=== PATIENT | male | born 1955 | race Caucasian/White ===

== ENCOUNTER 2018-08-24 15:57 | Emergency (ER) | payer OTHER, SELFPAY ==
[2018-08-24 16:14] VITALS: BP 140/91; PULSE 66; RESP 18; TEMP 36.2; O2SAT 98
--- NOTE | 2018-08-24 16:31 | DI.RAD_ITS ---
SYMPTOM/DIAGNOSIS: FALL LEFT FEMUR: Four views. No acute fracture or dislocation is seen. Vascular calcifications are seen in the soft tissues. Degenerative changes are seen in the hips and knees. IMPRESSION: No acute fracture or dislocation.
--- NOTE | 2018-08-24 17:08 | DI.VRAD_ITS ---
EXAM: XR Left Femur, 2 Views EXAM DATE/TIME: 08/24/2018 4:33 PM CLINICAL HISTORY: 63 years old, male; Pain; Thigh; Left; Patient HX: Left femur pain, fell on ice today, no surgery. TECHNIQUE: XR Left femur, 2 views COMPARISON: No relevant prior studies available. FINDINGS: Limitations: Crosstable lateral view is of the upper femur, but the femoral head and hip joint are obscured by overlapping soft tissue Bones/joints: Negative for fracture or dislocation. Degenerative joint space narrowing and spurring at the knee joint. Soft tissues: No radiopaque foreign body. No mass. Arterial wall calcifications. IMPRESSION: Negative left femur x-rays. Dictated and Authenticated by: Priscilla Langston MD. Ordering:CASEY Meek MD
--- NOTE | 2018-08-24 17:47 | ED.GENADUL_ITS ---
Discharge Plan Disposition Patient Disposition: HOME Condition: Stable Discharge Details Chief Complaint: Orthopedic Clinical Impression: Quadriceps tendon rupture Primary Care Provider: Carl Maza ED Provider: Fantasma Richey Home Meds and New Rx's Prescriptions: Continued ibuprofen 200 MG tablet 600 mg PO PRN RF: 0 aspirin [Aspirin Low-Strength] 81 MG tablet,chewable 81 mg PO DAILY RF: 0 sertraline 50 MG tablet 50 mg PO BID Qty: 180 RF: 4 hydrochlorothiazide 25 mg tablet 25 mg PO DAILY Qty: 90 RF: 4 levothyroxine 50 mcg tablet 50 mcg PO DAILY Qty: 90 RF: 3 losartan 25 mg tablet 25 mg PO DAILY Qty: 90 RF: 3 meloxicam [Mobic] 15 mg tablet 15 mg PO DAILY Qty: 60 RF: 6 nitroglycerin [Nitrostat] 0.4 mg tablet, sublingual 0.4 mg Sublingual PRN PRN (Reason: Chest Pain) Qty: 25 RF: 0 ranitidine HCl 150 mg tablet 150 mg PO BID Qty: 180 RF: 3 tadalafil [Cialis] 10 mg tablet 10 mg PO PRN PRNRF: 0 Discharge Instructions Instructions: Tendon Rupture (ED) Additional Instructions: Please wear your knee immobilizer and use crutches as needed for stability. You should call the orthopedic office first thing Monday for arrangement of follow-up appointment. You may continue to take [id number] acetaminophen or your normal pain medications as needed for discomfort. Feel free to return for any new or significant worsening symptoms. Referrals: Khoa Jordan MD [ [facility] STAFF PHYSICIAN] - Flaco Pyle MD [ [facility] STAFF PHYSICIAN] - (Call the office on Monday for arrangement of follow-up appointment.) Discharge Data Discharge Date/Time-TO BE ENTERED AT DEPARTURE: 08/24/18 17:58 Medical Decision Making Patient presenting to the emergency department for chief complaint of left upper leg pain. Patient states yesterday while walking he was on a slanted incline and felt a severe sudden pain in his mid thigh then caused him to fall. Patient denies any syncope, head neck or back pain. Patient states that with any movement or bending of his leg he has severe pain and discomfort in his mid thigh. Physical exam shows lateral swelling and extreme tenderness to any palpation of the quadricep. Patient's position of comfort is with leg fully extended but patient is unable to raise leg off the bed. Plan to perform radiological imaging to rule out acute fracture but I am suspicious of quadricep tear either vastus lateralis or quadricep tendon. Patient states that rest very minimal pain so denies any need for pain medication Radiological imaging shows no acute findings. I did speak with Dr. Jordan in regards to quadricep tear and per phone consult he stated patient should be placed in a leg immobilizer and placed on crutches with early follow-up next week for consideration of surgery. Patient placed on follow-up list and informed to call orthopedic office on Monday morning. Patient denied need for any further pain medication except for [id number] pain meds and stated clear understanding to keep immobilizer on until following up with orthopedist. After discussion of diagnosis and plan of care patient has no further needs, questions, or concerns and states clear understanding to return to the emergency department for any worsening symptoms. HPI General Mode of arrival: wheelchair . Date/Time Provider Initiated Documentation: 08/24/18 16:18 . Limitations to Documentation: no limitations . Information obtained by: patient . History of Present Illness 63 year old M presents to the emergency department with the chief complaint of left leg injury, described as mild, with intensity rated at 2. Quality is described as sharp, and is localized to the left and lower extremity. Patient reports no radiation. Patient started experiencing this day(s) (1) and it has been constant. Rest improves symptom(s), Movement worsens symptoms . Patient notes no other symptoms.. Patient did receive the following treatments prior to arrival, none Related Data Home Medications Medication Instructions Recorded Confirmed aspirin [Aspirin Low-Strength] 81 mg PO DAILY tab-cap 04/08/13 08/24/18 ibuprofen 600 mg PO PRN 04/08/13 08/24/18 sertraline 50 mg PO BID #180 tab-cap 11/10/17 06/19/18 hydrochlorothiazide 25 mg tablet 25 mg PO DAILY #90 tab 08/24/18 08/24/18 levothyroxine 50 mcg tablet 50 mcg PO DAILY #90 tab-cap 08/24/18 08/24/18 losartan 25 mg tablet 25 mg PO DAILY #90 tab-cap 08/24/18 08/24/18 meloxicam 15 mg tablet 15 mg PO DAILY #60 tab-cap 08/24/18 08/24/18 nitroglycerin 0.4 mg sublingual 0.4 mg SUBLINGUAL PRN PRN #25 tab 08/24/18 08/24/18 tablet ranitidine 150 mg tablet 150 mg PO BID #180 tab-cap 08/24/18 08/24/18 tadalafil [Cialis] 10 mg PO PRN PRN 08/24/18 08/24/18 Previous Rx's Medication Instructions Recorded sertraline 50 mg PO BID #180 tab-cap 11/10/17 hydrochlorothiazide 25 mg tablet 25 mg PO DAILY #90 tab 08/24/18 levothyroxine 50 mcg tablet 50 mcg PO DAILY #90 tab-cap 08/24/18 losartan 25 mg tablet 25 mg PO DAILY #90 tab-cap 08/24/18 meloxicam 15 mg tablet 15 mg PO DAILY #60 tab-cap 08/24/18 nitroglycerin 0.4 mg sublingual 0.4 mg SUBLINGUAL PRN PRN #25 tab 08/24/18 tablet ranitidine 150 mg tablet 150 mg PO BID #180 tab-cap 08/24/18 Allergies Allergy/AdvReac Type Severity Reaction Status Date / Time venom-honey bee Allergy Intermediate BEE STINGS Verified 08/24/18 16:18 CAUSE SWELLING General Stated Complaint: Orthopedic HUSSEIN: 4 Review of Systems Constitutional Denies frequent falls Cardiovascular Denies syncope Musculoskeletal Reports as per HPI, Denies numbness and Denies tingling Neurologic Denies syncope, Denies frequent falls, Denies numbness and Denies tingling PFSH Surgical History Rotator Cuff Repair Family History Mother Neoplasm Father Heart disease Hyperlipidemia Neoplasm Sister No problems noted. 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 Smoking/Tobacco Use Status: Former Tobacco Use alcohol intake: never substance use type: does not use Exam Const General: cooperative, healthy appearing and no acute distress Orientation: alert, awake and oriented x3 Resp Effort & Inspection: normal respiratory effort and able to speak in complete sentences Cardio Rate: regular rate Rhythm: regular rhythm Extrem Left lower extremity: hip/thigh Details: tenderness Location: of the mid upper leg Location: laterally, swelling Location: of the mid upper leg (lateral) and abnormal ROM Details: held in an abnormal fashion Details: in flexion, pain with active ROM, pain with passive ROM and with range as follows (Patient has inability to flex lower leg due to severe quadricep pain with any range of motion); no ecchymosis, knee Details: no tenderness, no swelling, no ecchymosis and no crepitus, lower leg Details: normal to inspection, ankle Details: normal to inspection and foot Details: normal to inspection Course Vital Signs Temperature 36.2 C L 08/24/18 16:14 Pulse 66 08/24/18 16:14 Respiratory Rate 18 08/24/18 16:14 Blood Pressure 140/91 H 08/24/18 16:14 Pulse Oximetry 98 08/24/18 16:14 Temperature 36.2 C L 08/24/18 16:14 Temperature Source Skin 08/24/18 16:14 Pulse 66 08/24/18 16:14 Respiratory Rate 18 08/24/18 16:14 Respiratory Effort 08/24/18 16:17 Blood Pressure 140/91 H 08/24/18 16:14 Pulse Oximetry 98 08/24/18 16:14 Oxygen Delivery Method Room Air 08/24/18 16:14 Oxygen Flow Rate 0 08/24/18 16:14 Pain Level 2 08/24/18 16:14
== END 2018-08-24 17:58 | disposition home or self-care (01) ==
PROVIDERS: Emergency Provider Nurse Practitioner Family; PCP Emergency Medicine
DX: M66.88 Spontaneous rupture of other tendons, other sites (principal)
CPT/HCPCS: 73552; 99283; 99282; E0114; L1830

== ENCOUNTER 2018-09-04 16:00 | Observation (INO) | payer OTHER, SELFPAY ==
[2018-09-04 16:13] VITALS: BP 195/104; PULSE 78; RESP 28; TEMP 36.1; O2SAT 94
--- NOTE | 2018-09-04 16:34 | DI.RAD_ITS ---
SYMPTOMS/DIAGNOSIS: REINJURY TO ANTERIOR AND LATERAL THIGH LEFT FEMUR: Four views were obtained. No fracture seen. Please see accompanying CT report.
--- NOTE | 2018-09-04 16:35 | W.ED.GENAD ---
Discharge Plan Disposition Patient Disposition: [facility] Condition: Fair Discharge Details Chief Complaint: Orthopedic Clinical Impression: Thigh pain Reason For Visit: THIGH PAIN Admit Date/Time: 09/04/18 20:48 Admit Provider: George Wilson Attending Provider: George Wilson Primary Care Provider: Carl Maza ED Provider: Anisha Renteria Discharge Data Discharge Date/Time-TO BE ENTERED AT DEPARTURE: 09/04/18 21:32 Medical Decision Making Patient is a 63 year old male, accompanied by his , with c/c of left thigh pain. Patient was seen yesterday by orthopedics for reevaluation of left quadriceps injury he sustained on 08/25/18. He was initially seen in the ER and there was concern for quadriceps rupture. However, when he was reevaluated he was much improved and there was no evidence of deficit at that time. He states that he had recurrence of his pain today when he slipped and caught himself quickly. Did not fall. Pain is primarily along the anterior and lateral thigh. On exam, patient is writhing in pain. He has notable swelling to the anteriorlateral thigh. Ecchymosis from previous injury along the medial thigh. 2+ distal pulses. Exam is very limited secondary to his acute pain. He has no shortening or rotational deformity to the leg. Patient is hitting his head against the wall. I advised that his pain is likely exacerbated by all of his breathing and tachypnea and tried to calm him. Movement exacerbates his discomfort. Will treat with Toradol IM, and PO Valium. 15minutes after administration, patient is requesting further pain medication prior to going for imaging. Will give IM DIlaudid. Patient back from XR, reviewed imaging and I am unable ot see any defect. Patient continues to be panting and writhing in pain. I am still unable to exam the leg well secondary to his pain. Will start IV, given IV fentanyl and obtain laboratory evaluation. Plan to consult with orthopedics. As this happened shortly before arrival, patient has good distal pulses and swelling only notable along lateral thigh with no notable trauma, I find infectious process or compartment syndrome unlikely. Reevaluated the patients leg. Continues to have good color, 2+ distal pulses. Will not allow me to range the leg. Feels tight lateral mid thigh. Calf is soft and nontender. No change in the skin. Discussed case with Dr. Bhardwaj. Discussed pain management options, will give IV Ativan. As pain is out of proportion, will obtain CT of LLE. XR reviewed by radiologist: FINDINGS: Bones/joints: No acute fracture. No dislocation. No focal osseous lesion. Soft tissues: No soft tissue radiopaque foreign body. Possible lateral left thigh soft tissue swelling compared to 08/24/2018. Vasculature: Arterial calcification. IMPRESSION: 1. No acute fracture or dislocation. 2. Possible lateral left thigh soft tissue swelling compared to 08/24/2018. Patient returned from CT still having large amount of pain, will give IV Dilaudid. Reviewed CT myself, concerned for possible fluid collection. Spkoe with Dr. Cannon regarding patients persistent pain and my findings on the CT. I went over the concerning diagnoses including compartment syndrome, rupture, infection. He advised that his history, symptoms and findings are not consistent with this. Advised admission for pain management and evaluation by orthopedics tomorrow. FINDINGS: Bones/joints: No fracture. No dislocation. Minimal left knee joint effusion. Soft tissues: Large inhomogeneous hematoma (approximately 8.2 x 6.1 x 18.8 cm) involving the anterolateral left thigh musculature - especially in the region of the left vastus intermedius muscle. Associated area of active hemorrhage within the caudal aspect of the hematoma (axial images 165- 188, series 3 / sagittal images 60-67). Associated anterior left thigh / left knee soft tissue edema. IMPRESSION: 1. No fracture or dislocation. 2. Large inhomogeneous hematoma (approximately 8.2 x 6.1 x 18.8 cm) involving the anterolateral left thigh musculature - especially in the region of the left vastus intermedius muscle. Associated area of active hemorrhage within the caudal aspect of the hematoma (axial images 165-188, series 3 / sagittal images 60-67). 3. Associated anterior left thigh / left knee soft tissue edema. 4. Minimal left knee joint effusion. Consulted with Dr. Cannon again regarding the area of hemorrhage. He advised that this area does not need intervention. Rather, he advised compression, elevation and ice. Clarke applied, leg elevated and ice applied. Consulted with Dr. Wilson regarding admission. While patient appears improved after IV dilaudid, he is moving less and appears more comfortable, he continues to endorse severe pain. With the amount of medication it has taken to get hte patient this comfortable, I do not feel comfortable sending him home at this time. Dr. Wilson agrees to admission and will come to evaluate the patient. HPI General Mode of arrival: wheelchair. Date/Time Provider Initiated Documentation: 09/04/18 16:07. Limitations to Documentation: no limitations. Information obtained by: patient and family. History of Present Illness 63 year old M presents to the emergency department with the chief complaint of left thigh pain, described as severe, with intensity rated at 10. Quality is described as stabbing, and is localized to the left and lower extremity. Patient reports no radiation. Patient started experiencing this hour(s) (1) and it has been constant. Movement worsens symptoms . Patient notes denies chest pain, cough, diaphoresis, fever/chills, nausea/vomiting, rash and shortness of breath. Patient did receive the following treatments prior to arrival, none Related Data Home Medications Medication Instructions Recorded Confirmed aspirin [Aspirin Low-Strength] 81 mg PO DAILY tab-cap 04/08/13 09/04/18 ibuprofen 600 mg PO PRN 04/08/13 09/04/18 sertraline 50 mg PO BID #180 tab-cap 11/10/17 09/04/18 hydrochlorothiazide 25 mg tablet 25 mg PO DAILY #90 tab 08/24/18 09/04/18 levothyroxine 50 mcg tablet 50 mcg PO DAILY #90 tab-cap 08/24/18 09/04/18 losartan 25 mg tablet 25 mg PO DAILY #90 tab-cap 08/24/18 09/04/18 meloxicam 15 mg tablet 15 mg PO DAILY #60 tab-cap 08/24/18 09/04/18 nitroglycerin 0.4 mg sublingual 0.4 mg SUBLINGUAL PRN PRN #25 tab 08/24/18 09/04/18 tablet ranitidine 150 mg tablet 150 mg PO BID #180 tab-cap 08/24/18 09/04/18 tadalafil [Cialis] 10 mg PO PRN PRN 08/24/18 09/04/18 Previous Rx's Medication Instructions Recorded sertraline 50 mg PO BID #180 tab-cap 11/10/17 hydrochlorothiazide 25 mg tablet 25 mg PO DAILY #90 tab 08/24/18 levothyroxine 50 mcg tablet 50 mcg PO DAILY #90 tab-cap 08/24/18 losartan 25 mg tablet 25 mg PO DAILY #90 tab-cap 08/24/18 meloxicam 15 mg tablet 15 mg PO DAILY #60 tab-cap 08/24/18 nitroglycerin 0.4 mg sublingual 0.4 mg SUBLINGUAL PRN PRN #25 tab 08/24/18 tablet ranitidine 150 mg tablet 150 mg PO BID #180 tab-cap 08/24/18 Allergies Allergy/AdvReac Type Severity Reaction Status Date / Time venom-honey bee Allergy Intermediate BEE STINGS Verified 09/04/18 16:17 CAUSE SWELLING General Stated Complaint: Orthopedic HUSSEIN: 4 Review of Systems Constitutional Reports as per HPI, Denies chills, Denies fever(s), Denies headache(s) and Denies weakness ENT Denies headache(s) Cardiovascular Reports as per HPI Respiratory Reports as per HPI and Denies cough Musculoskeletal Reports as per HPI and Denies tingling Integumentary/Breasts Reports as per HPI and Reports other (ecchymosis medial thigh from previous injury) Neurologic Denies headache(s), Denies tingling and Denies weakness [facility] Medical History Smoker (Acute) Angina pectoris (Acute) Obstructive sleep apnea syndrome (Acute) Hypothyroidism (acquired) (Acute 03/03/17) Hypertension (Acute) Hyperlipidemia (Acute) Chest pain (Acute) Angina pectoris (Acute) Surgical History Rotator Cuff Repair Family History Mother Neoplasm Father Heart disease Hyperlipidemia Neoplasm Sister No problems noted. 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 Smoking/Tobacco Use Status: Former Tobacco Use alcohol intake: never substance use type: does not use Exam Const General: cooperative, healthy appearing, well developed, well groomed, in distress (patient is writhing in pain) moderate and anxious Nutritional Appearance: average body habitus and well nourished Orientation: alert and awake Resp Effort & Inspection: normal respiratory effort, able to speak in complete sentences and no respiratory distress Auscultation: clear to auscultation bilaterally, no rales, no rhonchi and no wheezes Cardio Rate: regular rate Rhythm: regular rhythm Heart Sounds: S1 normal and S2 normal Skin General skin exam: ecchymosis (medial thigh) Neuro General: alert and awake Cognition: normal cognition Speech: speech normal Gait: normal gait Motor: muscle tone normal throughout Sensory Exam: no sensory deficits noted Extrem Left lower extremity: normal capillary refill, no joint enlargement and hip/thigh Details: tenderness Location: of the mid upper leg Location: laterally and anteriorly, swelling Location: of the mid upper leg and ecchymosis (medial thigh, from previous injury, none over the area of discomfort ); abnormal to inspection (tight and tender over the lateral thigh. No ecchymosis), ROM abnormal (will not let me range), no abrasions, no lacerations, no deformity and no unusual warmth; abnormal to inspection (severe pain to anteriolateral thigh), abnormal ROM (will not let me range the leg) and no edema Psych Appearance: grossly normal and well kempt Mental Status: mental status grossly normal Speech and Movement: speech and movement normal Course Vital Signs Temperature 36.1 C L 09/04/18 16:13 Pulse 78 09/04/18 16:13 Respiratory Rate 28 H 09/04/18 16:13 Blood Pressure 195/104 H 09/04/18 16:13 Pulse Oximetry 94 L 09/04/18 16:13 Temperature 36.1 C L 09/04/18 16:13 Temperature Source Skin 09/04/18 16:13 Pulse 78 09/04/18 16:13 Respiratory Rate 28 H 09/04/18 16:13 Respiratory Effort Non-Labored 09/04/18 16:17 Blood Pressure 195/104 H 09/04/18 16:13 Pulse Oximetry 94 L 09/04/18 16:13 Pain Level 10 09/04/18 16:13
--- NOTE | 2018-09-04 16:43 | ED.GENADUL_ITS ---
Discharge Plan Disposition Patient Disposition: [facility] IN[facility]IENT Condition: Fair Discharge Details Chief Complaint: Orthopedic Clinical Impression: Thigh pain Reason For Visit: THIGH PAIN Admit Date/Time: 09/04/18 20:48 Admit Provider: George Wilson Attending Provider: George Wilson Primary Care Provider: Carl Maza ED Provider: Anisha Renteria Discharge Data Discharge Date/Time-TO BE ENTERED AT DEPARTURE: 09/04/18 21:32 Medical Decision Making Patient is a 63 year old male, accompanied by his , with c/c of left thigh pain. Patient was seen yesterday by orthopedics for reevaluation of left quadriceps injury he sustained on 08/25/18. He was initially seen in the ER and there was concern for quadriceps rupture. However, when he was reevaluated he was much improved and there was no evidence of deficit at that time. He states that he had recurrence of his pain today when he slipped and caught himself quickly. Did not fall. Pain is primarily along the anterior and lateral thigh. On exam, patient is writhing in pain. He has notable swelling to the anteriorlateral thigh. Ecchymosis from previous injury along the medial thigh. 2+ distal pulses. Exam is very limited secondary to his acute pain. He has no s hortening or rotational deformity to the leg. Patient is hitting his head against the wall. I advised that his pain is likely exacerbated by all of his breathing and tachypnea and tried to calm him. Movement exacerbates his discomfort. Will treat with Toradol IM, and PO Valium. 15minutes after administration, patient is requesting further pain medication prior to going for imaging. Will give IM DIlaudid. Patient back from XR, reviewed imaging and I am unable ot see any defect. Patient continues to be panting and writhing in pain. I am still unable to exam the leg well secondary to his pain. Will start IV, given IV fentanyl and obtain laboratory evaluation. Plan to consult with orthopedics. As this happened shortly before arrival, patient has good distal pulses and swelling only notable along lateral thigh with no notable trauma, I find infectious process or compartment syndrome unlikely. Reevaluated the patients leg. Continues to have good color, 2+ distal pulses. Will not allow me to range the leg. Feels tight lateral mid thigh. Calf is soft and nontender. No change in the skin. Discussed case with Dr. Bhardwaj. Discussed pain management options, will give IV Ativan. As pain is out of proportion, will obtain CT of LLE. XR reviewed by radiologist: FINDINGS: Bones/joints: No acute fracture. No dislocation. No focal osseous lesion. Soft tissues: No soft tissue radiopaque foreign body. Possible lateral left thigh soft tissue swelling compared to 08/24/2018. Vasculature: Arterial calcification. IMPRESSION: 1. No acute fracture or dislocation. 2. Possible lateral left thigh soft tissue swelling compared to 08/24/2018. Patient returned from CT still having large amount of pain, will give IV Dilaudid. Reviewed CT myself, concerned for possible fluid collection. Spkoe with Dr. Cannon regarding patients persistent pain and my findings on the CT. I went over the concerning diagnoses including compartment syndrome, rupture, infection. He advised that his history, symptoms and findings are not consistent with this. Advised admission for pain management and evaluation by orthopedics tomorrow. FINDINGS: Bones/joints: No fracture. No dislocation. Minimal left knee joint effusion. Soft tissues: Large inhomogeneous hematoma (approximately 8.2 x 6.1 x 18.8 cm) involving the anterolateral left thigh musculature - especially in the region of the left vastus intermedius muscle. Associated area of active hemorrhage within the caudal aspect of the hematoma (axial images 165- 188, series 3 / sagittal images 60-67). Associated anterior left thigh / left knee soft tissue edema. IMPRESSION: 1. No fracture or dislocation. 2. Large inhomogeneous hematoma (approximately 8.2 x 6.1 x 18.8 cm) involving the anterolateral left thigh musculature - especially in the region of the left vastus intermedius muscle. Associated area of active hemorrhage within the caudal aspect of the hematoma (axial images 165- 188, series 3 / sagittal images 60-67). 3. Associated anterior left thigh / left knee soft tissue edema. 4. Minimal left knee joint effusion. Consulted with Dr. Cannon again regarding the area of hemorrhage. He advised that this area does not need intervention. Rather, he advised compression, elevation and ice. Clarke applied, leg elevated and ice applied. Consulted with Dr. Wilson regarding admission. While patient appears improved after IV dilaudid, he is moving less and appears more comfortable, he continues to endorse severe pain. With the amount of medication it has taken to get hte patient this comfortable, I do not feel comfortable sending him home at this time. Dr. Wilson agrees to admission and will come to evaluate the patient. HPI General Mode of arrival: wheelchair . Date/Time Provider Initiated Documentation: 09/04/18 16:07 . Limitations to Documentation: no limitations . Information obtained by: patient and family . History of Present Illness 63 year old M presents to the emergency department with the chief complaint of left thigh pain, described as severe, with intensity rated at 10. Quality is described as stabbing, and is localized to the left and lower extremity. Patient reports no radiation. Patient started experiencing this hour(s) (1) and it has been constant. Movement worsens symptoms . Patient notes denies chest pain, cough, diaphoresis, fever/chills, nausea/vomiting, rash and shortness of breath. Patient did receive the following treatments prior to arrival, none Related Data Home Medications Medication Instructions Recorded Confirmed aspirin [Aspirin Low-Strength] 81 mg PO DAILY tab-cap 04/08/13 09/04/18 ibuprofen 600 mg PO PRN 04/08/13 09/04/18 sertraline 50 mg PO BID #180 tab-cap 11/10/17 09/04/18 hydrochlorothiazide 25 mg tablet 25 mg PO DAILY #90 tab 08/24/18 09/04/18 levothyroxine 50 mcg tablet 50 mcg PO DAILY #90 tab-cap 08/24/18 09/04/18 losartan 25 mg tablet 25 mg PO DAILY #90 tab-cap 08/24/18 09/04/18 meloxicam 15 mg tablet 15 mg PO DAILY #60 tab-cap 08/24/18 09/04/18 nitroglycerin 0.4 mg sublingual 0.4 mg SUBLINGUAL PRN PRN #25 tab 08/24/18 09/04/18 tablet ranitidine 150 mg tablet 150 mg PO BID #180 tab-cap 08/24/18 09/04/18 tadalafil [Cialis] 10 mg PO PRN PRN 08/24/18 09/04/18 Previous Rx's Medication Instructions Recorded sertraline 50 mg PO BID #180 tab-cap 11/10/17 hydrochlorothiazide 25 mg tablet 25 mg PO DAILY #90 tab 08/24/18 levothyroxine 50 mcg tablet 50 mcg PO DAILY #90 tab-cap 08/24/18 losartan 25 mg tablet 25 mg PO DAILY #90 tab-cap 08/24/18 meloxicam 15 mg tablet 15 mg PO DAILY #60 tab-cap 08/24/18 nitroglycerin 0.4 mg sublingual 0.4 mg SUBLINGUAL PRN PRN #25 tab 08/24/18 tablet ranitidine 150 mg tablet 150 mg PO BID #180 tab-cap 08/24/18 Allergies Allergy/AdvReac Type Severity Reaction Status Date / Time venom-honey bee Allergy Intermediate BEE STINGS Verified 09/04/18 16:17 CAUSE SWELLING General Stated Complaint: Orthopedic HUSSEIN: 4 Review of Systems Constitutional Reports as per HPI, Denies chills, Denies fever(s), Denies headache(s) and Denies weakness ENT Denies headache(s) Cardiovascular Reports as per HPI Respiratory Reports as per HPI and Denies cough Musculoskeletal Reports as per HPI and Denies tingling Integumentary/Breasts Reports as per HPI and Reports other (ecchymosis medial thigh from previous injury) Neurologic Denies headache(s), Denies tingling and Denies weakness [facility] Medical History Smoker (Acute) Angina pectoris (Acute) Obstructive sleep apnea syndrome (Acute) Hypothyroidism (acquired) (Acute 03/03/17) Hypertension (Acute) Hyperlipidemia (Acute) Chest pain (Acute) Angina pectoris (Acute) Surgical History Rotator Cuff Repair Family History Mother Neoplasm Father Heart disease Hyperlipidemia Neoplasm Sister No problems noted. 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 Smoking/Tobacco Use Status: Former Tobacco Use alcohol intake: never substance use type: does not use Exam Const General: cooperative, healthy appearing, well developed, well groomed, in distress (patient is writhing in pain) moderate and anxious Nutritional Appearance: average body habitus and well nourished Orientation: alert and awake Resp Effort & Inspection: normal respiratory effort, able to speak in complete sentences and no respiratory distress Auscultation: clear to auscultation bilaterally, no rales, no rhonchi and no wheezes Cardio Rate: regular rate Rhythm: regular rhythm Heart Sounds: S1 normal and S2 normal Skin General skin exam: ecchymosis (medial thigh) Neuro General: alert and awake Cognition: normal cognition Speech: speech normal Gait: normal gait Motor: muscle tone normal throughout Sensory Exam: no sensory deficits noted Extrem Left lower extremity: normal capillary refill, no joint enlargement and hip/ thigh Details: tenderness Location: of the mid upper leg Location: laterally and anteriorly, swelling Location: of the mid upper leg and ecchymosis (medial thigh, from previous injury, none over the area of discomfort ); abnormal to inspection (tight and tender over the lateral thigh. No ecchymosis), ROM abnormal (will not let me range), no abrasions, no lacerations, no deformity and no unusual warmth; abnormal to inspection (severe pain to anteriolateral thigh), abnormal ROM (will not let me range the leg) and no edema Psych Appearance: grossly normal and well kempt Mental Status: mental status grossly normal Speech and Movement: speech and movement normal Course Vital Signs Temperature 36.1 C L 09/04/18 16:13 Pulse 78 09/04/18 16:13 Respiratory Rate 28 H 09/04/18 16:13 Blood Pressure 195/104 H 09/04/18 16:13 Pulse Oximetry 94 L 09/04/18 16:13 Temperature 36.1 C L 09/04/18 16:13 Temperature Source Skin 09/04/18 16:13 Pulse 78 09/04/18 16:13 Respiratory Rate 28 H 09/04/18 16:13 Respiratory Effort Non-Labored 09/04/18 16:17 Blood Pressure 195/104 H 09/04/18 16:13 Pulse Oximetry 94 L 09/04/18 16:13 Pain Level 10 09/04/18 16:13
[2018-09-04] MEDS: Diazepam 5 MG TAB PO (16:45)
[2018-09-04] MEDS: Ketorolac 30 MG/ML VIAL IM (16:45)
[2018-09-04] MEDS: HYDROmorphone 2 MG/ML VIAL 1 MG IM (17:05)
--- NOTE | 2018-09-04 18:02 | DI.CT_ITS ---
SYMPTOMS/DIAGNOSIS: LATERAL THIGH PAIN, PAIN OUT OF PROPORTION LEFT LOWER EXTREMITY CT: CT examination of the left lower extremity was performed from the level of the mid pelvis to the upper leg. No pelvic mass, adenopathy or hematoma. No fracture of the visualized portions of the pelvic bones, left femur, patella, or visualized portions of the tibia or fibula. There is an apparent hematoma involving left anterolateral thigh musculature, particularly left vastus intermedius muscle. There appears to be active hemorrhage in the caudal aspect of the hematoma, which measures about 19 x 8 x 6 cm in diameter. CONCLUSION: Apparent large left thigh hematoma, particularly involving left vastus intermedius with active hemorrhage noted. The findings are reportedly posttraumatic, although underlying neoplasm or AVM is not excluded on the basis of this examination.
[2018-09-04] MEDS: fentaNYL 100 MCG/2 ML VIAL IVP (18:12)
[2018-09-04] MEDS: Normal Saline 1,000 ML 1000 ML IV (18:12)
[2018-09-04 18:24] LABS: Abs Immature Grans 0.37 k/cumm (0.0-0.09); HCT 37.2 % (40.0-50.0); HGB 13.4 g/dL (13.5-17.5); Mean Corpuscular Hemoglobin 31.5 pg (27.0-33.0); Mean Corpuscular Volume 87.5 fL (80-95); Platelet Count 255 x1000/uL (130-400); RBC 4.25 m/cumm (4.50-6.00); RBC Distribution Width 13.2 % (11.8-14.1); White Blood Cell Count 13.12 k/cumm (4.4-10.8)
[2018-09-04] MEDS: LORazepam 2 MG/ML VIAL 1 MG IVP (18:30)
--- NOTE | 2018-09-04 18:33 | DI.VRAD_ITS ---
EXAM: XR Left Femur, 2 Views EXAM DATE/TIME: 09/04/2018 4:35 PM CLINICAL HISTORY: 63 years old, male; Left thigh pain: Fall one week ago and again today; PT unable to remain still or move leg TECHNIQUE: XR Left femur, 2 views COMPARISON: CR XR FEMUR LT 08/24/2018 4:38 PM FINDINGS: Bones/joints: No acute fracture. No dislocation. No focal osseous lesion. Soft tissues: No soft tissue radiopaque foreign body. Possible lateral left thigh soft tissue swelling compared to 08/24/2018. Vasculature: Arterial calcification. IMPRESSION: 1. No acute fracture or dislocation. 2. Possible lateral left thigh soft tissue swelling compared to 08/24/2018. Dictated and Authenticated by: David Bautista MD. Ordering:MARSHALL Lancaster MD
--- NOTE | 2018-09-04 18:41 | NUR.NOTE ---
pt has been writhing in pain since arrival. pain medication has not helped.Nursing Note:
[2018-09-04] MEDS: Omnipaque 350 MG/ML 100 ML BTL IJ (18:46)
[2018-09-04 18:48] LABS: Absolute Lymphocyte Count 1.57 k/cumm (1.2-3.4); Absolute Monocyte Count 0.66 k/cumm (0.11-0.7)
[2018-09-04 18:49] LABS: Absolute Eosinophil Count 0.13 k/cumm (0.0-0.7); Diff Comment Manual Differential; ESR 18 MM/HR (1-20); RBC Morphology Normal
[2018-09-04 19:03] VITALS: BP 175/75; PULSE 72; RESP 20; O2SAT 94
--- NOTE | 2018-09-04 19:18 | DI.VRAD_ITS ---
EXAM: CT Left Lower Extremity With IV Contrast, Femur EXAM DATE/TIME: 09/04/2018 6:03 PM CLINICAL HISTORY: 63 years old, male; Difficulty walking; Very painful left femur Patient fell 1 week ago and again today TECHNIQUE: CT of the Left lower extremity with intravenous contrast was performed. Exam focused on the femur. All CT scans at this facility use at least one of these dose optimization techniques: automated exposure control; mA and/or kV adjustment per patient size (includes targeted exams where dose is matched to clinical indication); or iterative reconstruction. Coronal and sagittal reformatted images were created and reviewed. CONTRAST: 100 ml of [id number] administered intravenously. COMPARISON: CR XR FEMUR LT 09/04/2018 5:33 PM FINDINGS: Bones/joints: No fracture. No dislocation. Minimal left knee joint effusion. Soft tissues: Large inhomogeneous hematoma (approximately 8.2 x 6.1 x 18.8 cm) involving the anterolateral left thigh musculature - especially in the region of the left vastus intermedius muscle. Associated area of active hemorrhage within the caudal aspect of the hematoma (axial images 165-188, series 3 / sagittal images 60-67). Associated anterior left thigh / left knee soft tissue edema. IMPRESSION: 1. No fracture or dislocation. 2. Large inhomogeneous hematoma (approximately 8.2 x 6.1 x 18.8 cm) involving the anterolateral left thigh musculature - especially in the region of the left vastus intermedius muscle. Associated area of active hemorrhage within the caudal aspect of the hematoma (axial images 165-188, series 3 / sagittal images 60-67). 3. Associated anterior left thigh / left knee soft tissue edema. 4. Minimal left knee joint effusion. 5. THIS REPORT CONTAINS FINDINGS THAT MAY BE CRITICAL TO PATIENT CARE. The findings were verbally communicated via telephone conference with TOMMY GOMEZ at 7:14 PM EST on 09/04/2018. The findings were acknowledged and understood. Dictated and Authenticated by: David Bautista MD. Ordering:MARSHALL Lancaster MD
[2018-09-04] MEDS: HYDROmorphone 2 MG/ML VIAL IVP ×2 (19:25→22:29)
[2018-09-04 19:42] LABS: ALT 42 U/L (12-78); AST 34 U/L (15-37); Albumin 3.6 g/dL (3.4-5.0); Alkaline Phosphatase 55 U/L (46-116); Anion Gap 10.9 mmol/L (3-11); BUN 16 mg/dL (7-18); Bilirubin, Total 0.3 mg/dL (0.2-1.0); CO2 23.1 mmol/L (21.0-32.0); CREATININE 0.79 mg/dL (0.70-1.30); Calcium 9.2 mg/dL (8.5-10.1); Chloride 106 mmol/L (98-107); Creatine Kinase 167 U/L (39-308); Glucose 127 mg/dL (70-100); Potassium 4.3 mmol/L (3.5-5.1); Sodium 140 mmol/L (136-145); Total Protein 7.2 g/dL (6.4-8.2)
[2018-09-04 19:43] LABS: C-Reactive Protein 0.25 mg/dL (0.0-0.3)
[2018-09-04 20:25] VITALS: BP 186/92; PULSE 65; RESP 20; TEMP 36.5; O2SAT 97
--- NOTE | 2018-09-04 20:37 | HPE_ITS ---
Date of service: 09/04/18 Time of Service: 20:35 Assessment and Plan (1) Thigh pain: Current visit: Yes Status: Acute Thigh pain secondary to quadriceps strain and hematoma. No signs or symptoms of compartment syndrome. Patient's pain seems to be coming under control. We will continue prn analgesics along with rest, elevation, ice and compression dressing. Will get PT involved in the morning to see if we can mobilize him for ambulation and hopefully transition over to oral pain medication. History of Present Illness Chief Complaint: Thigh pain Narrative: Patient is a 63-year-old male. He slipped on the ice today, did not fall, but left lower extremity shot out forward and he noticed immediate pain in the thigh. In the emergency room evaluation of note for CT showing large anterior hematoma. He was given Toradol 30 mg, Dilaudid 1 mg, fentanyl 100 mcg and then Dilaudid 2 mg IV and at length had at least some control of his pain. it was not felt that he would be able to manage on oral medication and he was admitted for further evaluation and management. Patient denies pain or paresthesias in the distal extremity. Note the case was reviewed with orthopedics who recommended no further intervention beyond standard conservative measures. Allergies to be venom Medications: Aspirin 81 daily HCTZ 25 daily Synthroid 50 mics daily Cozaar 25 daily meloxicam 15 daily Zantac 150 twice daily Zoloft 50 twice daily Cialis 10 prn Physical exam: Blood pressure 175/75 pulse 72 respirations 20, temp 36.1. HEENT is unremarkable. Neck supple. Lungs clear. Heart regular rate and rhythm wit hout murmurs rubs or gallops. Abdomen soft nontender. and rectal exams deferred the left thigh has been wrapped in a compression dressing, this is not taken down (details of thigh exam per emergency room note). Distally in the left lower extremity the pedal pulses are full, color is good, sensation is intact and motor is 5/5 Laboratory: White count is 13.1 hematocrit 37 platelet 200 for sodium 140 potassium 4.3 chloride 106 bicarb 23 BUN 16 creatinine 0.7 glucose 120 AST 34 ALT [address] of the left thigh shows extensive hematoma anterior compartment (see CT report for full details). Review of Systems Review of Systems All systems reviewed & are unremarkable except as noted in HPI and below PFSH Medical History Smoker (Acute) Angina pectoris (Acute) Obstructive sleep apnea syndrome (Acute) Hypothyroidism (acquired) (Acute 03/03/17) Hypertension (Acute) Hyperlipidemia (Acute) Chest pain (Acute) Angina pectoris (Acute) Surgical History Rotator Cuff Repair Family History Mother Neoplasm Father Heart disease Hyperlipidemia Neoplasm Sister No problems noted. Brother Essential hypertension Hyperlipidemia Social History household members: other details: 8 current occupational status: employed current occupation: [employer] service Smoking/Tobacco Use Status: Former Tobacco Use alcohol intake: never substance use type: does not use Meds Home Medications Medication Instructions Recorded Confirmed Type aspirin [Aspirin Low-Strength] 81 mg PO DAILY tab-cap 04/08/13 09/04/18 History ibuprofen 600 mg PO PRN 04/08/13 09/04/18 History sertraline 50 mg PO BID #180 tab-cap 11/10/17 09/04/18 Rx hydrochlorothiazide 25 mg tablet 25 mg PO DAILY #90 tab 08/24/18 09/04/18 Rx levothyroxine 50 mcg tablet 50 mcg PO DAILY #90 tab-cap 08/24/18 09/04/18 Rx losartan 25 mg tablet 25 mg PO DAILY #90 tab-cap 08/24/18 09/04/18 Rx meloxicam 15 mg tablet 15 mg PO DAILY #60 tab-cap 08/24/18 09/04/18 Rx nitroglycerin 0.4 mg sublingual 0.4 mg SUBLINGUAL PRN PRN #25 tab 08/24/18 09/04/18 Rx tablet ranitidine 150 mg tablet 150 mg PO BID #180 tab-cap 08/24/18 09/04/18 Rx tadalafil [Cialis] 10 mg PO PRN PRN 08/24/18 09/04/18 History Allergies Allergy/AdvReac Type Severity Reaction Status Date / Time venom-honey bee Allergy Intermediate BEE STINGS Verified 09/04/18 16:17 CAUSE SWELLING Exam Narrative Exam Narrative: per HPI Results Labs : 09/04/18 17:55 12/25/18 17:55 Laboratory Results - last 24 hr 09/04/18 09/04/18 17:55 17:55 WBC 13.12 H RBC 4.25 L Hgb 13.4 L Hct 37.2 L MCV 87.5 MCH 31.5 MCHC 36.0 RDW 13.2 Plt Count 255 MPV 10.0 Immature Gran % See Differential Neutrophils % 80.0 Lymphocytes % 12.0 Monocytes % 5.0 Eosinophils % 1.0 Basophils % 0.0 Absolute Neutrophils 10.50 H Absolute Lymphocytes 1.57 Absolute Monocytes 0.66 Absolute Eosinophils 0.13 Absolute Basophils 0.00 Metamyelocytes 2.0 Differential Comment Manual differential RBC Morphology Normal ESR 18 Sodium 140 Potassium 4.3 Chloride 106 Carbon Dioxide 23.1 Anion Gap 10.9 BUN 16 Creatinine 0.79 Estimated GFR/1.73 m2 >= 60.00 Glucose 127 H Calcium 9.2 Total Bilirubin 0.3 AST 34 ALT 42 Alkaline Phosphatase 55 Creatine Kinase 167 C-Reactive Protein 0.25 Total Protein 7.2 Albumin 3.6 Last Vital Signs Temp 36.1 C L 09/04/18 16:13 Pulse 72 09/04/18 19:03 Resp 20 09/04/18 19:03 BP 175/75 H 09/04/18 19:03 Pulse Ox 94 L 09/04/18 19:03
[2018-09-04 21:16] VITALS: BP 165/76; PULSE 72; RESP 20; O2SAT 94
[2018-09-04 21:44] VITALS: BP 192/91; PULSE 65; RESP 20; TEMP 36.5; O2SAT 94
[2018-09-04] MEDS: Zolpidem 5 MG TAB PO (22:28)
[2018-09-04] MEDS: Normal Saline Flush 10 ML SYR IVP (22:29)
[2018-09-04 22:30] VITALS: BP 186/92; O2SAT 97
--- NOTE | 2018-09-05 01:03 | NUR.NOTE ---
Nursing Note: At 21:30 hrs. pt, brought via stretcher, fully awake with mathew wrap om left thigh in placed. Verbalized of having pain rated 6, dilaudid 2 mg given and ambien for sleep po given. B/P been elevated and pt has no complained of headache or neck pain. will continue to monitor. Asleep at this time. Call lights at reach.
[2018-09-05] MEDS: Calcium Carbonate *TUMS* 500 MG CHEW 1000 MG PO (02:48)
[2018-09-05 02:55] VITALS: BP 167/91; PULSE 61; RESP 20; TEMP 36.6; O2SAT 97
[2018-09-05] MEDS: Levothyroxine 50 MCG TAB PO (06:14)
[2018-09-05] MEDS: Hydrochlorothiazide 25 MG TAB PO (07:59)
[2018-09-05] MEDS: Sertraline 50 MG TAB PO (07:59)
[2018-09-05] MEDS: Losartan 25 MG TAB PO (07:59)
[2018-09-05 08:16] VITALS: BP 151/79; PULSE 67; RESP 20; TEMP 36.6; O2SAT 95
--- NOTE | 2018-09-05 08:54 | PT.INIE ---
Date of service: 09/05/18 Time of Service: 08:55 PT Notes Inpatient Physical Therapy Evaluation Date: 09/05/2018 Referring Doctor: George Wilson PT Orders: PT CONSULT: Left quadricep strain and hematoma Precautions: Left lower extremity weightbearing as tolerated Patient Profile/Admitting Diagnosis: Patient is a 63-year-old male who fell on the ice 08/25/2018 and sustained left quadricep strain and hematoma, states he was improving and then slipped again presenting to the emergency room and being admitted now for pain control PMHX: Rotator cuff repair, obstructive sleep apnea, hypertension, hypothyroidism, hyperlipidemia, tobacco abuse Social History/Home Situation: Lives with in house 3 steps with railing to enter, flight of steps to the basement but can stand on one level inside home. Baseline mobility independent gait with no device, independent with ADLs. 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 Equipment Owned/DME: Axillary crutches, knee immobilizer he received with initial injury he states he has not been using it because it falls down. Subjective: Patient lying in bed states his pain is better controlled than when he was admitted, reports he still has limitations with getting his leg in and out of bed, bending left knee, and weightbearing on left lower extremity due to pain limitations. Patient agreeable to PT consult. Objective: General Observation: Clarke wrap left knee and thigh, ice packs left quadricep Mental Status: A and O x3 Pain: 3/10 pain in bed, 5/10 pain after PT session, RN notified ROM: Right Upper Extremity: AROM WNL Left Upper Extremity: AROM WNL Right Lower Extremity: AROM WNL Left Lower Extremity: AROM left hip flexion allows 90 degrees sitting at bedside, performs 10 degrees of left knee flexion sitting at bedside limited by pain, ankle within normal limits Strength: Right Upper Extremity: 5/5 throughout Left Upper Extremity: 5/5 throughout Right Lower Extremity: 5/5 throughout Left Lower Extremity: Difficult to assess due to pain limitations, patient able to perform left quadricep contraction with assisted straight leg raise left lower extremity, 5/5 DF and PF Bed Mobility/Transfers: Supine to sit: HOB 30 degrees, independent with leg wind field manager device Sit to stand: SBA with FW W Stand to sit: Supervision Sit to supine: HOB flat, independent with leg wind field manager Patient required use of leg wind field manager for lifting left lower extremity into and out of bed due to quadricep pain, with leg lifting device patient able to perform transfer independently Adaptive equipment: Patient issued sock aid, dressing stick, and leg wind field manager to assist with donning and doffing socks shoes and pants and assisting leg into and out of bed and car. Patient instructed in use of all adaptive equipment and verbalized understanding. Patient states he Nicholas has a industrial workers at home so he does not need one of these. Patient left his knee immobilizer at home and does not plan to use it due to it falls down with gait. Gait: SBA with FW W 20 feet x2, patient able to perform touchdown weightbearing on left lower extremity, limited by quad pain. Step to step gait pattern, patient has good upper body strength to be able to support himself with mobility. Patient states he has been using axillary crutches at home, plans to continue using crutches instead of FWW. Patient returned to bed after gait training completed, ice packs applied to left quad. Stairs: Not tested this morning will assess at next session, patient has 3 steps with railing at home, has been negotiating them prior to admit Balance: Static Sitting: Normal Dynamic Sitting: Normal Static Standing: Fair Dynamic Standing: Fair Special Tests: Mobility Limitations Standardized Measure [facility] AM-PAC 6 clicks Basic Mobility Inpatient Short Form: Raw Score: 18 standardized Score: 43.63 CMS Score: 46.58% CMS Modifier: CK Informed Consent/Education: Patient instructed in purpose of PT consult and plan of care. Assessment: Patient is a 63-year-old male who fell on the ice 08/25/2018 and sustained left quadricep strain and hematoma, states he was improving and then slipped again presenting to the emergency room and being admitted now for pain control. Patient presents with clinical signs and symptoms consistent with left quadricep strain, as demonstrated by the following impairment level findings: Decreased range of motion left knee due to quad pain, pain left quadricep with functional mobility and quad contraction making it difficult to mobilize and perform ADLs, decreased ability to lift leg into and out of bed requiring assistive device of a leg wind field manager, decreased weightbearing with gait mobility requiring assistive device of front wheel walker or axillary crutches for unloading left lower extremity, decreased static and dynamic standing balance due to left lower putting him at risk for falls particularly on ice or uneven surfaces. Patient was able to perform transfers and mobilize with use of assistive devices with supervision/SBA only, should be able to return to home setting when medically cleared, plans to use axillary crutches which he has at home. Follow-up PT recommended and home setting or outpatient clinic, for range of motion left knee, modalities for pain control, progressive gait training to assist to return to prior level of function and eventual strengthening of left lower extremity once acute pain subsides. Impairments are contributing to the following functional limitations: AMPAC score CMS Score: 46.58% Patient is assessed as a Moderate 61731 complexity based on the following: History: See above Examination: See above Presentation: Evolving Decision Making: AMPAC score CMS Score: 46.58% Goals: Goals X1 week 1. Supine-Sit: Independent with leg wind field manager 2. Sit-Supine: Independent with leg wind field manager 3. Sit-Stand: Independent with FWW 4. Stand-Sit: Independent 5. Gait: Supervision with FWW or axillary crutches, 50 feet x2, partial weightbearing left lower extremity 6. Stairs: Up/down 3 steps with railing, supervision, partial weightbearing left lower extremity Plan of Care/Treatment Plan: 1-2x/day, 7 days/week x 1 week. Plan of care has been reviewed with the PIPE FINISHER providing the service under Physical Therapy direction. Initiate Physical Therapy intervention for strengthening, bed mobility, transfers, gait, stairs, balance training, use of assistive device. DISCHARGE RECOMMENDATIONS: Home with home PT or outpatient PT, patient has axillary crutches TREATMENT CODE/TIME: 25 minutes 8:55 AM, IE G Codes in the area mobility of walking and moving around: current status [id number] CK projected status GP [id number]. Discharge status (if discharging) GP [id number] CK based on AMPAC score CMS Score: 46.58% Vivian Mahan PT Disclaimer: This note was created using [employer] voice recognition software. It was reviewed for major content. However, there may be multiple small discrepancies and errors due to the voice recognition aspects of the software.
[2018-09-05 09:10] VITALS: O2SAT 95
--- NOTE | 2018-09-05 09:12 | IN_ITS ---
Date of service: 09/05/18 Time of Service: 08:55 PT Notes Inpatient Physical Therapy Evaluation Date: 09/05/2018 Referring Doctor: George Wilson PT Orders: PT CONSULT: Left quadricep strain and hematoma Precautions: Left lower extremity weightbearing as tolerated Patient Profile/Admitting Diagnosis: Patient is a 63-year-old male who fell on the ice 08/25/2018 and sustained left quadricep strain and hematoma, states he was improving and then slipped again presenting to the emergency room and being admitted now for pain control PMHX: Rotator cuff repair, obstructive sleep apnea, hypertension, hypothyroidism, hyperlipidemia, tobacco abuse Social History/Home Situation: Lives with in house 3 steps with railing to enter, flight of steps to the basement but can stand on one level inside home. Baseline mobility independent gait with no device, independent with ADLs. 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 Equipment Owned/DME: Axillary crutches, knee immobilizer he received with initial injury he states he has not been using it because it falls down. Subjective: Patient lying in bed states his pain is better controlled than when he was admitted, reports he still has limitations with getting his leg in and out of bed, bending left knee, and weightbearing on left lower extremity due to pain limitations. Patient agreeable to PT consult. Objective: General Observation: Clarke wrap left knee and thigh, ice packs left quadricep Mental Status: A and O x3 Pain: 3/10 pain in bed, 5/10 pain after PT session, RN notified ROM: Right Upper Extremity: AROM WNL Left Upper Extremity: AROM WNL Right Lower Extremity: AROM WNL Left Lower Extremity: AROM left hip flexion allows 90 degrees sitting at beds wandy, performs 10 degrees of left knee flexion sitting at bedside limited by pain, ankle within normal limits Strength: Right Upper Extremity: 5/5 throughout Left Upper Extremity: 5/5 throughout Right Lower Extremity: 5/5 throughout Left Lower Extremity: Difficult to assess due to pain limitations, patient able to perform left quadricep contraction with assisted straight leg raise left lower extremity, 5/5 DF and PF Bed Mobility/Transfers: Supine to sit: HOB 30 degrees, independent with leg technical training manager device Sit to stand: SBA with FW W Stand to sit: Supervision Sit to supine: HOB flat, independent with leg technical training manager Patient required use of leg technical training manager for lifting left lower extremity into and out of bed due to quadricep pain, with leg lifting device patient able to perform transfer independently Adaptive equipment: Patient issued sock aid, dressing stick, and leg technical training manager to assist with donning and doffing socks shoes and pants and assisting leg into and out of bed and car. Patient instructed in use of all adaptive equipment and verbalized understanding. Patient states he Nicholas has a clinical sciences professor at home so he d oes not need one of these. Patient left his knee immobilizer at home and does not plan to use it due to it falls down with gait. Gait: SBA with FW W 20 feet x2, patient able to perform touchdown weightbearing on left lower extremity, limited by quad pain. Step to step gait pattern, patient has good upper body strength to be able to support himself with mobility. Patient states he has been using axillary crutches at home, plans to continue using crutches instead of FWW. Patient returned to bed after gait training completed, ice packs applied to left quad. Stairs: Not tested this morning will assess at next session, patient has 3 steps with railing at home, has been negotiating them prior to admit Balance: Static Sitting: Normal Dynamic Sitting: Normal Static Standing: Fair Dynamic Standing: Fair Special Tests: Mobility Limitations Standardized Measure [facility] AM-PAC 6 clicks Basic Mobility Inpatient Short Form: Raw Score: 18 standardized Score: 43.63 CMS Score: 46.58% CMS Modifier: CK Informed Consent/Education: Patient instructed in purpose of PT consult and plan of care. Assessment: Patient is a 63-year-old male who fell on the ice 08/25/2018 and sustained left quadricep strain and hematoma, states he was improving and then slipped again presenting to the emergency room and being admitted now for pain control. Patient presents with clinical signs and symptoms consistent with left quadricep strain, as demonstrated by the following impairment level findings: Decreased range of motion left knee due to quad pain, pain left quadricep with functional mobility and quad contraction making it difficult to mobilize and perform ADLs, decreased ability to lift leg into and out of bed requiring assistive device of a leg technical training manager, decreased weightbearing with gait mobility requiring assistive device of front wheel walker or axillary crutches for unloading left lower extremity, decreased static and dynamic standing balance due to left lower putting him at risk for falls particularly on ice or uneven surfaces. Patient was able to perform transfers and mobilize with use of assistive devices with supervision/SBA only, should be able to return to home setting when medically cleared, plans to use axillary crutches which he has at home. Follow- up PT recommended and home setting or outpatient clinic, for range of motion left knee, modalities for pain control, progressive gait training to assist to return to prior level of function and eventual strengthening of left lower extremity once acute pain subsides. Impairments are contributing to the following functional limitations: AMPAC score CMS Score: 46.58% Patient is assessed as a Moderate 30535 complexity based on the following: History: See above Examination: See above Presentation: Evolving Decision Making: AMPAC score CMS Score: 46.58% Goals: Goals X1 week 1. Supine-Sit: Independent with leg technical training manager 2. Sit-Supine: Independent with leg technical training manager 3. Sit-Stand: Independent with FWW 4. Stand-Sit: Independent 5. Gait: Supervision with FWW or axillary crutches, 50 feet x2, partial weightbearing left lower extremity 6. Stairs: Up/down 3 steps with railing, supervision, partial weightbearing left lower extremity Plan of Care/Treatment Plan: 1-2x/day, 7 days/week x 1 week. Plan of care has been reviewed with the TRANSITION NURSE providing the service under Physical Therapy direction. Initiate Physical Therapy intervention for strengthening, bed mobility, transfers, gait, stairs, balance training, use of assistive device. DISCHARGE RECOMMENDATIONS: Home with home PT or outpatient PT, patient has axillary crutches TREATMENT CODE/TIME: 25 minutes 8:55 AM, IE G Codes in the area mobility of walking and moving around: current status [id number] CK projected status GP [id number]. Discharge status (if discharging) GP G8980 CK based on AMPAC score CMS Score: 46.58% Vivian Mahan PT Disclaimer: This note was created using [employer] voice recognition software. It was reviewed for major content. However, there may be multiple small discrepancies and errors due to the voice recognition aspects of the software.
[2018-09-05] MEDS: HYDROmorphone 2 MG/ML VIAL IVP (10:03)
[2018-09-05] MEDS: Normal Saline Flush 10 ML SYR IVP (10:03)
[2018-09-05 10:53] LABS: Abs Immature Grans 0.16 k/cumm (0.0-0.09); Absolute Basophil Count 0.04 k/cumm (0.0-0.2); Absolute Eosinophil Count 0.17 k/cumm (0.0-0.7); Absolute Lymphocyte Count 2.22 k/cumm (1.2-3.4); Absolute Neutrophil Count 7.16 k/cumm (1.2-6.7); Basophils % 0.4; Eosinophils % 1.6; HCT 33.1 % (40.0-50.0); HGB 11.6 g/dL (13.5-17.5); Immature Grans % 1.5; Mean Corpuscular Hemoglobin 31.3 pg (27.0-33.0); Mean Corpuscular Volume 89.2 fL (80-95); Mean Platelet Volume 9.3 fL (8.0-11.0); Monocytes % 7.6; Neutrophils % 67.9; Platelet Count 175 x1000/uL (130-400); RBC 3.71 m/cumm (4.50-6.00); RBC Distribution Width 13.2 % (11.8-14.1); White Blood Cell Count 10.55 k/cumm (4.4-10.8)
--- NOTE | 2018-09-05 12:56 | W.PM.DS.N ---
Date of service: 09/05/18 Time of Service: 12:57 DS: Diagnosis Discharge Diagnosis (1) Thigh pain: Status: Acute (2) Quadriceps muscle rupture: Status: Acute (3) Intramuscular hematoma: Status: Acute (4) Ambulatory dysfunction: Status: Acute (5) Smoker: Status: Chronic (6) Obstructive sleep apnea syndrome: Status: Chronic (7) Hypothyroidism (acquired): Status: Chronic (8) Hypertension: Status: Chronic (9) Hyperlipidemia: Status: Chronic Discharge Plan Disposition Condition: Fair Discharge Details Reason For Visit: THIGH PAIN Admit Date/Time: 09/04/18 20:48 Admit Provider: George Wilson Attending Provider: George Wilson Primary Care Provider: Carl Maza Hospital Course Hospital Course: Mr Rose is a 63 year old male with history of recent left quadriceps rupture, as well as history of CAD, HTN, hyperlipidemia, who was placed in observation status at [facility] on 09/04/18 and is being discharged home today (09/05) after an episode of uncontrolled pain after re-injuring his quadriceps, having slipped on the ice but not fallen on the day of presentation. X-ray of his L femur did not reveal a fracture or dislocation. CT of his LLE demonstrated a large left thigh hematoma involving left vastus intermedius, with active hemorhage. Given this, orthopedics were consulted, and the patient was evaluated by Dr Pyle. There was no evidence of compartment syndrome and, because of the location of the rupture, surgical intervention was not deemed necessary. Pain control was achieved with oral narcotic medications, and patient was able to ambulate with physical therapy. He is instructed to wear the knee immobilizer 03/04. He is to follow up with Dr Pyle at the time of a previously scheduled appointment for further instructions. The patient should not yet undergo physical therapy. He is instructed not to drive or return to work until cleared by orthopedics. He is instructed to contact his PCP or Dr Pyle's office if pain control is not adequate on percocet 5/325 mg 1-2 tab PO Q 4 hours prn pain. He is instructed not to smoke. He will have to have blood work done in 1 week to ensure that his hemoglobin remains stable. He is asked to abstain from NSAIDs until cleared to resume them by PCP. Home Meds and New Rx's Prescriptions: New oxycodone-acetaminophen 5-325 mg Tablet 1 - 2 tab PO Q4H PRN PRN (Reason: moderate to severe pain) Qty: 60 RF: 0 docusate sodium [Colace] 100 mg capsule 100 mg PO DAILY Qty: 30 RF: 0 Continued aspirin [Aspirin Low-Strength] 81 MG tablet,chewable 81 mg PO DAILY RF: 0 sertraline 50 MG tablet 50 mg PO BID Qty: 180 RF: 4 hydrochlorothiazide 25 mg tablet 25 mg PO DAILY Qty: 90 RF: 4 levothyroxine 50 mcg tablet 50 mcg PO DAILY Qty: 90 RF: 3 losartan 25 mg tablet 25 mg PO DAILY Qty: 90 RF: 3 nitroglycerin [Nitrostat] 0.4 mg tablet, sublingual 0.4 mg Sublingual PRN PRN (Reason: Chest Pain) Qty: 25 RF: 0 ranitidine HCl 150 mg tablet 150 mg PO BID Qty: 180 RF: 3 tadalafil [Cialis] 10 mg tablet 10 mg PO PRN PRNRF: 0 Discontinued ibuprofen 200 MG tablet 600 mg PO PRN RF: 0 meloxicam [Mobic] 15 mg tablet 15 mg PO DAILY Qty: 60 RF: 6 Discharge Instructions Instructions: Knee Immobilizer (DC) Additional Instructions: Return to the hospital if your pain is uncontrolled, if you have any fever, chest pain, or shortness of breath, if you develop any numbness or tingling in your leg. Wear your knee immobilizer 24/ - even to bed. You may not drive or return to work until cleared by Dr Pyle. See Dr Pyle in his office at the time of a previously scheduled appointment. Blood work in 1 week. Please, follow up with your PCP in 1-2 weeks. Referrals: Flaco Pyle MD [ [facility] STAFF PHYSICIAN] - Equipment/Supplies: Brace Activity:: May not drive or work until cleared by PCP Equipment/Supplies:: knee immobilizer Diet:: Low Sodium Discharge Orders Other Ambulatory Orders: Complete Blood Count w/Diff (Routine) Timeframe: 1 Week Location: Determined by Patient Ordered By: Bambi Willis Exam Narrative Exam Narrative: General: A&OX3, NAD, resting comfortably in bed HEENT: EOMI, MMM Heart: RRR, no m/r/g Lungs: CTAB GI: abdomen soft, nontender, nondistended Extremities: LLE with mathew wrap on the thigh and with palpable hematoma. 2+ pedal pulse. Sensation intact. DS: Data Vitals/I&O Vitals and I&O: Vital Signs Temperature 36.6 C 09/05/18 08:16 Temperature Source Tympanic 09/05/18 08:16 Pulse 67 09/05/18 08:16 Pulse Rhythm Regular 09/05/18 09:11 Respiratory Rate 20 09/05/18 08:16 Respiratory Effort Non-Labored 09/05/18 09:11 Respiratory Depth Normal 09/05/18 09:11 Respiratory Pattern Normal 09/05/18 09:11 Blood Pressure 151/79 H 09/05/18 08:16 Pulse Oximetry 95 09/05/18 08:16 Oxygen Delivery Method Room Air 09/05/18 08:16 Oxygen Flow Rate 0 09/05/18 08:16 Pain Level 5 09/05/18 10:03 Comment 09/04/18 19:34 Intake & Output 09/04/18 09/05/18 09/05/18 23:59 11:59 23:59 Intake Total 1010 / 1010 360 / 360 Output Total 600 / 600 Balance 410 / 410 360 / 360 Weight 103.4 kg Intake: IV 1010 / 1010 Oral 360 / 360 Output: Urine 600 / 600 Other: Urine Color Yellow Urine Appearance Clear Comment using urinal w/o difficulty Voiding Methods Urinal Completed studies during hospitalization [Text1]: CT LLE: Apparent large left thigh hematoma, particularly involving left vastus intermedius with active hemorrhage noted. The findings are reportedly posttraumatic, although underlying neoplasm or AVM is not excluded on the basis of this examination. XR L femur: Four views were obtained. No fracture seen. Labs on day of discharge: Labs from last 24 hours 09/05/18 09/04/18 09/04/18 10:42 17:55 17:55 WBC 10.55 13.12 H RBC 3.71 L 4.25 L Hgb 11.6 L 13.4 L Hct 33.1 L 37.2 L MCV 89.2 87.5 MCH 31.3 31.5 MCHC 35.0 36.0 RDW 13.2 13.2 Plt Count 175 255 MPV 9.3 10.0 Immature Gran % 1.5 See Differential Neutrophils % 67.9 80.0 Lymphocytes % 21.0 12.0 Monocytes % 7.6 5.0 Eosinophils % 1.6 1.0 Basophils % 0.4 0.0 Absolute Neutrophils 7.16 H 10.50 H Absolute Lymphocytes 2.22 1.57 Absolute Monocytes 0.80 H 0.66 Absolute Eosinophils 0.17 0.13 Absolute Basophils 0.04 0.00 Metamyelocytes 2.0 Differential Comment Manual differential RBC Morphology Normal ESR 18 Sodium 140 Potassium 4.3 Chloride 106 Carbon Dioxide 23.1 Anion Gap 10.9 BUN 16 Creatinine 0.79 Estimated GFR/1.73 m2 >= 60.00 Glucose 127 H Calcium 9.2 Total Bilirubin 0.3 AST 34 ALT 42 Alkaline Phosphatase 55 Creatine Kinase 167 C-Reactive Protein 0.25 Total Protein 7.2 Albumin 3.6 PFSH Medical History Smoker (Chronic) Angina pectoris (Acute) Obstructive sleep apnea syndrome (Chronic) Hypothyroidism (acquired) (Chronic 03/03/17) Hypertension (Chronic) Hyperlipidemia (Chronic) Chest pain (Acute) Angina pectoris (Acute) Surgical History Rotator Cuff Repair Family History Mother Neoplasm Father Heart disease Hyperlipidemia Neoplasm Sister No problems noted. 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
--- NOTE | 2018-09-05 13:17 | PT.INDS ---
Date of service: 09/05/18 Time of Service: 13:17 PT Notes PHYSICAL THERAPY NOTE Date:09/05/18 date of service: 09/05/18 Pt discharged to home today, fitted with knee immobiliizer and instructed in use per MD to wear at all times. See PT Bipin for recommendations. D/C PT due to D/C home Vivian Mahan PT
--- NOTE | 2018-09-05 13:56 | CHAPLAIN ---
Tom was visiting with his daughter, ANTONIA Randall, when I visited. I introduced myself and offered support.
--- NOTE | 2018-09-05 13:56 | W.ORTHOCONSU ---
Date of service: 09/05/18 Time of Service: 13:56 History of Present Illness Chief Complaint: Left Thigh Pain/Swelling Narrative: Tom is a 63yo male who had an injury to the left thigh about 1.5 weeks ago. Yesterday, he slipped and caught himself awkwardly with the left leg and noted an immediate pop with pain. He had excruciating pain and notable swelling and came into the ED. Xray and CT wer performed and he was admitted to the hospital for pain control. He reports pain proximally in the thigh, laterally more than medially. He denies any ecchymosis. He denies any numbness or tingling. He is feeling much better now than he was yesterday. He has been able to move within the room, albeit with some pain. Consults Consult date: 09/05/18 Requesting physician: Bambi Willis Consult Reason Left Quad Tear Assessment and Plan (1) Quadriceps muscle rupture: Current visit: No Status: Acute Tom suffered a recurrence of his quadriceps muscle tear. He has notable bleeding this time but again it doesn't requre any surgical decompression or fixation. I would recommend compression and ice. He should mobilize with a knee immobilizer at all times until instructed otherwise. He may discharge to home with precuations about trying to ambulate without the knee immobilizer. Furthermore, he should continue with compression and ice. I will see him on 09/14. Qualifiers: Encounter type: initial encounter Laterality: left Qualified Code(s): S76.112A - Strain of left quadriceps muscle, fascia and tendon, initial encounter Review of Systems Review of Systems All systems reviewed & are unremarkable except as noted in HPI and below PFSH Medical History Smoker (Chronic) Angina pectoris (Acute) Obstructive sleep apnea syndrome (Chronic) Hypothyroidism (acquired) (Chronic 03/03/17) Hypertension (Chronic) Hyperlipidemia (Chronic) Chest pain (Acute) Angina pectoris (Acute) Surgical History Rotator Cuff Repair Family History Mother Neoplasm Father Heart disease Hyperlipidemia Neoplasm Sister No problems noted. 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 There is firmness and swelling to the thigh but it is compressible, which causes pain. He is able to contract the quadriceps mechanism and the patella does respond and elevate. No stepoff or defect. No notable effusion. SILT Fem, SP/DP, Tib. Foot WWP. Results Last Vital Signs Temp 36.6 C 09/05/18 08:16 Pulse 67 09/05/18 08:16 Resp 20 09/05/18 08:16 BP 151/79 H 09/05/18 08:16 Pulse Ox 95 09/05/18 08:16 Labs : 09/05/18 10:42 09/04/18 17:55 Laboratory Results - last 24 hr 09/04/18 09/04/18 09/05/18 17:55 17:55 10:42 WBC 13.12 H 10.55 RBC 4.25 L 3.71 L Hgb 13.4 L 11.6 L Hct 37.2 L 33.1 L MCV 87.5 89.2 MCH 31.5 31.3 MCHC 36.0 35.0 RDW 13.2 13.2 Plt Count 255 175 MPV 10.0 9.3 Immature Gran % See Differential 1.5 Neutrophils % 80.0 67.9 Lymphocytes % 12.0 21.0 Monocytes % 5.0 7.6 Eosinophils % 1.0 1.6 Basophils % 0.0 0.4 Absolute Neutrophils 10.50 H 7.16 H Absolute Lymphocytes 1.57 2.22 Absolute Monocytes 0.66 0.80 H Absolute Eosinophils 0.13 0.17 Absolute Basophils 0.00 0.04 Metamyelocytes 2.0 Differential Comment Manual differential RBC Morphology Normal ESR 18 Sodium 140 Potassium 4.3 Chloride 106 Carbon Dioxide 23.1 Anion Gap 10.9 BUN 16 Creatinine 0.79 Estimated GFR/1.73 m2 >= 60.00 Glucose 127 H Calcium 9.2 Total Bilirubin 0.3 AST 34 ALT 42 Alkaline Phosphatase 55 Creatine Kinase 167 C-Reactive Protein 0.25 Total Protein 7.2 Albumin 3.6 Imaging Imaging Studies: X-ray is without fracture. Soft tissue swelling is seen over the anterolateral thigh. CT shows a fluid collection within the anterior-lateral thigh. There s hemorrhage seen and concern for tear of the vastus musculature.
[2018-09-05] MEDS: oxyCODONE 5 mg/Acetaminophen 325 mg TAB 1 TAB PO (14:05)
[2018-09-05 14:08] VITALS: O2SAT 96
--- NOTE | 2018-09-05 14:45 | PDOC.CMIN ---
- If Service Date Differs Date of service: 09/05/18 Time of Service: 14:46 Care Management Initial Assess REASON FOR HOSPITALIZATION:: Thigh pain PAST MEDICAL HISTORY/PAST SURGICAL HISTORY:: Smoker (Acute). Angina pectoris (Acute). Obstructive sleep apnea syndrome (Acute). Hypothyroidism (acquired) (Acute 03/03/17). Hypertension (Acute). Hyperlipidemia (Acute). Chest pain (Acute). Angina pectoris (Acute). Rotator cuff repair PREVIOUS FUNCTIONAL STATUS/SOCIAL/FAMILY SUPPORTS:: Tom resides with his Brianna macias. He is independent at baseline, and manages IADL's/ CURRENT FUNCTIONAL STATUS:: Tom is lying in bed pleasant and receptive to discussion. ADVANCE DIRECTIVES:: None on file Has patient been provided with information about the portal?: Yes Did the patient sign up for the portal?: No CODE STATUS:: Full Code INSURANCE COVERAGE / FINANCIAL ISSUES:: [employer] CURRENT HOME/COMMUNITY SERVICES/EQUIPMENT:: Currently Tom has no services in the community. He does have crutches and a knee immobilizer at home. PRIMARY CARE PHYSICIAN:: Dr. Maza POTENTIAL DISCHARGE NEEDS:: F/U appointment with PCP & Dr. Pyle PATIENT/FAMILY EDUCATION NEEDS:: Review DC instructions, any limitations, and ongoing DC planning discussion. Discuss 'Ask Me Three' ANTICIPATED BARRIERS TO DISCHARGE:: None identified at this time. TRANSPORTATION:: Via private vehicle with Brianna PLAN:: Tom will return home with no services. He will F/U with PCP and Dr. Pyle as an outpatient. Tom's family will transport when ready.
--- NOTE | 2018-09-05 14:50 | PDOC.CMDIS ---
- If Service Date Differs Date of service: 09/05/18 Time of Service: 14:50 LACE Index Scoring Tool - Questions: Length of Stay (in days): 2 Acuity (Admit via E.D.?): Yes E.D. Visits: 2 - Answers: Total Score: 7 Risk of Readmission: Low Risk Care Management Discharge Reason for Hospitalization: Thigh pain Discharge Plan: Tom will return home with no services. He will F/U with PCP and Dr. Pyle as an outpatient. Tom's family will transport when ready. Patient/Family Education Needs: Review DC instructions, any limitations, and discuss 'Ask Me Three'
== END 2018-09-05 15:42 | disposition home or self-care (01) ==
LOC: ER 21:04 → MS 22:18
PROVIDERS: Admitting Provider General Practice; Emergency Provider Physician Assistant; PCP Emergency Medicine; Visit Provider Internal Medicine
DX: S76.119A Strain of unspecified quadriceps muscle, fascia and tendon, initial encounter (principal); X50.0XXA Overexertion from strenuous movement or load, initial encounter; M79.18 Myalgia, other site
CPT/HCPCS: 36415; 73552; 80053; 82550; 85652; 96361; 96372; 96374; 96375; 96376; 97162; 99217; 99222; 99253; 99285; 73701; 85025; 86140; 99219; 99284; G0378; J1885; J2060; J3010; J3490; L1830

== ENCOUNTER 2018-09-21 09:53 | Day surgery (SDC) | payer OTHER, SELFPAY ==
[2018-09-21 10:30] VITALS: BP 142/91; PULSE 77; RESP 16; TEMP 36.6; O2SAT 97
[2018-09-21] MEDS: Lactated Ringers 1,000 ML 30 ML IV (10:54)
--- NOTE | 2018-09-21 13:54 | W.PM.OP ---
Date of service: 09/21/18 Time of Service: 13:55 Operative Note DATE OF PROCEDURE: 09/21/18 PRE-OP DIAGNOSIS: screen colo with family history POST-OP DIAGNOSIS: same PROCEDURE: colonoscopy SURGEON: Armand Walton III ANESTHESIA: MAC PATHOLOGY: none sent COMPLICATIONS: None Patient was transported to: PACU Findings: one internal hemorrhoid Procedure Description: After informed consent was obtained the patient was taken to the procedure room and placed in a left decubitous position. Monitors were applied and a time out was done. The patients name, date of , procedure, allergies to medications and metal in their body was reviewed. The patient was then sedated. Once sedated and comfortable a rectal exam was done. External exam was normal. Internal exam revealed a normal sphincter tone and no palpable masses. The prostate enlarged. The scope was then introduced and retrofelexed. One internal hemorrhoids were identified. The scope was then advanced to the cecum min difficulty. The TI and appendiceal orifice were identified. The prep was ok did have fair amount of liquid stool. The scope was then slowly retracted over 6 minutes back into the rectum. No Polyps were removed. The scope was removed and the patient was woken up and taken back to Same day surgery in stable condition. The patient tolerated the procedure well and there were no immediate complications. Follow up: The patient should follow up in 10 years unless they develop changes in bowel habits or other new gastrointestinal complaints.
--- NOTE | 2018-09-21 13:57 | W.PM.DSUDISC ---
Discharge Plan Disposition Patient Disposition: HOME Condition: Stable Discharge Details Reason For Visit: screening colonoscopy Attending Provider: Armand Walton III Primary Care Provider: Carl Maza Home Meds and New Rx's Prescriptions: Continued bisacodyl [Dulcolax (bisacodyl)] 5 mg tablet,delayed release (DR/EC) 5 mg PO ONCE Qty: 4 RF: 0 polyethylene glycol 3350 17 gram/dose powder 255 g PO ONCE Qty: 255 RF: 0 aspirin [Aspirin Low-Strength] 81 MG tablet,chewable 81 mg PO DAILY RF: 0 sertraline 50 MG tablet 50 mg PO BID Qty: 180 RF: 4 hydrochlorothiazide 25 mg tablet 25 mg PO DAILY Qty: 90 RF: 4 levothyroxine 50 mcg tablet 50 mcg PO DAILY Qty: 90 RF: 3 losartan 25 mg tablet 25 mg PO DAILY Qty: 90 RF: 3 nitroglycerin [Nitrostat] 0.4 mg tablet, sublingual 0.4 mg Sublingual PRN PRN (Reason: Chest Pain) Qty: 25 RF: 0 ranitidine HCl 150 mg tablet 150 mg PO BID Qty: 180 RF: 3 tadalafil [Cialis] 10 mg tablet 10 mg PO PRN PRNRF: 0 oxycodone-acetaminophen 5-325 mg Tablet 1 - 2 tab PO Q4H PRN PRN (Reason: moderate to severe pain) Qty: 60 RF: 0 docusate sodium [Colace] 100 mg capsule 100 mg PO DAILY PRNRF: 0 Discharge Instructions Referrals: Armand Walton III, DO [OSTEOPATHIC DOCTOR] - 09/24/18 11:00 am Activity:: Activity as Tolerated Diet:: As Tolerated Discharge Orders Discharge Orders: Discharge Order (Routine); Ordered 09/21/18 Ordered By: Armand Walton III DS: Diagnosis Discharge Diagnosis (1) Family hx of colon cancer requiring screening colonoscopy: Start date: 09/21/18 Start time: 13:58 Status: Acute Asessment and Plan: will need to be repeated in 10 years
[2018-09-21 15:19] VITALS: BP 128/78; PULSE 61; RESP 16; TEMP 36.4; O2SAT 96
== END 2018-09-21 15:14 | disposition home or self-care (01) ==
PROVIDERS: PCP Emergency Medicine; Visit Provider Surgery
PROC: 0DJD8ZZ Inspection of Lower Intestinal Tract, Via Natural or Artificial Opening Endoscopic (ICD-10-PCS; CPT 45378; principal; 2018-09-21 11:15)
DX: Z12.11 Encounter for screening for malignant neoplasm of colon (principal); Z80.0 Family history of malignant neoplasm of digestive organs; I10 Essential (primary) hypertension; G47.33 Obstructive sleep apnea (adult) (pediatric); F17.210 Nicotine dependence, cigarettes, uncomplicated
CPT/HCPCS: 45378

== ENCOUNTER 2018-09-27 02:05 | Outpatient (CLI) | payer OTHER, SELFPAY ==
[2018-09-27 11:11] LABS: Abs Immature Grans 0.05 k/cumm (0.0-0.09); Absolute Basophil Count 0.03 k/cumm (0.0-0.2); Absolute Eosinophil Count 0.35 k/cumm (0.0-0.7); Absolute Monocyte Count 0.45 k/cumm (0.11-0.7); Absolute Neutrophil Count 3.07 k/cumm (1.2-6.7); Basophils % 0.5; Eosinophils % 6.2; HCT 40.6 % (40.0-50.0); HGB 13.7 g/dL (13.5-17.5); Immature Grans % 0.9; Lymphocytes % 30.1; Mean Corp. HGB Concentration 33.7 g/dL (32.0-36.0); Mean Corpuscular Hemoglobin 31.4 pg (27.0-33.0); Mean Corpuscular Volume 93.1 fL (80-95); Mean Platelet Volume 9.1 fL (8.0-11.0); Neutrophils % 54.3; Platelet Count 225 x1000/uL (130-400); RBC 4.36 m/cumm (4.50-6.00); RBC Distribution Width 14.3 % (11.8-14.1); White Blood Cell Count 5.65 k/cumm (4.4-10.8)
== END 2018-09-27 02:25 ==
PROVIDERS: Internal Medicine; PCP Emergency Medicine; Visit Provider Emergency Medicine
DX: R73.09 Other abnormal glucose (principal); S76.119A Strain of unspecified quadriceps muscle, fascia and tendon, initial encounter
CPT/HCPCS: 36415; 83036; 85025

== ENCOUNTER 2019-02-12 08:10 | Outpatient (CLI) | payer OTHER, SELFPAY ==
[2019-02-12 11:20] LABS: TSH 1.82 uIU/mL (0.358-3.74)
[2019-02-13 11:52] LABS: PSA, Screening 0.7 ng/ml (0-4.5)
== END 2019-02-12 08:30 ==
PROVIDERS: PCP Emergency Medicine; Visit Provider Emergency Medicine
DX: E03.9 Hypothyroidism, unspecified (principal); Z12.5 Encounter for screening for malignant neoplasm of prostate
CPT/HCPCS: 36415; 84153; 84443

== ENCOUNTER 2019-02-22 09:06 | Outpatient (CLI) | payer OTHER, SELFPAY ==
--- NOTE | 2019-02-22 09:03 | DI.RAD_ITS ---
SYMPTOM/DIAGNOSIS: HIP PAIN RIGHT HIP: Single AP view of the right hip was obtained. There is moderate narrowing of the superior joint space. Mild subchondral sclerosis and spurring is seen of the right hip. The bones are normally mineralized. Extensive vascular calcification is present. IMPRESSION: Moderate osteoarthritis of the right hip.
== END 2019-02-22 09:26 ==
PROVIDERS: PCP Emergency Medicine; Visit Provider Student in an Organized Health Care Education/Training Program
DX: M16.11 Unilateral primary osteoarthritis, right hip (principal); M25.551 Pain in right hip
CPT/HCPCS: 73501

== ENCOUNTER 2019-03-06 10:40 | Outpatient (CLI) | payer OTHER, SELFPAY ==
[2019-03-06 12:56] LABS: HCT 44.7 % (40.0-50.0); Mean Corp. HGB Concentration 35.8 g/dL (32.0-36.0); Mean Corpuscular Hemoglobin 30.6 pg (27.0-33.0); Mean Corpuscular Volume 85.5 fL (80-95); Platelet Count 197 x1000/uL (130-400); RBC 5.23 m/cumm (4.50-6.00); RBC Distribution Width 14.2 % (11.8-14.1); White Blood Cell Count 6.91 k/cumm (4.4-10.8)
[2019-03-06 13:34] LABS: ALT 32 U/L (12-78); AST 20 U/L (15-37); Albumin 3.7 g/dL (3.4-5.0); Alkaline Phosphatase 57 U/L (46-116); Anion Gap 9.2 mmol/L (3-11); BUN 11 mg/dL (7-18); Bilirubin, Total 0.3 mg/dL (0.2-1.0); CO2 27.8 mmol/L (21.0-32.0); CREATININE 0.78 mg/dL (0.70-1.30); Calcium 9.1 mg/dL (8.5-10.1); Chloride 98 mmol/L (98-107); Glucose 120 mg/dL (70-100); Sodium 135 mmol/L (136-145); Total Protein 7.4 g/dL (6.4-8.2)
== END 2019-03-06 11:00 ==
PROVIDERS: PCP Emergency Medicine; Visit Provider Family Medicine
DX: Z01.818 Encounter for other preprocedural examination (principal); M25.551 Pain in right hip; M16.11 Unilateral primary osteoarthritis, right hip
CPT/HCPCS: 36415; 80053; 85027

== ENCOUNTER 2019-03-12 12:53 | Outpatient (CLI) | payer OTHER, SELFPAY ==
[2019-03-12 14:56] LABS: HCT 46.4 % (40.0-50.0); HGB 16.7 g/dL (13.5-17.5); Mean Corpuscular Hemoglobin 30.7 pg (27.0-33.0); Mean Corpuscular Volume 85.3 fL (80-95); Mean Platelet Volume 8.7 fL (8.0-11.0); Platelet Count 196 x1000/uL (130-400); RBC 5.44 m/cumm (4.50-6.00); White Blood Cell Count 8.36 k/cumm (4.4-10.8)
[2019-03-12 15:59] LABS: Anion Gap 11.2 mmol/L (3-11); BUN 8 mg/dL (7-18); CO2 24.8 mmol/L (21.0-32.0); CREATININE 0.81 mg/dL (0.70-1.30); Calcium 9.6 mg/dL (8.5-10.1); Chloride 100 mmol/L (98-107); Glucose 91 mg/dL (70-100); Potassium 4.2 mmol/L (3.5-5.1); Sodium 136 mmol/L (136-145)
== END 2019-03-12 13:13 ==
PROVIDERS: PCP Emergency Medicine; Visit Provider Student in an Organized Health Care Education/Training Program
DX: M25.551 Pain in right hip (principal); M16.11 Unilateral primary osteoarthritis, right hip; I10 Essential (primary) hypertension; Z01.812 Encounter for preprocedural laboratory examination; Z01.818 Encounter for other preprocedural examination
CPT/HCPCS: 36415; 80048; 85027; 86850; 86900; 86901

== ENCOUNTER 2019-03-19 05:45 | Inpatient (IN) | payer OTHER, SELFPAY ==
[2019-03-19] VITALS (24 sets, daily range): BP systolic 90–133; BP diastolic 59–84; PULSE 46–64; RESP 16–21; TEMP 35.4–36.7; O2SAT 94–99
[2019-03-19] MEDS: Lactated Ringers 1,000 ML 80 ML IV ×2 (06:32→11:32)
[2019-03-19] MEDS: Celecoxib 200 MG CAP 400 MG PO (06:33)
[2019-03-19] MEDS: Acetaminophen 500 MG TAB 1000 MG PO ×3 (06:33→19:57)
[2019-03-19] MEDS: oxyCODONE-CR 10 MG TABCR PO (06:33)
--- NOTE | 2019-03-19 07:13 | DI.RAD_ITS ---
SYMPTOM/DIAGNOSIS: OSTEOARTHRITIS RT HIP C-ARM FLUOROSCOPY: 03/19 Fluoroscopy Time: 71 sec C-arm fluoroscopy was utilized by Dr. Pyle during total right hip replacement. Hard copy shows total hip replacement in position.
[2019-03-19] MEDS: ceFAZolin 2 GM/50 ML BAG IVPB (07:46)
--- NOTE | 2019-03-19 09:04 | HOME_ITS ---
Home Ventilator Equipment Home care company [facility] Reason: Obstructive Sleep Apnea Make: Respironics Model: REMStar Mask type: Nasal pillows Mask size: Mode: CPAP Settings: 11.0 Oxygen bleed in (lpm): 0 Condition: Good Date last checked: 03/19/19 Year of last sleep study: Compliance Comments:
[2019-03-19] MEDS: Normal Saline 20 ML VIAL (09:44)
[2019-03-19] MEDS: Bupivacaine 0.25% Pres-Free 30 ML VIAL (09:44)
[2019-03-19] MEDS: Ketorolac 30 MG/ML VIAL (09:44)
--- NOTE | 2019-03-19 10:24 | DI.RAD_ITS ---
SYMPTOM/DIAGNOSIS: OSTEOARTHRITIS RIGHT HIP PORTABLE AP PELVIS: 03/19/19 Portable AP pelvis was obtained and shows total hip joint replacement in position on the right. The components appear well seated. Mild degenerative changes of the left hip noted.
[2019-03-19] MEDS: Normal Saline Flush 10 ML SYR IV (11:37)
[2019-03-19 12:56] LABS: Troponin I < 0.05 ng/mL (0.00-0.06)
--- NOTE | 2019-03-19 14:17 | NUR.NOTE ---
Nursing Note: 03/19/19 Pt admitted tor oom 229 via stretcher. pt very sleepy, will arouse to voice, answers questions, then returns to sleeping. HR 46. pt denies chest pain. hrr, lscta. pt has periods of apnea while sleeping, has hx of sleep apnea with CPAP machine here, will get from DSU and apply. Positive pp ble, warm toes ble. pt states he can feel touch to his ankles, but his feet feel asleep. Pt denies nausea. hypo bs x 4. Emely Smart RN CC informed of heart rate, called anesthesia. Pt placed on SPO2 monitor to monitor hr and Spo2 at this time. Family aware.
--- NOTE | 2019-03-19 16:58 | PT.INIE ---
Date of service: 03/19/19 Time of Service: 15:02 PT Notes Inpatient Physical Therapy Evaluation Date: 03/19/2019 Referring Doctor: Flaco Pyle MD PT Orders: PT CONSULT: Status post right anterior EMILY Precautions: Fall. Standard. WBAT on right LE. Patient Profile/Admitting Diagnosis: Patient is a 63-year-old male with primary unilateral osteoarthritis of right hip and is status post anterior total hip arthroplasty on postoperative day 0. PMHX: Medical History Unspecified injury of left quadriceps muscle, fascia and tendon, initial encounter (Acute) Family hx of colon cancer requiring screening colonoscopy (Acute) Quadriceps muscle rupture (Acute) Smoker (Chronic) Sexual function problem (Acute) Obstructive sleep apnea syndrome (Chronic) Oakley's metatarsalgia (Acute) Impaired fasting glucose (Acute) Hypothyroidism (acquired) (Chronic 03/03/17) Hypertension (Chronic) Hyperlipidemia (Chronic) History of alcoholism (Acute) Epicondylitis (Acute) Depressive disorder (Acute 08/10/00) Chest pain (Acute) Angina pectoris (Resolved) Angina pectoris (Resolved) Family history of colon cancer (Resolved) Normal colonoscopy (Resolved 09/21/18) Surgical History Rotator Cuff Repair Social History/Home Situation: Patient lives with in a 1 floor house with 2 steps to enter. He is independent with all aspects of ADLs without the need for an assistive ambulatory device nor adaptive equipment although he states that when he injured his left quadriceps in August of last year he needed to use bilateral axillary crutches for support for ambulation task performance. 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 He has a very supportive family. Current Functional Limitations: Need for assistance for all transfer and ambulation task performance using front wheeled walker Equipment Owned/DME: Bilateral axillary crutches, walking stick, SC Subjective: Patient is agreeable to a PT consult and treatment today. He states that his heart rate is a little low and that nursing staff has been closely monitoring his vital signs. He said that he is tired but will try to do however much he can. He denies any chest pain, headache, and dizziness throughout PT session. Objective: General Observation: Patient seen resting in bed. CPAP mask being removed by patient upon arrival of this PT. Cold pack on right hip. Mepilex Ag dressing on anterior lateral area of right hip. IV in right UE. Owens catheter in place. Anti-DVT pumps on bilateral legs. Mental Status: Alert and oriented x4 Pain: 2/10 at rest. 4/10 with weightbearing. Vital Signs: Heart rate ranged from 44 bpm to 59 bpm throughout session. Patient negative for orthostatic hypotension on evaluation. ROM: Right Upper Extremity: Shoulder Flexion WFL. Shoulder abduction WFL. Elbow flexion WFL. Wrist flexion WFL. Functional opening and closing of hand WFL. Left Upper Extremity: Shoulder Flexion WFL. Shoulder abduction WFL. Elbow flexion WFL. Wrist flexion WFL. Functional opening and closing of hand WFL. Right Lower Extremity: Patient was able to tolerate about 20 degrees of hip flexion while sitting at edge of bed before discomfort set in. Knee flexion WFL. Knee extension WFL . Ankle dorsiflexion WFL. Ankle plantarflexion WFL. Left Lower Extremity: Hip flexion WFL. Hip abduction WFL. Knee flexion WFL. Ankle dorsiflexion WFL. Ankle plantarflexion WFL. Strength: Right Upper Extremity: Shoulder flexors 5/5. Shoulder abductors 5/5. Elbow flexors 5/5. Elbow extensors 5/5. Territory Account [employer] strong. Left Upper Extremity: Shoulder flexors 5/5. Shoulder abductors 5/5. Elbow flexors 5/5. Elbow extensors 5/5. Territory Account [employer] strong. Right Lower Extremity: Hip flexors 3-/5. Knee flexors 4/5. Knee extensors 4/5. Ankle dorsiflexors 5/5. Ankle plantarflexors 5/5. Left Lower Extremity:Hip flexors 5/5. Knee flexors 5/5. Knee extensors 5/5. Ankle dorsiflexors 5/5. Ankle plantarflexors 5/5. Sensation: Intact as to pain and pressure on left lower extremities, slightly diminished on right lower extremity. Bed Mobility/Transfers: Rolling SBA Supine to sit SBA Sit to supine SBA Sit to stand CGA Stand to sit CGA Bed to chair CGA Chair to bed CGA Gait: Patient was able to tolerate in room ambulation of 5 feet forward +5 feet backward before needing to rest using front wheeled walker using step-to gait pattern with CGA of this PT. He was again able to tolerate 7 feet forward and 7 feet backward onto edge of bed. Decreased gait velocity and decreased step height on right noted. Heart rate ranged from 44 bpm to 59 bpm throughout session. Balance: Static Sitting: Good Dynamic Sitting: Good Static Standing: Fair Dynamic Standing: Fair Special Tests: Mobility Limitations Standardized Measure [facility]-P[facility] 6 clicks Basic Mobility Inpatient Short Form: Raw Score: 18 CMS Score: 47% deficit Informed Consent/Education: Patient instructed in purpose of PT consult and plan of care. Patient was initially introduced to doing two exercises on his own every hour: ankle pumping x 30 and back of knee press downs held for 5 seconds each time. Patient is agreeable to trying out his bilateral axillary crutches during level surface ambulation and stair negotiation activities tomorrow. Assessment: Patient is a 63-year-old male with primary unilateral osteoarthritis of right hip and is status post anterior total hip arthroplasty on postoperative day 0. Patient presents with clinical signs and symptoms consistent with current/admitting diagnoses and postoperative status that have resulted to mobility limitations, gait instability, generalized weakness, and impairment of motor control as demonstrated by the following impairment level findings: 1. Decreased strength to R hip major muscle groups 2. Impaired standing balance 3. Impaired activity tolerance 4. Limitation of joint range of motion in R hip Impairments are contributing to the following functional limitations: 1. Dependent bed mobility skills 2. Increased dependence with transfers 3. Inability to safely ambulate without assistive device and physical assistance 4. Increase completion time for mobility ADL performance 5. Increased fall risk 6. Inability to negotiate steps alone safely Patient is assessed as a 22741 moderate complexity based on the following: History: 63-year-old cognitively intact male with premorbid independent level now status post anterior total hip arthroplasty on postoperative day 0 anticipating going home as soon as he is safe to do so Examination: Demonstrable impairment in strength, balance, and range of motion with underlying impairments and functional limitations as documented above Presentation:Evolving Decision Makin moderate complexity Goals: Goals X1 week 1. Supine-Sit independent 2. Sit-Supine independent 3. Sit-Stand independent 4. Stand-Sit independent 5. Bed-Chair independent 6. Chair-Bed independent 7. Independent gait on level surface with use of least restrictive device for at least 300 feet without report of pain nor dyspnea 8. Independent stair negotiation while holding onto bilateral rails for at least 5 steps without report of pain nor dyspnea 9. Independent with home exercise program 10. Good static and dynamic standing balance/tolerance Plan of Care/Treatment Plan: 1-2x/day, 7 days/week x 1 week. Plan of care has been reviewed with the OIL AND G[employer] FIELD TECHNICIAN providing the service under Physical Therapy direction. Initiate Physical Therapy intervention for strengthening, bed mobility, transfers, gait, stairs, balance training, use of assistive device. DISCHARGE RECOMMENDATIONS: Patient will need a front wheeled walker to reduce fall risk at discharge destination. May benefit from skilled physical therapy services according to orthopedic surgeon timeline recommendations. Patient will be educated and trained on home exercise program per EMILY exercise protocol in preparation for outpatient physical therapy services. TREATMENT CODE/TIME: 9716 2 x 30 minutes, 9753 0 x 10 minutes beginning at 15:02 p.m. Thank you very much for this referral. Dianna Driscoll PT, DPT, CLT [facility]
[2019-03-19] MEDS: Aspirin E.C. 81 MG TABEC PO (19:58)
[2019-03-19] MEDS: Sertraline 50 MG TAB PO (19:58)
[2019-03-19] MEDS: Celecoxib 200 MG CAP PO (19:58)
--- NOTE | 2019-03-19 21:50 | NUR.NOTE ---
Nursing Note: Pt is very independent to ambulate to toilet, instructed pt to call staff for up and about for safety but non compliant. Ag mepelix Drsg on rt. hip is C/D/I. Has bearable pain on affected area, does not require pain med but has tylenol scheduled at HS given. Call lights at reach.
[2019-03-19] MEDS: oxyCODONE 5 MG TAB PO (22:48)
[2019-03-20] VITALS (7 sets, daily range): BP systolic 95–112; BP diastolic 60–70; PULSE 48–67; RESP 18–19; TEMP 36.1–36.9; O2SAT 94–98
[2019-03-20] MEDS: Normal Saline Flush 10 ML SYR IV ×3 (00:03→06:27)
[2019-03-20] MEDS: HYDROmorphone 2 MG/ML VIAL 0.5 MG IVP ×3 (00:04→06:27)
[2019-03-20] MEDS: Lactated Ringers 1,000 ML 80 ML IV (00:26)
[2019-03-20] MEDS: Levothyroxine 50 MCG TAB PO (06:27)
[2019-03-20 07:08] LABS: HGB 12.6 g/dL (13.5-17.5); Mean Corpuscular Hemoglobin 30.4 pg (27.0-33.0); Platelet Count 166 x1000/uL (130-400); RBC 4.14 m/cumm (4.50-6.00); RBC Distribution Width 13.8 % (11.8-14.1); White Blood Cell Count 11.02 k/cumm (4.4-10.8)
--- NOTE | 2019-03-20 07:09 | W.PM.OP ---
Date of service: 03/19/19 Time of Service: 11:09 Operative Note DATE OF PROCEDURE: 03/19/19 PRE-OP DIAGNOSIS: Right Hip Osteoarthritis POST-OP DIAGNOSIS: same PROCEDURE: Right Anterior Total Hip Arthroplasty SURGEON: Flaco Pyle [employer] MANAGER: Keo Oneal ANESTHESIA: spinal ESTIMATED BLOOD LOSS: 700 PATHOLOGY: none sent COMPLICATIONS: None Patient was transported to: PACU Patient's condition: stable Implants: 1. Depuy [place] Acetabular Component, 54 mm 2. Depuy Acetabular Liner, 54 x 36 mm 3. Depuy Corail standard Collared femoral Stem, Size 11 4. Depuy Altrx Ceramic Femoral Head, Size 36+8.5 mm Indications: I have seen Tom in clinic for symptoms of hip arthritis, confirmed with radiographic findings. Tom has exhausted nonoperative methods and was having significant limitations in daily function and desired better function and less pain. I discussed the technical details of a hip replacement. I explained the risks of the procedure to include, but not limited to, bleeding, infection, pain, stiffness, fracture, damage to nerves and vessels, damage to muscles and tendons, loosening, instability, leg length inequality, need for repeat procedure, blood clot and cardiopulmonary demise. Despite these risks, Tom elected to proceed. Findings: There was significant signs of arthritis throughout the hip. Procedure Description: Tom was greeted in the preoperative holding area where the correct side was identified and marked. The consent was reviewed with the patient and signed. The history and physical was updated. All questions were answered. Tom was taken back to the operating room. A spinal anesthestic was then administered. The patient was placed into the supine position on the operating room table. The patient was then positioned onto the ARCH table. Both feet were wrapped with [place] cotton wrap along with Coban. The feet were placed in specialized boots for the ARCH table, well seated within the boot and secured. SCDs were applied. The patient was then slid down onto a peroneal post and the nonoperative leg was secured in a leg smith attached to the table. The operative side was placed into the ARCH table attachment and bed height and positioning was secured. A preoperative AP pelvis was obtained to serve as a reference for determining leg lengths. Prophylactic antibiotics in the form of cefazolin were administered. 1g of Tranxemic Acid was given intravenously within 30 minutes of incision. The right leg was then prepped with Chloraprep and draped in a standard fashion with a large shower-curtain type drape with Iodine impregnated skin protection. A timeout to confirm correct identity, side and site, procedure, allergies, anesthesia, and medical concerns was performed. An obliquely oriented incision was made starting lateral to the ASIS and running distal over the Tensor Fascia Jody (TFL) muscle belly toward the fibular head, approximately 10cm. The skin and soft tissue was dissected sharply, through Barby?s fascia, and to the fascia of the TFL. With the fascia and superior border of the IT band identified, the fascia was incised with a new knife just above any perforators from the IT band. The TFL muscle belly was bluntly dissected away from the fascia and moved laterally. The fat between TFL and rectus was identified to ensure the dissection was not within the TFL. Blunt dissection created space between abductors and the capsule and retractor was placed over the lateral femoral neck. The fibers of the rectus femoris tendon were identified and these were freed from the anterior capsule. A second cobra retractor was placed around the medial femoral neck. The TFL was further retracted laterally to show the deep fascia. Careful dissection through this layer identified three main crossing vessels of the lateral femoral circumflex. These were cauterized in multiple locations and then cut without any noticeable bleeding. The TFL was further released bluntly from the deep fascia to expose anterior hip capsule and fat the Isaac orthopaedic retractor was then placed beneath the TFL and against sartorius and medial soft tissues to protect and retract the soft tissues. A T-capsulotomy was then performed starting at the superior lateral acetabulum and moving distally to the intertrochanteric ridge. These capsular flaps were tagged with a No. 1 Ethibond and elevated from within. The capsular flaps were released to the shoulder of the lateral neck and to the lesser trochanter to give excellent visualization of the proximal femur. A neck osteotomy was performed using an oscillating saw based on preoperative templates. This cut started in the shoulder and of the lateral neck and exited medially. The saw was at all times directed medially to avoid injury to the greater trochanter. 6cm of traction was applied to the leg and the osteotomy opened. The femoral head was removed with a corkscrew, making sure to protect the TFL on its exit. This was measured on the back table to determing the starting reamer size. Portions of the rectus obscuring visualization were minimally elevated off the superior acetabulum. An anterior retractor was placed over the anterior wall between capsule and labrum. A posterior retractor was placed similarly. This provided excellent visualization. The contents of the cotyloid fossa were removed with electrocautery and the labrum was removed with a knife. There was a notable floor osteophyte. There was significant chondromalacia of the superior acetabulum. Acetabular reaming began with a 47 mm reamer. This first reaming was directed anterior to posterior and medial to get down to the true floor. This was inspected and reamed until the true floor was reached. I then reamed sequentially up to a 53 mm reamer where good fit was obtained. The larger reamers were oriented based on anatomical reference of the anterior and lateral rod to ensure proper abduction and anteversion. Positioning and size was confirmed with the fluoroscopy. A 54 mm Depuy [place] acetabular component was selected. The acetabulum was reamed around the periphery with the selected acetabular size to prevent a rim fit. The deep tissues were irrigated. The acetabular component was then impacted in a position of about 40-45 degrees of abduction and 15-20 degrees of anteversion, using the patient?s anatomy as the ultimate landmark. Fluoroscopy was used to confirm this. There was city planning engineer of the acetabular component enough to support the inserting handle without moving. However, it did not seem to be as solid as I would accept the place without screws. Therefore, 2 screws were placed. A primary acetabular screw was placed into the ilium by drilling through one of the holes in the acetabular component. This was measured and an approrpriately sized screw was placed with excellent purchase. It was checked not to be proud. A second screw was placed in a similar fashion. The acetabular liner, Depuy 54 x 36 mm polyethylene liner, was inserted and lined up with the tines of the acetabular component. There was no soft tissue interposition. The liner was then impacted into position and confirmed to be well-seated. A portion of the el-articular cocktail was then injected around the acetabulum into the capsule and periosteum. This cocktail consisted of 50cc of 0.25% Bupivicaine and 20cc of Exparel, expanded to a total of 120cc. Traction was released from the femur. The leg was rotated to 120 degrees. Any remaining medial capsule was released until the lesser trochanter was easily palpable. A Burris retractor was placed medially. The lateral capsule was further released into the shoulder to allow access to the greater trochanter. A Burris retractor was placed over the greater trochanter which allowed the trochanter to flip in front of the capsule for excellent exposure. The leg was brought down into maximal extension and 20 degrees of adduction while ensuring there was no impingement on the acetabulum. Any remnant capsule within the trochanter was released. Piriformis and obturator externis were identified and protected. There was excellent access to the proximal femur. The lateral neck remnant was removed with a rongeur. A blunt canal probe was used to identify the canal and trajectory for later broaching. A box osteotome initiated the broach course. A small curved rasp and a curved curette were used to work laterally. Broaching then began with a size 8 Corail broach. This was inserted manually around the trochanter and into the canal before mallet blows. The broach was seated to a few millimeters below the cut level based on the neck cut and the preoperative template. Sequential broaching was continued until a tight fit was obtained with good rotational control of the femur. A trial standard neck was inserted along with a +5 trial head. The leg was brought out of extension and adduction and then reduced with traction and internal rotation. The leg was stable anteriorly in a position of 30 degrees of extension and 90 degrees of external rotation. Fluoroscopy was used to ensure there was no fracture and the stem was seated well. Leg lengths were checked with an AP pelvis and pelvic reference points. There is still seem to be a slight amount of decreased offset and no significant increase in leg length, so I went to an 8.5 mm head. Once content with the desired offset and leg lengths, the leg was brought back into extension, external rotation and adduction. The periosteum and surrounding tissue was injected with remaining portion of the le-articular cocktail. The proximal femur was irrigated as well as the deep tissues. The Depuy Cor[place] standard collared stem, size 11, was then manually inserted into the proximal femur making sure to control rotation. It was then malleted into position with light blows, giving breaks to allow bone expansion and decrease risk of fracture. The selected Depuy Altrx Ceramic Head, size 36+8.5mm, was then placed onto the clean and dry trunnion and secured with impaction onto the tapered fit. The leg was brought back out of extension and adduction and reduced with traction and internal rotation. Stability was confirmed with no shuck at 90 degrees of external rotation and 30 degrees of extension. No impingement through range of motion arc. Final x-ray images were obtained with fluoroscopy to confirm adequate positioning and no intraoperative fracture. The deep tissues were thoroughly irrigated with a pulse lavage. The second dose of TXA 1g was administered intravenously. The capsule was then reapproximated with the previously placed Ethibond sutures. The TFL fascia was finally closed with a No. 2 Stratafix, barbed suture. Deep tissues were then reapproximated with 0 Vicryl and a running 2-0 Vicryl. The skin was closed with a running 4-0 Monocryl in a subcuticular fashion. This was reinforced with skin glue. A Mepilex silver dressing was applied. At the end of the case, all counts were correct. Tom was transferred to the hospital bed without difficulty and suffering no apparent complication. Tom has a good prognosis. Physical therapy will start today and without restrictions, weight-bearing as tolerated. Aspirin 81mg BID will be used for DVT prophylaxis.
[2019-03-20 07:32] LABS: Anion Gap 7.7 mmol/L (3-11); BUN 13 mg/dL (7-18); CO2 26.3 mmol/L (21.0-32.0); CREATININE 0.87 mg/dL (0.70-1.30); Calcium 8.4 mg/dL (8.5-10.1); Chloride 100 mmol/L (98-107); Glucose 107 mg/dL (70-100); Potassium 3.9 mmol/L (3.5-5.1); Sodium 134 mmol/L (136-145)
[2019-03-20] MEDS: Aspirin E.C. 81 MG TABEC PO (08:54)
[2019-03-20] MEDS: Acetaminophen 500 MG TAB 1000 MG PO ×2 (08:54→14:39)
[2019-03-20] MEDS: Losartan 25 MG TAB PO (08:54)
[2019-03-20] MEDS: Sertraline 50 MG TAB PO (08:54)
[2019-03-20] MEDS: Celecoxib 200 MG CAP PO (08:55)
[2019-03-20] MEDS: hydroCHLOROthiazide 25 MG TAB PO (08:55)
[2019-03-20] MEDS: HYDROmorphone 2 MG TAB PO ×3 (12:02→16:40)
--- NOTE | 2019-03-20 12:40 | PT.INTREAT ---
Date of service: 03/20/19 Time of Service: 12:40 PT Notes Inpatient Physical Therapy Treatment Note [facility] Date: 03/20/2019 PRECAUTIONS: Fall, WBAT R SUBJECTIVE: Tom states that he is having some burning pain in his right hip this morning, although is agreeable to participating in PT. OBJECTIVE: PAIN: Patient complains of burning pain in R LE with ther ex and transfers BED MOBILITY/TRANSFERS Supine-sit: Min A of R LE with HOB at 30 degrees Sit-supine: Sit-stand: SBA Stand-sit: SBA GAIT Assistive Device: FWW Weight bearing: WBAT R Assist: CGA?SBA in a.m.; S in p.m. Distance: 15' +40' in a.m.; 250' in p.m. Deviation: Step through pattern instruction in a.m. THEREX: Patient completed a lower extremity strengthening and stabilization program, in both seated and supine positions, as per flow sheet. Patient requires minimal assist with hip flexion exercise. TOILETING: Patient toileted independently STAIRS: Up/down 3x4 and 2x6 using 1 rail/SPC and a step-to pattern independently ASSESSMENT: Patient tolerated session with complaints of burning pain in R LE with ther ex and transfers in a.m. Patient was able to tolerate a progression in gait distance utilizing step through gait pattern, with FWW support and supervision. Patient would benefit from continued gait and transfer training as well as strengthening for improved mobility and improved activity tolerance. PLAN: Continue with PTs POC TREATMENT CODE/TIME: Session 1: 30 minutes; 90704, [id number] Session 2: 40 minutes; 65613 x2, [id number]
--- NOTE | 2019-03-20 12:59 | W.PM.DS.N ---
Date of service: 03/20/19 Time of Service: 12:59 DS: Diagnosis Discharge Diagnosis (1) Degenerative joint disease of right hip: Status: Acute Discharge Plan Disposition Patient Disposition: HOME Condition: Good Discharge Details Reason For Visit: RIGHT HIP DJD Admit Date/Time: 03/19/19 05:45 Admit Provider: Flaco Pyle Attending Provider: Flaco Pyle Primary Care Provider: Carl Maza Hospital Course Hospital Course: Patient was admitted to the medical/surgical floor following the procedure. It was tolerated well without any notable medical, surgical, or anesthetic complications. Mobilization began postoperatively. The griffin catheter was removed and voiding spontaneously. Vitals were stable. Physical therapy worked with the patient and was cleared for discharge home. No acute medical issues. Home Meds and New Rx's Prescriptions: New aspirin 81 mg tablet,delayed release (DR/EC) 81 mg PO BID Qty: 60 RF: 0 acetaminophen 500 mg tablet 1,000 mg PO Q8H PRN (Reason: pain) Qty: 90 RF: 3 ibuprofen 600 mg tablet 600 mg PO TID PRNQty: 90 RF: 3 hydromorphone 2 mg tablet 2 mg PO Q4H PRN (Reason: pain) Qty: 12 RF: 0 Continued hydrochlorothiazide 25 mg tablet 25 mg PO DAILY Qty: 90 RF: 4 levothyroxine 50 mcg tablet 50 mcg PO DAILY Qty: 90 RF: 3 losartan 25 mg tablet 25 mg PO DAILY Qty: 90 RF: 3 nitroglycerin [Nitrostat] 0.4 mg tablet, sublingual 0.4 mg Sublingual PRN PRN (Reason: Chest Pain) Qty: 25 RF: 0 ranitidine HCl 150 mg tablet 150 mg PO BID Qty: 180 RF: 3 sertraline 50 mg tablet 50 mg PO BID Qty: 180 RF: 4 tadalafil [Cialis] 10 mg tablet 10 mg PO PRN PRNRF: 0 acetaminophen [Tylenol] 325 mg Tablet 650 mg PO Q4H PRNRF: 0 Discontinued meloxicam 15 mg tablet 15 mg PO QPM Qty: 30 RF: 0 aspirin [Aspirin Low-Strength] 81 MG tablet,chewable 81 mg PO DAILY RF: 0 Discharge Instructions Additional Instructions: Dr. Pyle?s Total Hip Discharge Instructions Activity: The most important activity is to walk. You should try to take short walks a few times a day. You have no restrictions on movement or positioning, but do not try to force what you do. You will find some stiffness and weakness with hip flexion (lifting your knee). Do not try to strengthen this too early, continue to practice walking and stairs and this will come. - Outpatient physical therapy can be helpful to help return you to a normal gait and improve your flexibility and strength. This can start around 2 weeks. For some patients, it?s not necessary. Usually this is determined at the time of discharge or at the first post-operative visit. - You should wear the WAYNE hose on both legs for 4 weeks. Dressing: Keep the surgical dressing in place for at least one week. After the first week it may be removed and replace with light gauze and tape or nothing. It may get wet after 3 days but avoid soaking the dressing. If it gets wet, just lightly pat dry. It is important to always keep some gauze between skin folds, especially when you are sitting. Spend some time with the wound exposed when you are lying flat as the incision does wrinkle onto itself. Medications: - You should take Tylenol and an anti-inflammatory Ibuprofen as your primary pain control medications - You have been prescribed a stronger pain medication Hydromorphone for breakthrough pain, take as needed as prescribed. - Continue to take your stomach acid reduction agent, Ranitidine, to help reduce stomach acid and reflux. - You will be taking Aspirin 81mg twice a day for DVT prevention unless instructed otherwise. - If you have constipation you should take Colace or Miralax (both [id number]). It takes most people 3-4 days to have a bowel movement. Follow-up: 2 weeks Stand Alone Forms: Nursing Discharge Form Referrals: Flaco Pyle MD [ [facility] STAFF PHYSICIAN] - 04/03/19 2:45 pm Activity:: Activity as Tolerated Equipment/Supplies:: Walker Diet:: As Tolerated Discharge Orders Discharge Orders: Discharge Order (Routine); Ordered 03/20/19 Ordered By: Flaco Pyle DS: Data Vitals/I&O Vitals and I&O: Vital Signs Temperature 36.1 C L 03/20/19 07:48 Temperature Source Tympanic 03/20/19 07:48 Pulse 67 03/20/19 08:42 Pulse Rhythm Regular 03/20/19 00:05 Respiratory Rate 19 03/20/19 07:48 Respiratory Effort 03/20/19 00:05 Respiratory Depth Normal 03/20/19 00:05 Respiratory Pattern Normal 03/20/19 00:05 Blood Pressure 112/70 03/20/19 07:48 Pulse Oximetry 98 03/20/19 10:05 Oxygen Delivery Method Room Air 03/20/19 10:05 Oxygen Flow Rate 0 03/20/19 10:05 Pain Level 3 03/20/19 12:02 Comment 03/20/19 03:20 Intake & Output 03/19/19 03/20/19 03/20/19 23:59 11:59 23:59 Intake Total 833.334 / 1276.709 7656.667 / 2116.000 991.333 / 2116.000 Output Total 700 / 1600 Balance 133.334 / 666.167 2635.667 / 2116.000 991.333 / 2116.000 Intake: IV 593.334 / 1586.001 764.667 / 1756.000 991.333 / 1756.000 Oral 240 / 290 360 / 360 Output: Urine 700 / 900 Other: Urine Color Yellow Urine Appearance Clear Comment PT STATES THAT HE HAS VOIDED X 2 SINCE HIS GRIFFIN WAS TAKEN OUT AT 1803 LAST EVENING AND WILL NEED TO VOID AGAIN AFTER HE FINISHES BREAKFAST. 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
--- NOTE | 2019-03-20 15:35 | CHAPLAIN ---
Tom was sitting up in his chair when I visited. He said his surgery went well yesterday and he's leaving later today. He talked about his years of working in [employer] (he estimates that he walked 25 miles a day behind the [employer]), worked that he loved and that he felt he was good at, but it was hard on him physically. He said he is feeling optimistic about how much better he'll feel after his recovery from surgery. His parents and aunt were in to visit. He is related to Tonia, the Hospitalist ANTONIA and Brianna who works in administration.
--- NOTE | 2019-03-20 15:43 | PDOC.CMPRO ---
Care Management Progress Note Tom is independent at baseline, and looking forward to returning home when CM met with him. CM filled FWW at MD and Patient request through [employer], [facility]. Tom shared no concerns about returning home.
--- NOTE | 2019-03-20 17:13 | PT.INDS ---
Date of service: 03/20/19 PT Notes Inpatient Physical Therapy Discharge Summary Dates: 03/20/2019 Dates of Service: 03/19/2019 through 03/20/2019 This is a clinical summary of care provided on the duration of dates listed above. No charge was made in the completion of this documentation. Referring Doctor: Flaco Pyle MD PT Orders: PT CONSULT: Status post right anterior EMILY Precautions: Fall. Standard. WBAT on right LE. Patient Profile/Admitting Diagnosis: Patient is a 63-year-old male with primary unilateral osteoarthritis of right hip and is status post anterior total hip arthroplasty on postoperative day 0. PMHX: Medical History Unspecified injury of left quadriceps muscle, fascia and tendon, initial encounter (Acute) Family hx of colon cancer requiring screening colonoscopy (Acute) Quadriceps muscle rupture (Acute) Smoker (Chronic) Sexual function problem (Acute) Obstructive sleep apnea syndrome (Chronic) Oakley's metatarsalgia (Acute) Impaired fasting glucose (Acute) Hypothyroidism (acquired) (Chronic 03/03/17) Hypertension (Chronic) Hyperlipidemia (Chronic) History of alcoholism (Acute) Epicondylitis (Acute) Depressive disorder (Acute 08/10/00) Chest pain (Acute) Angina pectoris (Resolved) Angina pectoris (Resolved) Family history of colon cancer (Resolved) Normal colonoscopy (Resolved 09/21/18) Surgical History Rotator Cuff Repair Social History/Home Situation: Patient lives with in a 1 floor house with 2 steps to enter. He is independent with all aspects of ADLs without the need for an assistive ambulatory device nor adaptive equipment although he states that when he injured his left quadriceps in August of last year he needed to use bilateral axillary crutches for support for ambulation task performance. 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 He has a very supportive family. Current Functional Limitations: Need for assistance for all transfer and ambulation task performance using front wheeled walker Equipment Owned/DME: Bilateral axillary crutches, walking stick, SC Subjective: NT Objective: General Observation: NT Mental Status: NT Pain: NT Vital Signs: NT ROM: Right Upper Extremity: Shoulder Flexion WFL. Shoulder abduction WFL. Elbow flexion WFL. Wrist flexion WFL. Functional opening and closing of hand WFL. Left Upper Extremity: Shoulder Flexion WFL. Shoulder abduction WFL. Elbow flexion WFL. Wrist flexion WFL. Functional opening and closing of hand WFL. Right Lower Extremity: Patient was able to tolerate about 20 degrees of hip flexion while sitting at edge of bed before discomfort set in. Knee flexion WFL. Knee extension WFL . Ankle dorsiflexion WFL. Ankle plantarflexion WFL. Left Lower Extremity: Hip flexion WFL. Hip abduction WFL. Knee flexion WFL. Ankle dorsiflexion WFL. Ankle plantarflexion WFL. Strength: Right Upper Extremity: Shoulder flexors 5/5. Shoulder abductors 5/5. Elbow flexors 5/5. Elbow extensors 5/5. Link Trainer Maintenance Worker strong. Left Upper Extremity: Shoulder flexors 5/5. Shoulder abductors 5/5. Elbow flexors 5/5. Elbow extensors 5/5. Link Trainer Maintenance Worker strong. Right Lower Extremity: Hip flexors 3-/5. Knee flexors 4/5. Knee extensors 4/5. Ankle dorsiflexors 5/5. Ankle plantarflexors 5/5. Left Lower Extremity:Hip flexors 5/5. Knee flexors 5/5. Knee extensors 5/5. Ankle dorsiflexors 5/5. Ankle plantarflexors 5/5. Sensation: Intact as to pain and pressure on left lower extremities, slightly diminished on right lower extremity. Bed Mobility/Transfers: Rolling I Supine to sit I Sit to supine I Sit to stand S Stand to sit S Bed to chair S Chair to bed S Gait: Patient now able to tolerate 250 feet of level surface ambulation with WBAT on right LE using F WW with a step through gait pattern. Decreased gait velocity and decreased step height on right noted.He is able to tolerate up-and-down 4 inch steps x3 and 6 inch steps x2 while holding onto one rail using single-point cane with a step to gait pattern independently. Balance: Static Sitting: Good Dynamic Sitting: Good Static Standing: Fair Dynamic Standing: Fair Assessment: Patient is a 63-year-old male with primary unilateral osteoarthritis of right hip and is status post anterior total hip arthroplasty on postoperative day 0. Patient presents with clinical signs and symptoms consistent with current/admitting diagnoses and postoperative status that have resulted to mobility limitations, gait instability, generalized weakness, and impairment of motor control as demonstrated by the following impairment level findings: 1. Decreased strength to R hip major muscle groups 2. Impaired standing balance 3. Impaired activity tolerance 4. Limitation of joint range of motion in R hip Impairments are contributing to the following functional limitations: 1. Dependent bed mobility skills 2. Increased dependence with transfers 3. Inability to safely ambulate without assistive device and physical assistance 4. Increase completion time for mobility ADL performance 5. Increased fall risk 6. Inability to negotiate steps alone safely Goals: Goals X1 week 1. Supine-Sit independent MET 2. Sit-Supine independent MET 3. Sit-Stand independent NOT MET 4. Stand-Sit independent NOT MET 5. Bed-Chair independent NOT MET 6. Chair-Bed independent NOT MET 7. Independent gait on level surface with use of least restrictive device for at least 300 feet without report of pain nor dyspnea NOT MET 8. Independent stair negotiation while holding onto bilateral rails for at least 5 steps without report of pain nor dyspnea NOT MET 9. Independent with home exercise program NOT MET 10. Good static and dynamic standing balance/tolerance NOT MET DISCHARGE RECOMMENDATIONS: Patient will need a front wheeled walker to reduce fall risk at discharge destination. May benefit from skilled physical therapy services according to orthopedic surgeon timeline recommendations. Patient will be educated and trained on home exercise program per EMILY exercise protocol in preparation for outpatient physical therapy services. TREATMENT CODE/TIME: OR Thank you very much for this referral. Dianna Driscoll PT, DPT, CLT [facility]
== END 2019-03-20 16:43 | disposition home or self-care (01) | DRG 470 ==
LOC: PDS 07:31 → MS 10:33
PROVIDERS: Nurse Anesthetist, Certified Registered; Admitting Provider Student in an Organized Health Care Education/Training Program; PCP Emergency Medicine; Visit Provider Student in an Organized Health Care Education/Training Program
PROC: 0SR904A Replacement of Right Hip Joint with Ceramic on Polyethylene Synthetic Substitute, Uncemented, Open Approach (ICD-10-PCS; CPT 27130; principal; 2019-03-19 07:30)
DX: M16.11 Unilateral primary osteoarthritis, right hip (principal); Z96.641 Presence of right artificial hip joint; G47.33 Obstructive sleep apnea (adult) (pediatric); I10 Essential (primary) hypertension; E03.9 Hypothyroidism, unspecified; E78.5 Hyperlipidemia, unspecified; F17.210 Nicotine dependence, cigarettes, uncomplicated
CPT/HCPCS: 27130; 36415; 80048; 85027; 97110; 97162; 97530; NC; 72170; 73501; 84484; 93005; 93010; J0131; J0690; J1100; J1200; J1885; J2250; J2405; J3010

== ENCOUNTER 2019-04-03 15:05 | Outpatient (CLI) | payer OTHER, SELFPAY ==
--- NOTE | 2019-04-03 14:55 | DI.RAD_ITS ---
SYMPTOM/DIAGNOSIS: 1ST POST OP PELVIS AND RIGHT HIP: Comparison is made with intraoperative images of March 2019. There has been no change in the alignment of the right hip prosthesis. No abnormal bony lucencies are seen.
== END 2019-04-03 15:25 ==
PROVIDERS: PCP Emergency Medicine; Visit Provider Student in an Organized Health Care Education/Training Program
DX: Z47.1 Aftercare following joint replacement surgery (principal); Z96.641 Presence of right artificial hip joint
CPT/HCPCS: 73502

== ENCOUNTER 2020-08-11 10:32 | Outpatient (REF) | payer OTHER, SELFPAY ==
[2020-08-11 14:27] LABS: Anion Gap 8.4 mmol/L (3-11); BUN 11 mg/dL (7-18); CO2 24.6 mmol/L (21.0-32.0); CREATININE 0.96 mg/dL (0.70-1.30); Calcium 9.1 mg/dL (8.5-10.1); Chloride 105 mmol/L (98-107); Cholesterol 252 mg/dL (<200); Glucose 154 mg/dL (74-106); HDL Cholesterol 26 mg/dL (40-60); Potassium 3.6 mmol/L (3.5-5.1); Sodium 138 mmol/L (136-145); TSH 1.77 uIU/mL (0.36-3.74); Triglyceride 450 mg/dL (<150)
[2020-08-11 14:43] LABS: LDL CHOLESTEROL 142 mg/dL (<100)
== END 2020-08-11 10:52 ==
LOC: LBN 10:32
PROVIDERS: PCP Emergency Medicine; Visit Provider Emergency Medicine
DX: I10 Essential (primary) hypertension (principal); E78.5 Hyperlipidemia, unspecified; E03.9 Hypothyroidism, unspecified
CPT/HCPCS: 80048; 80061; 83721; 84443

== ENCOUNTER 2020-11-10 01:37 | Outpatient (CLI) | payer OTHER, SELFPAY ==
--- NOTE | 2020-11-10 06:45 | DI.CT_ITS ---
EXAM: CT CHEST WO CLINICAL HISTORY: Follow-up right pulmonary nodule,r91.1 TECHNIQUE: COMPARISON: CT CHEST FOR PULMONARY EMBOLUS from 01/07/2015 FINDINGS: CT examination of the chest was performed without contrast administration. Images obtained through t he upper abdomen show probable hepatic steatosis and mild hepatomegaly. Visualized portions of splee n pancreas adrenals and left kidney are unremarkable. There are coronary artery calcifications. No gross mediastinal or hilar adenopathy. There is peripheral bronchiectasis particularly in the lung bases. There are predominantly periphera l areas of reticular radiodensities with associated subpleural emphysema. Comparison with prior CT o f December 2014 shows some interval progression these findings since that time. No focal mass or consol idation seen. An area of nodularity associated with right minor fissure anterolaterally is unchanged from the prior study. No pleural effusion seen. IMPRESSION: Chronic intrapulmonary changes predominantly cysts subpleural emphysema, fibrotic changes, and bronch iectasis. No change in previously described presumably benign fissural nodule. RADIATION DOSE DELIVERED: 746.34mGy.cm Total DLP
== END 2020-11-10 01:57 ==
PROVIDERS: PCP Emergency Medicine; Visit Provider Emergency Medicine
DX: R91.1 Solitary pulmonary nodule (principal); J47.9 Bronchiectasis, uncomplicated; J43.9 Emphysema, unspecified
CPT/HCPCS: 71250

== ENCOUNTER 2021-07-19 08:47 | Outpatient (CLI) | payer OTHER, SELFPAY ==
--- NOTE | 2021-07-19 08:15 | DI.RAD_ITS ---
Exam(s) XR HIP LT COMPLETE AP PELVIS EXAM: XR HIP LT COMPLETE AP PELVIS CLINICAL HISTORY: left hip pain. TECHNIQUE: 2D digital imaging was performed of the left hip.Two views were obtained. AP pelvis and lateral left hip views were obtained. COMPARISON: CR XR hip RT complete AP pelvis from 04/03/2019 CR XR hip RT complete AP pelvis from 04/03/2019 FINDINGS: BONES: No acute fracture is present. No bony destructive lesion is seen. Mild degenerative changes ar e seen in the left hip with periarticular spurring. JOINTS: No dislocation present. There is a stable right THR. SOFT TISSUE: Atherosclerosis is present. IMPRESSION: 1. Mild degenerative changes of the left hip. 2. Stable right THR. DATA REPOSITORY: RADIATION DOSE DELIVERED:
--- NOTE | 2021-07-19 08:45 | DI.RAD_ITS ---
Exam(s) XR LUMBAR SPINE AP, LAT EXAM: XR LUMBAR SPINE AP, LAT CLINICAL HISTORY: low back pain; left hip pain. TECHNIQUE: 2D digital imaging was performed of the lumbar spine. Three images were obtained. AP, l ateral and L5-S1 spot views were obtained. COMPARISON: CR CHEST 2 VIEWS PA,LAT from 03/20/2018 FINDINGS: There are 5 lumbar type vertebral bodies. There is a mild S-type curvature of the lower thoracic and lumbar spine. No spondylolysis or spondylolisthesis is seen. There is disc space narrowing and a vacu um disc at L5-S1. Endplate osteophytes are seen at multiple levels of the lumbar spine, predominantly from L2-3 through L5-S1. No acute fractures or subluxations. Facet arthropathy is seen at L4-5 and L 5-S1. There is atherosclerosis present. The patient has a right hip prosthesis which is incompletely imaged. The soft tissues are unremarkable. IMPRESSION: Moderate degenerative changes in the lumbar spine. DATA REPOSITORY: RADIATION DOSE DELIVERED:
== END 2021-07-19 08:48 | disposition home or self-care (01) ==
PROVIDERS: PCP Emergency Medicine; Referring Provider Emergency Medicine; Visit Provider Physician Assistant
DX: M25.552 Pain in left hip (principal); M16.12 Unilateral primary osteoarthritis, left hip; M70.62 Trochanteric bursitis, left hip; M54.50 Low back pain, unspecified; M51.37 Other intervertebral disc degeneration, lumbosacral region; Z96.641 Presence of right artificial hip joint
CPT/HCPCS: 72100; 73502

== ENCOUNTER 2021-08-18 00:41 | Outpatient (CLI) | payer OTHER, SELFPAY ==
--- NOTE | 2021-08-18 08:00 | DI.MRI_ITS ---
Exam(s) MR LUMBAR SPINE WO EXAM: MR LUMBAR SPINE WO CLINICAL HISTORY: LOW BACK AND HIP PAIN, M54.50,M25.559. TECHNIQUE: Multiplanar multisequence MRI of the Lumbar spine was performed. COMPARISON: CR XR LUMBAR SPINE AP, LAT from 07/19/2021 CR XR LUMBAR SPINE AP, LAT from 07/19/2021 FINDINGS: Bones: The last intervertebral disc space is designated the L5/S1 level for the numbering purpose of this examination. The vertebral body heights are well maintained. Alignment is satisfactory. Mild d egenerative endplate signal changes are present. Cord: The conus tip ends at the L1 level. It is of normal size and signal intensity. T12-L1: No disc herniations or bulges are present. No central spinal canal or neural foraminal stenos is. L1-2: No disc herniations or bulges are present. No central spinal canal or neural foraminal stenosis . L2-3: There is a mild diffuse disc bulge. No central spinal canal or neural foraminal stenosis. L3-4: There is a diffuse disc bulge. There are hypertrophic changes of the facets. Mild narrowing o f the central spinal canal is seen. There is mild bilateral neural foraminal stenosis. L4-5: There is a mild diffuse disc bulge. There are hypertrophic changes of the facets and ligamentu m flavum. Minimal narrowing of the central spinal canal is noted. No significant neural foraminal s tenosis is seen. L5-S1: There is a diffuse disc bulge. There are hypertrophic changes of the facets. No significant central spinal canal stenosis is present. [id number] bilateral neural foraminal stenosis is pr esent. Soft tissues: The visualized SI joints and sacrum are well maintained. The paraspinal soft tissues ar e unremarkable. Note is made of bilateral simple renal cysts. IMPRESSION: Multilevel degenerative changes in the lumbar spine resulting in central spinal canal and neural fora edna stenosis as described above. DATA REPOSITORY:
== END 2021-08-18 01:01 ==
PROVIDERS: PCP Emergency Medicine; Visit Provider Student in an Organized Health Care Education/Training Program
DX: M54.50 Low back pain, unspecified (principal); M25.551 Pain in right hip; M25.552 Pain in left hip; M48.061 Spinal stenosis, lumbar region without neurogenic claudication
CPT/HCPCS: 72148

== ENCOUNTER 2022-07-04 10:23 | Outpatient (CLI) | payer OTHER, SELFPAY ==
--- NOTE | 2022-07-04 08:30 | DI.RAD_ITS ---
Exam(s) XR HIP LT COMPLETE AP PELVIS EXAM: XR HIP LT COMPLETE AP PELVIS INDICATION: L hip pain. COMPARISON: CR XR HIP LT COMPLETE AP PELVIS from 07/19/2021 TECHNIQUE: 2D digital imaging was performed. Two views. FINDINGS: No change in right hip prosthesis. Left hip joint space is maintained. There is acetabular spurring . Calcifications incidentally noted. IMPRESSION: Stable mild degenerative changes of the left hip. Stable right hip prosthesis. DATA REPOSITORY: RADIATION DOSE DELIVERED:
== END 2022-07-04 10:24 | disposition home or self-care (01) ==
LOC: DIORS 10:23
PROVIDERS: PCP Family Medicine; Referring Provider Family Medicine; Visit Provider Physician Assistant
DX: M25.552 Pain in left hip (principal); M16.12 Unilateral primary osteoarthritis, left hip; Z96.641 Presence of right artificial hip joint
CPT/HCPCS: 73502

== ENCOUNTER → 2022-07-25 01:39 | Outpatient (CLI) | payer OTHER, SELFPAY ==
--- NOTE | 2022-07-25 07:45 | DI.MRI_ITS ---
Exam(s) MR LOWER JOINT LT WO EXAM: MR LOWER JOINT LT WO CLINICAL HISTORY: PAIN,LT HIP TROCHANTERIC BURSITIS, M70.62 TECHNIQUE: Multiplanar multisequence MRI of Pelvis was performed COMPARISON: CR XR HIP LT COMPLETE AP PELVIS from 07/04/2022 FINDINGS: Bones: There is a right hip prosthesis which creates mild artifact. There is no fracture or contusio n pattern. No significant joint effusion is present. No bone marrow edema is seen. The SI joints and symphysis pubis are well maintained. Musculotendinous structures: No tendon tear is are seen. There is some high signal in the distal gl uteus medius muscle however this appears symmetric to the contralateral hip. No bursal collection is visible. The musculature appears symmetric. Intrapelvic structures demonstrate no significant abnormality. IMPRESSION: Mild edema bilaterally in the distal gluteus medius muscles, at the level of the greater trochanters. No visible tendon tear. DATA REPOSITORY:
== END ==
PROVIDERS: PCP Family Medicine; Visit Provider Student in an Organized Health Care Education/Training Program
DX: M70.62 Trochanteric bursitis, left hip (principal); R60.0 Localized edema
CPT/HCPCS: 73721

== ENCOUNTER 2022-10-11 13:28 | Inpatient (IN) | payer MEDICARE, BC, SELFPAY ==
[2022-10-11] VITALS (26 sets, daily range): BP systolic 143–193; BP diastolic 91–106; PULSE 53–76; RESP 16–18; TEMP 36.1–36.7; O2SAT 93–98
--- NOTE | 2022-10-11 14:37 | W.ED.GENAD ---
Discharge Plan Disposition Patient Disposition: Admit to [facility] Condition: Stable Discharge Details Chief Complaint: Headache Clinical Impression: Pathologic fracture of cervical vertebra, Mass in chest Primary Care Provider: [facility] Provider: Shahid Valenzuela Home Meds and New Rx's Prescriptions: No Action aspirin 325 mg tablet 325 mg PO DAILY nicotine (polacrilex) 2 mg lozenge 2 mg MM Q4H PRN (Reason: nicotine cravings) Qty: 108 4RF ketoconazole 2 % cream 1 applic topical BID Qty: 60 1RF Rx Instructions: apply bid x 8 wk hydrochlorothiazide 25 mg tablet 25 mg PO DAILY Qty: 90 3RF levothyroxine 50 mcg tablet 50 mcg PO DAILY Qty: 90 3RF losartan 25 mg tablet 25 mg PO DAILY Qty: 90 3RF nitroglycerin [Nitrostat] 0.4 mg tablet, sublingual 0.4 mg Sublingual PRN PRN (Reason: Chest Pain) Qty: 25 0RF Rx Instructions: TAKE ONE UNDER TONGUE EVERY 5 MINUTES NEEDED FOR CHEST PAIN UP TO THREE AND CALL 911 FOR ASSISTANCE omeprazole 20 mg capsule,delayed release(DR/EC) 20 mg PO BID Qty: 180 3RF ropinirole 1 mg tablet 1 mg PO QHS Qty: 90 1RF Rx Instructions: administer 1-3 hours before bedtime sertraline 50 mg tablet 50 mg PO BID Qty: 180 3RF tadalafil 2.5 mg tablet 2.5 mg PO DAILY Qty: 90 3RF Rx Instructions: Take 1 tablet once a day Medical Decision Making <Bridgette Eckert NP - Last Filed: 10/11/22 16:28> CT head C-spine without contrast ordered, lidocaine patch and Flexeril. Medical Records Medical records reviewed: Yes I reviewed the patient's medical records. <JONO Levin - Last Filed: 10/11/22 20:17> CT head C-spine without contrast ordered, lidocaine patch and Flexeril. 1530: Shahid Valenzuela PA-C I assumed care of this 67-year-old gentleman from my colleague ANTONIA Eckert, please see her initial HPI and examination. At time of signout awaiting CTA for further evaluation of a lytic lesion of C2 on CT imaging. Patient reports no improvement of pain with lidocaine patch and Flexeril. [address] results as below. Hard c-collar applied. Will add on Fluvid. Discussed results with patient. Images were pushed to [facility] and I have requested a consultation with neurosurgery. Patient remains neurologically intact. Case discussed with Dr. Delacruz, neurosurgery at 181, from [facility]. Recommends keeping the hard c-collar in place, she would like to consult with her team and then will call back. She called back at 182, recommends keeping hard c-collar in place, pain control, patient will need MRI of neck with and without contrast, this does not have to happen as an inpatient. Is hopeful that this will be nonsurgical but MRI will provide further insight. She recommends speaking with the tumor hotline. [id number], I spoke with the tumor hotline on-call physician, Dr. Bear, [facility]. Given the patient is stable, he believes the patient can safely be discharged home but will require prompt outpatient follow-up and evaluation. C-collar to be worn at all times. He will have his office call the patient tomorrow to set up telehealth and will set up the patient as an outpatient for both lung biopsy and MRI. This plan was discussed with patient and family. He reports his pain is not well controlled. Given 1 mg IV Dilaudid. Flu, COVID, RSV negative. Patient reports his pain is still not well controlled. Family is concerned that he will require admission for adequate pain control and if admitted then could hopefully expedite the MRI tomorrow. They do understand that the biopsy very well may not take place at our facility. Case was discussed with our hospitalist, Dr. Willis, 1930. She is agreeable for admission and will write admission orders but request that a procalcitonin and chest x-ray be ordered given his chest findings on CT for further evaluation of potential pneumonia. Procalcitonin and chest x-ray ordered. This documentation was generated using [employer] system, please disregard any oddities of phrase or misspellings. Imaging Data Radiologic Study #2: Attestation: I personally reviewed and interpreted this imaging study as follows: Imaging: CT Scan Radiologist's impression: PROCEDURE INFORMATION: Exam: CTA Neck With Contrast Exam date and time: 10/11/2022 4:51 PM Age: 67 years old Clinical indication: Other: Headache, evaluate c2 lesion per radiologist TECHNIQUE: Imaging protocol: Computed tomographic angiography of the neck with contrast. 3D rendering (Not supervised by radiologist): MIP and/or 3D reconstructed images were created by the technologist. Radiation optimization: All CT scans at this facility use at least one of these dose optimization techniques: automated exposure control; mA and/or kV adjustment per patient size (includes targeted exams where dose is matched to clinical indication); or iterative reconstruction. Contrast material: OMNIPAQUE 350; Contrast volume: 85 ml; Contrast route: INTRAVENOUS (IV); COMPARISON: CT HEAD CERVICAL SPINE WO 10/11/2022 3:03 PM FINDINGS: Right common carotid artery: No significant stenosis. No dissection or occlusion. Right internal carotid artery: Atherosclerotic plaques involving the proximal extracranial right internal carotid artery without evidence of hemodynamically significant stenosis (0% stenosis by NASCET criteria). Right external carotid artery: No occlusion or significant stenosis. Left common carotid artery: No significant stenosis. No dissection or occlusion. Left internal carotid artery: Atherosclerotic plaques involving the proximal extracranial left internal carotid artery without evidence of hemodynamically significant stenosis (0% stenosis by NASCET criteria). Left external carotid artery: No occlusion or significant stenosis.Right vertebral artery: No significant stenosis. No dissection or occlusion. Left vertebral artery: No significant stenosis. No dissection or occlusion. 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 Upper thorax: Approximately 2.8 cm subpleural mass in the partially visualized left upper lobe. Scattered patchy ground-glass opacities throughout the partially visualized lungs in both peripheral and central distributions. Approximately 4.7 cm left hilar mass. IMPRESSION: 1. 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 Recommend neurosurgery consultation. 2. Approximately 2.8 cm subpleural mass in the partially visualized left upper lobe. Approximately 4.7 cm left hilar mass, likely metastasis. Findings concerning for primary lung neoplasm/s. Recommend oncology consultation. 3. Scattered patchy ground-glass opacities throughout the partially visualized lungs in both peripheral and central distributions, which could reflect superimposed pneumonia versus fibrotic changes. 4. No evidence of dissection, occlusion, or significant stenosis in the arteries of the neck. Radiologic Study: Attestation: I personally reviewed and interpreted this imaging study as follows: Radiologist's impression: Exam(s) CT HEAD CERVICAL SPINE WO EXAM: CT HEAD CERVICAL SPINE WO CLINICAL HISTORY: Headache, Cervical radiculopathy. TECHNIQUE: Imaging Protocol: Axial computed tomography images with coronal and sagittal reformatted images were created and reviewed COMPARISON: No exams were available for comparison FINDINGS: CT Head: Ventricles and Extra axial spaces: Normal in size and morphology for the patient's age. Hemorrhage: None. Cerebral parenchyma: No acute territorial infarct. Midline shift: None. Brainstem/Cerebellum: Normal. Calvarium: Normal. Visualized Paranasal sinuses/Mastoids: There is a small amount of fluid seen in ethmoid air cells in the right sphenoid sinus. The remaining visualized paranasal sinuses and mastoid air cells are clear. Soft Tissues: Unremarkable. CT Cervical Spine: Bones: No acute fracture or subluxation. There is a lytic lesion involving the right aspect of the C2 vertebral body, right facet and right transverse process. It would appear to compromise the transverse foramen. There also appears to be resultant stenosis of the right neural foramen. There is no significant central spinal canal stenosis. No other lytic lesions are seen. Multilevel degenerative changes are seen in the cervical spine. Soft Tissues: Unremarkable. Lung Apices: There is motion artifact in the lung apices limiting evaluation. There do appear to be fibrotic changes in the lung apices. IMPRESSION: 1. No acute intracranial process. 2. There is a lytic lesion involving the right aspect of the C2 vertebral body, right facet and right transverse process. There does appear to be compromise of the right transverse foramen and right neural foraminal stenosis. CT a of the neck is recommended for further evaluation. Primary concern is for a primary or metastatic focus. 3. Findings were discussed with Bridgette Eckert at 3:45 p.m. on 10/11/2022. Lab Data Lab results reviewed: Yes I reviewed the patient's lab results. Labs: Laboratory Tests Range/Units 10/11/22 10/11/22 10/11/22 14:02 14:02 17:40 WBC (4.4-10.8) 10^3/uL 7.80 RBC (4.36-5.78) 10^6/uL 5.46 Hgb (13.5-17.5) g/dL 17.0 Hct (40.0-50.0) % 47.9 MCV (80-95) fL 88 MCH (27.0-33.0) pg 31.1 MCHC (32.0-36.0) % 35.5 RDW (11.8-14.1) % 12.2 Plt Count (130-400) 10^3/uL 202 MPV (8.0-11.0) fL 9.1 Immature Gran % 1.2 Neutrophils % 58.8 Lymphocytes % 29.2 Monocytes % 7.3 Eosinophils % 2.7 Basophils % 0.8 Nucleated RBC % (0.0-0.3) % 0.0 Absolute Neutrophils (1.2-6.7) 10^3/uL 4.59 Absolute Lymphocytes (1.2-3.4) 10^3/uL 2.28 Absolute Monocytes (0.1-0.8) 10^3/uL 0.57 Absolute Eosinophils (0.0-0.7) 10^3/uL 0.21 Absolute Basophils (0.0-0.2) 10^3/uL 0.06 Sodium (136-145) mmol/L 134 L Potassium (3.5-5.1) mmol/L 3.8 Chloride (98-107) mmol/L 98 Carbon Dioxide (21.0-32.0) mmol/L 26.3 Anion Gap (3-11) mmol/L 9.7 BUN (7-18) mg/dL 11 Creatinine (0.70-1.30) mg/dL 0.9 Est GFR (CKD-EPI 2020) (mL/min/1.73m2) 94.19 Glucose (74-106) mg/dL 94 Calcium (8.5-10.1) mg/dL 9.9 Total Bilirubin (0.2-1.0) mg/dL 0.5 AST (15-37) U/L 21 ALT (16-63) U/L 26 Alkaline Phosphatase (46-116) U/L 59 Total Protein (6.4-8.2) g/dL 8.7 H Albumin (3.4-5.0) g/dL 4.4 COVID-19 Source Nasopharynx SARS-CoV-2 (PCR) (Negative) Negative Influenza Type A (PCR) (Negative) Negative Influenza Type B (PCR) (Negative) Negative RSV (PCR) (Negative) Negative HPI <Bridgette ANTONIA Eckert - Last Filed: 10/11/22 16:28> General Mode of arrival: ambulatory. Date/Time Provider Initiated Documentation: 10/11/22 13:29. Limitations to Documentation: no limitations. Information obtained by: patient, RN notes reviewed and old records reviewed. HPI Narrative: 67-year-old male presents to the ER with headache x1 month which radiates down into his right lateral neck and he reports some right hand tingling. He denies any known injury he does report some heavy lifting. No focal neurodeficits noted. He states that he does note that his vision gets blurry when he turns to look over his right shoulder. Pain is worse on the right than the left. He does have some muscle spasm palpated. No midline C-spine tenderness he denies any fever chills or any other associated symptoms. Denies any nausea vomiting. He is sensitive to light and sound. He has been taking Tylenol at home with little to no relief. Past medical history includes obstructive sleep apnea, hypothyroidism, hypertension hyperlipidemia he is a smoker, angina. Related Data Home Medications Medication Instructions Recorded Confirmed aspirin 325 mg tablet 325 mg PO DAILY 10/25/19 10/11/22 nicotine (polacrilex) 2 mg buccal 2 mg mucous membrane Q4H PRN 10/25/19 10/11/22 lozenge nicotine cravings #108 ea ketoconazole 2 % topical cream 1 applic topical BID #60 grams 03/30/21 10/11/22 hydrochlorothiazide 25 mg tablet 25 mg PO DAILY #90 tabs 12/06/21 10/11/22 levothyroxine 50 mcg tablet 50 mcg PO DAILY #90 tab-caps 12/06/21 10/11/22 losartan 25 mg tablet 25 mg PO DAILY #90 tab-caps 12/06/21 10/11/22 nitroglycerin 0.4 mg sublingual 0.4 mg sublingual PRN PRN Chest 12/06/21 10/11/22 tablet (Nitrostat) Pain #25 tabs omeprazole 20 mg capsule,delayed 20 mg PO BID #180 caps 12/06/21 10/11/22 release ropinirole 1 mg tablet 1 mg PO QHS #90 tabs 12/06/21 10/11/22 sertraline 50 mg tablet 50 mg PO BID #180 tab-caps 12/06/21 10/11/22 tadalafil 2.5 mg tablet 2.5 mg PO DAILY #90 tabs 22 10/11/22 Previous Rx's Medication Instructions Recorded nicotine (polacrilex) 2 mg buccal 2 mg mucous membrane Q4H PRN 10/25/19 lozenge nicotine cravings #108 ea ketoconazole 2 % topical cream 1 applic topical BID #60 grams 03/30/21 hydrochlorothiazide 25 mg tablet 25 mg PO DAILY #90 tabs 12/06/21 levothyroxine 50 mcg tablet 50 mcg PO DAILY #90 tab-caps 12/06/21 losartan 25 mg tablet 25 mg PO DAILY #90 tab-caps 12/06/21 nitroglycerin 0.4 mg sublingual 0.4 mg sublingual PRN PRN Chest 12/06/21 tablet (Nitrostat) Pain #25 tabs omeprazole 20 mg capsule,delayed 20 mg PO BID #180 caps 12/06/21 release ropinirole 1 mg tablet 1 mg PO QHS #90 tabs 12/06/21 sertraline 50 mg tablet 50 mg PO BID #180 tab-caps 12/06/21 tadalafil 2.5 mg tablet 2.5 mg PO DAILY #90 tabs 12/06/21 Allergies Allergy/AdvReac Type Severity Reaction Status Date / Time venom-honey bee Allergy Intermediate BEE STINGS Verified 10/11/22 14:11 CAUSE SWELLING General Stated Complaint: Headache HUSSEIN: 3 Review of Systems <Bridgette Eckert NP - Last Filed: 10/11/22 16:28> All systems reviewed & are unremarkable except as noted in HPI and below Constitutional Constitutional: Denies body ache(s), Denies chills, Denies fever(s) and Reports headache(s) ENT Ears, Nose, Mouth, and Throat: Reports headache(s) Neurologic Neurologic: Reports headache(s) PFSH <Bridgette Eckert NP - Last Filed: 10/11/22 16:28> All Active Problems (Updated 10/11/22 @ 20:17 by JONO Levin) Pathologic fracture of cervical vertebra (Acute) Mass in chest (Acute) Headache (Acute) Gluteal tendonitis of left buttock (Acute) Spondylosis of lumbar spine (Acute) Trochanteric bursitis, left hip (Acute) DEPO MEDROL 08/12/22; 07/19/21 Left hip pain (Acute) Right lower lobe pulmonary nodule (Acute) 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 Pyle Status post rotator cuff repair (Acute) Smoker (Acute) Epicondylitis (Acute) Unspecified injury of left quadriceps muscle, fascia and tendon, initial encounter (Acute) Family hx of colon cancer requiring screening colonoscopy (Acute) Quadriceps muscle rupture (Acute) Original injury 08/27/2018 Re-injury on 09/04/2018 Smoker (Chronic) Sexual function problem (Acute) Obstructive sleep apnea syndrome (Chronic) CPAP Oakley's metatarsalgia (Acute) Impaired fasting glucose (Acute) Hypothyroidism (acquired) (Chronic 03/03/17) Hypertension (Chronic) Hyperlipidemia (Chronic) History of alcoholism (Acute) Epicondylitis (Acute) Depressive disorder (Acute 08/10/00) Chest pain (Acute) +MPI-inferior wall; cardiac cath neg. ? Syndrome X neg MPI 03/27 Medical History Angina pectoris Angina pectoris Family history of colon cancer Normal colonoscopy (09/21/18) 09/21/18 Dr Armand Walton, [facility], normal, repeat 5 years due to family history colon cancer, mg. Surgical History History of colonoscopy Rotator Cuff Repair Bilateral Family History Mother Neoplasm SKIN Father Heart disease Hyperlipidemia Neoplasm COLON Sister No problems noted. 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 Pets and animals: Yes Pets and animals: dog(s) Sexually active: Yes Do you think of yourself as: straight/heterosexual Current gender identity: male What is your relationship status?: How often do you talk on the phone with friends or family?: three or more times per week How often do you get together with friends or relatives?: twice per week How often do you attend mormonism or zoroastrianism services?: decline to answer Do you belong to any clubs or organized social groups?: no Panel score (0-1 are the most socially isolated patients): 2 What type of physical activity do you participate in: walking Duration: 15-30 minutes/day Frequency: daily Jaymie/Jain: Cheondoism Seatbelt use: always Helmet use: Yes Helmet use: always Drive intox or ride w/intox utility worker driver: No Do you feel safe at home: Yes Do you feel safe in your relationship?: Yes Exam <Bridgette Eckert NP - Last Filed: 10/11/22 16:28> Narrative Exam Narrative: Constitutional: Alert and oriented x3. Appears stated age. Normal body habitus. Head: Normocephalic, no trauma. Eyes: Pupils PERRL, Red reflex noted, EOM's intact. Eyelids symmetrical without lesions, discharge, or swelling. ENT: Bilateral TM's WNL, External ear normal to inspection, no mastoid TTP, swelling, or erythema, Nasal turbinates WNL, no nasal discharge. Normal dentition, Posterior pharynx WNL, no exudate. Chest: RRR, Normal S1, S2, distal pulses intact. Resp: Lungs clear to auscultation bilaterally, no wheezes, rales, or rhonchi. Abdomen: Soft, non-distended, Normoactive bowel sounds all 4 quads. Musculoskeletal: Normal gait, 5/5 strength to all four extremities. Right lateral paraspinous tenderness and muscle spasm noted which extends up into his right occiput. Skin: No suspicious rashes or lesions. Capillary refill less than 2 sec. Neurologic: Cranial nerves II-XII intact. Alert and oriented x 3. Motor: No deficits noted. Sensory: Intact bilaterally all 4 extremities. No nystagmus. Hematologic/Lymphatic: No ecchymosis, no lymphadenopathy. Course <Bridgette Eckert NP - Last Filed: 10/11/22 16:28> Vital Signs Vital signs: Vital Signs Pulse 76 10/11/22 13:32 Respiratory Rate 18 10/11/22 13:32 Blood Pressure 158/106 H 10/11/22 13:32 Pulse Oximetry 97 10/11/22 13:32 Temperature 36.7 C 10/11/22 13:41 Temperature Source Oral 10/11/22 13:41 Pulse 76 10/11/22 13:32 Respiratory Rate 18 10/11/22 13:32 Respiratory Effort 10/11/22 14:09 Blood Pressure 158/106 H 10/11/22 13:32 Blood Pressure Position Sitting 10/11/22 13:32 Pulse Oximetry 97 10/11/22 13:32 Oxygen Delivery Method Room Air 10/11/22 13:32 Oxygen Flow Rate 0 10/11/22 13:32 Pain Level 7 10/11/22 14:06 Sign Out <Bridgette Eckert NP - Last Filed: 10/11/22 16:28> Sign Out Data: Sign Out Comment: Pending CTA Brain and Neck Last updated by Bridgette Eckert NP at 10/11/22 16:25
[2022-10-11] MEDS: Cyclobenzaprine 10 MG TAB PO (14:42)
[2022-10-11] MEDS: Lidocaine 5% Patch 1 PATCH TP (14:43)
--- NOTE | 2022-10-11 15:10 | DI.CT_ITS ---
Exam(s) CT HEAD CERVICAL SPINE WO EXAM: CT HEAD CERVICAL SPINE WO CLINICAL HISTORY: Headache, Cervical radiculopathy. TECHNIQUE: Imaging Protocol: Axial computed tomography images with coronal and sagittal reformatted images were created and reviewed COMPARISON: No exams were available for comparison FINDINGS: CT Head: Ventricles and Extra axial spaces: Normal in size and morphology for the patient's age. Hemorrhage: None. Cerebral parenchyma: No acute territorial infarct. Midline shift: None. Brainstem/Cerebellum: Normal. Calvarium: Normal. Visualized Paranasal sinuses/Mastoids: There is a small amount of fluid seen in ethmoid air cells in the right sphenoid sinus. The remaining visualized paranasal sinuses and mastoid air cells are clear . Soft Tissues: Unremarkable. CT Cervical Spine: Bones: No acute fracture or subluxation. There is a lytic lesion involving the right aspect of the C2 vertebral body, right facet and right transverse process. It would appear to compromise the transver se foramen. There also appears to be resultant stenosis of the right neural foramen. There is no sign ificant central spinal canal stenosis. No other lytic lesions are seen. Multilevel degenerative tirado es are seen in the cervical spine. Soft Tissues: Unremarkable. Lung Apices: There is motion artifact in the lung apices limiting evaluation. There do appear to be f ibrotic changes in the lung apices. IMPRESSION: 1. No acute intracranial process. 2. There is a lytic lesion involving the right aspect of the C2 vertebral body, right facet and right transverse process. There does appear to be compromise of the right transverse foramen and right yon ral foraminal stenosis. CT a of the neck is recommended for further evaluation. Primary concern is fo r a primary or metastatic focus. 3. Findings were discussed with Bridgette Eckert at 3:45 p.m. on 10/11/2022. RADIATION DOSE DELIVERED: 1,717.04mGy.cm Total DLP DATA REPOSITORY: All CT scans at this facility are submitted to the National Radiology Data Registry (NRDR) Dose Index Registry (DIR) with the [employer] (ACR). RADIATION OPTIMIZATION: All CT scans at this facility use at least one of these dose optimization te chniques: automated exposure control; mA and/or kV adjustment per patient size (includes targeted exa ms where dose is matched to clinical indication); or iterative reconstruction.
--- NOTE | 2022-10-11 15:45 | DI.CT_ITS ---
Exam(s) CT CAROTID NECK CTA EXAM: CT CAROTID NECK CTA CLINICAL HISTORY: Eval C2 lesion, headache. TECHNIQUE: Imaging Protocol: Axial CT angiography was performed with multi-slice acquisition and mul ti-planar and/or 3D reconstructions. CONTRAST MATERIAL: Intravenous: Omnipaque 350 Contrast volume 85 cc COMPARISON: CT CT CHEST WO from 11/10/[address] HEAD CERVICAL SPINE WO from 10/11/2022 FINDINGS: Common Carotid: Right: No aneurysm, occlusion or significant stenosis. Left: No aneurysm, occlusion or significant stenosis. External Carotid: Right: No aneurysm, occlusion or significant stenosis. Left: No aneurysm, occlusion or significant stenosis. Internal Carotid: Right: Mild plaque. No aneurysm, occlusion or significant stenosis. Left: Mild plaque. No aneurysm, occlusion or significant stenosis. Vertebral Artery: Right: The right vertebral artery is mildly narrowed by the mass in the right lateral mass of C2. Left: No aneurysm, occlusion or significant stenosis. Basilar Artery: No aneurysm, occlusion or significant stenosis. Lung Apices: Fibrotic changes. 2.5 centimeter mass in the anterior left upper lobe. Marked adenopa thy is seen in the region of the AP window and precarinal regions. Bones: Mass in the right lateral mass of C2 measuring 2 cm in diameter. The vertebral artery is mild ly narrowed by the mass. There is involvement of the neural foramen and mild encroachment into the c entral canal. No additional bony lesions are identified. Degenerative changes noted throughout the cervical spine. Sinuses: Mucous retention in the right sphenoid sinus. IMPRESSION: 2 centimeter mass in the right lateral mass of C2 causing mild narrowing of the right vertebral arter y. Atherosclerotic plaque at the proximal internal carotid arteries but no significant stenosis. 2.5 centimeter mass anterior left upper lobe. Markedly enlarged mediastinal adenopathy noted. RADIATION DOSE DELIVERED: 363.32mGy.cm Total DLP DATA REPOSITORY: All CT scans at this facility are submitted to the National Radiology Data Registry (NRDR) Dose Index Registry (DIR) with the [employer] (ACR). RADIATION OPTIMIZATION: All CT scans at this facility use at least one of these dose optimization te chniques: automated exposure control; mA and/or kV adjustment per patient size (includes targeted exa ms where dose is matched to clinical indication); or iterative reconstruction.
[2022-10-11 16:00] LABS: Abs Immature Grans 0.09 10^3/uL (0.0-0.06); Absolute Basophil Count 0.06 10^3/uL (0.0-0.2); Absolute Eosinophil Count 0.21 10^3/uL (0.0-0.7); Absolute Lymphocyte Count 2.28 10^3/uL (1.2-3.4); Absolute Monocyte Count 0.57 10^3/uL (0.1-0.8); Absolute Neutrophil Count 4.59 10^3/uL (1.2-6.7); Basophils % 0.8; Eosinophils % 2.7; HCT 47.9 % (40.0-50.0); Immature Grans % 1.2; Lymphocytes % 29.2; MCH 31.1 pg (27.0-33.0); MCHC 35.5 % (32.0-36.0); MCV 88 fL (80-95); MPV 9.1 fL (8.0-11.0); Monocytes % 7.3; Neutrophils % 58.8; Platelet Count 202 10^3/uL (130-400); RBC 5.46 10^6/uL (4.36-5.78); RDW 12.2 % (11.8-14.1); RDW-SD 39.2 fL
[2022-10-11 16:14] LABS: ALT 26 U/L (16-63); AST 21 U/L (15-37); Albumin 4.4 g/dL (3.4-5.0); Alkaline Phosphatase 59 U/L (46-116); Anion Gap 9.7 mmol/L (3-11); BUN 11 mg/dL (7-18); Bilirubin, Total 0.5 mg/dL (0.2-1.0); CO2 26.3 mmol/L (21.0-32.0); CREATININE 0.9 mg/dL (0.70-1.30); Calcium 9.9 mg/dL (8.5-10.1); Chloride 98 mmol/L (98-107); Estimated GFR 94.19 (mL/min/1.73m2); Glucose 94 mg/dL (74-106); Potassium 3.8 mmol/L (3.5-5.1); Sodium 134 mmol/L (136-145); Total Protein 8.7 g/dL (6.4-8.2)
[2022-10-11] MEDS: Omnipaque 350 MG/ML 100 ML BTL IJ (17:08)
[2022-10-11] MEDS: Normal Saline - Diluent 50 ML VIAL IV (17:09)
[2022-10-11] MEDS: Normal Saline Flush 10 ML SYR IVP (17:09)
--- NOTE | 2022-10-11 17:23 | DI.VRAD_ITS ---
PROCEDURE INFORMATION: Exam: CTA Neck With Contrast Exam date and time: 10/11/2022 4:51 PM Age: 67 years old Clinical indication: Other: Headache, evaluate c2 lesion per radiologist TECHNIQUE: Imaging protocol: Computed tomographic angiography of the neck with contrast. 3D rendering (Not supervised by radiologist): MIP and/or 3D reconstructed images were created by the technologist. Radiation optimization: All CT scans at this facility use at least one of these dose optimization techniques: automated exposure control; mA and/or kV adjustment per patient size (includes targeted exams where dose is matched to clinical indication); or iterative reconstruction. Contrast material: OMNIPAQUE 350; Contrast volume: 85 ml; Contrast route: INTRAVENOUS (IV); COMPARISON: CT HEAD CERVICAL SPINE WO 10/11/2022 3:03 PM FINDINGS: Right common carotid artery: No significant stenosis. No dissection or occlusion. Right internal carotid artery: Atherosclerotic plaques involving the proximal extracranial right internal carotid artery without evidence of hemodynamically significant stenosis (0% stenosis by NASCET criteria). Right external carotid artery: No occlusion or significant stenosis. Left common carotid artery: No significant stenosis. No dissection or occlusion. Left internal carotid artery: Atherosclerotic plaques involving the proximal extracranial left internal carotid artery without evidence of hemodynamically significant stenosis (0% stenosis by NASCET criteria). Left external carotid artery: No occlusion or significant stenosis. Right vertebral artery: No significant stenosis. No dissection or occlusion. Left vertebral artery: No significant stenosis. No dissection or occlusion. 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 Upper thorax: Approximately 2.8 cm subpleural mass in the partially visualized left upper lobe. Scattered patchy ground-glass opacities throughout the partially visualized lungs in both peripheral and central distributions. Approximately 4.7 cm left hilar mass. IMPRESSION: 1. 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 Recommend neurosurgery consultation. 2. Approximately 2.8 cm subpleural mass in the partially visualized left upper lobe. Approximately 4.7 cm left hilar mass, likely metastasis. Findings concerning for primary lung neoplasm/s. Recommend oncology consultation. 3. Scattered patchy ground-glass opacities throughout the partially visualized lungs in both peripheral and central distributions, which could reflect superimposed pneumonia versus fibrotic changes. 4. No evidence of dissection, occlusion, or significant stenosis in the arteries of the neck. REFERENCES: NASCET CRITERIA. The degree of stenosis in the cervical segment of the internal carotid artery is based on NASCET criteria. Normal is no stenosis. Mild is less than 50% stenosis. Moderate is 50-69% stenosis. Severe is 70% to 99% stenosis. Total occlusion is no detectable patent lumen. Dictated and Authenticated by: Joseph Da Silva MD. Ordering:JENIFFER Angeles MD
[2022-10-11] MEDS: MORPHine 4 MG/ML SYR IVP (17:51)
[2022-10-11 18:24] LABS: COVID-19 PCR Negative (Negative); Influenza A PCR Negative (Negative); Influenza B PCR Negative (Negative); RSV PCR Negative (Negative)
[2022-10-11 18:25] LABS: Source Nasopharynx
[2022-10-11] MEDS: HYDROmorphone 2 MG/ML SYR 1 MG IVP ×3 (18:56→23:08)
--- NOTE | 2022-10-11 19:30 | DI.RAD_ITS ---
Exam(s) XR CHEST 2V PA LATERAL EXAM: XR CHEST 2V PA LATERAL CLINICAL HISTORY: Concern for pneumonia on CT TECHNIQUE: 2D digital imaging was performed. COMPARISON: CR CHEST 2 VIEWS PA,LAT from 03/20/[address] CHEST WO from 11/10/[address] CAROTID NECK CTA from 10/11/2022 FINDINGS: HEART: Normal size. Aorta: Not dilated. PULMONARY VASCULATURE: Normal. LUNGS: Lungs not well inflated on the lateral view. Fibrotic changes. Definite superimposed infiltr ate. PLEURAL SPACE: No pleural effusion or pneumothorax. BONE:Degenerative changes. Postsurgical changes right distal clavicle. IMPRESSION: Fibrotic changes may obscure underlying acute pneumonitis. DATA REPOSITORY: RADIATION DOSE DELIVERED:
--- NOTE | 2022-10-11 20:06 | DI.VRAD_ITS ---
PROCEDURE INFORMATION: Exam: XR Chest Exam date and time: 10/11/2022 7:56 PM Age: 67 years old Clinical indication: Other: Concern for pna on CT TECHNIQUE: Imaging protocol: Radiologic exam of the chest. Views: 2 views. COMPARISON: CT CHEST WO 11/10/2020 8:18 AM FINDINGS: Lungs: Multiple airspace opacities throughout both lungs, which could reflect pneumonia versus masses, some of which were partially visualized on prior CTA. Pleural spaces: No pleural effusion. No pneumothorax. Heart/Mediastinum: Cardiac and mediastinal silhouettes are unremarkable. Bones/joints: No acute osseus lesion or fracture. IMPRESSION: Multiple airspace opacities throughout both lungs, which could reflect pneumonia versus masses, some of which were partially visualized on prior CTA. Recommend follow-up dedicated chest CT. Dictated and Authenticated by: Joseph Da Silva MD. Ordering:MALIHA Key MD
[2022-10-11 20:26] LABS: Procalcitonin < 0.1 ng/mL
--- NOTE | 2022-10-11 21:26 | W.PM.HP.N ---
Date of service: 10/11/22 Time of Service: 21:26 Assessment and Plan Assessment and plan (1) Pathologic fracture of cervical vertebra: Status: Acute Assessment and plan: A lytic lesion of C2. s/p cervical collar. Obtain MRI brain, Cervical, thoracic, and lumbar spine w/w/o contrast. Also, obtain CT chest/abdomen/pelvis. I have entered the referral to neurosurgery into our system, but we will need to make sure it is faxed in the morning. Will need oncology follow up as well as a referral for a lung biopsy. 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 Obtain CT chest/abdomen/pelvis. C/s pulmonology. As above - will need a biopsy. Advised to quit smoking. (3) Headache: Status: Acute Assessment and plan: And neck pain. Treat with prn IV dilaudid,toradol, scheduled tylenol, gabapentin, methocarbamol. (4) Obstructive sleep apnea syndrome: Status: Chronic Assessment and plan: The patient normally uses a CPAP with nasal pillows. This was not brought to the hospital tonight. We do not have nasal pillows in house and the patient cannot wear a mask for a CPAP at this time due to having a C-collar in place. I have written for oxygen overnight. (5) Tobacco abuse: Status: Chronic Assessment and plan: Advised to quit. Long discussion re which modality of nicotine replacement would be best for the patient. He says he would use the lozenges and would like to try a nicotrol inhaler. He states he gets a rash from a nicotine patch and cannot use nicotine gum. (6) DVT prophylaxis: Status: Acute Assessment and plan: SCDs. Holding off on chemical DVT ppx in light of not knowing if the patient has any metastases to the brain. (7) Discharge planning issues: Status: Acute Assessment and plan: Full code as per discussion with the patient with family at bedside. History of Present Illness History of Present Illness Chief Complaint: Headache x 1 month Narrative: Mr Rose is a 67 year old male with PMHx of tobacco abuse, right pulmonary nodule (stable as of 2020), CAD, HTN, hyperlipidemia, who presented to [facility] ED today c/o headache with radiation to R neck with right hand tingling x 1 month. The patient states that there was no injury to his neck. He woke up one morning and could not turn his neck to either side more than just a little bit and could not move it up and down. When he tries to turn his head, he notices blurred/double vision. He has been treating it at home with ibuprofen and aspirin. He noticed that about two weeks ago he carried a heavy mirror downstairs after which the did get worse. He has had bilateral hand numbness preceding his neck pain, associated with sleeping or driving. He has not been dropping objects. He has had difficulty driving due to inability to turn his head. He does not have lower extremity symptoms. He does have difficulty eating because he cannot see the plate and pain on swallowing and has noticed a generally decreased PO intake. He has not lost weight. Denies fevers, night sweats, endorses a chronic productive cough with green sputum, denies chest pain, shortness of breath. He got nauseated today after getting morphine in the ED, but had not had nausea otherwise. He went to his PCP's office yesterday for a headache and high blood pressure, was given an IM injection of toradol and was referred for an outpatient CT of the head. Unfortunately, he was not able to get this due to lapse of insurance, but because of persistent pain, decided to go to the emergency room today. His ER workup revealed no acute intracranial process per CT but there was a lytic lesion of C2 vertebral body, R facet and tranverse process with compromise of right transverse foramen and right neural foraminal stenosis. CTA of the neck showed a 2.2 cm osteolytic metastasis within the right lateral mass of C2 associated with a pathologic fracture of the superior facet of C2. It also showed a 2.8 cm subpleural mass in DILEEP and a 4.7 cm left hilar mass. There was also note made of patchy ground glass opacities throughout visualized lungs on the CTA of the neck: pneumonia vs fibrotic changes. The patient was placed in a C-collar and neurosurgery was consulted recommending contacting a tumor hotline and outpatient referral to neurosurgery clinic (this was placed in the computer and needs to be faxed to [phone]. The phone number for neurosurgery clinic is [phone]). Obtaining of the MRI of the c-spine was recommended (w/w/o contrast). Tumor hotline recommended an outpatient lung biopsy and prompt outpatient follow up. However, the patient was in significant pain in the ED requiring IV opioids for pain control. Observation on hospitalist service was requested for pain control as well as for further workup. 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 Pyle Status post rotator cuff repair (Acute) Smoker (Acute) Epicondylitis (Acute) Unspecified injury of left quadriceps muscle, fascia and tendon, initial encounter (Acute) Family hx of colon cancer requiring screening colonoscopy (Acute) Quadriceps muscle rupture (Acute) Original injury 08/27/2018 Re-injury on 09/04/2018 Smoker (Chronic) Sexual function problem (Acute) Obstructive sleep apnea syndrome (Chronic) CPAP Oakley's metatarsalgia (Acute) Impaired fasting glucose (Acute) Hypothyroidism (acquired) (Chronic 03/03/17) Hypertension (Chronic) Hyperlipidemia (Chronic) History of alcoholism (Acute) Epicondylitis (Acute) Depressive disorder (Acute 08/10/00) Chest pain (Acute) +MPI-inferior wall; cardiac cath neg. ? 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 Surgical History (Updated 10/12/22 @ 00:08 by Bambi Willis MD) History of colonoscopy Parotid gland enlargement s/p resection Rotator Cuff Repair Bilateral S/P total right hip arthroplasty Family History Mother Neoplasm SKIN Father Heart disease Hyperlipidemia Neoplasm COLON Sister No problems noted. 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 Pets and animals: Yes Pets and animals: dog(s) Sexually active: Yes Do you think of yourself as: straight/heterosexual Current gender identity: male What is your relationship status?: How often do you talk on the phone with friends or family?: three or more times per week How often do you get together with friends or relatives?: twice per week How often do you attend buddhist or yazdanism services?: decline to answer Do you belong to any clubs or organized social groups?: no Panel score (0-1 are the most socially isolated patients): 2 What type of physical activity do you participate in: walking Duration: 15-30 minutes/day Frequency: daily Jaymie/Jain: Shinto Seatbelt use: always Helmet use: Yes Helmet use: always Drive intox or ride w/intox school bus driver/mechanic: No Do you feel safe at home: Yes Do you feel safe in your relationship?: Yes Meds Allergies and Home Medications Allergies Allergy/AdvReac Type Severity Reaction Status Date / Time venom-honey bee Allergy Intermediate BEE STINGS Verified 10/11/22 14:11 CAUSE SWELLING Home Medications Medication Instructions Recorded Confirmed Type aspirin 325 mg tablet 325 mg PO DAILY 10/25/19 10/11/22 History nicotine (polacrilex) 2 mg buccal 2 mg mucous membrane Q4H PRN 10/25/19 10/11/22 Rx lozenge nicotine cravings #108 ea ketoconazole 2 % topical cream 1 applic topical BID #60 grams 03/30/21 10/11/22 Rx hydrochlorothiazide 25 mg tablet 25 mg PO DAILY #90 tabs 12/06/21 10/11/22 Rx levothyroxine 50 mcg tablet 50 mcg PO DAILY #90 tab-caps 12/06/21 10/11/22 Rx losartan 25 mg tablet 25 mg PO DAILY #90 tab-caps 12/06/21 10/11/22 Rx nitroglycerin 0.4 mg sublingual 0.4 mg sublingual PRN PRN Chest 12/06/21 10/11/22 Rx tablet (Nitrostat) Pain #25 tabs omeprazole 20 mg capsule,delayed 20 mg PO BID #180 caps 12/06/21 10/11/22 Rx release ropinirole 1 mg tablet 1 mg PO QHS #90 tabs 12/06/21 10/11/22 Rx sertraline 50 mg tablet 50 mg PO BID #180 tab-caps 12/06/21 10/11/22 Rx tadalafil 2.5 mg tablet 2.5 mg PO DAILY #90 tabs 12/06/21 10/11/22 Rx Exam Narrative Exam Narrative: General: Pleasant middle-aged male who is visibly uncomfortable in bed, A&Ox3, wearing a C-collar Neurological: A&Ox3, in visible pain when trying to rotate head to the right or to the left, no focal deficits Psychiatric: Appropriate speech pattern/content Skin: Visible skin intact HEENT: Atraumatic, normocephalic, wearing a C-collar, EOMI, MMM, clear oropharynx, unable to assess for submandibular or cervical lymphadenopathy, goiter, or JVD due to the C-collar, Cardiovascular: RRR, no m/r/g Lungs: mild expiratory wheezing B Gastrointestinal: soft, nontender, nondistended Genitourinary: deferred Extremities: no edema BLEs, 2+ pedal pulses, able to move all 4 extremities Results Imaging Additional studies: CT head/c-spine w/o contrast: 1. No acute intracranial process.? 2. There is a lytic lesion involving the right aspect of the C2 vertebral body, right facet and right transverse process. There does appear to be compromise of the right transverse foramen and right neural foraminal stenosis. CT a of the neck is recommended for further evaluation. Primary concern is for a primary or metastatic focus. CTA neck: 1. 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 Recommend neurosurgery consultation. 2. Approximately 2.8 cm subpleural mass in the partially visualized left upper lobe. Approximately 4.7 cm left hilar mass, likely metastasis. Findings concerning for primary lung neoplasm/s. Recommend oncology consultation. 3. Scattered patchy ground-glass opacities throughout the partially visualized lungs in both peripheral and central distributions, which could reflect superimposed pneumonia versus fibrotic changes. 4. No evidence of dissection, occlusion, or significant stenosis in the arteries of the neck. CXR: Multiple airspace opacities throughout both lungs, which could reflect pneumonia versus masses, some of which were partially visualized on prior CTA. Recommend follow-up dedicated chest CT. Labs Result diagrams: 10/11/22 14:02 10/11/22 14:02 Labs: Laboratory Results - last 24 hr 10/11/22 10/11/22 10/11/22 14:02 14:02 17:40 WBC 7.80 RBC 5.46 Hgb 17.0 Hct 47.9 MCV 88 MCH 31.1 MCHC 35.5 RDW 12.2 Plt Count 202 MPV 9.1 Immature Gran % 1.2 Neutrophils % 58.8 Lymphocytes % 29.2 Monocytes % 7.3 Eosinophils % 2.7 Basophils % 0.8 Nucleated RBC % 0.0 Absolute Neutrophils 4.59 Absolute Lymphocytes 2.28 Absolute Monocytes 0.57 Absolute Eosinophils 0.21 Absolute Basophils 0.06 Sodium 134 L Potassium 3.8 Chloride 98 Carbon Dioxide 26.3 Anion Gap 9.7 BUN 11 Creatinine 0.9 Est GFR (CKD-EPI 2020) 94.19 Glucose 94 Calcium 9.9 Total Bilirubin 0.5 AST 21 ALT 26 Alkaline Phosphatase 59 Total Protein 8.7 H Albumin 4.4 Procalcitonin COVID-19 Source Nasopharynx SARS-CoV-2 (PCR) Negative Influenza Type A (PCR) Negative Influenza Type B (PCR) Negative RSV (PCR) Negative 10/11/22 19:45 WBC RBC Hgb Hct MCV MCH MCHC RDW Plt Count MPV Immature Gran % Neutrophils % Lymphocytes % Monocytes % Eosinophils % Basophils % Nucleated RBC % Absolute Neutrophils Absolute Lymphocytes Absolute Monocytes Absolute Eosinophils Absolute Basophils Sodium Potassium Chloride Carbon Dioxide Anion Gap BUN Creatinine Est GFR (CKD-EPI 2020) Glucose Calcium Total Bilirubin AST ALT Alkaline Phosphatase Total Protein Albumin Procalcitonin < 0.1 COVID-19 Source SARS-CoV-2 (PCR) Influenza Type A (PCR) Influenza Type B (PCR) RSV (PCR) Last Vital Signs Temp 36.7 C 10/11/22 13:41 Pulse 57 L 10/11/22 20:01 Resp 18 10/11/22 13:32 BP 154/99 H 10/11/22 20:01 Pulse Ox 93 10/11/22 20:50 Time Spent Time spent with Patient: 55-74 minutes Time was spent: preparing to see the patient(eg.review tests), obtaining and/or reviewing separately otained hiistory, ordering medications,tests, procedures, referring, communicating with other health lawn care worker, indepentently interpreting results, counseling the patient and care coordination
[2022-10-11] MEDS: Gabapentin 100 MG CAP PO (21:41)
[2022-10-11] MEDS: Acetaminophen 500 MG TAB 1000 MG PO (21:41)
[2022-10-11] MEDS: Omeprazole 20 MG CAPCR PO (22:38)
[2022-10-11] MEDS: rOPINIRole 1 MG TAB PO (22:38)
[2022-10-11] MEDS: Sertraline 50 MG TAB PO (22:38)
[2022-10-11] MEDS: Ketorolac 30 MG/ML VIAL IVP (23:07)
[2022-10-12 00:07] LABS: Lab Add On Test DONE
[2022-10-12 00:52] LABS: Salicylate 2.8 mg/dL (<2.8)
[2022-10-12 00:56] LABS: Acetaminophen < 2 ug/mL (10-30)
[2022-10-12] MEDS: HYDROmorphone 2 MG/ML SYR 1 MG IVP ×3 (03:54→08:38)
[2022-10-12 04:14] VITALS: BP 128/72; PULSE 57; RESP 18; TEMP 36; O2SAT 97
[2022-10-12 05:52] LABS: Abs Immature Grans 0.08 10^3/uL (0.0-0.06); Absolute Basophil Count 0.07 10^3/uL (0.0-0.2); Absolute Eosinophil Count 0.28 10^3/uL (0.0-0.7); Absolute Lymphocyte Count 1.87 10^3/uL (1.2-3.4); Absolute Monocyte Count 0.56 10^3/uL (0.1-0.8); Absolute Neutrophil Count 4.27 10^3/uL (1.2-6.7); Eosinophils % 3.9; HCT 45.2 % (40.0-50.0); HGB 15.7 g/dL (13.5-17.5); Immature Grans % 1.1; Lymphocytes % 26.2; MCH 30.5 pg (27.0-33.0); MCHC 34.7 % (32.0-36.0); MCV 88 fL (80-95); MPV 8.5 fL (8.0-11.0); Monocytes % 7.9; Neutrophils % 59.9; Platelet Count 179 10^3/uL (130-400); RBC 5.14 10^6/uL (4.36-5.78); WBC 7.13 10^3/uL (4.4-10.8)
[2022-10-12 06:07] LABS: Anion Gap 7.1 mmol/L (3-11); BUN 12 mg/dL (7-18); CO2 27.9 mmol/L (21.0-32.0); CREATININE 0.8 mg/dL (0.70-1.30); Calcium 9.3 mg/dL (8.5-10.1); Chloride 100 mmol/L (98-107); Estimated GFR 97.61 (mL/min/1.73m2); Glucose 104 mg/dL (74-106); Magnesium 1.9 mg/dL (1.8-2.4); PHOSPHORUS 4.7 mg/dL (2.6-4.7); Potassium 3.9 mmol/L (3.5-5.1); Sodium 135 mmol/L (136-145)
[2022-10-12] MEDS: Levothyroxine 50 MCG TAB PO (06:13)
[2022-10-12] MEDS: Acetaminophen 500 MG TAB 1000 MG PO ×3 (06:13→20:59)
--- NOTE | 2022-10-12 07:16 | W.PULMCON ---
General Date Of Service Date of service: 10/12/22 Time of Service: 07:16 Reason for Consult: Lung Mass Assessment and Plan Assessment and plan (1) Pathologic fracture of cervical vertebra: Status: Acute (2) Lung mass: Status: Acute (3) Nicotine dependence, cigarettes, uncomplicated: Status: Acute (4) Fibrotic lung diseases: Status: Acute Assessment and plan: This is a 67 yo found to have a C2 fracture due to a lytic lesion as well as a very large perihilar mass. Given the appearance, and presumed fast growth (no nodule on 11/29 scan), I do worry about small cell lung cancer as the primary, particularly since he seems to be otherwise up to date on cancer screening. He is admitted for pain control, so will defer this to the hospitalist service, however will need urgent work up of this presumed metastatic malignancy. I do agree neurosurgery needs to provide recommendations regarding intervention for this C2 fracture. He is scheduled for several scans today, but I will refer him to [facility] to decide upon the most appropriate biopsy plan as well as get him plugged into their tumor board for steps moving forward. I will also order a PET/CT to be done at [facility] as an outpatient. I will put him to see me as an outpatient to help with keeping track of his upcoming work up and to help with any pulmonary symptoms as they may arise. Lung mass - agree with C/A/P CT and MRI - will order [facility] referral - will order PET/CT to be done at [facility] - I will get results from this carotid tumor he had resected 10 years ago Fibrotic lung disease - present as far back as 2014 that I can see - no active work up for this currently - asymptomatic History of Present Illness Narrative: This is a 67 yo man who has a 40 pack year smoking history (currently smokes 0.5ppd) admitted after an outpatient neck CT find a large lytic lesion in C2 with an associated fracture, incidentally found to have a large left perihilar mass, for which I am consulted. Tom states that he woke up 09/13/22 with aheadache, which was very unusual for him. He tried many over the counter meds, non of which helped the pain. He was being told by friends that it could be a post-COVID headache and that it could go away in a couple weeks. It did not get any better. He checked his blood pressure and found it was elevated to 160's/90's so made an appointment with his PCP. He was given a shot or Tordol which did not help at all. He then presented to the ED. He was then sent for a CT of his neck without contrast. There was a possible lytic lesions present and was followed by a CTA neck due to concern for a foraminal stenosis. The CTA neck then found a left pleural adjacent nodule as well as a large 4.7cm left perihilar mass as well as mediastinal LAD. Tom denies chest pain, cough, hemoptysis or unexplained weight loss. He has no personal history of cancer previously. His father had skin cancer and colon cancer (3 times) and his mother has had skin cancer. He notes that around [id number] Mcdonald removed a (what he thinks was) a carotid tumor at [facility] that turned out to be benign - I do not have access to these results but will work on getting them. He is up to date with colon cancer screening (last colonoscopy 2018, f/u recommended for 10 years). He also has had a PSA completed in 2019 which was negative as well. He has not been enrolled in LDCT lung cancer screening, but did have a chest CT 11/2020, which did not show any lung nodules, but does show fibrotic lung disease. He complains of persistent head an neck pain that is not improving with his current pain regimen. He is schedule for spine and brain MRI as well as C/A/P CT. Review of Systems All systems reviewed & are unremarkable except as noted in HPI and below PFSH All Active Problems (Updated 10/12/22 @ 08:56 by Angelina Gutierrez MD) Fibrotic lung diseases (Acute) Nicotine dependence, cigarettes, uncomplicated (Acute) Lung mass (Acute) Discharge planning issues (Acute) DVT prophylaxis (Acute) Tobacco abuse (Chronic) Pathologic fracture of cervical vertebra (Acute) Headache (Acute) Gluteal tendonitis of left buttock (Acute) Spondylosis of lumbar spine (Acute) Trochanteric bursitis, left hip (Acute) DEPO MEDROL 08/12/22; 07/19/21 Left hip pain (Acute) Right lower lobe pulmonary nodule (Acute) 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 Pyle Status post rotator cuff repair (Acute) Smoker (Acute) Epicondylitis (Acute) Unspecified injury of left quadriceps muscle, fascia and tendon, initial encounter (Acute) Family hx of colon cancer requiring screening colonoscopy (Acute) Quadriceps muscle rupture (Acute) Original injury 08/27/2018 Re-injury on 09/04/2018 Smoker (Chronic) Sexual function problem (Acute) Obstructive sleep apnea syndrome (Chronic) CPAP Oakley's metatarsalgia (Acute) Impaired fasting glucose (Acute) Hypothyroidism (acquired) (Chronic 03/03/17) Hypertension (Chronic) Hyperlipidemia (Chronic) History of alcoholism (Acute) Epicondylitis (Acute) Depressive disorder (Acute 08/10/00) Chest pain (Acute) +MPI-inferior wall; cardiac cath neg. ? Syndrome X neg MPI 03/27 Medical History (Updated 10/12/22 @ 08:56 by Angelina Gutierrez MD) Angina pectoris Angina pectoris Family history of colon cancer Normal colonoscopy (09/21/18) 09/21/18 Dr Armand Walton, [facility], normal, repeat 5 years due to family history colon cancer, mg. Surgical History (Updated 10/12/22 @ 00:08 by Bambi Willis MD) History of colonoscopy Parotid gland enlargement s/p resection Rotator Cuff Repair Bilateral S/P total right hip arthroplasty Family History Mother Neoplasm SKIN Father Heart disease Hyperlipidemia Neoplasm COLON Sister No problems noted. 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 Pets and animals: Yes Pets and animals: dog(s) Sexually active: Yes Do you think of yourself as: straight/heterosexual Current gender identity: male What is your relationship status?: How often do you talk on the phone with friends or family?: three or more times per week How often do you get together with friends or relatives?: twice per week How often do you attend buddhist or mormon services?: decline to answer Do you belong to any clubs or organized social groups?: no Panel score (0-1 are the most socially isolated patients): 2 What type of physical activity do you participate in: walking Duration: 15-30 minutes/day Frequency: daily Jaymie/Anglican: Latter Day Seatbelt use: always Helmet use: Yes Helmet use: always Drive intox or ride w/intox armor reconnaissance vehicle driver: No Do you feel safe at home: Yes Do you feel safe in your relationship?: Yes Visit Medication and Allergies Active Medications Generic Name Dose Route Start Last Admin Trade Name Freq PRN Reason Stop Dose Admin Acetaminophen 1,000 mg 10/11/22 22:00 10/12/22 06:13 Acetaminophen 500 Mg Tab PO 1,000 mg Q8H ANGELICA Administration Al Hydrox/Mg Hydrox/Simethicone 30 ml 10/11/22 19:34 Mylanta Suspension 30 Ml Cup PO Q2H PRN PRN Albuterol Sulfate 2.5 mg 10/11/22 19:29 Albuterol 2.5 Mg/3 Ml Inh Soln Vial UPD Q2H PRN PRN Aspirin 325 mg 10/12/22 08:30 Aspirin 325 Mg Tab PO DAILY [facility] Dimethicone/Zinc Oxide 0 gm 10/11/22 19:29 [place] Protect Cream 142 Gm Tube TP PRN PRN Docusate Sodium 100 mg 10/11/22 19:29 Docusate Sodium 100 Mg Cap PO TID PRN PRN Gabapentin 100 mg 10/12/22 08:30 Gabapentin 100 Mg Cap PO TID [facility] Hydromorphone HCl 1 mg 10/11/22 21:14 10/12/22 06:15 Hydromorphone 2 Mg/Ml Syr IVP 1 mg Q2H PRN PRN Administration Sodium Chloride 500 mls @ 0 mls/hr 10/11/22 19:29 Saline 500ml Bag IV PRN PRN As Directed IV Miscellaneous Supplies 1 each 10/11/22 19:30 Iv Access IV DIRECTED ANGELICA Ketoconazole 0 gm 10/12/22 08:30 Ketoconazole 2% Cream 15 Gm Tube TP BID [facility] Ketorolac Tromethamine 30 mg 10/11/22 21:19 10/11/22 23:07 Ketorolac 30 Mg/Ml Vial IVP 10/16/22 21:18 30 mg Q6H PRN PRN Administration Levothyroxine Sodium 50 mcg 10/12/22 06:00 10/12/22 06:13 Levothyroxine 50 Mcg Tab PO 50 mcg 0600 ANGELICA Administration Magnesium Hydroxide 30 ml 10/11/22 19:29 Milk Of Magnesia 30 Ml Cup PO DAILY PRN PRN Methocarbamol 750 mg 10/12/22 08:30 Methocarbamol 750 Mg Tab PO QID ANGELICA Nicotine 2 mg 10/11/22 21:55 Nicotine 2 Mg Lozg PO Q4H PRN PRN nicotine cravings Nicotine 1 cartridge 10/11/22 23:26 Nicotine 10 Mg/Cartridge 30 Cart/Pkg IH Q2H PRN PRN Non-Formulary Medication 2.5 mg 10/12/22 08:30 Tadalafil PO DAILY ANGELICA Omeprazole 20 mg 10/12/22 08:30 Omeprazole 20 Mg Capcr PO BID ANGELICA Ropinirole HCl 1 mg 10/11/22 22:00 10/11/22 22:38 Ropinirole 1 Mg Tab PO 1 mg QPM ANGELICA Administration Sertraline HCl 50 mg 10/12/22 08:30 Sertraline 50 Mg Tab PO BID ANGELICA Sodium Chloride 50 ml 10/11/22 17:15 10/11/22 17:09 Normal Saline - Diluent 50 Ml Vial IV 50 ml .FOR DI USE ANGELICA Administration Sodium Chloride 0 ml 10/11/22 19:29 Normal Saline Flush 10 Ml Syr IVP PRN PRN Allergies venom-honey bee Allergy (Intermediate, Verified 10/11/22 14:11) BEE STINGS CAUSE SWELLING Exam Narrative Exam Narrative: Gen: NAD, normal respiratory effort, wearing C collar HENT: PERRL, lymph node assessment deferred given C collar Chest: No respiratory distress, normal appearance of chest, clear to auscultation bilaterally, no crackles or wheezes, normal inspiratory effort Heart: regular rate and rhythym, no murmurs, rubs or gallops Abdomen: Non-distended, Extremities: No clubbing, edema, cyanosis, rashes Neuro: AAOx3 , non focal Psych: cooperative, appropriate mental affect Results Last Vital Signs Temp 36.0 C L 10/12/22 04:14 Pulse 57 L 10/12/22 04:14 Resp 18 10/12/22 04:14 BP 128/72 10/12/22 04:14 Pulse Ox 97 10/12/22 04:14 Labs Result diagrams: 10/12/22 05:27 10/12/22 05:27 Labs: Laboratory Results - last 24 hr 10/11/22 10/11/22 10/11/22 14:02 14:02 17:40 WBC 7.80 RBC 5.46 Hgb 17.0 Hct 47.9 MCV 88 MCH 31.1 MCHC 35.5 RDW 12.2 Plt Count 202 MPV 9.1 Immature Gran % 1.2 Neutrophils % 58.8 Lymphocytes % 29.2 Monocytes % 7.3 Eosinophils % 2.7 Basophils % 0.8 Nucleated RBC % 0.0 Absolute Neutrophils 4.59 Absolute Lymphocytes 2.28 Absolute Monocytes 0.57 Absolute Eosinophils 0.21 Absolute Basophils 0.06 Sodium 134 L Potassium 3.8 Chloride 98 Carbon Dioxide 26.3 Anion Gap 9.7 BUN 11 Creatinine 0.9 Est GFR (CKD-EPI 2020) 94.19 Glucose 94 Calcium 9.9 Phosphorus Magnesium Total Bilirubin 0.5 AST 21 ALT 26 Alkaline Phosphatase 59 Total Protein 8.7 H Albumin 4.4 Procalcitonin Salicylates Acetaminophen COVID-19 Source Nasopharynx SARS-CoV-2 (PCR) Negative Influenza Type A (PCR) Negative Influenza Type B (PCR) Negative RSV (PCR) Negative Add-On Test Request 10/11/22 10/11/22 10/11/22 19:45 23:55 23:59 WBC RBC Hgb Hct MCV MCH MCHC RDW Plt Count MPV Immature Gran % Neutrophils % Lymphocytes % Monocytes % Eosinophils % Basophils % Nucleated RBC % Absolute Neutrophils Absolute Lymphocytes Absolute Monocytes Absolute Eosinophils Absolute Basophils Sodium Potassium Chloride Carbon Dioxide Anion Gap BUN Creatinine Est GFR (CKD-EPI 2020) Glucose Calcium Phosphorus Magnesium Total Bilirubin AST ALT Alkaline Phosphatase Total Protein Albumin Procalcitonin < 0.1 Salicylates Acetaminophen Cancelled COVID-19 Source SARS-CoV-2 (PCR) Influenza Type A (PCR) Influenza Type B (PCR) RSV (PCR) Add-On Test Request DONE 10/11/22 10/12/22 10/12/22 23:59 05:27 05:27 WBC 7.13 RBC 5.14 Hgb 15.7 Hct 45.2 MCV 88 MCH 30.5 MCHC 34.7 RDW 12.0 Plt Count 179 MPV 8.5 Immature Gran % 1.1 Neutrophils % 59.9 Lymphocytes % 26.2 Monocytes % 7.9 Eosinophils % 3.9 Basophils % 1.0 Nucleated RBC % 0.0 Absolute Neutrophils 4.27 Absolute Lymphocytes 1.87 Absolute Monocytes 0.56 Absolute Eosinophils 0.28 Absolute Basophils 0.07 Sodium 135 L Potassium 3.9 Chloride 100 Carbon Dioxide 27.9 Anion Gap 7.1 BUN 12 Creatinine 0.8 Est GFR (CKD-EPI 2020) 97.61 Glucose 104 Calcium 9.3 Phosphorus 4.7 Magnesium 1.9 Total Bilirubin AST ALT Alkaline Phosphatase Total Protein Albumin Procalcitonin Salicylates 2.8 Acetaminophen < 2 COVID-19 Source SARS-CoV-2 (PCR) Influenza Type A (PCR) Influenza Type B (PCR) RSV (PCR) Add-On Test Request Imaging Chest x-ray: report reviewed and image reviewed Imaging Studies: CTA neck, CT head and neck report reviewed, images reviewed
--- NOTE | 2022-10-12 08:00 | DI.CT_ITS ---
Exam(s) CT CHEST/ABD/PEL W EXAM: CT CHEST/ABD/PEL W CLINICAL HISTORY: likely lung primary malignancy, metastatic disease. TECHNIQUE: Imaging Protocol: Axial computed tomography images with coronal and sagittal reformatted images were created and reviewed CONTRAST MATERIAL: Intravenous: Omnipaque 350 Contrast volume:100 ml Oral: yes COMPARISON: CT CT CHEST WO from 11/10/[address] CAROTID NECK CTA from 10/11/2022 FINDINGS: CHEST: Pulmonary parenchyma: Underlying emphysematous and fibrotic changes, greater peripherally and in the lower lobes. Mild traction bronchiectasis. Roughly 3 centimeter spiculated mass seen anterior right upper lobe with a adjacent 2.8 by 1.1 centimeter elongated mass. Pleura: No effusion or pneumothorax. Lymph nodes: Enlarged mediastinal lymph nodes, the largest in the AP window measuring 4.1 x 3.3 cm. Aorta: Thoracic portion non-dilated. Atherosclerotic changes. Pulmonary arteries: No evidence of emboli. Heart: Mildly enlarged. Coronary artery calcifications. Bones: Lytic expansive lesion in the lateral right 7th rib. No spinal lesions. No compression fract ures. ABDOMEN: Liver: Normal density. No measurable mass. Gallbladder and biliary tract: No radiodense calculus or dilation. Stomach: Distended with in minist er oral contrast. Pancreas: Normal density, no inflammatory process. Scattered calcifications. No mass or ductal dila tation. Spleen: Normal. Kidneys: Multiple small renal cysts. Normal size, contour and axis. No radiodense stones or obstruct hamlet uropathy. No masses seen. Adrenal glands: No masses seen. Aorta: Dilated to 3.3 cm. Atherosclerotic changes Lymph nodes: Within normal limits. Soft tissues: Unremarkable. PELVIS: Bladder: Nearly empty contains contrast from prior head and neck CT. Bowel: No obstruction or bowel wall thickening. Peritoneal cavity: No ascites, collection or mesenteric inflammatory response. Bones: Right hip prosthesis. Degenerative changes. No lytic or blastic lesions. Reproductive organs: Prostate mildly enlarged. IMPRESSION: 3 centimeter spiculated mass anterior left upper lobe with additional adjacent mass. Significant med iastinal adenopathy. Metastatic lesion to the right 7th rib. No bony metastatic lesions visible in thoracic spine, lumbar spine or pelvis. No evidence of metastatic disease the abdomen or pelvis. RADIATION DOSE DELIVERED: 2,274.85mGy.cm Total DLP DATA REPOSITORY: All CT scans at this facility are submitted to the National Radiology Data Registry (NRDR) Dose Index Registry (DIR) with the [employer] (ACR). RADIATION OPTIMIZATION: All CT scans at this facility use at least one of these dose optimization te chniques: automated exposure control; mA and/or kV adjustment per patient size (includes targeted exa ms where dose is matched to clinical indication); or iterative reconstruction.
--- NOTE | 2022-10-12 08:00 | DI.MRI_ITS ---
Exam(s) MR BRAIN WO/W EXAM: MR BRAIN WO/W CLINICAL HISTORY: headache, metastatic disease TECHNIQUE: Multiplanar multisequence MRI of the brain was performed. Both noninfused and contrast i nfused sequences were performed. IV Contrast injected was 20 cc Dotarem. COMPARISON: CT CT HEAD CERVICAL SPINE WO from 10/11/2022 FINDINGS: CEREBRAL PARENCHYMA: No evidence of intracranial hemorrhage, mass effect nor shift of midline structu re. No extraaxial fluid collections. Ventricles are not enlarged nor shifted. There is no significant focal signal abnormality in the cerebellar hemispheres nor within the rebecca, m idbrain, and thalami. There is no abnormal signal abnormality in the periventricular white matter. DWI: No areas of restricted diffusion to suggest acute ischemic event. SWI: No microhemorrhages evident. There are no ring enhancing lesions in the brain. There is no abnormal meningeal enhancement. PITUITARY GLAND: No mass nor parasellar abnormality. No obvious abnormality in the cavernous sinuses. FLOW VOIDS: The expected flow void are noted. No evidence of obvious aneurysm nor obvious vascular ma lformation. PARANASAL SINUSES: There is fluid noted in the right sphenoid sinus. No fluid in the maxillary sinus es nor in the frontal sinuses. ORBITS: No obvious abnormal findings. IMPRESSION: 1. No significant acute intracranial findings on this MRI scan of the brain. 2. No abnormal enhancing intracranial findings. There are no ring enhancing lesions in the brain and there is no abnormal meningeal enhancement. DATA REPOSITORY:
--- NOTE | 2022-10-12 08:00 | DI.MRI_ITS ---
Exam(s) MR LUMBAR SPINE WO/W EXAM: MR LUMBAR SPINE WO/W CLINICAL HISTORY: metastatic disease. TECHNIQUE: Multiplanar multisequence MRI of the Lumbar spine was performed. COMPARISON: MR MR LUMBAR SPINE WO from 08/18/2021 FINDINGS: Conus medullaris is at normal level. There is no evidence of conus mass nor subjacent clumping of in trathecal nerve roots to suggest arachnoiditis. The distal thecal sac appears unremarkable.There is no evidence of Tarlov intrasacral cysts nor other significant findings within the sacral canal Bones:There are no fractures nor ominous osseous lesions in the lumbar vertebral bodies and visualize d sacrum. With respect to the individual levels... T11-T12: There is broad annular bulging. Mildly indents the thecal sac but no prominent central evin l stenosis. No significant foraminal stenosis at this level. T12-L1: Unremarkable L1-2: Normal disc height and signal. No disc herniation nor central canal stenosis.No foraminal steno sis L2-3: Normal disc height. Mild annular bulging but no distinct dominant disc herniation. Central can al dimensions are lower normal. No foraminal stenosis. Mild degenerative changes in the facet joint s. L3-4: Normal disc height. No disc herniation or central canal stenosis.No foraminal stenosis.No face t arthropathy. L4-5: Normal disc height. No disc herniation. Central canal dimensions are lower normal. Moderate facet joint degenerative changes noted bilaterally. No foraminal stenosis on either side. L5-S1: Decreased disc height. There is broad annular bulging. Superimposed posterolateral left disc protrusion. This occupies part of the left lateral recess. There is mild bilateral foraminal steno sis which is mostly related to disc height loss at this level on both sides the disc space. This cau ses impingement of the exiting L5 nerve roots bilaterally due to the mild-moderate bilateral vertical foraminal stenosis at this level.. Soft tissues: Multiple small cysts seen in the kidneys bilaterally. IMPRESSION: 1. No evidence of metastatic disease in the lumbosacral spine. 2. Significant disc space narrowing at L5-S1 level broad annular bulging and a superimposed posterola teral left disc protrusion. In addition, there is mild-moderate bilateral vertical foraminal stenosi s at this level causing mild compression of the exiting L5 nerve roots bilaterally. 3. No fractures nor listhesis evident. DATA REPOSITORY:
--- NOTE | 2022-10-12 08:00 | DI.MRI_ITS ---
Exam(s) MR CERVICAL SPINE WO/W EXAM: MR CERVICAL SPINE WO/W CLINICAL HISTORY: lytic lesion C2 w/ an associated mass TECHNIQUE: Multiplanar multisequence MRI of the cervical spine was performed without intravenous con trast. COMPARISON: CT CT CAROTID NECK CTA from 10/11/2022 FINDINGS: CERVICOMEDULLARY JUNCTION: Intact with no evidence of cerebellar tonsillar ectopia. CERVICAL SPINAL CORD: There is no abnormal signal in the cervical spinal cord and no evidence of foca l cord atrophy nor focal cord swelling. OSSEOUS:There is a large lytic lesion involving the right side of C2 vertebral body and right side of the base of the odontoid process, this affected bone exhibiting enhancement following contrast injec tion. Mass extends into the exiting right neural foramen region. Central canal is patent at this le raquel but there is some mild effacement of the anterior right side of the sac at this level.. INDIVIDUAL LEVELS: C2-3: As above. However, there is no disc herniation at this level. C3-4: Moderate disc height loss. There is symmetrical annular bulging. There is a central midline d isc protrusion which indents the ventral aspect of thecal sac. Bilateral small Luschka joint osteoph ytes evident. Some narrowing of the exiting neural foramina bilaterally, more so on the right side. Facet arthropathy noted bilaterally, more so on the right side. C4-5: Normal disc height. No disc herniation. No central canal stenosis. Bilateral facet arthropat hy, more severe on the right side.Mild foraminal narrowing bilaterally. C5-6: Chronic moderate-advanced disc height loss evident. Bilateral Luschka joint osteophytes. Mild central canal stenosis. Facet arthropathy more so on the right than left side. Significant bilater al foraminal stenosis, slightly more so on the left C6-7: Moderate disc height loss with diffuse posterior annular bulging. Small Luschka joint osteophy saida bilaterally. Also mild facet arthropathy bilaterally. Mild bilateral foraminal stenosis. Mild central canal stenosis. C7-T1: No disc herniation nor central canal stenosis. Moderate bilateral facet arthropathy. No igor inal stenosis. IMPRESSION: 1. There is a prominent lytic expansile bone lesion involving the entire right lateral mass of C2 abigail tebral body and extending to the base of the odontoid, consistent with osseous metastatic disease. T his somewhat effaces the anterior right side of the thecal sac. There is no prominent central canal stenosis at this level. 2. Multilevel degenerative disc disease and foraminal stenosis, most evident at C5-6 and C6-7 levels. DATA REPOSITORY:
--- NOTE | 2022-10-12 08:00 | DI.MRI_ITS ---
Exam(s) MR THORACIC SPINE WO/W EXAM: MR THORACIC SPINE WO/W CLINICAL HISTORY: metastatic diseaes TECHNIQUE: Multiplanar multisequence MRI of the thoracic spine was performed with both pre and post contrast infused sequences. Contrast infused was 20 mL Dotarem COMPARISON: No exams were available for comparison FINDINGS: OSSEOUS: There are no acute appearing thoracic vertebral fractures. There are no ominous osseous les ions in the thoracic vertebrae. THORACIC SPINAL CORD: There is no abnormal signal in the cervical spinal cord and no evidence of foca l cord atrophy nor focal cord swelling. There is no evidence of syringomyelia nor significant spinal cord dysraphism. There is no evidence of mass at the conus medullaris. The position of the conus me dullaris is at T12-L1 level. SIGNIFICANT INDIVIDUAL LEVEL FINDINGS: T11-T12: Broad annular bulging, left more so than right. This indents the anterior aspect of the the hakeem sac on the left side. No significant foraminal stenosis on the right side. Mild foraminal steno sis on the left side. PARASPINAL TISSUES: No significant masses nor fluid collections evident. IMPRESSION: 1. No evidence of metastatic disease in the thoracic spinal column. 2. A T11-T12 level there is broad annular bulging, more prominent on the left side which indents the thecal sac and there is mild foraminal stenosis on the left side at this level also evident. DATA REPOSITORY:
[2022-10-12 08:24] VITALS: BP 156/90; PULSE 57; RESP 19; TEMP 36.4; O2SAT 97
[2022-10-12] MEDS: Methocarbamol 750 MG TAB PO ×4 (08:39→20:03)
[2022-10-12] MEDS: Sertraline 50 MG TAB PO ×2 (08:39→20:04)
[2022-10-12] MEDS: Normal Saline Flush 10 ML SYR IVP ×5 (08:39→18:19)
[2022-10-12] MEDS: Omeprazole 20 MG CAPCR PO ×2 (08:39→20:03)
[2022-10-12] MEDS: Aspirin 325 MG TAB PO (08:39)
[2022-10-12] MEDS: Gabapentin 100 MG CAP PO ×3 (08:40→20:03)
[2022-10-12] MEDS: Breeza Beverage 473 ML BTL PO (08:42)
--- NOTE | 2022-10-12 09:49 | PGE_ITS ---
Date of Service Date of service: 10/12/22 Time of Service: 09:49 Assessment and Plan Assessment and plan (1) Pathologic fracture of cervical vertebra: Status: Acute Assessment and plan: A lytic lesion of C2. s/p cervical collar. Obtain MRI brain, Cervical, thoracic, and lumbar spine w/w/o contrast. Also, obtain CT chest/abdomen/pelvis. Dr. Willis has entered the referral to neurosurgery into our system, but we will need to make sure it is faxed in the morning. He will need oncology follow up as well as a referral for a lung biopsy. Dr. Gutierrez, pulmonology has consulted on the patient and will make referrals to [facility] interventional pulmonary as well as tumor board and she will arrange outpatient PET scan Per Dr Willis's sign out to me, [facility] neurosurgery was already contacted by the E.D. last night and they recommend hard c collar and outpatient follow up w/ them. Professional time spent interviewing and examining patient, discussion of goals of care with hospital team (care management, nursing and consulting professionals) was 30 minutes. 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 Obtain CT chest/abdomen/pelvis. As above - will need a biopsy. Dr. Gutierrez has referred to I.P. at [facility]; however, given his pathologic c2 fracture, EBUS TBB and BAL may be tricky. If his CT scans and MRI show a more amenable site for biopsy to determine the cance r type then this would be preferable Advised to quit smoking, he says that he has been cutting down to 1/2 ppd (3) Headache: Status: Acute Assessment and plan: And neck pain. Treat with prn IV dilaudid,toradol, scheduled tylenol, gabapentin, methocarbamol. I have added fentanyl patch and adjusted his prn dilaudid as his pain is not adequately controlled. Also have put him on scheduled toradol, he only received one dose last night. Tylenol does not seem to give him any relief, the dilaudid iv does not take the pain down below 4 or 5 and does not last. (4) Obstructive sleep apnea syndrome: Status: Chronic Assessment and plan: The patient normally uses a CPAP with nasal pillows. This was not brought to the hospital tonight. We do not have nasal pillows in house and the patient cannot wear a mask for a CPAP at this time due to having a C-collar in place. I have written for oxygen overnight. (5) Tobacco abuse: Status: Chronic Assessment and plan: Advised to quit. nicotrol inhalers and lozenges have been ordered (6) DVT prophylaxis: Status: Acute Assessment and plan: SCDs. Holding off on chemical DVT ppx in light of not knowing if the patient has any metastases to the brain. (7) Discharge planning issues: Status: Acute Assessment and plan: Full code as per discussion with the patient with family at bedside. Subjective Subjective Interval history since last seen: I met w/ Tom and his daughter, Aleah. Tom is still in a lot of pain, headache and neck pain. He has a pathologic C2 fracture and appears to have a 2.5 cm left anterior upper lobe lung mass w/ hilar adenopathy. He is scheduled for further evaluation including CT of his chest/abdomen/pelvis and MRI of his head, c-spine, t-spine and LS spine. See H&P regarding details of his presenting symptoms. Tom has had some nausea and emesis of the CT contrast material. 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 and movement of his arms Lungs: clear anteriorly Heart: RRR Abdomen: soft, nontender w/ normal bowel sounds, no palpable organomegaly Legs: no edema Objective Last Vital Signs Temp 36.4 C L 10/12/22 08:24 Pulse 57 L 10/12/22 08:24 Resp 19 10/12/22 08:24 BP 156/90 H 10/12/22 08:24 Pulse Ox 97 10/12/22 08:24 Laboratory Results - last 24 hr 10/11/22 10/11/22 10/11/22 14:02 14:02 17:40 WBC 7.80 RBC 5.46 Hgb 17.0 Hct 47.9 MCV 88 MCH 31.1 MCHC 35.5 RDW 12.2 Plt Count 202 MPV 9.1 Immature Gran % 1.2 Neutrophils % 58.8 Lymphocytes % 29.2 Monocytes % 7.3 Eosinophils % 2.7 Basophils % 0.8 Nucleated RBC % 0.0 Absolute Neutrophils 4.59 Absolute Lymphocytes 2.28 Absolute Monocytes 0.57 Absolute Eosinophils 0.21 Absolute Basophils 0.06 Sodium 134 L Potassium 3.8 Chloride 98 Carbon Dioxide 26.3 Anion Gap 9.7 BUN 11 Creatinine 0.9 Est GFR (CKD-EPI 2020) 94.19 Glucose 94 Calcium 9.9 Phosphorus Magnesium Total Bilirubin 0.5 AST 21 ALT 26 Alkaline Phosphatase 59 Total Protein 8.7 H Albumin 4.4 Procalcitonin Salicylates Acetaminophen COVID-19 Source Nasopharynx SARS-CoV-2 (PCR) Negative Influenza Type A (PCR) Negative Influenza Type B (PCR) Negative RSV (PCR) Negative Add-On Test Request 10/11/22 10/11/22 10/11/22 19:45 23:55 23:59 WBC RBC Hgb Hct MCV MCH MCHC RDW Plt Count MPV Immature Gran % Neutrophils % Lymphocytes % Monocytes % Eosinophils % Basophils % Nucleated RBC % Absolute Neutrophils Absolute Lymphocytes Absolute Monocytes Absolute Eosinophils Absolute Basophils Sodium Potassium Chloride Carbon Dioxide Anion Gap BUN Creatinine Est GFR (CKD-EPI 2020) Glucose Calcium Phosphorus Magnesium Total Bilirubin AST ALT Alkaline Phosphatase Total Protein Albumin Procalcitonin < 0.1 Salicylates Acetaminophen Cancelled COVID-19 Source SARS-CoV-2 (PCR) Influenza Type A (PCR) Influenza Type B (PCR) RSV (PCR) Add-On Test Request DONE 10/11/22 10/12/22 10/12/22 23:59 05:27 05:27 WBC 7.13 RBC 5.14 Hgb 15.7 Hct 45.2 MCV 88 MCH 30.5 MCHC 34.7 RDW 12.0 Plt Count 179 MPV 8.5 Immature Gran % 1.1 Neutrophils % 59.9 Lymphocytes % 26.2 Monocytes % 7.9 Eosinophils % 3.9 Basophils % 1.0 Nucleated RBC % 0.0 Absolute Neutrophils 4.27 Absolute Lymphocytes 1.87 Absolute Monocytes 0.56 Absolute Eosinophils 0.28 Absolute Basophils 0.07 Sodium 135 L Potassium 3.9 Chloride 100 Carbon Dioxide 27.9 Anion Gap 7.1 BUN 12 Creatinine 0.8 Est GFR (CKD-EPI 2020) 97.61 Glucose 104 Calcium 9.3 Phosphorus 4.7 Magnesium 1.9 Total Bilirubin AST ALT Alkaline Phosphatase Total Protein Albumin Procalcitonin Salicylates 2.8 Acetaminophen < 2 COVID-19 Source SARS-CoV-2 (PCR) Influenza Type A (PCR) Influenza Type B (PCR) RSV (PCR) Add-On Test Request Time Spent with Patient Time Spent with Patient: 25-34 minutes Time was spent: preparing to see the patient(eg.review tests), obtaining and/or reviewing separately otained hiistory, ordering medications,tests, procedures, referring, communicating with other health health care recruiter, indepentently int erpreting results, counseling the patient and care coordination
[2022-10-12] MEDS: Ondansetron 4 MG/2 ML VIAL IVP (10:19)
[2022-10-12] MEDS: HYDROmorphone 4 MG TAB PO ×3 (10:19→20:03)
[2022-10-12] MEDS: Omnipaque 350 MG/ML 100 ML BTL IJ (10:53)
--- NOTE | 2022-10-12 11:11 | INITIAL_ITS ---
- If Service Date Differs Date of service: 10/12/22 Time of Service: 11:11 Care Management Initial Assess REASON FOR HOSPITALIZATION:: Pathologic fracture of cervical vertebra, Mass in chest, Headache PAST MEDICAL HISTORY/PAST SURGICAL HISTORY:: All Active Problems (Updated 10/12/22 @ 00:08 by Bambi Willis MD). Discharge planning issues (Acute). DVT prophylaxis (Acute). Tobacco abuse (Chronic). Pathologic fracture of cervical vertebra (Acute). Mass in chest (Acute). Headache (Acute). Gluteal tendonitis of left buttock (Acute). Spondylosis of lumbar spine (Acute). Trochanteric bursitis, left hip (Acute). DEPO MEDROL 08/12/22; 07/19/21. Left hip pain (Acute). Right lower lobe pulmonary nodule (Acute). 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 Dr. Pyle. Status post rotator cuff repair (Acute). Smoker (Acute). Epicondylitis (Acute). Unspecified injury of left quadriceps muscle, fascia and tendon, initial encounter (Acute). Family hx of colon cancer requiring screening colonoscopy (Acute). Quadriceps muscle rupture (Acute). Original injury 08/27/2018. Re-injury on 09/04/2018. Smoker (Chronic). Sexual function problem (Acute). Obstructive sleep apnea syndrome (Chronic). CPAP. Oakley's metatarsalgia (Acute). Impaired fasting glucose (Acute). Hypothyroidism (acquired) (Chronic 03/03/17). Hypertension (Chronic). Hyperlipidemia (Chronic). History of alcoholism (Acute). Epicondylitis (Acute). Depressive disorder (Acute 08/10/00). Chest pain (Acute). +MPI- inferior wall; cardiac cath neg. ? Syndrome X. neg MPI 03/27. Medical History (Updated 10/12/22 @ 00:08 by Bambi Willis MD). Angina pectoris. Angina pectoris. Family history of colon cancer. Normal colonoscopy (09/21/18). 09/21/18 Dr Armand Walton, [facility], normal, repeat 5 years due to family history colon cancer, mg. Surgical History (Updated 10/12/22 @ 00:08 by Bambi Willis MD). History of colonoscopy. Parotid gland enlargement. s/p resection. Rotator Cuff Repair. Bilateral. 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 He has four adult daughters (Tonia,Maricel, Yoana and Shila) who live locally and are supportive. He drives and is independent with his ADL's at baseline. CURRENT FUNCTIONAL STATUS:: Tom is lying in bed with his HOB elevated with a pillow rolled behind his head. He is wearing a cervical collar and shared that he didn't realize a fractured neck could hurt so much. At this time, Tom is without health insurance but had an appointment to sign up for Medicare today. The appointment needed to be cancelled due to this hospitalization. CM placed a referral to [facility] for assistance with healthcare coverage. ADVANCE DIRECTIVES:: None on file. Has patient been provided with info about the portal/API?: Yes Did the patient sign up for the portal?: No CODE STATUS:: Full Code INSURANCE COVERAGE / FINANCIAL ISSUES:: No Insurance. Unfortunately, Tom had an appointment to sign up for Medicare today, which needed to be cancelled due to this hospitalization. [facility] consult placed to assist pt with healthcare coverage. CURRENT HOME/COMMUNITY SERVICES/EQUIPMENT:: None PRIMARY CARE PHYSICIAN:: Dr. Freedom Faith POTENTIAL DISCHARGE NEEDS:: Discharge plan of care with follow up with community providers and appropriate specialists. Follow up with [facility] for continued support with healthcare coverage PATIENT/FAMILY EDUCATION NEEDS:: Review discharge instructions, limitations, medications and plan to follow up with community and outpatient providers. Discuss ask me three. TRANSPORTATION:: Via private vehicle with family. PLAN:: Tom requires further medical workup, close monitoring and pain management. His discharge plan is unclear at this time. He may require a down and back to a tertiary care facility for a biopsy. [facility] referral is in place to support patient in obtaining healthcare coverage and is a priority. CM will continue to follow.
[2022-10-12] MEDS: Docusate Sodium 100 MG CAP PO ×2 (13:14→20:04)
[2022-10-12] MEDS: fentaNYL 12 MCG PATCH TD (13:14)
[2022-10-12] MEDS: Polyethylene Glycol 3350 17 GM PACKET PO (13:14)
[2022-10-12] MEDS: Ketorolac 30 MG/ML VIAL IVP ×3 (13:15→23:00)
[2022-10-12 13:22] VITALS: BP 171/90; PULSE 60; RESP 19; TEMP 36.2; O2SAT 95
--- NOTE | 2022-10-12 14:37 | PT.INIE ---
Date of service: 10/12/22 Time of Service: 14:37 PT Notes Visit Reasons: C2 Lytic Lesion,Perihilar Mass,Intractable Pain Physical Therapy Inpatient Initial Evaluation Date: 10/12/2022 Referring Doctor: Bambi Willis MD PT Orders: PT CONSULT: Limited ability Precautions: Fall. Standard. [place] J advanced cervical collar on at all times per [facility] neurosurgeon/hospitalist. Patient Profile/Admitting Diagnosis: Tom is a 67-year-old male admitted for management of pathologic fracture of C2 vertebral body, right facet and right transverse process along with right transverse foramen and right neural foraminal stenosis, chest neoplasm, headache and neck pain, PAVAN, and tobacco abuse. 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 Pyle Status post rotator cuff repair (Acute) Smoker (Acute) Epicondylitis (Acute) Unspecified injury of left quadriceps muscle, fascia and tendon, initial encounter (Acute) Family hx of colon cancer requiring screening colonoscopy (Acute) Quadriceps muscle rupture (Acute) Original injury 08/27/2018 Re-injury on 09/04/2018Smoker (Chronic) Sexual function problem (Acute) Obstructive sleep apnea syndrome (Chronic) CPAP Oakley's metatarsalgia (Acute) Impaired fasting glucose (Acute) Hypothyroidism (acquired) (Chronic 03/03/17) Hypertension (Chronic) Hyperlipidemia (Chronic) History of alcoholism (Acute) Epicondylitis (Acute) Depressive disorder (Acute 08/10/00) Chest pain (Acute) +MPI-inferior wall; cardiac cath neg. ? Syndrome X neg MPI 03/27 Medical History?(Updated 10/12/22 @ 00:08 by Bambi Willis MD) Angina pectoris Angina pectoris Family history of colon cancer Normal colonoscopy (09/21/18) 09/21/18 Dr Armand Walton, [facility], normal, repeat 5 years due to family history colon cancer, mg. Surgical History?(Updated 10/12/22 @ 00:08 by Bambi Willis MD) History of colonoscopy Parotid gland enlargement s/p resectionRotator Cuff Repair BilateralS/P total right hip arthroplasty Social History/Home Situation: Lives with in a private home. Independent with all aspects of ADLs prior to admission. 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 Great support from daughters. Equipment Owned/DME: FWW, SPC Subjective: Complained of a headache at 1-2/10 that radiates to the neck area. States that he has not felt such relief from headache/neck pain until now. Per Nurse Sadaf, patient was given pain meds half an hour before this PT session. Denied radiation of pain to B upper extremities. Reported being dizzy earlier today when he was upright. [place] that prolonged upright positioning causes him to be dizzy. Complained of fatigue. Added that he had his R hip repaired 2 years ago but he did not feel that he is able to reach his mobility potential due to the pain from his L hip until an injection was made last August that helped with meaningful improvements for him. Currently, he states that he is not stressed but is worried for his family and indicates that he is willing to work this medical issue out for his family. Agreed to get out of bed to assess mobility level. Objective: General Observation: Supine in bed. Cervical collar on. CPAP machine on. Mental Status: Alert and oriented as to person, place, time, and purpose. Able to pay attention, focus, and respond appropriately. Pain: 1-2/10 in posterior head and nek area Vital Signs: WNL as closely monitored by nursing staff ROM: Right Upper Extremity: Shoulder Flexion WFL. Shoulder abduction WFL. Elbow flexion WFL. Wrist flexion WFL. Functional opening and closing of hand WFL. Left Upper Extremity: Shoulder Flexion WFL. Shoulder abduction WFL. Elbow flexion WFL. Wrist flexion WFL. Functional opening and closing of hand WFL. Right Lower Extremity: Hip flexion WFL. Hip abduction WFL. Knee flexion WFL. Ankle dorsiflexion WFL. Ankle plantarflexion WFL. Left Lower Extremity: Hip flexion WFL. Hip abduction WFL. Knee flexion WFL. Ankle dorsiflexion WFL. Ankle plantarflexion WFL. Strength: Right Upper Extremity: Shoulder flexors 4/5. Shoulder abductors 4/5. Elbow flexors 5/5. Elbow extensors 5/5. Die Equipment Operator strong. Left Upper Extremity: Shoulder flexors 4/5. Shoulder abductors 4/5. Elbow flexors 5/5. Elbow extensors 5/5. Die Equipment Operator strong. Right Lower Extremity: Hip flexors 4/5. Hip abductors 5/5. Knee flexors 5/5. Knee extensors 5/5. Ankle dorsiflexors 5/5. Ankle plantarflexors 5/5. Left Lower Extremity: Hip flexors 4/5. Hip abductors 5/5. Knee flexors 5/5. Knee extensors 5/5. Ankle dorsiflexors 5/5. Ankle plantarflexors 5/5. Sensation: Denies numbness and tingling in B UE as well as radiation of pain to B UE. Bed Mobility/Transfers: Rolling independent Supine to sit independent Sit to supine independent Sit to stand independent Stand to sit independent Bed to reclining chair independent Reclining chair to bed independent Gait: Instructed patient with level surface ambulation of 40 feet requiring supervision using FWW. Did not report dizziness throughout the short walk. Complained of fatigue and needing to rest in bed, anxious about getting dizzy again. Balance: Static Sitting: Normal Dynamic Sitting: Normal Static Standing: Good Dynamic Standing: Fair Special Tests: Mobility Limitations Standardized Measure [facility] AM-PAC 6 clicks Basic Mobility Inpatient Short Form: Raw Score: 23 CMS Score: 11% deficit Informed Consent/Education: Patient was instructed in purpose of PT consult and plan of care. He understands that the main goal of PT working with him right now is to ensure that risk of falls is at its minimum while further studies/lab work up are being done for him. Agreeable to proceed with established PT POC to achieve personal goals. It was emphaiszed that should he feel dizziness, he is to call for assistance right away before attempting to walk to the bathroom. Assessment: Tom is a 67-year-old male admitted for management of pathologic fracture of the lateral mass and superior facet of C2 on the R, chest neoplasm, headache and neck pain, PAVAN, and tobacco abuse. Cervicogenic dizziness increase risk for falls at this time. His cervical collar will need to be re-examined frequently to ensure that optimal stabilization of the cervical area is maintained. Patient presents with clinical signs and symptoms consistent with current/admitting diagnoses that have resulted to mobility limitations, gait instability, generalized weakness, and overall ADL decline as demonstrated by the following impairment level findings: 2. Impaired standing balance 3. Impaired activity tolerance 4. Limitation of joint range of motion in cervical area due to MD-ordered neck stabilization 5. Shortness of breath Impairments are contributing to the following functional limitations: 1. Bed mobility skills modifications to minimize undue cervical muscle neck strain 3. Difficulty with ambulation from limiyted head movement due to collar use 4. Increased completion time for mobility ADL performance 5. Increased risk for falls Patient is assessed as a 26637 moderate complexity based on the following: History: 67-year-old male with past medical history as indicated above Examination: Demonstrable impairment in strength, balance, and mobility level with underlying impairments and functional limitations as exhibited above as well as deficit score of 11% utilizing the [facility] Mobility Inpatient Short Form Presentation: Evolving Decision Makin moderate complexity Goals: Goals X1 week 1. Bed-Chair independent with no AD 2. Chair-Bed independent with no AD 3. Independent gait on level surface with use of SPC for at least 100 feet without report of pain nor dyspnea 4. Independent stair negotiation while holding onto B rails for at least 5 steps without report of pain nor dyspnea 5. Good static and dynamic standing balance/tolerance Plan of Care/Treatment Plan: 1-2x/day, 7 days/week x 1 week. Check cervical collar fit and placement before start of each session, adjust as needed. Pre-medicate for pain. Stop ambulation activity with onset of dizziness. Main goal of PT working with him right now is to ensure that risk of falls is at its minimum while further studies/lab work up are being done for him. Plan of care has been reviewed with the PLASMA PROCESSING CENTRIFUGE OPERATOR providing the service under Physical Therapy direction. Initiate Physical Therapy intervention for pain management as needed, strengthening, bed mobility, transfers, gait, stairs, balance training, and use of assistive device. DISCHARGE RECOMMENDATIONS: [] Home with no services [] [X] Home with services. Home when medically cleared by hospitalist. Patient will benefit from home health PT services in order to progress mobility level using least restrictive assistive ambulatory device, assess home safety, identify additional equipment needs, and establish a functional maintenance program that will increase ability of patient to remain at home. [] Home with outpatient PT [] [] SNF for continued rehabilitation [] [] Long-Term Care [] [] SNF versus LTC based on ability to participate and progress [] TREATMENT CODE/TIME: 86748 x 20 minutes, 84037 x 13 minutes beginning at 14:37 PM. Thank you for the opportunity to participate in the care of this patient. Dianna Driscoll PT, DPT, CLT [facility] [place], [place]
[2022-10-12 16:01] VITALS: BP 152/85; PULSE 61; RESP 18; TEMP 36.2; O2SAT 95
--- NOTE | 2022-10-12 17:01 | CHAPLAIN ---
Tom had just returned to his room from some tests/scans when I visited. His nurse Sadaf was giving him some meds. Tom talked about how unbelievable his situation is. He found out today that he has a broken neck, and is wearing a brace. The pain has been severe, he said. Tom shared some person history, and told me about his four daughters. (Tonia is an ICE CARVER with the [employer] Palliative Care team and Maricel is an [facility] Commercial Collector. His , Brianna, is a former [employer] employee.) Tom's family is connected to the [employer]. Tom said he also considers nature his congregational and finds peace there. The diagnosis of the spinal fracture and what caused it is still being investigated, so many questions still remain unanswered and Tom will be having more tests tomorrow. Last night he had difficultly sleeping in part because the door to his room kept opening, allowing light and noise in. His nurse was able to put a sign in on the door asking that it remain closed. I will continue to visit.
[2022-10-12] MEDS: HYDROmorphone 2 MG/ML SYR IVP (17:04)
[2022-10-12] MEDS: rOPINIRole 1 MG TAB PO (20:03)
[2022-10-12 20:08] VITALS: BP 162/85; PULSE 65; RESP 16; TEMP 36.6; O2SAT 96
[2022-10-12] MEDS: Senna TAB 1 TAB PO (20:57)
[2022-10-12 23:06] VITALS: BP 127/72; PULSE 54; RESP 14; TEMP 36.4; O2SAT 92
[2022-10-13] VITALS (7 sets, daily range): BP systolic 154–190; BP diastolic 84–95; PULSE 54–63; RESP 16–20; TEMP 36–36.8; O2SAT 92–96
[2022-10-13] MEDS: Levothyroxine 50 MCG TAB PO (05:41)
[2022-10-13] MEDS: Acetaminophen 500 MG TAB 1000 MG PO ×3 (05:41→21:38)
[2022-10-13] MEDS: Ketorolac 30 MG/ML VIAL IVP ×4 (05:42→23:24)
--- NOTE | 2022-10-13 08:10 | OTIE_ITS ---
Occupational Therapy Notes Inpatient Occupational Therapy Evaluation Date: 10/13/22 Referring Doctor:Bambi Willis MD OT Orders: Non urgent Precautions: fall, standard, full PATIENT PROFILE/ADMITTING DIAGNOSIS: Pt is a 67 year old male who was admitted through the ED for the following dx of management of pathologic fracture of C2 vertebral body, right facet and right transverse process along with right transverse foramen and right neural foraminal stenosis, chest neoplasm, headache and neck pain, PAVAN, and tobacco abuse. 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 Dunbar post rotator cuff repair (Acute) Smoker (Acute) Epicondylitis (Acute) Unspecified injury of left quadriceps muscle, fascia and tendon, initial encounter (Acute) Family hx of colon cancer requiring screening colonoscopy (Acute) Quadriceps muscle rupture (Acute) Original injury 08/27/2018 Re-injury on 09/04/2018Smoker (Chronic) Sexual function problem (Acute) Obstructive sleep apnea syndrome (Chronic) CPAP Oakley's metatarsalgia (Acute) Impaired fasting glucose (Acute) Hypothyroidism (acquired) (Chronic 03/03/17) Hypertension (Chronic) Hyperlipidemia (Chronic) History of alcoholism (Acute) Epicondylitis (Acute) Depressive disorder (Acute 08/10/00) Chest pain (Acute) +MPI-inferior wall; cardiac cath neg. ? 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 Surgical History?(Updated 10/12/22 @ 00:08 by Bambi Willis MD) History of colonoscopy Parotid gland enlargement s/p resectionRotator Cuff Repair BilateralS/P total right hip arthroplasty Social History/Home Situation: Pt states that he lives in a private home with his . Pt states that he is (I) at his baseline level of function. He notes that she does not use any type of adaptive equipment for all of his ADL/IADL routines. 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 SUBJECTIVE: Pt was lying in bed when OT arrived. He is pleasant and agreeable to OT session. OBJECTIVE: General Observation: Pleasant, agreeable to OT session, cervical spine collar on at all time Mental Status: A&Ox4 Pain: c/o pain in neck and head ROM: RUE AROM WFL L UE AROM WFL STRENGTH: RUE 5/5 throughout LUE 5/5 throughout FUNCTIONAL MOBILITY/ADLS: Transfers Supine-sit (I) Sit-supine (I) Sit-Stand (I) Stand-sit (I) Bed-Chair (I) Chair-bed (I) BATHING NT pt states that his headache is a lot this morning and he would like to hold at this time. DRESSING seated on side of the bed Dressing LE (I) don and doffing (B) Shoes GROOMING NT TOILETING in bathroom on toilet (I) EATING Seated in bed, pt is (I) with hand to mouth and chewing. Limited mobility in chewing ability due to cervical support. BALANCE: Static sitting Normal Dynamic Sitting Normal Static Standing Normal Dynamic Standing Normal SPECIAL TESTS: Daily Activity Limitations Standardized Measure [facility] AM -PAC ?6 clicks? Daily Activity Inpatient Short Form: Raw score: 23 Standardized score: 51.12 CMS score: 15.86% INFORMED CONSENT/EDUCATION: Pt instructed in purpose of OT Consult and plan of care. ASSESSMENT: Patient is a 67-year-old male referred to occupational therapy services with diagnosis of . fibrotic lung disease, lung mass, tobacco abuse, pathologic fx of cervical vertebra, headache, gluteal tendonitis of (L) buttock, spondylosis of (L) buttock, (L) hip pain.Patient presents with clinical signs and symptoms consistent with dx, as demonstrated by the following impairment level findings/ functional limitations: Pt is limited by the pain in his head and neck limiting his forward bend, functional mobility for ADLs and pt is currently wearing a neck stabilizer at all times. Pt is strong in (B) UE and (I) with his UE function. His pain is the biggest limiting factor at this time. Patient is assessed as a Moderate [id number] complexity based on the following: History: see above Examination: see functional limitations as noted above Presentation: evolving Decision Making: moderate complexity based on pain with functional activities. GOALS Goals x1 week 1. Pt will be able to utilize adaptive equipment (I) for his ADLs to minimize forward bending. PLAN OF CARE/TREATMENT PLAN: 1x/day, 5 days/ week x 1week Initiate Occupational Therapy Services for bathing, dressing, grooming, toileting, eating, transfer training. DISCHARGE RECOMMENDATIONS Based on pts current level of function, OT recommends that pt go home with services when medically cleared per MD. TREATMENT TIME/MINUTES/CODES 34024, 25 minutes (07:35) Carol Guzmán OTR/L [facility]
[2022-10-13] MEDS: Methocarbamol 750 MG TAB PO ×4 (09:00→20:03)
[2022-10-13] MEDS: Docusate Sodium 100 MG CAP PO ×3 (09:00→20:04)
[2022-10-13] MEDS: Sertraline 50 MG TAB PO ×2 (09:00→20:04)
[2022-10-13] MEDS: Aspirin E.C. 81 MG TABEC PO (09:01)
[2022-10-13] MEDS: Gabapentin 100 MG CAP PO ×3 (09:01→20:03)
[2022-10-13] MEDS: Omeprazole 20 MG CAPCR PO ×2 (09:01→20:03)
[2022-10-13] MEDS: HYDROmorphone 4 MG TAB PO ×2 (09:01→13:17)
[2022-10-13] MEDS: Polyethylene Glycol 3350 17 GM PACKET PO (09:03)
--- NOTE | 2022-10-13 09:07 | RESPIRATORY ---
Patient is using own device, DreamStation Auto-titrating CPAP min 11/max 18 on RA. The DME is Janet Valencia and he uses a DreamWear Nasal Mask size Large. Device was checked out by RT the prior day and is in great working condtion.
--- NOTE | 2022-10-13 09:20 | W.PM.PROGNOT ---
Date of Service Date of service: 10/13/22 Time of Service: 09:20 Assessment and Plan Assessment and plan (1) Pathologic fracture of cervical vertebra: Status: Acute Assessment and plan: continue c spine collar await completion of his MRI of brain, cervical, thoracic and lumbar spine. I spoke w/ Dr. Hugo Self from [facility] pulmonology, he will discuss the patient's case w/ I.P. and get back to me as to their recommendations for ideal bx site Patient was referred to [facility] neurosurgery upon admission. He will need to see them in close follow up when he is discharged or if he is transferred then they can be consulted on inpatient. Professional time spent interviewing and examining patient, discussion of goals of care with hospital team (care management, nursing and consulting professionals) was 45 minutes. 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 CT chest, abdomen and pelvis were done w/ contrast yesterday and results were discussed w/ the patient and family; this showed 3 cm spiculated mass in anterior DILEEP w/ adjacent mass and mediastinal adenopathy and right 7th rib pathologic fracuture, No significant pathology noted in abdomen or pelvis. No liver mets. As above - will need a biopsy. Dr. Gutierrez has referred to I.P. at [facility]; however, given his pathologic c2 fracture, EBUS TBB and BAL may be tricky. If his CT scans and MRI show a more amenable site for biopsy to determine the cancer type then this would be preferable Advised to quit smoking, he says that he has been cutting down to 1/2 ppd (3) Headache: Status: Acute Assessment and plan: And neck pain. Treat with prn IV dilaudid,toradol, scheduled tylenol, gabapentin, methocarbamol. I have added fentanyl patch and adjusted his prn dilaudid as his pain is not adequately controlled. Also have put him on scheduled toradol, he only received one dose last night. Tylenol does not seem to give him any relief, the dilaudid iv does not take the pain down below 4 or 5 and does not last. (4) Obstructive sleep apnea syndrome: Status: Chronic Assessment and plan: family brought in his own CPAP from home yesterday which he wore last night. He says that he finally got about 4 hours of sleep. He did well w/ the Lunesta (5) Tobacco abuse: Status: Chronic Assessment and plan: Advised to quit. nicotrol inhalers and lozenges have been ordered (6) DVT prophylaxis: Status: Acute Assessment and plan: SCDs. Holding off on chemical DVT ppx in light of not knowing if the patient has any metastases to the brain. (7) Discharge planning issues: Status: Acute Assessment and plan: Full code as per discussion with the patient with family at bedside. Subjective Subjective Interval history since last seen: Tom slept better tonight after the Lunesta. As for his neck pain and headache, this is improved. The constant pain has improved and the sharp intermittent pains have decreased in frequency and are not lasting as long. he is currently on Duragesic patch 12.5 mcg/hr, toradol 30 mg IV q6h x total 8 doses, gabapentin 100 mg tid, APAP 1000 mg tid Also aware that the MRI scanner is down today but I spoke with the diet technician registered and they expect to have it repaired by this afternoon and they will complete his MRI scans this afternoon. I also told Tom that I will be contacting interventional pulmonology [facility] and discussing the recommended approach to tissue biopsy. This may involve either a direct transfer to determine or possibly a down and back procedure. Exam Narrative Exam Narrative: Tom is moving in and out of bed much better on his own today. He is wearing his hard c spine colllar and says that it feels much better w/ the collar on. Lungs: some coarse breath sounds at bases that clears w/ cough and deep breathing (I reminded him to use his IS) Heart: RRR Abdomen: soft, nontender, normal bowel sounds, (I inquired as to whether or not he has had a BM, he says he has not had one since admission) Extremities: normal ROM and strength. Objective Last Vital Signs Temp 36.4 C L 10/13/22 07:41 Pulse 55 L 10/13/22 07:41 Resp 18 10/13/22 07:41 BP 155/84 H 10/13/22 07:41 Pulse Ox 95 10/13/22 07:41 Time Spent with Patient Time Spent with Patient: 35-49 minutes Time was spent: preparing to see the patient(eg.review tests), obtaining and/or reviewing separately otained hiistory, ordering medications,tests, procedures, referring, communicating with other health physician assistant primary care, indepentently interpreting results, counseling the patient and care coordination
[2022-10-13] MEDS: Normal Saline Flush 10 ML SYR IVP ×4 (11:43→20:14)
[2022-10-13] MEDS: HYDROmorphone 2 MG/ML SYR IVP ×3 (12:03→20:17)
[2022-10-13] MEDS: fentaNYL 25 MCG PATCH TD (13:25)
--- NOTE | 2022-10-13 14:57 | CMPROGNOTE_ITS ---
- If Service Date Differs Date of service: 10/13/22 Time of Service: 14:57 Care Management Progress Note S/O: Tom continues to have a headache and be sensitive to light and sound. He is lying in bed, his hands are on his forehead and the room is dark. His daughter Tonia is sitting in the recliner next to him. Tom shared with CM that he missed a call from [facility] and he is unsure from who because he called the number back and was directed to the [facility]'s main line. Per [facility] note, Neurosurgery accredited legal secretary Carly was trying to reach patient but unable to connect with him or leave a message. CM provided contact information to patient and Tom is now able to return the call. In addition, Tom is without health insurance, which raises concerns to access of care following discharge. JAYMIE is helping to set Tom up with a Qualified Plan, while waiting for determination of Medicaid Eligibility which may take 2 weeks. CM will continue to follow. A: 67 year old male admitted to [facility] on 10/11/22 for Pathologic fracture of cervical vertebra, Mass in chest, Headache P: Tom requires further medical workup, close monitoring and pain management. Anticipate, he will discharge home with outpatient follow up with [facility] specialists. JAYMIE is supporting Tom with healthcare coverage. A [place] Medicaid application is submitted. CM will continue to follow.
[2022-10-13] MEDS: Nicotine 2 MG LOZG PO (15:18)
--- NOTE | 2022-10-13 16:50 | PT.INNT ---
Date of service: 10/13/22 Time of Service: 16:50 PT Notes Visit Reasons: C2 Lytic Lesion,Perihilar Mass,Intractable Pain Patient and daughters were asked about what they feel with holding off on PT at this time as patient has been independent inside his room for essential transfers. Daughter Tonia and patient states that it is okay to wait until everything is stable and healed before progressing with PT. Patient is given a single point cane as added stability during essential ambulation and tool for environmental scanning to reduce fall risk. Will spend one short session tomorrow for ambulation using SPC prior to holding off PT services entirely. TREATMENT CODE/TIME: 16:50-17:05 PM. No charge.
--- NOTE | 2022-10-13 17:21 | CHAPLAIN ---
Tom was resting in bed with his neck brace on when I visited this afternoon. Two of his daughters, Tonia and Maricel were with him. He's still having difficulty with headaches, but said he slept for four hours last night, which is an improvement. He was scheduled for the second part of an MRI today but the MRI machine has been down. Tom is [employer], finds a connection to [employer]arsani in the [facility]. He is well supported by family, his and four daughters who all live locally.
[2022-10-13] MEDS: amLODIPine 5 MG TAB PO (17:41)
[2022-10-13] MEDS: rOPINIRole 1 MG TAB PO (20:04)
[2022-10-13] MEDS: Senna TAB 1 TAB PO (21:39)
[2022-10-14 03:57] VITALS: BP 167/75; PULSE 49; RESP 16; TEMP 36.1; O2SAT 93
[2022-10-14] MEDS: Ketorolac 30 MG/ML VIAL IVP (06:02)
[2022-10-14] MEDS: Normal Saline Flush 10 ML SYR IVP ×4 (06:02→16:04)
[2022-10-14] MEDS: Levothyroxine 50 MCG TAB PO (06:02)
[2022-10-14] MEDS: Acetaminophen 500 MG TAB 1000 MG PO ×2 (06:02→13:22)
[2022-10-14 07:46] VITALS: BP 163/91; PULSE 52; RESP 18; TEMP 36.5; O2SAT 97
[2022-10-14] MEDS: amLODIPine 5 MG TAB PO (08:31)
[2022-10-14] MEDS: Methocarbamol 750 MG TAB PO ×3 (08:31→16:02)
[2022-10-14] MEDS: Sertraline 50 MG TAB PO (08:31)
[2022-10-14] MEDS: Losartan 25 MG TAB PO (08:31)
[2022-10-14] MEDS: Docusate Sodium 100 MG CAP PO ×2 (08:31→13:22)
[2022-10-14] MEDS: Polyethylene Glycol 3350 17 GM PACKET PO (08:32)
[2022-10-14] MEDS: Gabapentin 100 MG CAP PO ×2 (08:32→13:22)
[2022-10-14] MEDS: Omeprazole 20 MG CAPCR PO (08:32)
[2022-10-14] MEDS: hydroCHLOROthiazide 25 MG TAB PO (08:32)
[2022-10-14] MEDS: Aspirin E.C. 81 MG TABEC PO (08:32)
[2022-10-14] MEDS: HYDROmorphone 4 MG TAB PO ×3 (08:37→17:02)
[2022-10-14] MEDS: Gadoterate meglumine 20 ML VIAL IVP (10:05)
[2022-10-14] MEDS: fentaNYL 25 MCG PATCH TD (10:38)
[2022-10-14] MEDS: HYDROmorphone 2 MG/ML VIAL IVP ×3 (10:39→16:03)
[2022-10-14 11:24] VITALS: BP 160/85; PULSE 57; RESP 16; TEMP 36.3; O2SAT 94
--- NOTE | 2022-10-14 12:35 | DI.VRAD_ITS ---
PROCEDURE INFORMATION: Exam: MR Cervical Spine Without and With Contrast Exam date and time: 10/12/2022 11:35 AM Age: 67 years old Clinical indication: Condition or disease; Cancer, metastatic/secondary; Location of cancer not specified TECHNIQUE: Imaging protocol: Magnetic resonance imaging of the cervical spine without and with contrast. Contrast material: DOTAREM; Contrast volume: 20 ml; Contrast route: INTRAVENOUS (IV); COMPARISON: CT HEAD CERVICAL SPINE WO 10/11/2022 3:03 PM FINDINGS: Bones/joints: Destructive expansile lesion in the right lateral mass of the C2 vertebral body. This was better demonstrated on the CT cervical spine 10/11/2022. It is best seen on today's exam on the axial T1 series 601, image 31 where it demonstrates diffuse low T1 signal. It enhances after the administration gadolinium. The lesion causes slight effacement of the right side of the ventral thecal sac but the central spinal is widely patent at this level. Lesion measures approximately 2.7 by 2.1 cm in AP and transverse dimension. Spinal cord: Normal signal. No cord compression. No abnormal enhancement C2-C3: Bilateral posterolateral uncovertebral spurring. Moderate facet arthropathy, worse on the left. Mild narrowing of the left neural foramen. The right neural foramen appears patent.. C3-C4: Loss of disc height. Generalized disc bulge with bilateral posterolateral uncovertebral spurring. Mild left and moderate right facet arthropathy. Posterior midline disc protrusion effaces the ventral thecal sac. Severe narrowing of the bilateral neural foramen, worse on the right.. C4-C5: Moderate to severe right facet arthropathy and mild left facet arthropathy. Normal appearance of the intervertebral disc. Mild bilateral foraminal narrowing.. C5-C6: Loss of disc height. Generalized disc bulge with endplate osteophyte formation, most marked posterolaterally. Moderate right and mild left facet arthropathy. Moderate central canal narrowing. Severe bilateral foraminal narrowing.. C6-C7: Loss of disc height. Generalized disc bulge, most marked posteriorly. Minimal endplate osteophyte formation. Moderate central canal narrowing. Severe left and moderate right foraminal narrowing. Mild bilateral facet arthropathy.. C7-T1: No significant disc disease. No significant spinal stenosis. Moderate bilateral facet arthropathy. Soft tissues: Unremarkable. Vasculature: Expected flow voids in the vertebral arteries. IMPRESSION: 1. Destructive expansile lesion right lateral mass of C2 consistent with known metastatic disease. No other lesions are identified in the cervical spine 2. Diffuse degenerative disc disease and facet arthropathy with multilevel central canal and foraminal narrowing, most marked at C5-C6 and C6-C7. Dictated and Authenticated by: Bess Hernandez MD. Ordering:RONDA Lacy MD
--- NOTE | 2022-10-14 12:42 | DI.VRAD_ITS ---
PROCEDURE INFORMATION: Exam: MR Thoracic Spine Without and With Contrast Exam date and time: 10/12/2022 11:54 AM Age: 67 years old Clinical indication: Condition or disease; Other: Metastatic cancer TECHNIQUE: Imaging protocol: Magnetic resonance imaging of the thoracic spine without and with contrast. Contrast material: DOTAREM; Contrast volume: 20 ml; Contrast route: INTRAVENOUS (IV); COMPARISON: MR CERVICAL SPINE WO/W 10/12/2022 11:35 AM FINDINGS: Bones/joints: No worrisome bone lesions are identified in the thoracic spine. Mild anterior wedging of T6 T7 vertebral bodies. Diffuse anterior endplate osteophyte formation with anterior disc osteophyte complexes. Generalized posterior disc bulge eccentric to the left at T11-T12 causing mild central canal and bilateral foraminal narrowing. The central spinal canal and bilateral neural foramen are otherwise patent throughout the thoracic spine. Spinal cord: Normal signal. No cord compression. Soft tissues: Unremarkable. Lungs: Coarse infiltrates in the posterior lungs. Recommend correlation with the CT chest 10/12/2022. IMPRESSION: 1. No worrisome bone lesions are identified in the thoracic spine 2. Diffuse degenerative arthritis with endplate osteophyte formation 3. Disc bulging at T11-T12 causes mild central canal and bilateral foraminal narrowing Dictated and Authenticated by: Bess Hernandez MD. Ordering:RONDA Lacy MD
--- NOTE | 2022-10-14 12:49 | DI.VRAD_ITS ---
PROCEDURE INFORMATION: Exam: MR Lumbar Spine Without and With Contrast Exam date and time: 10/12/2022 12:25 PM Age: 67 years old Clinical indication: Condition or disease; Other: Metastatic cancer TECHNIQUE: Imaging protocol: Magnetic resonance imaging of the lumbar spine without and with contrast. Contrast material: DOTAREM; Contrast volume: 20 ml; Contrast route: INTRAVENOUS (IV); COMPARISON: MR LUMBAR SPINE WO 08/18/2021 8:25 AM FINDINGS: Bones/joints: Unremarkable. No fracture. Normal alignment. No worrisome bone lesion. Spinal cord: Visualized cord, conus medullaris and cauda equina are unremarkable without compression. L1-L2: No significant disc disease. No significant spinal canal stenosis. No neural foraminal stenosis. L2-L3: Generalized disc bulge. Mild facet arthropathy. Patent central canal. Mild bilateral foraminal narrowing.. L3-L4: Mild generalized disc bulge posteriorly. Mild facet arthropathy. Mild central canal narrowing. Mild bilateral lateral recess narrowing probable mild compression of the bilateral L4 nerve roots. Mild bilateral foraminal narrowing.. L4-L5: Mild generalized disc bulge. Moderate facet arthropathy and ligamentum flavum hypertrophy. Mild central canal narrowing. Mild bilateral foraminal narrowing.. L5-S1: Loss of disc height. Generalized disc bulge with circumferential endplate osteophyte formation. Mild bilateral facet arthropathy. Bulging disc is eccentric to the left posteriorly and causes narrowed left lateral recess and compression the left S1 nerve root. Mild central canal narrowing. Moderate bilateral foraminal narrowing in the craniocaudad dimension causing mild compression of the bilateral L5 nerve roots.. Soft tissues: Benign bilateral renal cysts. IMPRESSION: 1. Degenerative arthritis in the lumbar spine, most marked at L5-S1 where there is a posterior disc bulge causing narrowing of the left lateral recess and probable compression of the left S1 nerve root and moderate bilateral foraminal narrowing causing mild compression of bilateral L5 nerve roots in the craniocaudad dimension. 2. Probable mild compression of the bilateral L4 nerve roots at L3-L4 caused by generalized disc bulge mild facet arthropathy 3. No findings to suggest metastatic disease in the lumbar spine Dictated and Authenticated by: Bess Hernandez MD. Ordering:RONDA Lacy MD
[2022-10-14 15:11] VITALS: BP 179/98; PULSE 75; RESP 18; TEMP 36.7; O2SAT 96
--- NOTE | 2022-10-14 15:40 | PDOC.CMPRO ---
- If Service Date Differs Date of service: 10/14/22 Time of Service: 15:40
--- NOTE | 2022-10-14 15:52 | DSE_ITS ---
Date of service: 10/14/22 Time of Service: 15:52 DS: Diagnosis Discharge Diagnosis (1) Pathologic fracture of cervical vertebra: Status: Acute (2) Lung mass: Status: Acute (3) Obstructive sleep apnea syndrome: Status: Chronic (4) Tobacco abuse: Status: Chronic Discharge Plan Disposition Patient Disposition: Home Condition: Stable Discharge Details Reason For Visit: C2 Lytic Lesion,Perihilar Mass,Intractable Pain Admit Date/Time: 10/13/22 17:24 Admit Provider: Bambi Willis Attending Provider: Bambi Willis Primary Care Provider: Freedom Faith Hospital Course Hospital Course: 67-year-old male smoker with a history of coronary artery disease, hypertension, hyperlipidemia, stable right pulmonary nodule who presented with symptoms of headache and neck pain along with paresthesias in his hands for the past month. His his symptoms were worsening he saw his PCP and received an injection of Toradol and was referred for an outpatient CT scan of his head. Due to lapse of his insurance the outpatient CT scan was not performed but as his symptoms worsened he presented to the emergency department where work-up included CT scan of his head and neck demonstrated a lytic lesion of C2 vertebral body and right facet and transverse process compromising the right transverse foramen and right neural foraminal stenosis. 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 It also demonstrated 2.8 cm subpleural mass in the left upper lobe and a 4.7 cm left hilar mass. He was also noted to have patchy groundglass opacities throughout the visualized areas of his lungs on the CTA of his neck. Patient was placed in a c-collar and neurosurgery was consulted at [facility]. [facility] the tumor hotline recommended outpatient lung biopsy and prompt outpatient follow-up and he was referred to neurosurgery clinic. However he was admitted because of intractable pain and for further work-up of his metastatic process. Patient was scheduled for CT scanning with contrast of his chest abdomen and pelvis as well as an MRI scan of his brain and MRI scan of his cervical, thoracic, lumbar spine. Contrast-enhanced CT scan of chest abdomen pelvis was performed on 10/12/2022 and demonstrated 3 cm spiculated mass in the anterior left upper lobe with adjacent mass. Significant mediastinal adenopathy was seen. He was found to have a metastatic lesion to the right seventh rib. No bony metastasis was seen in the thoracic lumbar spine or pelvis. And no metastatic disease was seen in the abdomen or pelvis. MRI scan of the brain and MRI scan of the thoracic lumbar and cervical spine was performed on 10/12/2022 however because this was a study that included with and without contrast only half the study can be done on 10/12/2022 with the remainder of the study to be completed on 10/13/2022 however the MRI scanner broke down and was not repaired until 10/14/2022 at which point the rest the scan was completed. MRI of the brain showed no acute intracranial findings and no abnormal enhancing lesions were seen. There is no evidence of abnormal meningeal enhancement. MRI scan of the cervical spine showed a prominent lytic expansile bone lesion involving the entire right lateral mass of the C2 vertebral body and extending to the base of the odontoid consistent with osseous metastatic disease. This effaces the anterior right side of the thecal sac but no prominent central canal stenosis was seen at that level. Multiple degenerative disc changes and foraminal stenosis are seen throughout the cervical spine most prominent at C5-6 and C6-7. MRI of the thoracic spine showed no metastatic disease in the thoracic spinal column. He has broad annular bulging at the T11-T12 level with mild foraminal stenosis on the left side at that level. MRI of the lumbar spine showed no metastatic disease in the lumbosacral spine. He has significant disc space narrowing at L5-S1 level with broad annular bulging with superimposed posterior lateral left disc protrusion. There is also mild to moderate bilateral vertebral foraminal stenosis at that level causing compression of the L5 nerve roots bilaterally. Patient's pain was initially managed with IV Dilaudid and ketorolac and scheduled doses of Tylenol as well as being put on Robaxin for muscle spasm as well as gabapentin. Fentanyl patch was added at 12 mcg and titrated up to 25 mcg. Because of sleep deprivation he was placed on Lunesta which helped enhance his sleep. The IV Dilaudid was switched to oral Dilaudid for breakthrough pain. While the patient was not completely pain-free this pain was at a tolerable level where he could function and mobilize out of bed with the use of his cervical collar in place. Consultations included Dr. Gutierrez from pulmonary service saw the patient on 10/12/2022 see her note for details she referred him to [facility] interventional pulmonary to decide upon the most appropriate biopsy plan as well as to get him integrated into [facility] tumor board. She indicated she would order an outpatient PET CT scan to be done at [facility] and she would follow-up with him as an outpatient to keep track of his upcoming work-up and help with any pulmonary symptoms. Dr. Franklin Roberts, interventional chief wellness officer at [facility], did provide telephone consultation on the patient. His consult note is scanned into the patient's medical record. He reviewed the CT findings although the MRI findings were not available at the time of his tony patel consultation. He agreed with expedited biopsy which he indicated he would arrange next week as an outpatient and he agreed that neurosurgery will need to follow-up with him as an outpatient and give their input as to the management of the C2 fracture. Patient was set up for follow-up with neurosurgery department at [facility] for October 18, 2022. Pulmonary clinic was contacted about the patient's discharge and a reviewing the referral and will set up an expedited visit. Patient has a follow-up with Dr. Angelina Gutierrez December 12, 2022. The patient is scheduled for a PET CT scan on November 03, 2022 at [facility]. During his hospitalization his tobacco addiction was treated with Nicotrol inhalers. His hypertension was treated with the addition of amlodipine 5 mg daily and I did show him to his routine occasion of losartan and thiazide. He did have transiently rather high blood pressure readings due to omission of his home medication of losartan hydrochlorothiazide on admission. This was rectified and the amlodipine was added for additional blood pressure control. Patient was discharged home on pain regimen to include methocarbamol 750 mg qid for muscle spasm, fentanyl patch to 5 mcg to be changed every 72 hours and hydromorphone to tablets 4 mg every 4 hours as needed for breakthrough cancer pain. He was given a short-term prescription for Lunesta to help with his sleep which he tolerated quite well in the hospital and they did enhance his ability to get comfortable and sleep. Patient was instructed to wear his hard cervical collar at all times except when bathing and he was also instructed about activities to avoid which would increase his risk for falls and injuries to his neck and these include climbing ladders or stairs or walking on slippery or icy surfaces he is not to do any heavy lifting pushing or pulling which which might strain his neck or back. He was seen by Physical therapy and Occupational Therapy services please see their note discharge note from 10/14/2022 and 10/13/2022 for details but it was recommended that he have home health PT services to progress his mobility using the least restrictive amatory devices and to establish a functional maintenance program that will increase his ability to remain at home. Home Meds and New Rx's Prescriptions: New amlodipine 5 mg Tablet 5 mg PO DAILY Qty: 30 1RF fentanyl 25 mcg/hr Patch 72 Hour 25 mcg transdermal Q72H Qty: 5 0RF eszopiclone [Lunesta] 2 mg Tablet 1 mg PO HS Qty: 14 0RF Nicotrol 10 mg Cartridge 1 inh inhalation Q2H PRN PRNQty: 168 0RF hydromorphone 4 mg Tablet 4 mg PO Q4H PRN PRNQty: 42 0RF Rx Instructions: take 4 mg every 4 hr prn severe cancer pain sennosides [Senokot] 8.6 mg Tablet 1 tab PO HS Qty: 30 0RF polyethylene glycol 3350 17 gram Powder In Packet 17 g PO DAILY Qty: 30 0RF methocarbamol 750 mg Tablet 750 mg PO QID Qty: 64 0RF docusate sodium [Colace] 100 mg Capsule 100 mg PO TID Qty: 90 0RF bisacodyl 5 mg Tablet,Delayed Release (Dr/Ec) 5 mg PO DAILY PRN PRNQty: 30 0RF naloxone [Narcan] 4 mg/actuation spray,non-aerosol 1 spray intranasal Q2-3M PRNQty: 2 1RF Rx Instructions: spray 1 dose into ONE nostril; alternate nostrils w each dose until help arrives Continued aspirin 325 mg tablet 325 mg PO DAILY nicotine (polacrilex) 2 mg lozenge 2 mg MM Q4H PRN (Reason: nicotine cravings) Qty: 108 4RF ketoconazole 2 % cream 1 applic topical BID Qty: 60 1RF Rx Instructions: apply bid x 8 wk hydrochlorothiazide 25 mg tablet 25 mg PO DAILY Qty: 90 3RF levothyroxine 50 mcg tablet 50 mcg PO DAILY Qty: 90 3RF losartan 25 mg tablet 25 mg PO DAILY Qty: 90 3RF nitroglycerin [Nitrostat] 0.4 mg tablet, sublingual 0.4 mg Sublingual PRN PRN (Reason: Chest Pain) Qty: 25 0RF Rx Instructions: TAKE ONE UNDER TONGUE EVERY 5 MINUTES NEEDED FOR CHEST PAIN UP TO THREE AND CALL 911 FOR ASSISTANCE omeprazole 20 mg capsule,delayed release(DR/EC) 20 mg PO BID Qty: 180 3RF ropinirole 1 mg tablet 1 mg PO QHS Qty: 90 1RF Rx Instructions: administer 1-3 hours before bedtime sertraline 50 mg tablet 50 mg PO BID Qty: 180 3RF tadalafil 2.5 mg tablet 2.5 mg PO DAILY Qty: 90 3RF Rx Instructions: Take 1 tablet once a day Discharge Instructions Instructions: Fentanyl (Absorbed through the skin), Hydromorphone (By mouth), Naloxone (Into the nose), Lung Cancer (DC), Narcotic Safety (DC), Bone Metastasis (DC) Additional Instructions: Avoid situations which could increase your risk of falls i.e. ladders, ice, stairs and avoid any physical activity that involves lift or straining which would put undo risk of injury to your neck/spine. Stand Alone Forms: Nursing Discharge Form Referrals: HEMATOLOGY/ONC,[facility] [OTHER] - (referral was resent 10/14/22. They will call you with an appt.) NEUROSURGERY,[facility] [OTHER] - 10/18/22 3:05 pm ([facility]- Juan Bear MD. Corporate Banking Officer 3C. Arrival time 3:05pm, Appt 3:20pm ) PULMONOLOGY,[facility] [OTHER] - (Referral was received urgent 10/14/22. They are looking over referral and will reach out with an appt. ) Angelina Gutierrez MD [ [facility] STAFF PHYSICIAN] - 12/12/22 1:00 pm Freedom Faith MD [Primary Care Provider] - 10/19/22 3:40 pm IMAGING,DIAGNOSTIC [OTHER] - 11/03/22 12:00 pm ([facility]-PET Scan- Corporate Banking Officer 3Z ) Activity:: Activity as Tolerated Equipment/Supplies:: No Equipment Needed Diet:: Normal Diet Discharge Orders Discharge Orders: Discharge Order (Routine); Ordered 10/14/22 Ordered By: Shahid Vera Discharge Data Discharge Date/Time-TO BE ENTERED AT DEPARTURE: 10/14/22 17:22 DS: Summary Time Spent with Patient providing and/or coordinating discharge services: Greater than 30 minutes Status at Discharge Functional status at discharge: independent ambulation Overall status at discharge: patient is not back to baseline Mental Status: mental status grossly normal Speech and Movement: speech and movement normal Mood: congruent mood Affect: normal affect Exam Psych Mental Status: mental status grossly normal Speech and Movement: speech and movement normal Mood: congruent mood Affect: normal affect DS: Data Vitals/I&O Vitals and I&O: Vital Signs Temperature 36.7 C 10/14/22 15:11 Temperature Source Tympanic 10/14/22 15:11 Pulse 75 10/14/22 15:11 Pulse Rhythm Regular 10/14/22 12:19 Respiratory Rate 18 10/14/22 15:11 Respiratory Effort Non-Labored 10/14/22 12:19 Respiratory Depth Normal 10/14/22 12:19 Respiratory Pattern Normal 10/14/22 12:19 Blood Pressure 179/98 H 10/14/22 15:11 Blood Pressure Mean 112 10/11/22 20:01 Blood Pressure Position Sitting 10/11/22 13:32 Pulse Oximetry 96 10/14/22 15:11 Oxygen Delivery Method Cpap 10/14/22 15:11 Oxygen Flow Rate 0 10/14/22 15:11 Fraction of Inspired Oxygen (FIO2) 21 10/14/22 08:45 Pain Level 5 10/14/22 15:11 Comment 10/14/22 15:11 Intake & Output 10/13/22 10/14/22 10/14/22 23:59 11:59 23:59 Intake Total 180 / 380 200 / 380 Output Total 500 / 500 Balance -490 / -490 180 / 380 200 / 380 Intake: IV 100 / 100 Oral 180 / 280 100 / 280 Output: Urine 500 / 500 Other: Urine Color Yellow Urine Appearance Clear Urine Odor None Comment pt stated he has voided x2 Voiding Methods Toilet PFSH All Active Problems (Updated 10/15/22 @ 00:01 by ALYSSA MEJIA) Fibrotic lung diseases (Acute) Nicotine dependence, cigarettes, uncomplicated (Acute) Lung mass (Acute) Tobacco abuse (Chronic) Pathologic fracture of cervical vertebra (Acute) Headache (Acute) Gluteal tendonitis of left buttock (Acute) Spondylosis of lumbar spine (Acute) Trochanteric bursitis, left hip (Acute) DEPO MEDROL 08/12/22; 07/19/21 Left hip pain (Acute) Right lower lobe pulmonary nodule (Acute) 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 Pyle Status post rotator cuff repair (Acute) Smoker (Acute) Epicondylitis (Acute) Unspecified injury of left quadriceps muscle, fascia and tendon, initial encounter (Acute) Family hx of colon cancer requiring screening colonoscopy (Acute) Quadriceps muscle rupture (Acute) Original injury 08/27/2018 Re-injury on 09/04/2018 Smoker (Chronic) Sexual function problem (Acute) Obstructive sleep apnea syndrome (Chronic) CPAP Oakley's metatarsalgia (Acute) Impaired fasting glucose (Acute) Hypothyroidism (acquired) (Chronic 03/03/17) Hypertension (Chronic) Hyperlipidemia (Chronic) History of alcoholism (Acute) Epicondylitis (Acute) Depressive disorder (Acute 08/10/00) Chest pain (Acute) +MPI-inferior wall; cardiac cath neg. ? 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 Surgical History History of colonoscopy Parotid gland enlargement s/p resection Rotator Cuff Repair Bilateral S/P total right hip arthroplasty Family History Mother Neoplasm SKIN Father Heart disease Hyperlipidemia Neoplasm COLON Sister No problems noted. 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 Pets and animals: Yes Pets and animals: dog(s) Sexually active: Yes Do you think of yourself as: straight/heterosexual Current gender identity: male What is your relationship status?: How often do you talk on the phone with friends or family?: three or more times per week How often do you get together with friends or relatives?: twice per week How often do you attend mormon or muslim services?: decline to answer Do you belong to any clubs or organized social groups?: no Panel score (0-1 are the most socially isolated patients): 2 What type of physical activity do you participate in: walking Duration: 15-30 minutes/day Frequency: daily Jaymie/Orthodoxy: Lutheran Seatbelt use: always Helmet use: Yes Helmet use: always Drive intox or ride w/intox hire car driver: No Do you feel safe at home: Yes Do you feel safe in your relationship?: Yes Time Spent with Patient Time Spent with Patient: <45 minutes Time was spent: preparing to see the patient(eg.review tests), ordering medications,tests, procedures, referring, communicating with other health residential caregiver, indepentently interpreting results, counseling the patient and care coordination
--- NOTE | 2022-10-14 15:58 | PDOC.CMDIS ---
- If Service Date Differs Date of service: 10/14/22 Time of Service: 15:58 LACE Index Scoring Tool - Questions: Length of Stay (in days): 1 Acuity (Admit via E.D.?): Yes E.D. Visits: 1 - Answers: Total Score: 5 Risk of Readmission: Low Risk Care Management Discharge Reason for Hospitalization: Pathologic fracture of cervical vertebra, Mass in chest, Headache Discharge Plan: Tom is discharged home via private vehicle with family. He will follow up with community providers and discharge plan of care as prescribed. His first appointment at [facility] Neurosurgery is on 10/18/22, as scheduled. Other referrals are sent to [facility] Hem/Onc and [facility] Pulmonology. No new services are ordered. JAYMIE will continue to support patient with Health Care Coverage. Patient/Family Education Needs: Review discharge instructions, limitations, medications and plan to follow up with community providers. Discuss ask me three and goals of self care.
--- NOTE | 2022-10-14 17:02 | NUR.NOTE ---
Received a call from inpatient PT requesting an additional [place] J collar for this patient for hygiene purposes as the extra pads that came with his original collar were misplaced. Collar provided to patient.
--- NOTE | 2022-10-14 19:20 | INDS_ITS ---
Date of service: 10/14/22 Time of Service: 19:20 PT Notes Visit Reasons: C2 Lytic Lesion,Perihilar Mass,Intractable Pain Physical Therapy Inpatient Discharge Summary Date: 10/14/2022 Dates of service: 10/12/2022 only This is a clinical summary of care provided for the duration of dates listed above. No charge was made in the completion of this documentation. Referring Doctor:? Bambi Willis MD PT Orders: PT CONSULT: Limited ability Precautions: Fall. Standard.?[place] advanced cervical collar on at all times [place] [facility] [place].?? Patient Profile/Admitting Diagnosis:? Tom is a 67-year-old male admitted for management of pathologic fracture of C2 vertebral body, right facet and right transverse process along with right transverse foramen and right neural foraminal stenosis, chest neoplasm, headache and neck pain, PAVAN, and tobacco abuse. 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 Pyle Status post rotator cuff repair (Acute) Smoker (Acute) Epicondylitis (Acute) Unspecified injury of left quadriceps muscle, fascia and tendon, initial encounter (Acute) Family hx of colon cancer requiring screening colonoscopy (Acute) Quadriceps muscle rupture (Acute) Original injury 08/27/2018 Re-injury on 09/04/2018Smoker (Chronic) Sexual function problem (Acute) Obstructive sleep apnea syndrome (Chronic) CPAP Oakley's metatarsalgia (Acute) Impaired fasting glucose (Acute) Hypothyroidism (acquired) (Chronic 03/03/17) Hypertension (Chronic) Hyperlipidemia (Chronic) History of alcoholism (Acute) Epicondylitis (Acute) Depressive disorder (Acute 08/10/00) Chest pain (Acute) +MPI-inferior wall; cardiac cath neg. ? 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 Surgical History?(Updated 10/12/22 @ 00:08 by Bambi Willis MD) History of colonoscopy Parotid gland enlargement s/p resectionRotator Cuff Repair BilateralS/P total right hip arthroplasty Social History/Home Situation: Lives with in a private home.? Independent with all aspects of ADLs prior to admission.? 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 Great support from daughters. Equipment Owned/DME: FWW,? SPC Subjective: NT. See most recent MOTOR BUS DRIVER notes. Objective: General Observation: NT. See most recent MOTOR BUS DRIVER notes. Mental Status: NT. See most recent MOTOR BUS DRIVER notes. Pain: NT. See most recent MOTOR BUS DRIVER notes. Vital Signs: NT. See most recent MOTOR BUS DRIVER notes. ROM: Right Upper Extremity: ? Shoulder Flexion WFL. Shoulder abduction WFL. Elbow flexion WFL. Wrist flexion WFL. Functional opening and closing of hand WFL. Left Upper Extremity:? Shoulder Flexion WFL. Shoulder abduction WFL. Elbow flexion WFL. Wrist flexion WFL. Functional opening and closing of hand WFL. Right Lower Extremity: Hip flexion WFL. Hip abduction WFL. Knee flexion WFL. Ankle dorsiflexion WFL. Ankle plantarflexion WFL. Left Lower Extremity: Hip flexion WFL. Hip abduction WFL. Knee flexion WFL. Ankle dorsiflexion WFL. Ankle plantarflexion WFL. Strength: Right Upper Extremity: Shoulder flexors 4/5. Shoulder abductors 4/5. Elbow flexors 5/5. Elbow extensors 5/5. Horizontal Boring Mill Set Up Operator strong. Left Upper Extremity: Shoulder flexors 4/5. Shoulder abductors 4/5. Elbow flexors 5/5. Elbow extensors 5/5. Horizontal Boring Mill Set Up Operator strong. Right Lower Extremity: Hip flexors 4/5. Hip abductors 5/5. Knee flexors 5/5. Knee extensors 5/5. Ankle dorsiflexors 5/5. Ankle plantarflexors 5/5. Left Lower Extremity: Hip flexors 4/5. Hip abductors 5/5. Knee flexors 5/5. Knee extensors 5/5. Ankle dorsiflexors 5/5. Ankle plantarflexors 5/5. Sensation: Denies numbness and tingling in B UE as well as radiation of pain to B UE.? Bed Mobility/Transfers: Rolling independent Supine to sit independent Sit to supine independent Sit to stand independent Stand to sit independent Bed to reclining chair independent Reclining chair to bed independent Gait: Instructed patient with level surface ambulation of 40 feet requiring supervision using FWW.? Did not report dizziness throughout the short walk.? Complained of fatigue and needing to rest in bed,? anxious about getting dizzy again. Balance: Static Sitting: Normal Dynamic Sitting: Normal Static Standing: Good Dynamic Standing: Fair Special Tests: Mobility Limitations Standardized Measure [facility] 6 clicks Basic Mobility Inpatient Short Form: Raw Score: 23? CMS Score: 11% deficit? ? ? Assessment: Tom is a 67-year-old male admitted for management of pathologic fracture of? the lateral mass and superior facet of C2 on the R, chest neoplasm, headache and neck pain, PAVAN, and tobacco abuse.? Cervicogenic dizziness increase risk for falls at this time.??His cervical collar will need to be re-examined frequently to ensure that optimal stabilization of the cervical area is maintained.?? Patient presents with clinical signs and symptoms consistent with current/admitting diagnoses that have resulted to mobility limitations, gait instability, generalized weakness, and overall ADL decline as demonstrated by the following impairment level findings: 2.? Impaired standing balance 3.? Impaired activity tolerance 4.? Limitation of joint range of motion in cervical area due to MD-ordered neck stabilization 5.? Shortness of breath Impairments are contributing to the following functional limitations: 1.? Bed mobility skills modifications to minimize undue cervical muscle neck strain 3.? Difficulty with ambulation from limiyted head movement due to collar use 4.? Increased completion time for mobility ADL performance 5.? Increased risk for falls Goals: Goals X1 week 1. Bed-Chair independent with no AD NOT MET 2. Chair-Bed independent with no AD NOT MET 3. Independent gait on level surface with use of SPC for at least 100 feet without report of pain nor dyspnea NOT MET 4. Independent stair negotiation while holding onto B rails for at least 5 steps without report of pain nor dyspnea NOT MET 5. Good static and dynamic standing balance/tolerance NOT MET DISCHARGE RECOMMENDATIONS: []? Home with no services [] [X] ? Home with services.? Home when medically cleared by hospitalist.? Patient will benefit from home health PT services in order to progress mobility level using least restrictive assistive ambulatory device, assess home safety, identi fy additional equipment needs, and establish a functional maintenance program that will increase ability of patient to remain at home. [] ? Home with outpatient PT [] [] ? SNF for continued rehabilitation [] [] ? Jail Care [] [] ? SNF versus LTC based on ability to participate and progress [] TREATMENT CODE/TIME: NC Thank you for the opportunity to participate in the care of this patient. Dianna Driscoll PT, DPT, CLT [facility] [place], [place]
--- NOTE | 2022-10-15 08:23 | PDOC.HHF2F_ITS ---
Home Health Referral Home Health Orders Clinical synopsis of why skilled professionals are needed: Pathologic C2 cervical fracture limits patient's mobility necessitating home physical therapy and Occupational Therapy. See discharge summary for details Medical diagnosis necessitation home health referral: Metastatic C2 cervical fracture, lung mass, decreased mobility and range of motion secondary to cervical fracture limiting patient's ability to independentl y perform ADLs. Registered Nurse: Check all that apply Instruct on new or changed medication(s)/assess compliance: Ordered Assess for exacerbation of medical condition, instruct patient/caregivers on signs and symptoms to report for early detection: Ordered Physical Therapist: Check all that apply Increase strength & endurance for safe mobility at home: Ordered To design/establish home maintenance program: Ordered Fall reduction therapy program for patient with history of frequent falls: Ordered Home safety evaluation and teaching/gait training including stair management (if applicable): Ordered Occupational Therapist: Evaluate and treat for patient unable to perform ADL/IADL/self-care: Ordered Upper extremity strengthening, range and motion: Ordered Welding Tester: Assist with community resources: Ordered Home Bound Status Requires the aid of supportive device (check all that apply): Walker and Other (cervical collar) Assistance of another person (Describe assistance and medical necessity): patient requires assistance of another person to perform ADL's, including bathing, dressing Patient has a condition such that leaving home is medically contraindicated (Describe): unstable C2 cervical fracture makes travel outside his home hazardous as a fall could worsen the fracture and lead to quadriplegia Describe why leaving home would require a considerable and taxing effort: Side effects from pain medication (sedation/drowsiness), Requires frequent rest periods and Safety Concerns: describe (increased risk of falls, C2 fracture is unstable and falls could lead to quadriplegia) Encounter Date and Reason: I certify that a FTF encounter for this patient was performed on October 15, 2022 and that such encounter was related to the primary reason the patient requires home health services. The encounter was conducted in the following manner: * By me as the certifying physician, TELESERVICES REPRESENTATIVE, PA or * By an inpatient physician, TELESERVICES REPRESENTATIVE or PA during an inpatient stay who communicated findings to me, Certification And Authentication I certify that I composed the above information based on my clinical judgment relating to this patient's medical condition and, if applicable, clinical findings communicated to me by the NPP or inpatient physician who performed the FTF encounter. Name of Provider that will be monitoring home health services: [facility]
--- NOTE | 2022-10-15 10:37 | NUR.NOTE ---
Nursing Note: Accessed chart for [facility] billing purposes for the [facility].
== END 2022-10-14 17:22 | disposition home or self-care (01) | DRG 543 ==
LOC: ER 20:25 → MS 21:18
PROVIDERS: Registered Nurse Emergency; Admitting Provider Internal Medicine; Emergency Provider Physician Assistant; PCP Family Medicine; Visit Provider Internal Medicine
DX: M84.58XA Pathological fracture in neoplastic disease, other specified site, initial encounter for fracture (principal); C34.02 Malignant neoplasm of left main bronchus; C79.51 Secondary malignant neoplasm of bone; R51.9 Headache, unspecified; G47.33 Obstructive sleep apnea (adult) (pediatric); F17.210 Nicotine dependence, cigarettes, uncomplicated; J84.10 Pulmonary fibrosis, unspecified; M47.816 Spondylosis without myelopathy or radiculopathy, lumbar region; M70.62 Trochanteric bursitis, left hip; Z80.0 Family history of malignant neoplasm of digestive organs; R73.01 Impaired fasting glucose; E03.9 Hypothyroidism, unspecified; I10 Essential (primary) hypertension; E78.5 Hyperlipidemia, unspecified; F32.A Depression, unspecified; Z96.641 Presence of right artificial hip joint; R59.0 Localized enlarged lymph nodes; I25.10 Atherosclerotic heart disease of native coronary artery without angina pectoris
CPT/HCPCS: 36415; 70498; 70553; 72158; 74177; 80048; 80053; 84145; 87637; 96374; 96375; 97162; 97166; 97530; 99285; J3489; 70450; 71046; 71260; 72125; 72156; 72157; 80329; 83735; 84100; 85025; 94667; 99223; 99232; 99239; G0378; J1170; J1885; J2270; J2405; J3490

== ENCOUNTER 2022-11-07 15:17 | Outpatient (CLI) | payer BC, SELFPAY ==
[2022-11-07 11:56] LABS: Abs Immature Grans 0.47 10^3/uL (0.0-0.06); Absolute Lymphocyte Count 1.31 10^3/uL (1.2-3.4); Basophils % 0.4; Eosinophils % 0.6; HCT 44.8 % (40.0-50.0); HGB 15.7 g/dL (13.5-17.5); Lymphocytes % 8.4; MCH 30.7 pg (27.0-33.0); MCV 88 fL (80-95); MPV 8.2 fL (8.0-11.0); Monocytes % 6.4; Neutrophils % 81.2; Platelet Count 162 10^3/uL (130-400); RBC 5.11 10^6/uL (4.36-5.78); RDW 12.8 % (11.8-14.1); RDW-SD 41.2 fL; WBC 15.57 10^3/uL (4.4-10.8)
[2022-11-07 11:58] LABS: Absolute Basophil Count 0.06 10^3/uL (0.0-0.2); Absolute Eosinophil Count 0.09 10^3/uL (0.0-0.7); Absolute Neutrophil Count 12.64 10^3/uL (1.2-6.7)
[2022-11-07 12:24] LABS: ALT 35 U/L (16-63); AST 9 U/L (15-37); Albumin 3.6 g/dL (3.4-5.0); Alkaline Phosphatase 40 U/L (46-116); Anion Gap 8.8 mmol/L (3-11); BUN 16 mg/dL (7-18); Bilirubin, Total 0.6 mg/dL (0.2-1.0); CO2 27.2 mmol/L (21.0-32.0); CREATININE 0.9 mg/dL (0.70-1.30); Calcium 9.1 mg/dL (8.5-10.1); Chloride 100 mmol/L (98-107); Estimated GFR 94.19 (mL/min/1.73m2); FREE T4 0.82 ng/dL (0.76-1.46); Glucose 124 mg/dL (74-106); Magnesium 1.9 mg/dL (1.8-2.4); Potassium 3.7 mmol/L (3.5-5.1); Sodium 136 mmol/L (136-145)
== END 2022-11-07 15:18 | disposition home or self-care (01) ==
LOC: LBO 15:19
PROVIDERS: PCP Family Medicine; Visit Provider Internal Medicine Medical Oncology
DX: C34.91 Malignant neoplasm of unspecified part of right bronchus or lung (principal)
CPT/HCPCS: 36415; 80053; 83735; 84439; 84443; 85025

== ENCOUNTER 2022-11-25 00:32 | Outpatient (CLI) | payer MEDICARE, BC, SELFPAY ==
--- NOTE | 2022-11-25 12:40 | DI.RAD_ITS ---
Exam(s) XR CERVICAL SP REYEZ TRAUMA 2-3V EXAM: XR CERVICAL SP REYEZ TRAUMA 2-3V CLINICAL HISTORY: BONE METS, SMALL CELL CA LUNG RT, C34.91, C79.51, C2 METS. TECHNIQUE: 2D digital imaging was performed. Five images were obtained. AP, odontoid, and lateral images were obtained. COMPARISON: CR CHEST 2 VIEWS PA,LAT from 03/20/2018 MR MR CERVICAL SPINE WO/W from 10/12/2022 FINDINGS: The odontoid is intact. The lytic lesion seen in the right aspect of the C2 vertebra and and facet i s again noted. The lateral masses are well aligned. There is normal alignment of the cervical spine . There is disc space narrowing at C3-C4 and C5-C6. There are endplate osteophytes predominantly at C3-C4, C5-C6 and C6-C7. Facet arthropathy is seen at multiple levels of the cervical spine. No acut e fracture or subluxation is present. No significant neural foraminal stenosis is present. The cervi hakeem thoracic junction is well maintained. Atherosclerosis is present. Lung apices are clear. IMPRESSION: 1. There is again seen a lytic lesion involving the C2 vertebral body and facet. 2. Moderate degenerative changes in the cervical spine. DATA REPOSITORY: RADIATION DOSE DELIVERED:
== END 2022-11-25 00:52 ==
PROVIDERS: PCP Family Medicine; Visit Provider Nurse Practitioner
DX: C79.51 Secondary malignant neoplasm of bone (principal); C34.91 Malignant neoplasm of unspecified part of right bronchus or lung; M50.320 Other cervical disc degeneration, mid-cervical region, unspecified level; M50.322 Other cervical disc degeneration at C5-C6 level; M47.812 Spondylosis without myelopathy or radiculopathy, cervical region
CPT/HCPCS: 72040

== ENCOUNTER 2022-11-28 03:42 | Outpatient (RCR) | payer MEDICARE, BC, SELFPAY ==
[2022-11-28] MEDS: Normal Saline Flush 10 ML SYR IVP (11:05)
[2022-11-28 11:13] LABS: Abs Immature Grans 0.62 10^3/uL (0.0-0.06); Absolute Eosinophil Count 0.03 10^3/uL (0.0-0.7); Absolute Lymphocyte Count 1.24 10^3/uL (1.2-3.4); Absolute Monocyte Count 0.99 10^3/uL (0.1-0.8); Absolute Neutrophil Count 3.99 10^3/uL (1.2-6.7); Basophils % 1.4; Eosinophils % 0.4; HGB 13.7 g/dL (13.5-17.5); Immature Grans % 8.9; Lymphocytes % 17.8; MCH 30.9 pg (27.0-33.0); MCHC 36.1 % (32.0-36.0); MCV 86 fL (80-95); MPV 7.7 fL (8.0-11.0); Monocytes % 14.2; Neutrophils % 57.3; Platelet Count 274 10^3/uL (130-400); RBC 4.43 10^6/uL (4.36-5.78); RDW 13.4 % (11.8-14.1); RDW-SD 40.6 fL; WBC 6.97 10^3/uL (4.4-10.8)
[2022-11-28 11:31] LABS: Diff Comment Agrees w/ Instrument
[2022-11-28 11:32] LABS: RBC Morphology Normal
[2022-11-28 11:40] LABS: ALT 30 U/L (16-63); AST 21 U/L (15-37); Albumin 3.3 g/dL (3.4-5.0); Alkaline Phosphatase 55 U/L (46-116); BUN 7 mg/dL (7-18); Bilirubin, Total 0.6 mg/dL (0.2-1.0); CREATININE 0.8 mg/dL (0.70-1.30); Calcium 9.1 mg/dL (8.5-10.1); Chloride 100 mmol/L (98-107); Estimated GFR 97.61 (mL/min/1.73m2); FREE T4 0.97 ng/dL (0.76-1.46); Glucose 111 mg/dL (74-106); Magnesium 1.3 mg/dL (1.8-2.4); Potassium 3.4 mmol/L (3.5-5.1); Sodium 137 mmol/L (136-145); TSH 1.12 uIU/mL (0.36-3.74); Total Protein 7.7 g/dL (6.4-8.2)
== END 2022-12-09 23:59 | disposition home or self-care (01) ==
LOC: INF 03:42
PROVIDERS: PCP Family Medicine; Visit Provider Internal Medicine Medical Oncology
DX: C34.91 Malignant neoplasm of unspecified part of right bronchus or lung (principal); Z45.2 Encounter for adjustment and management of vascular access device; Z79.899 Other long term (current) drug therapy
CPT/HCPCS: 36591; 80053; 83735; 84439; 84443; 85025

== ENCOUNTER 2022-12-23 00:49 | Outpatient (CLI) | payer MEDICARE, BC, SELFPAY ==
--- NOTE | 2022-12-23 | DI.CT_ITS ---
Exam(s) CT CHEST W EXAM: CT CHEST W CLINICAL HISTORY: F/U RT LUNG CA,C34.91,BONE METS,C79.51,NEOPLASM PAIN, G89.3,RSTAGING EXAM, TECHNIQUE: Imaging Protocol: Axial computed tomography images with coronal and sagittal reformatted images were created and reviewed CONTRAST MATERIAL: Intravenous: Omnipaque 350 Contrast volume:100 ml. COMPARISON: CT CT CHEST/ABD/PEL W from 10/12/2022 FINDINGS: Pulmonary parenchyma: No consolidation. 2.7 x 1.7 centimeter mass anterior left upper lobe abutting the pleura. Previously noted adjacent elongated areas of nodularity are no longer seen. Peripheral areas of honeycombing again noted bilaterally. Tracheobronchial tree: No wall thickening or mucous plugging. Mediastinum and Sagrario: Marked interval decrease in adenopathy. The left superior hilar node measures 2.1 x 1.4 compared with greater than 4 x 3 cm on the prior exam. Pleura: No effusion or pneumothorax. Heart: The heart is mildly dilated. Severe coronary artery calcifications are seen. Aorta: Thoracic aorta non-dilated. Upper abdomen: Unremarkable. Bones: Degenerative changes. New 10 millimeter lytic lesion the posterior aspect of the T6 verte bral body. Destructive lesion again noted involving the right 7th rib. New lytic lesion in the prox imal portion of the right 7th rib. New lesion lateral right 6th rib. Soft tissues: Unremarkable. A port is noted over the right upper chest. IMPRESSION: Marked interval decrease in size of previously noted adenopathy. Decreased size of left upper lobe l reji masses. New lytic lesions in the right 6 and 7th ribs. New lytic lesion in the T6 vertebral body. RADIATION DOSE DELIVERED: 621.87mGy.cm Total DLP DATA REPOSITORY: All CT scans at this facility are submitted to the National Radiology Data Registry (NRDR) Dose Index Registry (DIR) with the [employer] (ACR). RADIATION OPTIMIZATION: All CT scans at this facility use at least one of these dose optimization te chniques: automated exposure control; mA and/or kV adjustment per patient size (includes targeted exa ms where dose is matched to clinical indication); or iterative reconstruction.
[2022-12-23] MEDS: Omnipaque 350 MG/ML 100 ML BTL IJ (11:58)
== END 2022-12-23 01:09 ==
LOC: DI 00:49
PROVIDERS: PCP Family Medicine; Visit Provider Internal Medicine Medical Oncology
DX: C34.91 Malignant neoplasm of unspecified part of right bronchus or lung (principal); G89.3 Neoplasm related pain (acute) (chronic); C79.51 Secondary malignant neoplasm of bone
CPT/HCPCS: 36591; 80053; 71260; 83735; 84439; 84443; 85025; J3490

== ENCOUNTER 2022-12-30 01:11 | Outpatient (RCR) | payer MEDICARE, BC, SELFPAY ==
[2022-12-23] MEDS: Heparin 500 UNITS/5 ML SYRINGE IV (11:20)
[2022-12-23] MEDS: Normal Saline Flush 10 ML SYR IVP (11:20)
[2022-12-23 11:33] LABS: Abs Immature Grans 0.11 10^3/uL (0.0-0.06); Absolute Eosinophil Count 1.16 10^3/uL (0.0-0.7); Absolute Lymphocyte Count 1.42 10^3/uL (1.2-3.4); Absolute Monocyte Count 0.59 10^3/uL (0.1-0.8); Absolute Neutrophil Count 5.62 10^3/uL (1.2-6.7); Basophils % 1.1; Eosinophils % 12.9; HCT 31.7 % (40.0-50.0); HGB 11.3 g/dL (13.5-17.5); Immature Grans % 1.2; Lymphocytes % 15.8; MCH 30.5 pg (27.0-33.0); MCHC 35.6 % (32.0-36.0); MCV 86 fL (80-95); Monocytes % 6.6; Neutrophils % 62.4; Platelet Count 195 10^3/uL (130-400); RDW 13.9 % (11.8-14.1); RDW-SD 43.2 fL
[2022-12-23 11:57] LABS: ALT 18 U/L (16-63); AST 14 U/L (15-37); Albumin 3.3 g/dL (3.4-5.0); Alkaline Phosphatase 56 U/L (46-116); Anion Gap 6.6 mmol/L (3-11); BUN 10 mg/dL (7-18); Bilirubin, Total 0.5 mg/dL (0.2-1.0); CO2 31.4 mmol/L (21.0-32.0); CREATININE 0.7 mg/dL (0.70-1.30); Calcium 9.5 mg/dL (8.5-10.1); Chloride 99 mmol/L (98-107); Estimated GFR 101.62 (mL/min/1.73m2); FREE T4 1.05 ng/dL (0.76-1.46); Glucose 143 mg/dL (74-106); Magnesium 1.4 mg/dL (1.8-2.4); Sodium 137 mmol/L (136-145); TSH 0.59 uIU/mL (0.36-3.74); Total Protein 7.4 g/dL (6.4-8.2)
[2022-12-23 12:01] LABS: Potassium 2.6 mmol/L (3.5-5.1)
[2022-12-28] MEDS: Normal Saline Flush 10 ML SYR IVP (10:25)
[2022-12-28 10:37] LABS: Abs Immature Grans 0.08 10^3/uL (0.0-0.06); Absolute Basophil Count 0.07 10^3/uL (0.0-0.2); Absolute Eosinophil Count 1.24 10^3/uL (0.0-0.7); Absolute Monocyte Count 0.63 10^3/uL (0.1-0.8); Absolute Neutrophil Count 5.12 10^3/uL (1.2-6.7); Basophils % 0.8; Eosinophils % 13.9; HCT 30.1 % (40.0-50.0); HGB 10.5 g/dL (13.5-17.5); Immature Grans % 0.9; Lymphocytes % 20.1; MCH 30.6 pg (27.0-33.0); MCHC 34.9 % (32.0-36.0); MCV 88 fL (80-95); MPV 8.2 fL (8.0-11.0); Neutrophils % 57.3; Platelet Count 190 10^3/uL (130-400); RBC 3.43 10^6/uL (4.36-5.78); RDW 14.3 % (11.8-14.1); RDW-SD 45.2 fL; WBC 8.94 10^3/uL (4.4-10.8)
[2022-12-28 10:57] LABS: ALT 19 U/L (16-63); AST 15 U/L (15-37); Albumin 3.2 g/dL (3.4-5.0); Alkaline Phosphatase 56 U/L (46-116); Anion Gap 4.9 mmol/L (3-11); BUN 9 mg/dL (7-18); Bilirubin, Total 0.4 mg/dL (0.2-1.0); CO2 30.1 mmol/L (21.0-32.0); CREATININE 0.7 mg/dL (0.70-1.30); Calcium 8.9 mg/dL (8.5-10.1); Chloride 99 mmol/L (98-107); Estimated GFR 101.62 (mL/min/1.73m2); FREE T4 0.82 ng/dL (0.76-1.46); Glucose 104 mg/dL (74-106); Magnesium 1.3 mg/dL (1.8-2.4); Potassium 3.5 mmol/L (3.5-5.1); Sodium 134 mmol/L (136-145); TSH 1.06 uIU/mL (0.36-3.74)
[2022-12-30] MEDS: Normal Saline Flush 10 ML SYR IVP (13:22)
[2022-12-30 13:48] LABS: ALT 18 U/L (16-63); AST 14 U/L (15-37); Albumin 3.3 g/dL (3.4-5.0); Alkaline Phosphatase 50 U/L (46-116); BUN 12 mg/dL (7-18); Bilirubin, Total 0.4 mg/dL (0.2-1.0); CREATININE 0.7 mg/dL (0.70-1.30); Chloride 100 mmol/L (98-107); Estimated GFR 101.62 (mL/min/1.73m2); Glucose 134 mg/dL (74-106); Potassium 3.8 mmol/L (3.5-5.1); Sodium 133 mmol/L (136-145); Total Protein 7.1 g/dL (6.4-8.2)
[2022-12-30 15:19] LABS: Magnesium 1.9 mg/dL (1.8-2.4)
== END 2023-01-08 23:59 | disposition home or self-care (01) ==
LOC: INF 01:11
PROVIDERS: PCP Family Medicine; Visit Provider Internal Medicine Medical Oncology
DX: Z79.899 Other long term (current) drug therapy (principal); C34.91 Malignant neoplasm of unspecified part of right bronchus or lung; Z45.2 Encounter for adjustment and management of vascular access device
CPT/HCPCS: 36591; 80053; 83735; 84439; 84443; 85025

== ENCOUNTER 2023-01-04 01:18 | Outpatient (CLI) | payer MEDICARE, BC, SELFPAY ==
--- NOTE | 2023-01-04 14:05 | DI.RAD_ITS ---
Exam(s) XR CERVICAL SP REYEZ TRAUMA 2-3V EXAM: XR CERVICAL SP REYEZ TRAUMA 2-3V CLINICAL HISTORY: S/P C1-4 POSTERIOR CERVICAL INSTRUMENTATION, CERVICAL SPINE TUMOR, D49.2. TECHNIQUE: 2D digital imaging was performed. COMPARISON: CR XR CERVICAL SP REYEZ TRAUMA 2-3V from 11/25/2022 FINDINGS: BONES: No fracture or destructive lesion. Vertebral bodies are unremarkable.Posterior fusion hardware C1 - C4. DISKS: Moderate narrowing C3-4 and C5-6 disc space. ALIGNMENT: Cervical spinal alignment is within normal limits. The odontoid and atlantoaxial articulat ions are normal. SOFT TISSUE: Normal. The lung apices are clear. IMPRESSION: Degenerative and postoperative changes. DATA REPOSITORY: RADIATION DOSE DELIVERED:
== END 2023-01-04 01:38 ==
LOC: DI 01:18
PROVIDERS: PCP Family Medicine; Visit Provider Physician Assistant
DX: D49.2 Neoplasm of unspecified behavior of bone, soft tissue, and skin (principal)
CPT/HCPCS: 72040

== ENCOUNTER 2023-01-04 01:18 | Outpatient (CLI) | payer MEDICARE, BC, SELFPAY ==
--- NOTE | 2023-01-04 08:15 | DI.CT_ITS ---
Exam(s) CT LUMBAR SPINE WO EXAM: CT LUMBAR SPINE WO CLINICAL HISTORY: metastatic lung ca,low back pain s/p vertebroplasty,h/o fall,leg weakness. TECHNIQUE: Imaging Protocol: Axial computed tomography images with coronal and sagittal reformatted images were created and reviewed COMPARISON: MR MR LUMBAR SPINE WO/W from 10/12/[address] CHEST/ABD/PEL W from 10/12/[address] CHEST W from 12/23/2022 FINDINGS: Bones: The last intervertebral disc space is designated the L5/S1 level for the numbering purpose of this examination. The vertebral body heights are well maintained. Alignment is satisfactory. No fracture is seen. There is now high density material within the L3 vertebral body. There is some collapse of the right side of the vertebral body. Some high density material within the L2-3 disc space. This is consisten t with vertebroplasty. Small lytic lesion noted inferior endplate of T10. No lung lytic lesion seen left side of the L1 vert ebral body with some cortical breakthrough. The lytic lesion seen posterior central L5 vertebral body. Large area lytic lesion with cortical breakthrough in the S1 and S2 vertebral body and sacral a ala a s well as the left ilium. There is cortical breakthrough. Vague permeative lesion seen at the S 1 and S2 level on the right and right ilium. Disc levels: T12-L1: No disc herniations or bulges are present. L1-2: No disc herniations or bulges are present. L2-3: No disc herniations or bulges are present. L3-4: No disc herniations or bulges are present. L4-5: Facet degenerative changes. No significant neural foraminal narrowing or central canal stenos is. Minimal disc bulging. L5-S1: Moderate loss of disc height. Endplate osteophytes projecting posteriorly causing severe ronak ateral neural foraminal narrowing. Right hip prosthesis. Soft Tissues: The paraspinal soft tissues are unremarkable. Fibrosis noted at the lung bases. IMPRESSION: Multiple ill-defined lytic lesions consistent with metastases involving lumbar vertebral bodies as we ll as sacrum and visualized portions of the meliton. RADIATION DOSE DELIVERED: 894.3mGy.cm Total DLP DATA REPOSITORY: All CT scans at this facility are submitted to the National Radiology Data Registry (NRDR) Dose Index Registry (DIR) with the [employer] (ACR). RADIATION OPTIMIZATION: All CT scans at this facility use at least one of these dose optimization te chniques: automated exposure control; mA and/or kV adjustment per patient size (includes targeted exa ms where dose is matched to clinical indication); or iterative reconstruction.
== END 2023-01-04 01:38 ==
LOC: DI 01:19
PROVIDERS: PCP Family Medicine; Visit Provider Family Medicine
DX: C7A.8 Other malignant neuroendocrine tumors (principal); M54.50 Low back pain, unspecified
CPT/HCPCS: 72040; 72131

== ENCOUNTER 2023-02-11 14:58 | Outpatient (REF) | payer MEDICARE, BC, SELFPAY ==
[2023-02-11 15:24] LABS: Abs Immature Grans 0.17 10^3/uL (0.0-0.06); Absolute Lymphocyte Count 0.58 10^3/uL (1.2-3.4); Absolute Monocyte Count 0.65 10^3/uL (0.1-0.8); Basophils % 0.5; Eosinophils % 22.1; HCT 30.6 % (40.0-50.0); HGB 10.4 g/dL (13.5-17.5); Immature Grans % 1.5; Lymphocytes % 5.3; MCV 88 fL (80-95); MPV 9.2 fL (8.0-11.0); Monocytes % 5.9; Neutrophils % 64.7; Platelet Count 181 10^3/uL (130-400); RBC 3.47 10^6/uL (4.36-5.78); RDW 15.5 % (11.8-14.1); RDW-SD 49.7 fL; WBC 11.02 10^3/uL (4.4-10.8)
[2023-02-11 15:25] LABS: Absolute Basophil Count 0.06 10^3/uL (0.0-0.2); Absolute Eosinophil Count 2.44 10^3/uL (0.0-0.7); Absolute Neutrophil Count 7.13 10^3/uL (1.2-6.7)
[2023-02-11 15:39] LABS: Diff Comment Agrees w/ Instrument; RBC Morphology Normal
== END 2023-02-11 14:59 | disposition home or self-care (01) ==
LOC: LBN 14:58
PROVIDERS: PCP Family Medicine; Visit Provider Internal Medicine Medical Oncology
DX: C34.91 Malignant neoplasm of unspecified part of right bronchus or lung (principal); C79.51 Secondary malignant neoplasm of bone
CPT/HCPCS: 85025

== ENCOUNTER 2023-02-14 15:35 | Inpatient (IN) | payer MEDICARE, BC, SELFPAY ==
[2023-02-14] VITALS (44 sets, daily range): BP systolic 87–123; BP diastolic 53–85; PULSE 69–115; RESP 10–24; TEMP 36.1–36.4; O2SAT 90–100
--- NOTE | 2023-02-14 15:45 | DI.CT_ITS ---
Exam(s) CT ABDOMEN PELVIS W EXAM: CT ABDOMEN PELVIS W CLINICAL HISTORY: epigastric abdominal pain TECHNIQUE: Imaging Protocol: Axial computed tomography images with coronal and sagittal reformatted images were created and reviewed CONTRAST MATERIAL: Intravenous: Omnipaque 350 Contrast volume:65 mL Oral: No COMPARISON: CT CT CHEST/ABD/PEL W from 10/12/2022 FINDINGS: ABDOMEN: Lung Bases: There are bilateral pleural effusions, left greater than right with subjacent infiltrates . Coronary artery calcifications are present. Triangular hypodense area in the anterior left lung b ase which may represent fluid within the fissure. Soft tissue mass cannot be excluded. Liver: Normal density. No measurable mass. Portal, Superior Mesenteric, and Splenic Veins: Unremarkable. Gallbladder and Biliary Tract: No radiodense calculus or dilation. The gallbladder is distended. Pancreas: Normal density. Pancreatic calcifications are again seen. No peripancreatic inflammatory changes are present. Spleen: Normal. Adrenals: No masses seen. Kidneys: Normal size, contour and axis. No radiodense stones or obstructive uropathy. There are multi ple tiny hypodensities in the cortices of the kidneys likely reflecting small cysts. No follow-up is recommended. There is a 1.6 cm hypodense lesion in the inferior pole of the left kidney. It does n ot meet the criteria for a simple cyst. Abdominal Aorta: There is a 3.4 x 3.2 cm infrarenal abdominal aortic aneurysm. Atherosclerosis. Bowel: No obstruction or bowel wall thickening. There is no evidence of appendicitis. There is a mod erate amount of stool throughout the colon which may reflect constipation. Peritoneal Cavity: No ascites, collection or mesenteric inflammatory response. No free air. Lymph Nodes: Within normal limits. Bones: Within normal limits for the patient's age. There is a displaced fracture involving the later al aspect of the right 7th rib. There are lytic lesions seen in the ribs spine and pelvis. Findings are consistent with metastatic disease. The largest lesion is seen involving the posterior aspect o f the left iliac bone. Soft Tissues: Bilateral fat containing umbilical hernia are present. PELVIS: Bladder: Symmetric distention, no gross wall thickening. Reproductive Organs: Prostate gland is enlarged. Lymph Nodes: Within normal limits. Bones: Note is made of a right total hip replacement. Posterior spinal surgery is present. IMPRESSION: 1. Calcifications seen in throughout the pancreas which can be seen with chronic pancreatitis. Pleas e correlate with clinical symptoms to assess for evidence of acute pancreatitis. 2. Bilateral pleural effusions and basilar infiltrates. 3. 1.6 cm hypodense lesion in the inferior pole of the left kidney. It is not meet the criteria for a simple cyst. A renal mass cannot be excluded. If clinically appropriate follow-up examination wit h MRI is suggested. 4. Diffuse lytic osseous metastatic disease. 5. Acute 5 displaced fracture of the right 7th rib. 6. 3.4 x 3.2 cm abdominal aortic aneurysm. RADIATION DOSE DELIVERED: 921.49mGy.cm Total DLP DATA REPOSITORY: All CT scans at this facility are submitted to the National Radiology Data Registry (NRDR) Dose Index Registry (DIR) with the [employer] (ACR). RADIATION OPTIMIZATION: All CT scans at this facility use at least one of these dose optimization te chniques: automated exposure control; mA and/or kV adjustment per patient size (includes targeted exa ms where dose is matched to clinical indication); or iterative reconstruction.
--- NOTE | 2023-02-14 15:45 | DI.CT_ITS ---
Exam(s) CT BRAIN NECK CTA EXAM: CT BRAIN NECK CTA CLINICAL HISTORY: altered mental status. TECHNIQUE: Imaging Protocol: Axial CT angiography was performed with multi-slice acquisition and mu lti-planar and/or 3D reconstructions. CONTRAST MATERIAL: Intravenous: Omnipaque 350 contrast volume:85 mL COMPARISON: CT CT HEAD CERVICAL SPINE WO from 10/11/[address] CHEST/ABD/PEL W from 10/12/[address] CHEST W from 12/23/2022 FINDINGS: CT Head W/O and W: Ventricles and Extra axial spaces: Normal in size and morphology for the patient's age. Hemorrhage: None. Cerebral parenchyma: No acute territorial infarct is identified. Midline shift: None. Brainstem/Cerebellum: Normal. Calvarium: Normal. Visualized Paranasal sinuses/Mastoids: Clear. Soft Tissues: Unremarkable. Enhancement: Unremarkable. CTA Neck W: Common Carotid: Right: No dissection, occlusion or significant stenosis. Mild atherosclerosis at the distal common c arotid artery. Left: No dissection, occlusion or significant stenosis. External Carotid: Right: No occlusion or significant stenosis. Left: No occlusion or significant stenosis. Internal Carotid: Right: No dissection, occlusion or significant stenosis. Mild atherosclerosis at the origin. Left: No dissection, occlusion or significant stenosis. Atherosclerosis at the origin. Vertebral Artery: Right: No dissection, occlusion or significant stenosis. Mild atherosclerosis at the origin. Left: No dissection, occlusion or significant stenosis. Lung Apices: There are bilateral pleural effusions left greater than right. Bilateral pulmonary infi ltrates are seen. These are new compared to the CT scan from 12/23/2013. The left upper lobe mass is again seen. Nodular opacities are seen in the lungs. Bones: There is osseous metastatic disease with lytic lesions in the spine and ribs. There has been interval worsening of the metastatic disease predominantly in the seen in the C2 vertebral body. Thi s does causing extrinsic compression on the right vertebral artery at this level. Soft Tissues: Normal. Thyroid gland: Unremarkable. CTA Brain W: Internal Carotid Arteries: Atherosclerosis is present. No aneurysm, occlusion or significant stenosi s. Anterior Cerebral Arteries: Right: No aneurysm, occlusion or significant stenosis. Left: No aneurysm, occlusion or significant stenosis. Middle Cerebral Arteries: Right: No aneurysm, occlusion or significant stenosis. Left: No aneurysm, occlusion or significant stenosis. Posterior Cerebral Arteries: Right: No aneurysm, occlusion or significant stenosis. Left: No aneurysm, occlusion or significant stenosis. There is origin of the left RECENTERER which is a normal variant. Vertebral Arteries: Right: No aneurysm, occlusion or significant stenosis. There is mild atherosclerosis. Left: No aneurysm, occlusion or significant stenosis. Basilar Artery: No aneurysm, occlusion or significant stenosis. IMPRESSION: 1. No large vessel occlusion or significant stenosis on the CT angiography of the head. 2. No acute intracranial process. 3. No occlusion or significant stenosis on the CT angiography of the neck. 4. Interval progression of osseous metastatic disease particularly at the C2 vertebral body which allen s cause extrinsic compression on the adjacent right vertebral artery. 5. Development of bilateral pleural effusions and infiltrates. Left upper lobe mass is again seen. Nodular densities are are seen in the lung which may reflect metastatic disease or new infiltrate. RADIATION DOSE DELIVERED: 2,199.2mGy.cm Total DLP DATA REPOSITORY: All CT scans at this facility are submitted to the National Radiology Data Registry (NRDR) Dose Index Registry (DIR) with the [employer] (A[employer]). RADIATION OPTIMIZATION: All CT scans at this facility use at least one of these dose optimization te chniques: automated exposure control; mA and/or kV adjustment per patient size (includes targeted exa ms where dose is matched to clinical indication); or iterative reconstruction.
--- NOTE | 2023-02-14 15:45 | DI.RAD_ITS ---
Exam(s) XR PORTABLE CHEST AP EXAM: XR PORTABLE CHEST AP CLINICAL HISTORY: shortness of breath TECHNIQUE: 2D digital imaging was performed of the chest. One image was obtained. An AP view was ob tained. COMPARISON: CR,XR XR CHEST 2V PA LATERAL from 10/11/2022 FINDINGS: MEDIASTINUM: Normal. HEART: Normal. PULMONARY VASCULATURE: There is diffuse pulmonary vascular prominence. LUNGS: There are patchy bilateral alveolar infiltrates present. PLEURAL SPACE: No pleural effusion or pneumothorax. BONE:Within normal limits for the patient's age. OTHER FINDINGS:The tip of the right IJ catheter is in good position near the junction of the superior vena cava and right atrium. IMPRESSION: Bilateral pulmonary infiltrates which may represent pneumonia. Interstitial edema cannot be excluded . There is pulmonary venous congestion noted. DATA REPOSITORY: RADIATION DOSE DELIVERED:
--- NOTE | 2023-02-14 16:00 | RT.EKG_ITS ---
APPROVED REPORT Exam: Resting ECG Reason for Exam: chest pain Patient Location: E HR:88 bpm ECG Measurements Heart Rate 88 AXIS MT [id number] P [id number] QRSd 90 QRS 14 QT 448 T 73 QTc 542 Conclusion Atrial fibrillation...V-rate 62-106, irreg A-activity Prolonged QT interval...QTc >500mS
--- NOTE | 2023-02-14 16:03 | ED.GENADUL_ITS ---
Discharge Plan Disposition Patient Disposition: Admit to [facility] Discharge Details Chief Complaint: AMS/LOC Clinical Impression: Pneumonia, Acute dehydration, Hypercalcemia, Acute non-ST elevation myocardial infarction (NSTEMI), Acute hypokalemia, Hypomagnesemia Primary Care Provider: [facility] ED Provider: Joseph Bhardwaj [place] Meds and New Rx's Prescriptions: No Action ondansetron 4 mg tablet,disintegrating 4 mg PO Q8H PRN (Reason: nausea and vomiting) Qty: 30 2RF prochlorperazine maleate 10 mg tablet 10 mg PO Q6H PRN (Reason: nausea and vomiting) Qty: 20 2RF sennosides-docusate sodium [Senna with Docusate Sodium] 8.6-50 mg tablet 4 tab-cap PO BID PRN (Reason: constipation) Qty: 240 3RF omeprazole 20 mg capsule,delayed release(DR/EC) 20 mg PO BID Qty: 180 3RF diazepam 2 mg tablet 2 mg PO BID PRN (Reason: anxiety) Qty: 20 0RF Rx Instructions: [facility] D/C ORDERS 1 tab Q6H PRN ANXIETY (12/14/22) sertraline 50 mg tablet 100 mg PO ONCE Qty: 180 3RF aspirin 325 mg tablet 325 mg PO DAILY ketoconazole 2 % cream 1 applic topical BID Qty: 60 1RF Rx Instructions: apply bid x 8 wk promethazine 25 mg tablet 25 mg PO Q6H PRN (Reason: nausea and vomiting) Qty: 20 2RF tadalafil 2.5 mg tablet 2.5 mg PO DAILY Qty: 90 3RF Rx Instructions: Take 1 tablet once a day hydrochlorothiazide 25 mg tablet 25 mg PO DAILY Qty: 90 3RF levothyroxine 50 mcg tablet 50 mcg PO DAILY Qty: 90 3RF losartan 25 mg tablet 25 mg PO DAILY Qty: 90 3RF ropinirole 1 mg tablet 1 mg PO QHS Qty: 90 1RF Rx Instructions: administer 1-3 hours before bedtime amlodipine 5 mg tablet 5 mg PO DAILY Qty: 90 3RF acetaminophen 500 mg tablet 1,000 mg PO Q6H PRN tizanidine 4 mg tablet 4 mg PO TID PRN dronabinol [Marinol] 5 mg capsule 5 mg PO BID Qty: 60 3RF Rx Instructions: administer before lunch and evening meal/dinner gabapentin 300 mg capsule 600 mg PO TID Qty: 90 0RF Rx Instructions: [facility] 02/01/23. -hb hydromorphone 8 mg tablet 8 - 12 mg PO Q2H PRN MDD 10 tabs PRN (Reason: breakthru pain) Qty: 100 0RF fentanyl 100 mcg/hr patch 72 hour 3 patch transdermal Q48H MDD 300mcg/hr Qty: 30 0RF fentanyl 50 mcg/hr patch 72 hour 1 patch transdermal Q48H MDD 350mcg fentanyl Qty: 10 0RF Nicotrol 10 mg Cartridge 1 inh inhalation Q2H PRN PRNQty: 168 0RF polyethylene glycol 3350 17 gram Powder In Packet 17 g PO DAILY Qty: 30 0RF docusate sodium [Colace] 100 mg Capsule 100 mg PO TID Qty: 90 0RF naloxone [Narcan] 4 mg/actuation spray,non-aerosol 1 spray intranasal Q2-3M PRNQty: 2 1RF Rx Instructions: spray 1 dose into ONE nostril; alternate nostrils w each dose until help arrives Medical Decision Making 67-year-old gentleman presents with multiple complaints. Sounds like he could be dehydrated which could be the root cause of all of his symptoms. We will give some IV fluids. His mucous membranes are dry to support this. Could be secondary to nausea from his chemo and radiation. We will get broad labs look for electrolyte or metabolic cause of the patient's symptoms. I do not think this is stroke as he does not have any focal neurologic deficits on examination. He is well outside of the window with the last time he was known to be well was last night when he went to bed at around 9 or 10 PM. We will get CT head to rule out intracranial hemorrhage or other etiology. Will get CT angio to rule out large vessel occlusion though again I think that this is very unlikely. He is endorsing some chest pain and apparently this is chronic in nature but worsening. Doubt ACS but will check EKG and cardiac enzymes. Will get chest x- ray to evaluate for pneumonia or pneumothorax. Having some epigastric abdominal pain and will get CT abdomen pelvis to further evaluate. We will continue with IV fluids while awaiting initial testing and reevaluate. 1900 CTA head and neck unremarkable. CT abdomen pelvis unremarkable. Labs very deranged suggesting dehydration with hypercalcemia, hypokalemia, hyponatremia. Giving IV fluids and replating electrolytes. Chest x-ray is concerning for pneumonia and treating with antibiotics. I suspect the patient likely has a troponin leak from this pneumonia and severe dehydration. Regardless he does have the elevated troponin and is endorsing chest pain which I think is likely due to his chronic rib pain from his cancer but cannot rule out ACS. I called and spoke with Dr. Henning with [facility] cardiology who recommended aspirin and a heparin drip and to trend the troponins and also obtain an echo when available. Certainly could be reconsulted if the patient clinically deteri orates or if the troponins continue to go up. Spoke with Dr. Wilson who agreed to admit the patient. Will admit for NSTEMI in the setting of pneumonia And dehydration. Medical Records Medical records reviewed: Yes I reviewed the patient's medical records. Imaging Data Radiologic Study: Attestation: I personally reviewed and interpreted this imaging study as follows: Imaging: X-Ray (chest) Radiologist's impression: IMPRESSION: Worsening pulmonary infiltrates, particularly on the left, raising concern for pneumonia.? Underlying pulmonary vascular congestion also noted. Radiologic Study #2: Attestation: I personally reviewed and interpreted this imaging study as follows: Imaging: CT Scan (abd and pelvis) Radiologist's impression: IMPRESSION: 1. There is a small amount of fluid surrounding the pancreatic head.? This could reflect mild acute pancreatitis. 2. There are extensive lytic lesions throughout the regional skeleton suspicious for metastatic disease.? The patient has lung malignancy documented on previous exams. Radiologic Study #3: Attestation: I personally reviewed and interpreted this imaging study as follows: Imaging: CT Scan (angio head and neck) Radiologist's impression: IMPRESSION: 1. Interval worsening of osseous metastatic disease including a prominent lytic lesion predominantly to the right of midline at the C2 level producing partial destruction of C2 and mild stenosis of the right vertebral artery at this level. 2. No carotid stenosis.? 3. Partially visualized pleural effusions, infiltrates and left suprahilar mass noted in the chest Lab Data Lab results reviewed: Yes I reviewed the patient's lab results. Labs: Elevated troponin. Hyponatremia, hypokalemia, hypomagnesemia, ECG Data Attestation: I personally reviewed and interpreted this ECG (s) as follows: Prior ECG tracings: available for review Interpretation: Atrial fibrillation with normal rate. Normal axis and prolonged QT interval. No ST or T wave changes. Otherwise unremarkable EKG. No ischemic changes. HPI General Mode of arrival: EMS . Date/Time Provider Initiated Documentation: 02/14/23 15:42 . Information obtained by: patient and EMS . HPI Narrative: 67-year-old gentleman history of smoking, coronary artery disease, hypertension, hyperlipidemia, lung cancer status post chemo and currently getting radiation for bony metastasis to the back and known pathologic fractures of the neck is now presenting with weakness and malaise. Has been doing well but last night went to bed and slept for a long time. Family says he did not wake up until 1:00 this afternoon when she went to go check on him to take him to her radiation appointment. He was very weak and having trouble speaking and the family was worried and brought him here. He says he just feels weak all over. Feels very dehydrated and thirsty. He is endorsing some chest pain. Some of this is in the upper abdomen additionally. Denying any other symptoms. The last time the family saw him normal was last night. Patient says he has been feeling weak since last night. Related Data Home Medications Medication Instructions Recorded Confirmed aspirin 325 mg tablet 325 mg PO DAILY 10/25/19 02/14/23 ketoconazole 2 % topical cream 1 applic topical BID #60 grams 03/30/21 02/14/23 tadalafil 2.5 mg tablet 2.5 mg PO DAILY #90 tabs 12/06/21 02/14/23 docusate sodium 100 mg capsule 100 mg PO TID #90 caps 10/14/22 02/14/23 (Colace) naloxone 4 mg/actuation nasal 1 spray intranasal Q2-3M PRN #2 ea 10/14/22 02/14/23 spray (Narcan) nicotine 10 mg inhalation 1 inh inhalation Q2H PRN PRN #168 10/14/22 02/14/23 cartridge (Nicotrol) ea polyethylene glycol 3350 17 gram 17 g PO DAILY #30 ea 10/14/22 02/14/23 oral powder packet hydrochlorothiazide 25 mg tablet 25 mg PO DAILY #90 tabs 10/18/22 02/14/23 levothyroxine 50 mcg tablet 50 mcg PO DAILY #90 tab-caps 10/18/22 02/14/23 losartan 25 mg tablet 25 mg PO DAILY #90 tab-caps 10/18/22 02/14/23 ropinirole 1 mg tablet 1 mg PO QHS #90 tabs 10/18/22 02/14/23 amlodipine 5 mg tablet 5 mg PO DAILY #90 tabs 11/19/22 02/14/23 promethazine 25 mg tablet 25 mg PO Q6H PRN nausea and 11/28/22 02/14/23 vomiting #20 tabs acetaminophen 500 mg tablet 1,000 mg PO Q6H PRN 12/15/22 02/14/23 ondansetron 4 mg disintegrating 4 mg PO Q8H PRN nausea and 12/19/22 02/14/23 tablet vomiting #30 tabs prochlorperazine maleate 10 mg 10 mg PO Q6H PRN nausea and 12/19/22 02/14/23 tablet vomiting #20 tabs sennosides 8.6 mg-docusate sodium 4 tab-cap PO BID PRN constipation 12/19/22 02/14/23 50 mg tablet (Senna with Docusate #240 tabs Sodium) tizanidine 4 mg tablet 4 mg PO TID PRN 02/01/23 02/14/23 dronabinol 5 mg capsule (Marinol) 5 mg PO BID #60 caps 02/02/23 02/14/23 gabapentin 300 mg capsule 600 mg PO TID Postop pain #90 caps 02/03/23 02/14/23 fentanyl 100 mcg/hr transdermal 3 patch transdermal Q48H #30 ea 02/06/23 02/14/23 patch hydromorphone 8 mg tablet 8 - 12 mg PO Q2H PRN PRN breakthru 02/06/23 02/14/23 pain #100 tabs diazepam 2 mg tablet 2 mg PO BID PRN anxiety #20 tabs 02/08/23 02/14/23 omeprazole 20 mg capsule,delayed 20 mg PO BID #180 caps 02/08/23 02/14/23 release sertraline 50 mg tablet 100 mg PO ONCE #180 tab-caps 02/08/23 02/14/23 fentanyl 50 mcg/hr transdermal 1 patch transdermal Q48H #10 ea 02/13/23 02/14/23 patch Previous Rx's Medication Instructions Recorded ketoconazole 2 % topical cream 1 applic topical BID #60 grams 03/30/21 tadalafil 2.5 mg tablet 2.5 mg PO DAILY #90 tabs 12/06/21 docusate sodium 100 mg capsule 100 mg PO TID #90 caps 10/14/22 (Colace) naloxone 4 mg/actuation nasal 1 spray intranasal Q2-3M PRN #2 ea 10/14/22 spray (Narcan) nicotine 10 mg inhalation 1 inh inhalation Q2H PRN PRN #168 10/14/22 cartridge (Nicotrol) ea polyethylene glycol 3350 17 gram 17 g PO DAILY #30 ea 10/14/22 oral powder packet hydrochlorothiazide 25 mg tablet 25 mg PO DAILY #90 tabs 10/18/22 levothyroxine 50 mcg tablet 50 mcg PO DAILY #90 tab-caps 10/18/22 losartan 25 mg tablet 25 mg PO DAILY #90 tab-caps 10/18/22 ropinirole 1 mg tablet 1 mg PO QHS #90 tabs 10/18/22 amlodipine 5 mg tablet 5 mg PO DAILY #90 tabs 11/19/22 promethazine 25 mg tablet 25 mg PO Q6H PRN nausea and 11/28/22 vomiting #20 tabs ondansetron 4 mg disintegrating 4 mg PO Q8H PRN nausea and 12/19/22 tablet vomiting #30 tabs prochlorperazine maleate 10 mg 10 mg PO Q6H PRN nausea and 12/19/22 tablet vomiting #20 tabs sennosides 8.6 mg-docusate sodium 4 tab-cap PO BID PRN constipation 12/19/22 50 mg tablet (Senna with Docusate #240 tabs Sodium) dronabinol 5 mg capsule (Marinol) 5 mg PO BID #60 caps 02/02/23 gabapentin 300 mg capsule 600 mg PO TID Postop pain #90 caps 02/03/23 fentanyl 100 mcg/hr transdermal 3 patch transdermal Q48H #30 ea 02/06/23 patch hydromorphone 8 mg tablet 8 - 12 mg PO Q2H PRN PRN breakthru 02/06/23 pain #100 tabs diazepam 2 mg tablet 2 mg PO BID PRN anxiety #20 tabs 02/08/23 omeprazole 20 mg capsule,delayed 20 mg PO BID #180 caps 02/08/23 release sertraline 50 mg tablet 100 mg PO ONCE #180 tab-caps 02/08/23 fentanyl 50 mcg/hr transdermal 1 patch transdermal Q48H #10 ea 02/13/23 patch Allergies Allergy/AdvReac Type Severity Reaction Status Date / Time venom-honey bee Allergy Intermediate BEE STINGS Verified 02/14/23 15:51 CAUSE SWELLING General Stated Complaint: AMS/LOC HUSSEIN: 2 Review of Systems Constitutional Constitutional: Denies chills, Denies fever(s), Denies headache(s) and Reports weakness Eyes Eyes: Denies change in vision ENT Ears, Nose, Mouth, and Throat: Denies headache(s) and Denies odynophagia Cardiovascular Cardiovascular: Reports chest pain and Denies dyspnea Respiratory Respiratory: Denies dyspnea Gastrointestinal Gastrointestinal: Reports abdominal pain (epigastric), Denies diarrhea, Denies nausea, Denies odynophagia and Denies vomiting Genitourinary Genitourinary: Denies dysuria Musculoskeletal Musculoskeletal: Denies myalgias Integumentary/Breasts Skin/Breast: Denies changing lesions Neurologic Neurologic: Denies behavioral changes, Denies headache(s) and Reports weakness Psychiatric Psychiatric: Denies behavioral changes Endocrine Endocrine: Denies heat intolerance Hematologic/Lymphatic Hematologic/Lymphatic: Denies lymphadenopathy PFSH All Active Problems (Updated 02/14/23 @ 20:10 by Joseph Bhardwaj MD) Pneumonia (Acute) Acute dehydration (Acute) Hypercalcemia (Acute) Acute non-ST elevation myocardial infarction (NSTEMI) (Acute) Acute hypokalemia (Acute) Hypomagnesemia (Acute) Unintentional weight loss (Acute) Low back pain (Acute) Advance care planning (Acute) Nausea (Acute) 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 Pyle Status post rotator cuff repair (Acute) Smoker (Acute) Epicondylitis (Acute) Unspecified injury of left quadriceps muscle, fascia and tendon, initial encounter (Acute) Family hx of colon cancer requiring screening colonoscopy (Acute) Quadriceps muscle rupture (Acute) Original injury 08/27/2018 Re-injury on 09/04/2018 Smoker (Chronic) Sexual function problem (Acute) Obstructive sleep apnea syndrome (Chronic) CPAP Oakley's metatarsalgia (Acute) Impaired fasting glucose (Acute) Hypothyroidism (acquired) (Chronic 03/03/17) Hypertension (Chronic) Hyperlipidemia (Chronic) History of alcoholism (Acute) Epicondylitis (Acute) Depressive disorder (Acute 08/10/00) Chest pain (Acute) +MPI-inferior wall; cardiac cath neg. ? 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, normal, repeat 5 years due to family history colon cancer, mg. Surgical History History of colonoscopy Parotid gland enlargement s/p resection Rotator Cuff Repair Bilateral S/P spinal fusion 01/20/23 [facility] Vascular. L2-4 (skip 3)cement augmented PSIF. -hb S/P total right hip arthroplasty Family History Mother Neoplasm SKIN Father Heart disease Hyperlipidemia Neoplasm COLON Sister No problems noted. 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 Pets and animals: Yes Pets and animals: dog(s) Sexually active: No Do you think of yourself as: straight/heterosexual Current gender identity: male What is your relationship status?: How often do you talk on the phone with friends or family?: three or more times per week How often do you get together with friends or relatives?: three or more times per week How often do you attend congregational or anabaptist services?: decline to answer Do you belong to any clubs or organized social groups?: no Panel score (0-1 are the most socially isolated patients): 2 What type of physical activity do you participate in: none Frequency: does not exercise Jaymie/Roman Catholic: Denominational Special jaymie needs: No Seatbelt use: always Helmet use: Yes Helmet use: always Drive intox or ride w/intox package car driver: No Do you feel safe at home: Yes Do you feel safe in your relationship?: Yes Exam Const General: cooperative Nutritional Appearance: average body habitus Orientation: alert, awake and oriented x3 Other: Globally weak but no focal deficits on exam HENMT Head: normal to inspection Ears: external ears normal Mouth: other (dry mucous membranes) Eyes Pupils: PERRL EOM: EOM intact bilaterally and No nystagmus Neck Neck: full ROM and no tracheal deviation Chest Chest: normal inspection of the chest Resp Auscultation: clear to auscultation bilaterally Cardio Rate: regular rate Rhythm: regular rhythm GI Inspection: normal to inspection Palpation: soft, no guarding, not rigid and nontender Back/Spine/Pelvis Back: No no CVA tenderness Thoracic/Lumbar Spine: thoracic and lumbar spine normal to inspection Skin General skin exam: no rashes or lesions noted Neuro General: patient alert, patient awake and patient oriented x3 Cranial Nerves: CN's II-XI intact bilaterally, PERRL, no nystagmus and no nystagmus Cognition: normal cognition Motor: muscle tone normal throughout and strength 5/5 throughout Sensory Exam: no sensory deficits noted Extrem General: normal to inspection Course Vital Signs Vital signs: Vital Signs Temperature 36.4 C 02/14/23 15:44 Pulse 86 02/14/23 15:44 Respiratory Rate 15 02/14/23 15:44 Blood Pressure 123/53 L 02/14/23 15:44 Pulse Oximetry 93 02/14/23 15:44 Temperature 36.4 C 02/14/23 15:44 Temperature Source Oral 02/14/23 15:44 Pulse 86 02/14/23 15:44 Respiratory Rate 15 02/14/23 15:44 Blood Pressure 123/53 L 02/14/23 15:44 Pulse Oximetry 93 02/14/23 15:44 Oxygen Delivery Method Room Air 02/14/23 15:44 Oxygen Flow Rate 0 02/14/23 15:44 Pain Level 6 02/14/23 15:44 Lab/Test Results Lab/Test Results: 02/14/23 15:59 Blood Blood Culture - Pending 02/14/23 15:59 Blood Blood Culture - Pending Laboratory Tests Range/Units 02/14/23 16:02 VBG pH Cancelled VBG pCO2 Cancelled VBG pO2 Cancelled VBG HCO3 Cancelled VBG Total CO2 Cancelled VBG O2 Saturation Cancelled VBG Base Excess Cancelled Critical Care Time Critical Care Time Critical Care Time: Yes Total Critical Care Time: 30 Attestation: Joseph Bhardwaj MD
[2023-02-14 16:34] LABS: BE (Venous) 9 mmol/L (-2-3); HCO3 (Venous) 34 mmol/L (23-28); O2 Sat (Venous) 64 %; TCO2 (Venous) 32 mmol/L (24-29); pCO2 (Venous) 52 mmHg (41-51); pH (Venous) 7.42 (7.31-7.41); pO2 (Venous) 36 mmHg
[2023-02-14] MEDS: Normal Saline 1,000 ML 1000 ML IV ×2 (16:34→17:45)
[2023-02-14 16:36] LABS: HCT 31.9 % (40.0-50.0); HGB 10.7 g/dL (13.5-17.5); MCH 29.4 pg (27.0-33.0); MCHC 33.5 % (32.0-36.0); MCV 88 fL (80-95); MPV 8.7 fL (8.0-11.0); Platelet Count 166 10^3/uL (130-400); RBC 3.64 10^6/uL (4.36-5.78); RDW 15.5 % (11.8-14.1); RDW-SD 48.7 fL; WBC 12.85 10^3/uL (4.4-10.8)
[2023-02-14 16:41] LABS: Lactate 1.6 mmol/L (0.6-1.4)
[2023-02-14 16:48] LABS: INR 1.1 (0.9-1.1); PTT Activated 24.1 sec (21.5-31.9); Prothrombin Time 11.5 sec (9.3-11.0)
[2023-02-14 16:51] LABS: Lipase 16 U/L (16-77)
[2023-02-14 16:57] LABS: ALT 14 U/L (16-63); AST 14 U/L (15-37); Albumin 2.7 g/dL (3.4-5.0); Alkaline Phosphatase 64 U/L (46-116); Anion Gap 4.7 mmol/L (3-11); BUN 19 mg/dL (7-18); Bilirubin, Total 0.5 mg/dL (0.2-1.0); CO2 33.3 mmol/L (21.0-32.0); CREATININE 0.8 mg/dL (0.70-1.30); Chloride 95 mmol/L (98-107); Estimated GFR 97.61 (mL/min/1.73m2); Glucose 149 mg/dL (74-106); Magnesium 1.4 mg/dL (1.8-2.4); Sodium 133 mmol/L (136-145); Total Protein 7.3 g/dL (6.4-8.2)
[2023-02-14 16:59] LABS: Calcium 11.7 mg/dL (8.5-10.1); Potassium 2.8 mmol/L (3.5-5.1); Troponin I 307 ng/L (<or=60)
[2023-02-14 17:08] LABS: Absolute Eosinophil Count 1.54 10^3/uL (0.0-0.7); Absolute Lymphocyte Count 0.51 10^3/uL (1.2-3.4); Absolute Monocyte Count 0.39 10^3/uL (0.1-0.8); Absolute Neutrophil Count 10.28 10^3/uL (1.2-6.7); Bands % 1; Metamyelocytes % 1
[2023-02-14 17:09] LABS: Diff Comment Manual Differential; Polychromasia Present
[2023-02-14] MEDS: Lactated Ringers 1,000 ML 1000 ML IV (17:20)
[2023-02-14] MEDS: POTASSIUM CHLORIDE 20 MEQ/100 ML BAG 50 MEQ IVPB (18:11)
[2023-02-14] MEDS: MAGNESIUM SULFATE 2 GM/50 ML BAG IVPB (18:19)
--- NOTE | 2023-02-14 18:38 | DI.VRAD_ITS ---
PROCEDURE INFORMATION: Exam: XR Chest Exam date and time: 02/14/2023 6:04 PM Age: 67 years old Clinical indication: Other: Short of breath TECHNIQUE: Imaging protocol: Radiologic exam of the chest. Views: 1 view. COMPARISON: CT CHEST W 12/23/2022 11:53 AM FINDINGS: Tubes, catheters and devices: Right IJ infusion port is now in place. Lungs: There has been significant interval worsening of patchy diffuse bilateral alveolar infiltrates. There is moderate diffuse pulmonary vascular prominence, increased from previous. Pleural spaces: Unremarkable. No pleural effusion. No pneumothorax. Heart/Mediastinum: Heart borders are partially obscured. Bones/joints: Degenerative changes of the spine and shoulders noted. IMPRESSION: Worsening pulmonary infiltrates, particularly on the left, raising concern for pneumonia. Underlying pulmonary vascular congestion also noted. Dictated and Authenticated by: Alverto Trevino MD. Ordering:ROLAN Ruiz MD
--- NOTE | 2023-02-14 18:49 | DI.VRAD_ITS ---
PROCEDURE INFORMATION: Exam: CT Abdomen And Pelvis With Contrast Exam date and time: 02/14/2023 5:47 PM Age: 67 years old Clinical indication: Other: Epigastric abdominal pain TECHNIQUE: Imaging protocol: Computed tomography of the abdomen and pelvis with contrast. Radiation optimization: All CT scans at this facility use at least one of these dose optimization techniques: automated exposure control; mA and/or kV adjustment per patient size (includes targeted exams where dose is matched to clinical indication); or iterative reconstruction. Contrast material: OMNIPAQUE 350; Contrast volume: 65 ml; Contrast route: INTRAVENOUS (IV); COMPARISON: CT CHEST/ABD/PEL W 09/12/2022 10:51 FINDINGS: Lungs: Fibrotic changes in the lung bases. Pleural spaces: Bilateral pleural effusions left larger than right. 2 cm pleural based soft tissue density in the anterior left lung base. Liver: Normal. No mass or intrahepatic biliary ductal dilatation. Gallbladder and bile ducts: Normal. No calcified stones. No ductal dilation. Pancreas: There is a small amount of fluid surrounding the head of the pancreas. There are punctate calcifications in the pancreatic tail. Spleen: Normal. No splenomegaly. Adrenal glands: Right adrenal gland is normal. The left adrenal is somewhat enlarged but without discrete mass. Kidneys and ureters: Small cysts in both kidneys. No renal calculus or obstruction. Stomach and bowel: Unremarkable. No significant dilatation or obstruction. No mucosal thickening or visible mass. Appendix: No evidence of appendicitis. Intraperitoneal space: Unremarkable. No free air. No significant fluid collection. 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 Prominent aortic calcification. Lymph nodes: No enlarged retroperitoneal or mesenteric lymph nodes. Urinary bladder: No mass or wall thickening. Reproductive: Unremarkable as visualized. Bones/joints: Right hip prosthesis. Previous lumbar fusion surgery. Scattered focal lucencies throughout the lumbar spine. There is a fairly large area of destruction involving the left L1 vertebral body and pedicle. Similar lytic lesion involving the left iliac body. This is suspicious for metastatic disease. Soft tissues: Unremarkable. IMPRESSION: 1. There is a small amount of fluid surrounding the pancreatic head. This could reflect mild acute pancreatitis. 2. There are extensive lytic lesions throughout the regional skeleton suspicious for metastatic disease. The patient has lung malignancy documented on previous exams. Dictated and Authenticated by: Parker Mckeon MD. Ordering:ROLAN Ruiz MD
--- NOTE | 2023-02-14 18:53 | DI.VRAD_ITS ---
PROCEDURE INFORMATION: Exam: CTA Head Without And With Contrast, Arteriography Exam date and time: 02/14/2023 5:28 PM Age: 67 years old Clinical indication: Other: Altered mental status; Prior surgery; Surgery date: 6+ months; Surgery type: Spine TECHNIQUE: Imaging protocol: Computed tomographic angiography of the head without and with contrast. Exam focused on the arteries. 3D rendering (Not supervised by radiologist): MIP and/or 3D reconstructed images were created by the technologist. Radiation optimization: All CT scans at this facility use at least one of these dose optimization techniques: automated exposure control; mA and/or kV adjustment per patient size (includes targeted exams where dose is matched to clinical indication); or iterative reconstruction. Contrast material: OMNIPAQUE; Contrast volume: 85 ml; Contrast route: INTRAVENOUS (IV); COMPARISON: MR BRAIN WO/W 10/12/2022 11:15 AM FINDINGS: ANTERIOR CIRCULATION: Right internal carotid artery: Intracranial segment is patent with no significant stenosis or occlusion. No aneurysm. Right middle cerebral artery: No occlusion or significant stenosis. No aneurysm. Right anterior cerebral artery: No occlusion or significant stenosis. No aneurysm. Left internal carotid artery: Intracranial segment is patent with no significant stenosis. No aneurysm. Left middle cerebral artery: No occlusion or significant stenosis. No aneurysm. Left anterior cerebral artery: No occlusion or significant stenosis. No aneurysm. POSTERIOR CIRCULATION: Right vertebral artery: No occlusion or significant stenosis. No aneurysm. Left vertebral artery: No occlusion or significant stenosis. No aneurysm. Basilar artery: No occlusion or significant stenosis. No aneurysm. Right posterior cerebral artery: No occlusion or significant stenosis. No aneurysm. Left posterior cerebral artery: No occlusion or significant stenosis. No aneurysm. HEAD: Brain: Normal. No hemorrhage. Unremarkable white matter. No mass effect. Cerebral ventricles: Normal. No ventriculomegaly. Bones/joints: Unremarkable. No acute fracture. Paranasal sinuses: Visualized sinuses are normal. No fluid levels. Mastoid air cells: Visualized mastoids are normal. No mastoid effusion. Soft tissues: Unremarkable. IMPRESSION: No large vessel occlusion. Unremarkable CT head. PROCEDURE INFORMATION: Exam: CTA Neck Without And With Contrast Exam date and time: 02/14/2023 5:28 PM Age: 67 years old Clinical indication: Other: Altered mental status; Prior surgery; Surgery date: 6+ months; Surgery type: Spine TECHNIQUE: Imaging protocol: Computed tomographic angiography of the neck without and with contrast. 3D rendering (Not supervised by radiologist): MIP and/or 3D reconstructed images were created by the technologist. Radiation optimization: All CT scans at this facility use at least one of these dose optimization techniques: automated exposure control; mA and/or kV adjustment per patient size (includes targeted exams where dose is matched to clinical indication); or iterative reconstruction. Contrast material: OMNIPAQUE; Contrast volume: 85 ml; Contrast route: INTRAVENOUS (IV); COMPARISON: CT CAROTID NECK CTA 10/11/2022 4:51 PM FINDINGS: Right common carotid artery: No stenosis. No dissection or occlusion. Right internal carotid artery: No stenosis of the extracranial segment. No dissection or occlusion. Right external carotid artery: No occlusion or stenosis of the origin. Left common carotid artery: No stenosis. No dissection or occlusion. Left internal carotid artery: No stenosis of the extracranial segment. No dissection or occlusion. Left external carotid artery: No occlusion or stenosis of the origin. Right vertebral artery: There is mild stenosis of the right vertebral artery at the level of C2 which appears to be due to extrinsic compression by the above-described lytic mass lesion. Left vertebral artery: No stenosis. No dissection or occlusion. Soft tissues: Mild scattered atherosclerotic calcifications. No significant soft tissue swelling. Bones/joints: There has been interval worsening destructive lytic changes and associated soft tissue mass predominantly to the right of midline at the C2 level. Other scattered small lytic lesions noted throughout the skeletal structures. Orthopedic hardware produces posterior fusion the level of C1 to C4. Lungs: Patchy pulmonary infiltrates noted in the bilateral upper lungs. 4.4 cm left suprahilar mass noted in the chest, decreased in size from previous. Pleural spaces: There are partially visualized bilateral pleural effusions, greater on the left. IMPRESSION: 1. Interval worsening of osseous metastatic disease including a prominent lytic lesion predominantly to the right of midline at the C2 level producing partial destruction of C2 and mild stenosis of the right vertebral artery at this level. 2. No carotid stenosis. 3. Partially visualized pleural effusions, infiltrates and left suprahilar mass noted in the chest REFERENCES: NASCET CRITERIA. The degree of stenosis in the cervical segment of the internal carotid artery is based on NASCET criteria. Normal is no stenosis. Mild is less than 50% stenosis. Moderate is 50-69% stenosis. Severe is 70% to 99% stenosis. Total occlusion is no detectable patent lumen. Dictated and Authenticated by: Alverto Trevino MD. Ordering:ROLAN Ruiz MD
[2023-02-14] MEDS: Omnipaque 350 MG/ML 100 ML BTL IJ (19:26)
[2023-02-14] MEDS: Normal Saline - Diluent 50 ML VIAL IJ ×3 (19:28→19:31)
[2023-02-14] MEDS: Normal Saline Flush 10 ML SYR IVP ×2 (19:28→22:34)
[2023-02-14] MEDS: Omnipaque 350 MG/ML 50 ML BTL IJ (19:29)
[2023-02-14] MEDS: PIPERACILLIN/TAZO 4.5 GM in Normal Saline 100 ML IVPB (19:30)
[2023-02-14 19:39] LABS: COVID-19 PCR Negative (Negative); Influenza A PCR Negative (Negative); Influenza B PCR Negative (Negative); RSV PCR Negative (Negative)
[2023-02-14 19:47] LABS: Source Nasopharynx
[2023-02-14 19:52] LABS: Troponin I 296 ng/L (<or=60)
--- NOTE | 2023-02-14 20:15 | HPE_ITS ---
Date of service: 02/14/23 Time of Service: 20:15 Assessment and Plan Assessment and plan (1) Weakness: Status: Acute Assessment and plan: I think this is best seen as multifactorial process in setting of acute on chronic illness. I think the main precipitant here is pneumonia, and will continue Zosyn. The K and Mg deficiencies are being addressed; the mild hypercalcemia is likely secondary to malignancy, perhaps aggravated by a degree of dehydration. Will trend and check PTH. The troponin I think is more likely than not demand ischemia secondary to infection, but it is possible we are seeing the tail end of NSTEMI. Per Cardiology will continue ASA and heparin for now. The new onset AF also noted, may be playing at least a small role in his symptoms. Whether this is due to the [id number] abnormalities, and ischemic event, or both is unclear at present. Regardless rate is auto controlled at present; patient nominally qualifies for DOAC but can defer definitve decision in this regard as he is on heparin for now. Reviewed ADs in great detail, with patient, and 3 daughters in attendance. For now he indicates he would not want any prolonged life support but does understand that, absent a specific directive to the contrary, our default position is to perform CPR in the immediate setting of an arrest. In sum: 1. Pneumonia: continue Zosyn 2. Hypokalemia and hypomagnesemia: replenish and trend 3. Hypercalcemia: check PTH, and trend 4. ACS vs demand ischemia: heparin and ASA, repeat trop 5. AF: auto rate control, consider DOAC 6. ADs: Full Code History of Present Illness History of Present Illness Chief Complaint: weakness, cough, CP Narrative: 67 male with h/o metastatic lung cancer, not currently undergoing chemo, started XRT 5 days [employer] -- here with 1-2 days of prodcutive cough, some nausea and vomiting and one day of extreme fatigue. Denies SOB. Dos endorse some CP but he has known skeletal mets with CP, but perhaps the pain today is worse? Came to ER for evaluation. In ER findings of note for absence of fever, white count 12 and multiple electrolyte abnormalities, including K 2.8, Mg 1.4 and Ca 11.7. Troponin 307, number 2 is 296, with no ischemic changes on EKG (it does demonstrate AFib -- new onset). CXR shows bilateral progressive pneumonia. Patient given K and Mg supplementation and dose Zosyn. Cardiology consulted and advised ASA and heparin qtt. I was asked to evaluate for admission. Patient states he feels improved, but not back to baseline. 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 Pyle Status post rotator cuff repair (Acute) Smoker (Acute) Epicondylitis (Acute) Unspecified injury of left quadriceps muscle, fascia and tendon, initial encounter (Acute) Family hx of colon cancer requiring screening colonoscopy (Acute) Quadriceps muscle rupture (Acute) Original injury 08/27/2018 Re-injury on 09/04/2018 Smoker (Chronic) Sexual function problem (Acute) Obstructive sleep apnea syndrome (Chronic) CPAP Oakley's metatarsalgia (Acute) Impaired fasting glucose (Acute) Hypothyroidism (acquired) (Chronic 03/03/17) Hypertension (Chronic) Hyperlipidemia (Chronic) History of alcoholism (Acute) Epicondylitis (Acute) Depressive disorder (Acute 08/10/00) Chest pain (Acute) +MPI-inferior wall; cardiac cath neg. ? 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 Surgical History History of colonoscopy Parotid gland enlargement s/p resection Rotator Cuff Repair Bilateral S/P spinal fusion 01/20/23 [facility] [place] Vascular. L2-4 (skip 3)cement augmented PSIF. -hb S/P total right hip arthroplasty Family History Mother Neoplasm SKIN Father Heart disease Hyperlipidemia Neoplasm COLON Sister No problems noted. 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 Pets and animals: Yes Pets and animals: dog(s) Sexually active: No Do you think of yourself as: straight/heterosexual Current gender identity: male What is your relationship status?: How often do you talk on the phone with friends or family?: three or more times per week How often do you get together with friends or relatives?: three or more times per week How often do you attend religion or restoration services?: decline to answer Do you belong to any clubs or organized social groups?: no Panel score (0-1 are the most socially isolated patients): 2 What type of physical activity do you participate in: none Frequency: does not exercise Jaymie/Taoist: Synagogue Special jaymie needs: No Seatbelt use: always Helmet use: Yes Helmet use: always Drive intox or ride w/intox city driver: No Do you feel safe at home: Yes Do you feel safe in your relationship?: Yes Meds Allergies and Home Medications Allergies Allergy/AdvReac Type Severity Reaction Status Date / Time venom-honey bee Allergy Intermediate BEE STINGS Verified 02/14/23 15:51 CAUSE SWELLING Home Medications Medication Instructions Recorded Confirmed Type aspirin 325 mg tablet 325 mg PO DAILY 10/25/19 02/14/23 History ketoconazole 2 % topical cream 1 applic topical BID #60 grams 03/30/21 02/14/23 Rx tadalafil 2.5 mg tablet 2.5 mg PO DAILY #90 tabs 12/06/21 02/14/23 Rx docusate sodium 100 mg capsule 100 mg PO TID #90 caps 10/14/22 02/14/23 Rx (Colace) naloxone 4 mg/actuation nasal 1 spray intranasal Q2-3M PRN #2 ea 10/14/22 02/14/23 Rx spray (Narcan) nicotine 10 mg inhalation 1 inh inhalation Q2H PRN PRN #168 10/14/22 02/14/23 Rx cartridge (Nicotrol) ea polyethylene glycol 3350 17 gram 17 g PO DAILY #30 ea 10/14/22 02/14/23 Rx oral powder packet hydrochlorothiazide 25 mg tablet 25 mg PO DAILY #90 tabs 10/18/22 02/14/23 Rx levothyroxine 50 mcg tablet 50 mcg PO DAILY #90 tab-caps 10/18/22 02/14/23 Rx losartan 25 mg tablet 25 mg PO DAILY #90 tab-caps 10/18/22 02/14/23 Rx ropinirole 1 mg tablet 1 mg PO QHS #90 tabs 10/18/22 02/14/23 Rx amlodipine 5 mg tablet 5 mg PO DAILY #90 tabs 11/19/22 02/14/23 Rx promethazine 25 mg tablet 25 mg PO Q6H PRN nausea and 11/28/22 02/14/23 Rx vomiting #20 tabs acetaminophen 500 mg tablet 1,000 mg PO Q6H PRN 12/15/22 02/14/23 History ondansetron 4 mg disintegrating 4 mg PO Q8H PRN nausea and 12/19/22 02/14/23 Rx tablet vomiting #30 tabs prochlorperazine maleate 10 mg 10 mg PO Q6H PRN nausea and 12/19/22 02/14/23 Rx tablet vomiting #20 tabs sennosides 8.6 mg-docusate sodium 4 tab-cap PO BID PRN constipation 12/19/22 02/14/23 Rx 50 mg tablet (Senna with Docusate #240 tabs Sodium) tizanidine 4 mg tablet 4 mg PO TID PRN 05/24/23 06/06/23 History dronabinol 5 mg capsule (Marinol) 5 mg PO BID #60 caps 02/02/23 02/14/23 Rx gabapentin 300 mg capsule 600 mg PO TID Postop pain #90 caps 02/03/23 02/14/23 Rx fentanyl 100 mcg/hr transdermal 3 patch transdermal Q48H #30 ea 02/06/23 02/14/23 Rx patch hydromorphone 8 mg tablet 8 - 12 mg PO Q2H PRN PRN breakthru 02/06/23 02/14/23 Rx pain #100 tabs diazepam 2 mg tablet 2 mg PO BID PRN anxiety #20 tabs 02/08/23 02/14/23 Rx omeprazole 20 mg capsule,delayed 20 mg PO BID #180 caps 02/08/23 02/14/23 Rx release sertraline 50 mg tablet 100 mg PO ONCE #180 tab-caps 02/08/23 02/14/23 Rx fentanyl 50 mcg/hr transdermal 1 patch transdermal Q48H #10 ea 02/13/23 02/14/23 Rx patch Exam Narrative Exam Narrative: 113/68, 101, 36.4, 13, 97%. HEENT atraumatic; neck supple; lungs diminished; heart distant, irr/irr; abdomen soft and NT; extremities w/o edema; neuro Ox3, moves all 4s Results Labs 02/14/23 16:24 02/14/23 16:24 Labs: Laboratory Results - last 24 hr 02/14/23 02/14/23 02/14/23 16:02 16:24 16:24 WBC RBC Hgb Hct MCV MCH MCHC RDW Plt Count MPV Immature Gran % Neutrophils % Band Neutrophils % Lymphocytes % Monocytes % Eosinophils % Basophils % Metamyelocytes % Nucleated RBC % Absolute Neutrophils Absolute Lymphocytes Absolute Monocytes Absolute Eosinophils Absolute Basophils RBC Morphology Polychromasia PT INR APTT VBG pH Cancelled VBG pCO2 Cancelled VBG pO2 Cancelled VBG HCO3 Cancelled VBG Total CO2 Cancelled VBG O2 Saturation Cancelled VBG Base Excess Cancelled VBG Lactate 1.6 H Sodium Potassium Chloride Carbon Dioxide Anion Gap BUN Creatinine Est GFR (CKD-EPI 2020) Glucose Calcium Magnesium Total Bilirubin AST ALT Alkaline Phosphatase Troponin I Total Protein Albumin Lipase 16 COVID-19 Source SARS-CoV-2 (PCR) Influenza Type A (PCR) Influenza Type B (PCR) RSV (PCR) 02/14/23 02/14/23 02/14/23 16:24 16:24 16:24 WBC RBC Hgb Hct MCV MCH MCHC RDW Plt Count MPV Immature Gran % Neutrophils % Band Neutrophils % Lymphocytes % Monocytes % Eosinophils % Basophils % Metamyelocytes % Nucleated RBC % Absolute Neutrophils Absolute Lymphocytes Absolute Monocytes Absolute Eosinophils Absolute Basophils RBC Morphology Polychromasia PT 11.5 H INR 1.1 APTT 24.1 VBG pH 7.42 H VBG pCO2 52 H VBG pO2 36 VBG HCO3 34 H VBG Total CO2 32 H VBG O2 Saturation 64 VBG Base Excess 9 H VBG Lactate Sodium 133 L Potassium 2.8 L* Chloride 95 L Carbon Dioxide 33.3 H Anion Gap 4.7 BUN 19 H Creatinine 0.8 Est GFR (CKD-EPI 2020) 97.61 Glucose 149 H Calcium 11.7 H* Magnesium 1.4 L Total Bilirubin 0.5 AST 14 L ALT 14 L Alkaline Phosphatase 64 Troponin I 307 H* Total Protein 7.3 Albumin 2.7 L Lipase COVID-19 Source SARS-CoV-2 (PCR) Influenza Type A (PCR) Influenza Type B (PCR) RSV (PCR) 02/14/23 02/14/23 02/14/23 16:24 18:57 19:23 WBC 12.85 H RBC 3.64 L Hgb 10.7 L Hct 31.9 L MCV 88 MCH 29.4 MCHC 33.5 RDW 15.5 H Plt Count 166 MPV 8.7 Immature Gran % 0.0 Neutrophils % 79.0 Band Neutrophils % 1 Lymphocytes % 4.0 Monocytes % 3.0 Eosinophils % 12.0 Basophils % 0.0 Metamyelocytes % 1 Nucleated RBC % 0.0 Absolute Neutrophils 10.28 H Absolute Lymphocytes 0.51 L Absolute Monocytes 0.39 Absolute Eosinophils 1.54 H Absolute Basophils 0.00 RBC Morphology See Below Polychromasia Present PT INR APTT VBG pH VBG pCO2 VBG pO2 VBG HCO3 VBG Total CO2 VBG O2 Saturation VBG Base Excess VBG Lactate Sodium Potassium Chloride Carbon Dioxide Anion Gap BUN Creatinine Est GFR (CKD-EPI 2020) Glucose Calcium Magnesium Total Bilirubin AST ALT Alkaline Phosphatase Troponin I 296 H* Total Protein Albumin Lipase COVID-19 Source Nasopharynx SARS-CoV-2 (PCR) Negative Influenza Type A (PCR) Negative Influenza Type B (PCR) Negative RSV (PCR) Negative Last Vital Signs Temp 36.4 C 02/14/23 15:44 Pulse 101 H 02/14/23 18:15 Resp 13 02/14/23 18:40 BP 113/68 02/14/23 18:15 Pulse Ox 97 02/14/23 18:40 Time Spent Time spent with Patient: >75 minutes Time was spent: preparing to see the patient(eg.review tests), obtaining and/or reviewing separately otained hiistory, ordering medications,tests, procedures, referring, communicating with other health family day care provider, indepentently interpreting results and counseling the patient
[2023-02-14] MEDS: Heparin in 0.45% NaCl 25,000 UNIT/250 ML BAG 10 UNIT IV (20:17)
[2023-02-14] MEDS: Aspirin 325 MG TAB PO (20:18)
[2023-02-14] MEDS: Potassium Chloride 20 MEQ TABCR PO (22:33)
[2023-02-14] MEDS: rOPINIRole 1 MG TAB PO (22:33)
[2023-02-14] MEDS: POTASSIUM CHLORIDE/0.9% NACL 1,000 ML 100 MEQ IV (22:33)
[2023-02-15] VITALS (53 sets, daily range): BP systolic 94–117; BP diastolic 58–85; PULSE 22–110; RESP 11–27; TEMP 36.1–37.1; O2SAT 83–96
[2023-02-15 00:03] LABS: Troponin I 242 ng/L (<or=60)
[2023-02-15] MEDS: PIPERACILLIN/TAZO 3.375 GM in Normal Saline 50 ML IVPB ×4 (01:30→20:03)
[2023-02-15 03:05] LABS: PTT Activated 42.3 sec (21.5-31.9)
[2023-02-15] MEDS: Levothyroxine 50 MCG TAB PO (05:24)
[2023-02-15 07:03] LABS: HCT 28.9 % (40.0-50.0); HGB 9.9 g/dL (13.5-17.5); MCH 30.5 pg (27.0-33.0); MCHC 34.3 % (32.0-36.0); MCV 89 fL (80-95); MPV 9.2 fL (8.0-11.0); Platelet Count 169 10^3/uL (130-400); RBC 3.25 10^6/uL (4.36-5.78); RDW 15.6 % (11.8-14.1); RDW-SD 50.3 fL; WBC 10.03 10^3/uL (4.4-10.8)
[2023-02-15 07:13] LABS: Anion Gap 5.8 mmol/L (3-11); BUN 15 mg/dL (7-18); CO2 31.2 mmol/L (21.0-32.0); CREATININE 0.7 mg/dL (0.70-1.30); Calcium 10.2 mg/dL (8.5-10.1); Chloride 101 mmol/L (98-107); Estimated GFR 101.62 (mL/min/1.73m2); Glucose 93 mg/dL (74-106); Magnesium 1.6 mg/dL (1.8-2.4); Potassium 3.5 mmol/L (3.5-5.1); Sodium 138 mmol/L (136-145)
--- NOTE | 2023-02-15 08:15 | RESPIRATORY ---
Called patient's Brianna to request she bring in patient's home CPAP machine. She will plan on bringing it in later today.
[2023-02-15] MEDS: Lactated Ringers 1,000 ML 1000 ML IV (08:44)
[2023-02-15] MEDS: Normal Saline Flush 10 ML SYR IVP (08:45)
[2023-02-15] MEDS: MAGNESIUM SULFATE 2 GM/50 ML BAG IVPB (08:45)
[2023-02-15] MEDS: Gabapentin 300 MG CAP 600 MG PO ×3 (08:47→20:05)
[2023-02-15] MEDS: Omeprazole 20 MG CAPCR PO ×2 (08:47→16:28)
[2023-02-15] MEDS: Aspirin 325 MG TAB PO (08:47)
[2023-02-15] MEDS: Docusate Sodium 100 MG CAP PO ×3 (08:47→20:06)
[2023-02-15] MEDS: guaiFENesin 600 MG TABCR PO ×2 (08:47→20:06)
[2023-02-15] MEDS: HYDROmorphone 4 MG TAB PO ×3 (09:17→16:27)
[2023-02-15] MEDS: diazePAM 2 MG TAB PO (10:20)
--- NOTE | 2023-02-15 10:22 | RESPIRATORY ---
RT Assessment Start: 02/15/23 07:52 Freq: .q shift and prn Status: Active Protocol: Document 02/15/23 10:06 TANYA (Rec: 02/15/23 10:13 TANYA [id number]) RT Assessment Smoking History Smoking/Tobacco Use Status Former Tobacco Use Tobacco: How many years used 45 Quit Date 09/11/22 Tobacco Type cigarettes Cigarettes per Day 10 Years smoked 45 OXYGEN HISTORY: CPAP Can use home machine Yes: NO IDEA BIPAP Can you home machine No Trilogy/AVAPS Can use home machine No DME/Compliance DME [facility] Current Respiratory Symptoms Current Respiratory Symptoms Chest Pain,Cough,Shortness of breath Activity Activity Level ENJOYS BEING OUTSIDE Respiratory Breath Sounds Breath Sounds Any abnormal sounds, decreased breath sounds Response No change Pulse Rate <100 Respiratory Rate 18-25 Shortness of Breath On exertion Respiratory Therapy Score Total 3 Assessment and Plan RT Treatment Protocol Bronchodilator Aerosol Therapy Protocol,Lung Expansion Therapy Protocol,Bronchial Hygiene Therapy Protocol Note IS & Acapella taught by RT, to bring in CPAP device.
[2023-02-15 10:23] LABS: PTT Activated 42.6 sec (21.5-31.9)
[2023-02-15] MEDS: Heparin in 0.45% NaCl 25,000 UNIT/250 ML BAG 14 UNIT IV (10:38)
[2023-02-15] MEDS: Dronabinol 2.5 MG CAP 5 MG PO ×2 (11:53→16:27)
--- NOTE | 2023-02-15 14:16 | PDOC.CMIN ---
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 He has four adult daughter's (Tonia, Maricel, Yoana and Shila) who live locally and are supportive. Tom has metastatic lung cancer and receives Palliative Therapy at [facility]. He requires assistance with his ADL's due to recent health decline. Tom is a patient of Palliative Care. CURRENT FUNCTIONAL STATUS:: Tom is lying in bed when CM met with him, visiting with his daughter Maricel. Tom c/o tenderness ADVANCE DIRECTIVES:: HCA is Ofelia Rose, Alt Agent: Tonia West Has patient been provided with info about the portal/API?: Yes Did the patient sign up for the portal?: No CODE STATUS:: Full Code INSURANCE COVERAGE / FINANCIAL ISSUES:: BC BS of [place] Medicare CURRENT HOME/COMMUNITY SERVICES/EQUIPMENT:: Hospital Bed Cane Grab bars Hand held shower Hand rails CPAP PRIMARY CARE PHYSICIAN:: Dr. Freedom Faith POTENTIAL DISCHARGE NEEDS:: Follow up appointments, evaluation for increased support PATIENT/FAMILY EDUCATION NEEDS:: Review discharge instructions, limitations, medications and plan to follow up with community providers. Discuss ask me three. TRANSPORTATION:: via private vehicle with PLAN:: Anticipate, Tom will discharge home with resumption of [facility] services. He will follow up with community providers and his discharge plan of care as prescribed. CM will follow. 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 Pyle Status post rotator cuff repair (Acute) Smoker (Acute) Epicondylitis (Acute) Unspecified injury of left quadriceps muscle, fascia and tendon, initial encounter (Acute) Family hx of colon cancer requiring screening colonoscopy (Acute) Quadriceps muscle rupture (Acute) Original injury 08/27/2018 Re-injury on 09/04/2018 Smoker (Chronic) Sexual function problem (Acute) Obstructive sleep apnea syndrome (Chronic) CPAP Oakley's metatarsalgia (Acute) Impaired fasting glucose (Acute) Hypothyroidism (acquired) (Chronic 03/03/17) Hypertension (Chronic) Hyperlipidemia (Chronic) History of alcoholism (Acute) Epicondylitis (Acute) Depressive disorder (Acute 08/10/00) Chest pain (Acute) +MPI-inferior wall; cardiac cath neg. ? Syndrome X neg MPI 03/27 Medical History Angina pectoris Angina pectoris Bone metastases Family history of colon cancer Neoplasm related pain Normal colonoscopy (09/21/18) 09/21/18 Dr Armand Walton, [facility], normal, repeat 5 years due to family history colon cancer, mg. Surgical History History of colonoscopy Parotid gland enlargement s/p resection Rotator Cuff Repair Bilateral S/P spinal fusion 01/20/23 [facility] Vascular. L2-4 (skip 3)cement augmented PSIF. -hb S/P total right hip arthroplasty Family History Mother Neoplasm SKIN Father Heart disease Hyperlipidemia Neoplasm COLON Sister No problems noted. 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 Pets and animals: Yes Pets and animals: dog(s) Sexually active: No Do you think of yourself as: straight/heterosexual Current gender identity: male What is your relationship status?: How often do you talk on the phone with friends or family?: three or more times per week How often do you get together with friends or relatives?: three or more times per week How often do you attend advent or mormonism services?: decline to answer Do you belong to any clubs or organized social groups?: no Panel score (0-1 are the most socially isolated patients): 2 What type of physical activity do you participate in: none Frequency: does not exercise Jaymie/Caodaism: Sabianism Special jaymie needs: No Seatbelt use: always Helmet use: Yes Helmet use: always Drive intox or ride w/intox escort car driver: No Do you feel safe at home: Yes Do you feel safe in your relationship?: Yes
[2023-02-15] MEDS: Normal Saline 500 ML 30 ML IV (15:14)
[2023-02-15] MEDS: DOXYCYCLINE 100 MG in Normal Saline 100 ML IVPB (15:14)
--- NOTE | 2023-02-15 15:43 | CHAPLAIN ---
Tom was in bed and had a roomful of visitors including his Brianna. Brianna is a former [employer] employee, and two of their daughters work at [employer] as a Bakery Assistant and Palliative Care GUIDE TOUR. Tom and I know each other from previous admissions. He has metastatic lung cancer. He is receiving palliative treatment through [facility] and is followed by Shweta Robbins from [employer]'s Palliative Care team. She is here to visit him today. Many members of Tom's family are active in the Zoroastrian Religious. He was raised in the restorationism but has not attended services in a while. During a previous admission, Tom told me that he feels closest to a higher power [facility]. [facility]'s daughter Maricel Raya, a weekend caregiver here, had talked with the court reporter at [facility], Fr. Elizondo, about her dad and she asked dad if Fr. Elizondo could visit him while he is here. At Maricel's request, I called [facility] today to see if Fr. Elizondo could visit Tom. Maricel would like him to have the anointing of the sick. Fr. Elizondo is off today, but the costumer assistant at the [facility] said he could likely visit tomorrow. When I visited with Tom today, he said that the court reporter was coming into visit at some point, so he was aware of the arrangements made by Maricel. I let Tom know that machine edge bander is available 03/04. I will continue to visit.
--- NOTE | 2023-02-15 16:11 | PCNE_ITS ---
Date of service: 02/15/23 Time of Service: 15:30 History of Present Illness Narrative: Mr. Santos is a 67 y/o M est PC pt currently inpatient at [facility] 2/2 PNA and dehydration; PC dx SCLC (Oct 2022 dx); PMHx sig for HTN, HLD, CAD, RLS, depression, h/o tobacco use; several family members present, including /HCA Ofelia and daughter/co-agent Tonia Hospital course: Tom presented to [facility] ED on 02/14 w/CC weakness, fatigue; work up sig for dehydration and PNA; admitted for ongoing management and work up w/NSTEMI in setting of PNA; cardio and pulm consults placed; Tom had his first 2 sessions (of 5) of radiation and Fr last week, increased weakness since second session, was to present for 3rd session on however presented to ED instead; was having N/V, these sxs are controlled at this time, eating well today Today his pain remains uncontrolled, has been using fentanyl 350mcg q48h and PO Dilaudid 8-12mg, he has received 2 doses of PO during current hospital stay; pain anterior abdominal to ribs, R side worse than L; worse w/coughing which has been increased 2/2 PNA, repositioning; daughter wonders about nerve block has not had a chance to look at AD, would like to continue these conversations w/current PC provider, however today was a long day, he is fatigued and has several family members present, so would like to defer at this time; he is comfortable w/current level of care he is receiving; Assessment and Plan Assessment and plan (1) Weakness: Status: Acute (2) Pneumonia: Status: Acute (3) Acute dehydration: Status: Acute (4) Acute non-ST elevation myocardial infarction (NSTEMI): Status: Acute (5) Low back pain: Status: Acute (6) Advance care planning: Status: Acute (7) Nausea: Status: Acute (8) Small cell neuroendocrine carcinoma of lung: Status: Acute (9) Neoplasm related pain: (10) Bone metastases: (11) Palliative care encounter: Status: Acute Assessment and plan: Mr. Santos is an established PC pt, hospitalized currently related to PNA (radiation pneumonitis, aspiration?); PC dx SCLC[place] [facility] PC consult to review POC; focus today is on pain control - hydromorphone CADD started, basal 1mg/hr w/basal 1mg q15m PRN; Fentanyl on coleen arron for first 24 hours, may increase hydromorphone basal and bolus to 2mg after 24 hours - recommend pain consult placed for consideration for nerve block - agree w/consideration of steroid if suspected radiation pneumonitis, s/p pulm consult recommend Tussin and Mucinex for PNA sxs; daughter reviewing abdominal splinting w/repositioning for pain control Will continue to review ACP, w/particular focus around code status and LST; previously reviewed hospice and will continue to review in future, Dr. Stephens has also reviewed this w/Tom; we will remain hopeful at this time that he will have pain relief w/radiation, however this is on hold at this time 2/ current hospitalization; ED provider note states Tom would not want life prolonged with life support oracle security consultant coming tomorrow, organized through daughter; Or Rn aware and available for PRN visits PC will continue to follow through inpatient, w/plans for f/u on Tuesday 02/20 - Dr. Mcgregor is available tomorrow 02/16 if needed. Review of Systems Narrative: as per HPI PFSH All Active Problems Acute respiratory failure with hypoxia (Acute) Gram-positive bacteremia (Acute) Afib (Chronic) Discharge planning issues (Acute) DVT prophylaxis (Acute) Metastatic lung cancer (metastasis from lung to other site) (Acute) Hemoptysis (Acute) Sinus pause (Acute) Palliative care encounter (Acute) Weakness (Acute) Pneumonia (Acute) Acute dehydration (Acute) Hypercalcemia (Acute) Acute non-ST elevation myocardial infarction (NSTEMI) (Acute) Acute hypokalemia (Acute) Hypomagnesemia (Acute) Unintentional weight loss (Acute) Low back pain (Acute) Advance care planning (Acute) Nausea (Acute) 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 Pyle Status post rotator cuff repair (Acute) Smoker (Acute) Epicondylitis (Acute) Unspecified injury of left quadriceps muscle, fascia and tendon, initial encounter (Acute) Family hx of colon cancer requiring screening colonoscopy (Acute) Quadriceps muscle rupture (Acute) Original injury 08/27/2018 Re-injury on 09/04/2018 Smoker (Chronic) Sexual function problem (Acute) Obstructive sleep apnea syndrome (Chronic) CPAP Oakley's metatarsalgia (Acute) Impaired fasting glucose (Acute) Hypothyroidism (acquired) (Chronic 03/03/17) Hypertension (Chronic) Hyperlipidemia (Chronic) History of alcoholism (Acute) Epicondylitis (Acute) Depressive disorder (Acute 08/10/00) Chest pain (Acute) +MPI-inferior wall; cardiac cath neg. ? Syndrome X neg MPI 03/27 Medical History Angina pectoris Angina pectoris Bone metastases Family history of colon cancer Neoplasm related pain Normal colonoscopy (09/21/18) 09/21/18 Dr Armand Walton, [facility], normal, repeat 5 years due to family history colon cancer, mg. Surgical History History of colonoscopy Parotid gland enlargement s/p resection Rotator Cuff Repair Bilateral S/P spinal [place] [facility] [place]. L2-4 (skip 3)cement augmented PSIF. -hb S/P total right hip arthroplasty Family History Mother Neoplasm SKIN Father Heart disease Hyperlipidemia Neoplasm COLON Sister No problems noted. 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 Pets and animals: Yes Pets and animals: dog(s) Sexually active: No Do you think of yourself as: straight/heterosexual Current gender identity: male What is your relationship status?: How often do you talk on the phone with friends or family?: three or more times per week How often do you get together with friends or relatives?: three or more times per week How often do you attend jehovah's witness or nondenominational services?: decline to answer Do you belong to any clubs or organized social groups?: no Panel score (0-1 are the most socially isolated patients): 2 What type of physical activity do you participate in: none Frequency: does not exercise Jaymie/Scientologist: Protestant Special jaymie needs: No Seatbelt use: always Helmet use: Yes Helmet use: always Drive intox or ride w/intox inventory associate and driver: No Do you feel safe at home: Yes Do you feel safe in your relationship?: Yes Exam Narrative Exam Narrative: General: 67 y/o M appears older than stated age, ill appearing; cooperative; winces/groans/grimaces x3 in visit, holding abdomen, lasts for 5-25 seconds HEENT: normocephalic, atraumatic, hearing WNL Neck: no masses Resp: even, regularly, unlabored; speaks full sentences w/no SOB; intermittent cough, wet non-productive Skin: no rashes or lesions noted, did not conduct full skin exam neuro: AAOx3, cognition/speech clear Psych: MS WNL, pleasant, mood/thought process WNL, judgment/insight good to fair; jokes intermittently Results Last Vital Signs Temp 98.8 F 02/15/23 15:56 Pulse 98 H 02/15/23 15:56 Resp 17 02/15/23 15:56 BP 98/66 L 02/15/23 15:56 Pulse Ox 94 02/15/23 15:56 Labs 02/15/23 06:10 02/15/23 18:30 Labs: Laboratory Results - last 24 hr 02/14/23 02/14/23 02/14/23 16:24 16:24 16:24 WBC RBC Hgb Hct MCV MCH MCHC RDW Plt Count MPV Immature Gran % Neutrophils % Band Neutrophils % Lymphocytes % Monocytes % Eosinophils % Basophils % Metamyelocytes % Nucleated RBC % Absolute Neutrophils Absolute Lymphocytes Absolute Monocytes Absolute Eosinophils Absolute Basophils RBC Morphology Polychromasia PT 11.5 H INR 1.1 APTT 24.1 VBG pH VBG pCO2 VBG pO2 VBG HCO3 VBG Total CO2 VBG O2 Saturation VBG Base Excess VBG Lactate 1.6 H Sodium Potassium Chloride Carbon Dioxide Anion Gap BUN Creatinine Est GFR (CKD-EPI 2020) Glucose Calcium Magnesium Total Bilirubin AST ALT Alkaline Phosphatase Troponin I Total Protein Albumin Lipase 16 COVID-19 Source SARS-CoV-2 (PCR) Influenza Type A (PCR) Influenza Type B (PCR) RSV (PCR) 02/14/23 02/14/23 02/14/23 16:24 16:24 16:24 WBC 12.85 H RBC 3.64 L Hgb 10.7 L Hct 31.9 L MCV 88 MCH 29.4 MCHC 33.5 RDW 15.5 H Plt Count 166 MPV 8.7 Immature Gran % 0.0 Neutrophils % 79.0 Band Neutrophils % 1 Lymphocytes % 4.0 Monocytes % 3.0 Eosinophils % 12.0 Basophils % 0.0 Metamyelocytes % 1 Nucleated RBC % 0.0 Absolute Neutrophils 10.28 H Absolute Lymphocytes 0.51 L Absolute Monocytes 0.39 Absolute Eosinophils 1.54 H Absolute Basophils 0.00 RBC Morphology See Below Polychromasia Present PT INR APTT VBG pH 7.42 H VBG pCO2 52 H VBG pO2 36 VBG HCO3 34 H VBG Total CO2 32 H VBG O2 Saturation 64 VBG Base Excess 9 H VBG Lactate Sodium 133 L Potassium 2.8 L* Chloride 95 L Carbon Dioxide 33.3 H Anion Gap 4.7 BUN 19 H Creatinine 0.8 Est GFR (CKD-EPI 2020) 97.61 Glucose 149 H Calcium 11.7 H* Magnesium 1.4 L Total Bilirubin 0.5 AST 14 L ALT 14 L Alkaline Phosphatase 64 Troponin I 307 H* Total Protein 7.3 Albumin 2.7 L Lipase COVID-19 Source SARS-CoV-2 (PCR) Influenza Type A (PCR) Influenza Type B (PCR) RSV (PCR) 02/14/23 02/14/23 02/14/23 18:57 19:23 23:15 WBC RBC Hgb Hct MCV MCH MCHC RDW Plt Count MPV Immature Gran % Neutrophils % Band Neutrophils % Lymphocytes % Monocytes % Eosinophils % Basophils % Metamyelocytes % Nucleated RBC % Absolute Neutrophils Absolute Lymphocytes Absolute Monocytes Absolute Eosinophils Absolute Basophils RBC Morphology Polychromasia PT INR APTT VBG pH VBG pCO2 VBG pO2 VBG HCO3 VBG Total CO2 VBG O2 Saturation VBG Base Excess VBG Lactate Sodium Potassium Chloride Carbon Dioxide Anion Gap BUN Creatinine Est GFR (CKD-EPI 2020) Glucose Calcium Magnesium Total Bilirubin AST ALT Alkaline Phosphatase Troponin I 296 H* 242 H* Total Protein Albumin Lipase COVID-19 Source Nasopharynx SARS-CoV-2 (PCR) Negative Influenza Type A (PCR) Negative Influenza Type B (PCR) Negative RSV (PCR) Negative 02/15/23 02/15/23 02/15/23 02:20 05:35 06:10 WBC RBC Hgb Hct MCV MCH MCHC RDW Plt Count MPV Immature Gran % Neutrophils % Band Neutrophils % Lymphocytes % Monocytes % Eosinophils % Basophils % Metamyelocytes % Nucleated RBC % Absolute Neutrophils Absolute Lymphocytes Absolute Monocytes Absolute Eosinophils Absolute Basophils RBC Morphology Polychromasia PT INR APTT 42.3 H Cancelled VBG pH VBG pCO2 VBG pO2 VBG HCO3 VBG Total CO2 VBG O2 Saturation VBG Base Excess VBG Lactate Sodium 138 Potassium 3.5 Chloride 101 Carbon Dioxide 31.2 Anion Gap 5.8 BUN 15 Creatinine 0.7 Est GFR (CKD-EPI 2020) 101.62 Glucose 93 Calcium 10.2 H Magnesium 1.6 L Total Bilirubin AST ALT Alkaline Phosphatase Troponin I Total Protein Albumin Lipase COVID-19 Source SARS-CoV-2 (PCR) Influenza Type A (PCR) Influenza Type B (PCR) RSV (PCR) 02/15/23 02/15/23 02/15/23 06:10 08:00 09:37 WBC 10.03 RBC 3.25 L Hgb 9.9 L Hct 28.9 L MCV 89 MCH 30.5 MCHC 34.3 RDW 15.6 H Plt Count 169 MPV 9.2 Immature Gran % Neutrophils % Band Neutrophils % Lymphocytes % Monocytes % Eosinophils % Basophils % Metamyelocytes % Nucleated RBC % Absolute Neutrophils Absolute Lymphocytes Absolute Monocytes Absolute Eosinophils Absolute Basophils RBC Morphology Polychromasia PT INR APTT 42.6 H VBG pH VBG pCO2 VBG pO2 VBG HCO3 VBG Total CO2 VBG O2 Saturation VBG Base Excess VBG Lactate 1.0 Sodium Potassium Chloride Carbon Dioxide Anion Gap BUN Creatinine Est GFR (CKD-EPI 2020) Glucose Calcium Magnesium Total Bilirubin AST ALT Alkaline Phosphatase Troponin I Total Protein Albumin Lipase COVID-19 Source SARS-CoV-2 (PCR) Influenza Type A (PCR) Influenza Type B (PCR) RSV (PCR)
[2023-02-15 17:01] LABS: PTT Activated 50.1 sec (21.5-31.9)
--- NOTE | 2023-02-15 18:00 | RT.EKG_ITS ---
APPROVED REPORT Exam: Resting ECG Reason for Exam: Abnormal heart rhythm on EKG Patient Location: I HR:94 bpm ECG Measurements Heart Rate 94 AXIS [place] [id number] P [id number] QRSd 108 QRS 19 QT 413 T 20 QTc 517 Conclusion Atrial fibrillation...? atrial activity lead(s) I,II,III,aVR,aVL,aVF,V1,V2,V3,V5
[2023-02-15 18:43] LABS: Lab Add On Test DONE
[2023-02-15] MEDS: Fentanyl Patch Removal 4 EACH TP (18:56)
--- NOTE | 2023-02-15 19:02 | NUR.NOTE ---
Nursing Note: Patient transferred to the ICU with heparin drip at rate of 14ml/hr. Patient on tele on at the time. Patient alert and oriented, heart rate irregular, lungs coarse, Left wrist IV 18g, Right AC 18g. Patient was completing his breathing exercises with RT, then when RT left the room, patient became SOB, started shaking per family. MD notified, ECG ordered, Trop lab ordered.
[2023-02-15 19:06] LABS: Troponin I 249 ng/L (<or=60)
[2023-02-15 19:08] LABS: Anion Gap 8.8 mmol/L (3-11); BUN 14 mg/dL (7-18); CO2 27.2 mmol/L (21.0-32.0); CREATININE 0.6 mg/dL (0.70-1.30); Calcium 9.9 mg/dL (8.5-10.1); Chloride 102 mmol/L (98-107); Estimated GFR 106.46 (mL/min/1.73m2); Glucose 115 mg/dL (74-106); Magnesium 1.5 mg/dL (1.8-2.4); Potassium 3.2 mmol/L (3.5-5.1); Sodium 138 mmol/L (136-145)
[2023-02-15] MEDS: MAGNESIUM SULFATE 4 GM/100 ML BAG IVPB (19:57)
[2023-02-15] MEDS: POTASSIUM CHLORIDE 20 MEQ/100 ML BAG 50 MEQ IVPB (20:04)
--- NOTE | 2023-02-15 20:54 | W.PM.PROGNOT ---
Date of Service Date of service: 02/15/23 Time of Service: 20:54 Assessment and Plan Assessment and plan (1) Sinus pause: Status: Acute Assessment and plan: Discsussed with [facility]. Will monitor in the ICU. The patient is being considered for a pacemaker. There will be a multidisciplinary meeting between oncology and cardiology tomorrow to discuss whether placement of his pacemaker makes sense with his diagnosis of metastatic lung cancer and his prognosis. I did make the argument that this could improve his quality of life because he would then be able to walk and not worry about fainting. I had a discussion with Mr Rose about what was important to him and he would like to continue being active, wants to go fishing, wants to do things with his children. Pacemaker pads are on. The patient is full code at this time. (2) Gram-positive bacteremia: Status: Acute Assessment and plan: 1 culture positive for GPCs in chains. This sounds like strep spp. His infusaport was also cultured today. The patient is on zosyn + doxycycline. These abx should be sufficient, but I will also order vancomycin until speciation is known. Removal of the infusaport should be considered. I will place a surgical consult for am. Bacteremia does make it difficult to consider placing a pacemaker. (3) Pneumonia: Status: Acute Assessment and plan: Continue zosyn. I did add doxycycline. Blood cx positive for GPCs in chains. Await pneumonia studies: sputum C&S, urine strep AG and legionella urine ag, sputum for mycoplasma. Provide IS/acapella, mucolytics. (4) Acute non-ST elevation myocardial infarction (NSTEMI): Status: Acute Assessment and plan: ACS vs type 2 demand ischemia Continue aspirin. Will decrease the dose to baby asa. On heparin gtt at this time which, per cardiology, can be d/c'ed. I will do this, given hemoptysis. (5) Acute respiratory failure with hypoxia: Status: Acute Assessment and plan: In setting of pneumonia (6) Afib: Status: Chronic Assessment and plan: Not requiring rate control. I have d/c'ed heparin drip given cardiology recommendations as well as hemoptysis. (7) Hemoptysis: Status: Acute Assessment and plan: D/c heparin gtt. Etiologies are: pneumonia, cancer, possible PE. The patient got two loads of IV contrast. There is no evidence of RV strain on echo. At this point, I do not think that the benefits of anticoagulation outweigh risks, so anticoagulation is being stopped. (8) Acute hypokalemia: Status: Acute Assessment and plan: Replete; also replete mag. (9) Hypomagnesemia: Status: Acute Assessment and plan: Replete, also replete lung (10) Metastatic lung cancer (metastasis from lung to other site): Status: Acute Assessment and plan: Palliative care is consulted. The patient's oncologists document consideration of hospice. The patient is still full code. Tomorrow's discussion (11) Neoplasm related pain: Assessment and plan: Started on dilaudid drip with discontinuation of fentanyl patches. The pain remains uncontrolled tonight, so we will titrate the rates up to adequate pain relief. (12) DVT prophylaxis: Status: Acute Assessment and plan: Sc heparin (13) Discharge planning issues: Status: Acute Assessment and plan: Full code Transferred to the ICU. Total Critical Care Time 90 minutes. Subjective Subjective Interval history since last seen: Patient was transferred to the ICU after being noted to have a 12 second pause on telemetry. He was sitting up in a chair and became unresponsive with his eyes open. He has no recollection of this episode. Reports R right pain, pain in B lower thorax. It hurts to cough and laugh. Reports abdominal pain from coughing. No dizziness or nausea. He is on 3L of O2 by NC, not short of breath. He did cough up a small blood clot today. Case was discussed with [facility] cardiology. Dr Henning spoke with his EP colleague. It is thought that the patient had a sinus pause rather than a complete heart block and that this isn't a lethal arrhythmia. The patient is at risk of fainting, however, so he is instructed to be on bedrest. His case will be discussed between EP and oncology tomorrow. We are instructed to reach out if the episode recurs. No additional therapies were recommended. His fentanyl patches were taken off today and he was started on a dilaudid CADD pump. I discussed his code status with him in presence of his family today. He stated that he would like 1 round of CPR and defibrillation, but only 1. He is willing to be transferred to [facility]. He is willing to have a procedure. He is willing to go to [facility] if there is no bed available. Exam Narrative Exam Narrative: General: Pleasant tearful middle-aged male who is pale, appears to be in pain, A&Ox3 HEENT: EOMI, MMM Heart: irregularly irregular rhythm Lungs: Diminished breath sounds B Abdomen: soft, tender in epigastrium, nondistended Extremities: no edema Objective Last Vital Signs Temp 37.1 C 02/15/23 15:56 Pulse 98 H 02/15/23 15:56 Resp 17 02/15/23 15:56 BP 98/66 L 02/15/23 15:56 Pulse Ox 94 02/15/23 15:56 Laboratory Results - last 24 hr 02/14/23 02/15/23 02/15/23 23:15 02:20 05:35 WBC RBC Hgb Hct MCV MCH MCHC RDW Plt Count MPV APTT 42.3 H Cancelled VBG Lactate Sodium Potassium Chloride Carbon Dioxide Anion Gap BUN Creatinine Est GFR (CKD-EPI 2020) Glucose Calcium Magnesium Troponin I 242 H* Add-On Test Request 02/15/23 02/15/23 02/15/23 06:10 06:10 08:00 WBC 10.03 RBC 3.25 L Hgb 9.9 L Hct 28.9 L MCV 89 MCH 30.5 MCHC 34.3 RDW 15.6 H Plt Count 169 MPV 9.2 APTT VBG Lactate 1.0 Sodium 138 Potassium 3.5 Chloride 101 Carbon Dioxide 31.2 Anion Gap 5.8 BUN 15 Creatinine 0.7 Est GFR (CKD-EPI 2020) 101.62 Glucose 93 Calcium 10.2 H Magnesium 1.6 L Troponin I Add-On Test Request 02/15/23 02/15/23 02/15/23 09:37 16:40 18:30 WBC RBC Hgb Hct MCV MCH MCHC RDW Plt Count MPV APTT 42.6 H 50.1 H VBG Lactate Sodium Potassium Chloride Carbon Dioxide Anion Gap BUN Creatinine Est GFR (CKD-EPI 2020) Glucose Calcium Magnesium Troponin I 249 H* Add-On Test Request 02/15/23 02/15/23 02/15/23 18:30 18:30 22:30 WBC RBC Hgb Hct MCV MCH MCHC RDW Plt Count MPV APTT Cancelled VBG Lactate Sodium 138 Potassium 3.2 L Chloride 102 Carbon Dioxide 27.2 Anion Gap 8.8 BUN 14 Creatinine 0.6 L Est GFR (CKD-EPI 2020) 106.46 Glucose 115 H Calcium 9.9 Magnesium 1.5 L Troponin I Add-On Test Request DONE Objective Narrative Objective Narrative: Echo: LV systolic function is normal. LVEF is 65-70%. Unable to assess regional wall motion. RV is probably normal in size and function. There is no significant valve disease. There is no prior study for comparison. EKG: Afib, HR 94, no acute ischemia, nonspecific ST-T changes. Time Spent with Patient Time Spent with Patient: >50 minutes Time was spent: preparing to see the patient(eg.review tests), obtaining and/or reviewing separately otained hiistory, ordering medications,tests, procedures, referring, communicating with other health attending ambulatory care, indepentently interpreting results, counseling the patient and care coordination
[2023-02-15] MEDS: rOPINIRole 1 MG TAB PO (20:57)
[2023-02-15] MEDS: Potassium Chloride 20 MEQ TABCR 40 MEQ PO (21:24)
[2023-02-15 21:33] LABS: Troponin I 245 ng/L (<or=60)
[2023-02-16] VITALS (16 sets, daily range): BP systolic 102–105; BP diastolic 65–87; PULSE 23–100; RESP 11–24; O2SAT 88–96
[2023-02-16] MEDS: VANCOMYCIN 2,000 MG in Normal Saline 500 ML 250 MG IVPB (00:04)
[2023-02-16] MEDS: Heparin 5,000 UNITS/ML VIAL 5000 UNITS SC (00:05)
--- NOTE | 2023-02-16 01:09 | W.PM.DS.N ---
Date of service: 02/16/23 Time of Service: 01:10 DS: Diagnosis Discharge Diagnosis (1) Sinus pause: Status: Acute Asessment and Plan: Recurrent and associated with severe intermittent bradycardia. Pacer pads placed, transfer to [facility] cardiology for consideratoin of temporary pacer. (2) Gram-positive bacteremia: Status: Acute Asessment and Plan: Now on pip/tazo and vancomycin. Definitive culture read pending. (3) Pneumonia: Status: Acute Asessment and Plan: Antibiotics as above. sputum culture also pending. (4) Acute non-ST elevation myocardial infarction (NSTEMI): Status: Acute Asessment and Plan: Consistent with type 2 ACS with the acute infection. Off heparin drip now. (5) Acute respiratory failure with hypoxia: Status: Acute Asessment and Plan: oxygenation stable on 2 liters, maintained on home bipap when sleeping. Treating pneumonia as above. (6) Afib: Status: Chronic Asessment and Plan: not anticoagulated, rate low as above. (7) Acute hypokalemia: Status: Acute Asessment and Plan: replaced on evening prior to disharge, follow and further replace as needed. (8) Hypomagnesemia: Status: Acute Asessment and Plan: replaced on evening prior to disharge, follow and further replace as needed (9) Metastatic lung cancer (metastasis from lung to other site): Status: Acute Asessment and Plan: poor prognosis understood, hopeful for additional time with family. Per oncology note / they are reconsidering any ongoing radiation as it may be doing more harm than good. (10) Neoplasm related pain: Asessment and Plan: On hydromorphone CADD pump, rate turned down on evening prior to discharge as concern for overlap with residual fentanyl causing some oversedation, continue to monitor Discharge Plan Disposition Patient Disposition: Transfer-Acute Inpatient Care Specific Acute Inpt Facility: [facility] Condition: Serious Discharge Details Reason For Visit: Pneumonia, Elevated Troponin Admit Date/Time: 02/14/23 20:35 Admit Provider: George Wilson Attending Provider: George Wilson Primary Care Provider: [facility] Hospital Course: 67 yo M with metastatic small cell lung cancer and history of coronary artery disease, presented on 02/14/23 with 1-2 days of severe fatigue and productive cough 5 days after starting radiation therapy for his cancer. Chest x-ray showed bilateral pneumonia. Troponin 307, 296 with no ischemia on EKG but atrial fibrillation (new?). Started on piperacillin/tazobactam. Vancomycin added 02/15 after one blood culture returned with gram + cocci on preliminary report. Heparin drip started given concern for ACS and atrial fibrillation but his was stopped after episode of hemoptysis. pain was not well controlled on high dose fentanyl patch up to 350mcg, this was removed and starte hydromorphone CADD pump per palliative care recommendations. Potassium and magnesium were low at 2.8 and 1.4, both replaced IV. Calcium initially high at 11.7 but normalized with hydration. On 02/15 he started with his first episode of sinus pause of 12+ seconds with breif LOC. Occured again lasting 13 seconds. This followed with fluctuating bradycardia from 20s to 80s. Pacer pads placed and [facility] called, eventually decided to proceed with transfer after review of goals of care and limited prognosis with patient and family. Home Meds and New Rx's Prescriptions: New ipratropium-albuterol 0.5 mg-3 mg(2.5 mg base)/3 mL Solution For Nebulization 3 ml UPD Q6H PRN PRNQty: 0 0RF aspirin 81 mg Tablet,Delayed Release (Dr/Ec) 81 mg PO DAILY Qty: 0 0RF codeine-guaifenesin 10-100 mg/5 mL Liquid 10 ml PO Q4H PRN PRNQty: 0 0RF heparin (porcine) 5,000 unit/mL Solution 5,000 units subcut Q12H Qty: 0 0RF ondansetron HCl (PF) 4 mg/2 mL Solution 4 mg IVP Q4H PRN PRNQty: 0 0RF Continued ondansetron 4 mg tablet,disintegrating 4 mg PO Q8H PRN (Reason: nausea and vomiting) Qty: 30 2RF prochlorperazine maleate 10 mg tablet 10 mg PO Q6H PRN (Reason: nausea and vomiting) Qty: 20 2RF sennosides-docusate sodium [Senna with Docusate Sodium] 8.6-50 mg tablet 4 tab-cap PO BID PRN (Reason: constipation) Qty: 240 3RF omeprazole 20 mg capsule,delayed release(DR/EC) 20 mg PO BID Qty: 180 3RF diazepam 2 mg tablet 2 mg PO BID PRN (Reason: anxiety) Qty: 20 0RF Rx Instructions: [facility] D/C ORDERS 1 tab Q6H PRN ANXIETY (12/14/22) sertraline 50 mg tablet 100 mg PO ONCE Qty: 180 3RF promethazine 25 mg tablet 25 mg PO Q6H PRN (Reason: nausea and vomiting) Qty: 20 2RF levothyroxine 50 mcg tablet 50 mcg PO DAILY Qty: 90 3RF ropinirole 1 mg tablet 1 mg PO QHS Qty: 90 1RF Rx Instructions: administer 1-3 hours before bedtime acetaminophen 500 mg tablet 1,000 mg PO Q6H PRN dronabinol [Marinol] 5 mg capsule 5 mg PO BID Qty: 60 3RF Rx Instructions: administer before lunch and evening meal/dinner gabapentin 300 mg capsule 600 mg PO TID Qty: 90 0RF Rx Instructions: [facility] 02/01/23. -hb hydromorphone 8 mg tablet 8 - 12 mg PO Q2H PRN MDD 10 tabs PRN (Reason: breakthru pain) Qty: 100 0RF Nicotrol 10 mg Cartridge 1 inh inhalation Q2H PRN PRNQty: 168 0RF polyethylene glycol 3350 17 gram Powder In Packet 17 g PO DAILY Qty: 30 0RF docusate sodium [Colace] 100 mg Capsule 100 mg PO TID Qty: 90 0RF naloxone [Narcan] 4 mg/actuation spray,non-aerosol 1 spray intranasal Q2-3M PRNQty: 2 1RF Rx Instructions: spray 1 dose into ONE nostril; alternate nostrils w each dose until help arrives Held hydrochlorothiazide 25 mg tablet 25 mg PO DAILY Qty: 90 3RF Hold Instructions: Resume on 02/22/23. losartan 25 mg tablet 25 mg PO DAILY Qty: 90 3RF Hold Instructions: Resume on 02/23/23. amlodipine 5 mg tablet 5 mg PO DAILY Qty: 90 3RF Hold Instructions: Resume on 02/23/23. Discontinued aspirin 325 mg tablet 325 mg PO DAILY tadalafil 2.5 mg tablet 2.5 mg PO DAILY Qty: 90 3RF Rx Instructions: Take 1 tablet once a day tizanidine 4 mg tablet 4 mg PO TID PRN fentanyl 100 mcg/hr patch 72 hour 3 patch transdermal Q48H MDD 300mcg/hr Qty: 30 0RF fentanyl 50 mcg/hr patch 72 hour 1 patch transdermal Q48H MDD 350mcg fentanyl Qty: 10 0RF No Action ketoconazole 2 % cream 1 applic topical BID Qty: 60 1RF Rx Instructions: apply bid x 8 wk Discharge Instructions Instructions: Bacteremia (DC) Activity:: bedrest Equipment/Supplies:: Oxygen (L/min Below) Diet:: Other Discharge Orders Discharge Orders: Discharge Order (Routine); Ordered 02/16/23 Ordered By: Flavio Woodard DS: Summary Time Spent with Patient providing and/or coordinating discharge services: Greater than 30 minutes Specific discharge activities: coordination with [facility], family Status at Discharge Functional status at discharge: bed bound Overall status at discharge: patient is not back to baseline Mental Status: other (mildly somnolent) Speech and Movement: speech clear and slowed movement Mood: congruent mood and other (mildly somnolent) Affect: normal affect Exam Narrative Exam Narrative: General: Pleasant middle-aged male who is pale, appears sleepy but arouses and answers questions HEENT: EOMI, MMM Heart: irregularly irregular rhythm Lungs: Diminished breath sounds B Extremities: no edema Psych Mental Status: other (mildly somnolent) Speech and Movement: speech clear and slowed movement Mood: congruent mood and other (mildly somnolent) Affect: normal affect DS: Data Vitals/I&O Vitals and I&O: Vital Signs Temperature 36.6 C 02/15/23 23:54 Temperature Source Temporal Artery Scan 02/15/23 23:54 Pulse 23 L 02/16/23 00:30 Pulse Rhythm Irregular 02/15/23 15:09 Pulse 89 02/16/23 00:50 Respiratory Rate 14 02/16/23 00:50 Respiratory Effort Normal 02/15/23 18:00 Respiratory Depth Normal 02/15/23 18:00 Respiratory Pattern Normal 02/15/23 18:00 Blood Pressure 105/65 02/16/23 00:01 Blood Pressure Mean 76 02/16/23 00:01 Blood Pressure Position Supine 02/15/23 18:00 Pulse Oximetry 95 02/16/23 00:50 Oxygen Delivery Method Nasal Cannula 02/15/23 19:30 Oxygen Flow Rate 2 02/15/23 19:30 Fraction of Inspired Oxygen (FIO2) 3 02/16/23 00:55 Pain Level 7 02/15/23 18:00 Intake & Output 02/15/23 02/15/23 02/16/23 11:59 23:59 11:59 Intake Total 2575.4 / 3202.063 626.663 / 3202.063 Output Total 300 / 1350 1050 / 1350 Balance 2275.4 / 1852.063 -423.337 / 1852.063 Intake: IV 2575.4 / 3202.063 626.663 / 3202.063 Output: Urine 300 / 1350 1050 / 1350 Other: Urine Color Light Ursula Yellow Urine Appearance Clear Clear Urine Odor Strong Voiding Methods Urinal Urinal Data Completed and Pending Pending studies at discharge: blood cultures sputum cultures Labs on day of discharge: Labs from last 24 hours 02/16/23 02/16/23 02/16/23 05:35 05:35 01:00 WBC Pending RBC Pending Hgb Pending Hct Pending MCV Pending MCH Pending MCHC Pending RDW Pending Plt Count Pending MPV Pending Immature Gran % Pending Neutrophils % Pending Lymphocytes % Pending Monocytes % Pending Eosinophils % Pending Basophils % Pending Absolute Neutrophils Pending Absolute Lymphocytes Pending Absolute Monocytes Pending Absolute Eosinophils Pending Absolute Basophils Pending APTT Pending VBG Lactate Sodium Pending Potassium Pending Chloride Pending Carbon Dioxide Pending Anion Gap Pending BUN Pending Creatinine Pending Est GFR (CKD-EPI 2020) Pending Glucose Pending Calcium Pending Magnesium Pending Troponin I Add-On Test Request 02/15/23 02/15/23 02/15/23 22:30 21:02 18:30 WBC RBC Hgb Hct MCV MCH MCHC RDW Plt Count MPV Immature Gran % Neutrophils % Lymphocytes % Monocytes % Eosinophils % Basophils % Absolute Neutrophils Absolute Lymphocytes Absolute Monocytes Absolute Eosinophils Absolute Basophils APTT Cancelled VBG Lactate Sodium 138 Potassium 3.2 L Chloride 102 Carbon Dioxide 27.2 Anion Gap 8.8 BUN 14 Creatinine 0.6 L Est GFR (CKD-EPI 2020) 106.46 Glucose 115 H Calcium 9.9 Magnesium 1.5 L Troponin I 245 H* Add-On Test Request 02/15/23 02/15/2302/15/23 18:30 18:30 16:40 WBC RBC Hgb Hct MCV MCH MCHC RDW Plt Count MPV Immature Gran % Neutrophils % Lymphocytes % Monocytes % Eosinophils % Basophils % Absolute Neutrophils Absolute Lymphocytes Absolute Monocytes Absolute Eosinophils Absolute Basophils APTT 50.1 H VBG Lactate Sodium Potassium Chloride Carbon Dioxide Anion Gap BUN Creatinine Est GFR (CKD-EPI 2020) Glucose Calcium Magnesium Troponin I 249 H* Add-On Test Request DONE 02/15/23 02/15/23 02/15/23 09:37 08:00 06:10 WBC 10.03 RBC 3.25 L Hgb 9.9 L Hct 28.9 L MCV 89 MCH 30.5 MCHC 34.3 RDW 15.6 H Plt Count 169 MPV 9.2 Immature Gran % Neutrophils % Lymphocytes % Monocytes % Eosinophils % Basophils % Absolute Neutrophils Absolute Lymphocytes Absolute Monocytes Absolute Eosinophils Absolute Basophils APTT 42.6 H VBG Lactate 1.0 Sodium Potassium Chloride Carbon Dioxide Anion Gap BUN Creatinine Est GFR (CKD-EPI 2020) Glucose Calcium Magnesium Troponin I Add-On Test Request 02/15/23 02/15/23 02/15/23 06:10 05:35 02:20 WBC RBC Hgb Hct MCV MCH MCHC RDW Plt Count MPV Immature Gran % Neutrophils % Lymphocytes % Monocytes % Eosinophils % Basophils % Absolute Neutrophils Absolute Lymphocytes Absolute Monocytes Absolute Eosinophils Absolute Basophils APTT Cancelled 42.3 H VBG Lactate Sodium 138 Potassium 3.5 Chloride 101 Carbon Dioxide 31.2 Anion Gap 5.8 BUN 15 Creatinine 0.7 Est GFR (CKD-EPI 2020) 101.62 Glucose 93 Calcium 10.2 H Magnesium 1.6 L Troponin I Add-On Test Request 02/15/23 15:00 Blood Blood Culture - Pending 02/15/23 12:20 Blood Blood Culture - Pending Preliminary micro results at discharge 02/15/23 15:00 Blood Culture - Pending Blood 02/14/23 16:24 Blood Culture - Preliminary Blood NO GROWTH 24 HOURS 02/14/23 18:45 Blood Culture - Preliminary Blood Gram Positive Cocci 02/15/23 12:20 Blood Culture - Pending Blood PFSH All Active Problems Acute respiratory failure with hypoxia (Acute) Gram-positive bacteremia (Acute) Afib (Chronic) Discharge planning issues (Acute) DVT prophylaxis (Acute) Metastatic lung cancer (metastasis from lung to other site) (Acute) Hemoptysis (Acute) Sinus pause (Acute) Palliative care encounter (Acute) Weakness (Acute) Pneumonia (Acute) Acute dehydration (Acute) Hypercalcemia (Acute) Acute non-ST elevation myocardial infarction (NSTEMI) (Acute) Acute hypokalemia (Acute) Hypomagnesemia (Acute) Unintentional weight loss (Acute) Low back pain (Acute) Advance care planning (Acute) Nausea (Acute) 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 Pyle Status post rotator cuff repair (Acute) Smoker (Acute) Epicondylitis (Acute) Unspecified injury of left quadriceps muscle, fascia and tendon, initial encounter (Acute) Family hx of colon cancer requiring screening colonoscopy (Acute) Quadriceps muscle rupture (Acute) Original injury 08/27/2018 Re-injury on 09/04/2018 Smoker (Chronic) Sexual function problem (Acute) Obstructive sleep apnea syndrome (Chronic) CPAP Oakley's metatarsalgia (Acute) Impaired fasting glucose (Acute) Hypothyroidism (acquired) (Chronic 03/03/17) Hypertension (Chronic) Hyperlipidemia (Chronic) History of alcoholism (Acute) Epicondylitis (Acute) Depressive disorder (Acute 08/10/00) Chest pain (Acute) +MPI-inferior wall; cardiac cath neg. ? 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 Surgical History History of colonoscopy Parotid gland enlargement s/p resection Rotator Cuff Repair Bilateral S/P spinal fusion 01/20/23 [facility] Vascular. L2-4 (skip 3)cement augmented PSIF. -hb S/P total right hip arthroplasty Family History Mother Neoplasm SKIN Father Heart disease Hyperlipidemia Neoplasm COLON Sister No problems noted. 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 Pets and animals: Yes Pets and animals: dog(s) Sexually active: No Do you think of yourself as: straight/heterosexual Current gender identity: male What is your relationship status?: How often do you talk on the phone with friends or family?: three or more times per week How often do you get together with friends or relatives?: three or more times per week How often do you attend christianity or judaism services?: decline to answer Do you belong to any clubs or organized social groups?: no Panel score (0-1 are the most socially isolated patients): 2 What type of physical activity do you participate in: none Frequency: does not exercise Jaymie/Protestant: Latter-Day Special jaymie needs: No Seatbelt use: always Helmet use: Yes Helmet use: always Drive intox or ride w/intox stud driver: No Do you feel safe at home: Yes Do you feel safe in your relationship?: Yes Time Spent with Patient Time Spent with Patient: 70-84 minutes4 Time was spent: preparing to see the patient(eg.review tests), obtaining and/or reviewing separately otained hiistory, referring, communicating with other health neonatal intensive care nurse, indepentently interpreting results, counseling the patient and care coordination
[2023-02-16] MEDS: DOXYCYCLINE 100 MG in Normal Saline 100 ML IVPB (01:40)
[2023-02-16] MEDS: PIPERACILLIN/TAZO 3.375 GM in Normal Saline 50 ML IVPB (01:43)
--- NOTE | 2023-02-16 02:16 | NUR.NOTE ---
Addendum entered by Priscilla Whyte RN 02/16/23 02:16: 02/15/23- 2300- During shift report pt. noted to have bradycardia with rate dropping to 24. He was transferred earlier in the evening to ICU from med./surg. with pauses and bradycardia. Dr. Woodard notified of patient's status. No new orders received. 2330- Pt. continued to have bradycardia, heart rate dropping from 22-35 every 3-5 minutes. Oxygen saturation noted to decrease to mid 80's on home cpap. RT notified and placed patient on additional oxygen at [address] Woodard notified of patient's status, and came to bedside to assess. Patient remains alert and oriented, but is drowsy. CAD pain pump adjusted from 1 mg/hr to 0.1 mg/hr. 02/16/23- 0- Per Dr. Woodard, [facility] [place] has accepted patient for transfer. He notified patient's family of status update, and intent to transfer. Patient and family were agreeable to same. 0115- Dang from the [facility] [place] transfer center called with acceptance in CVCC unit. 0125- Report called to CHRISTINA Fuchs in CVCC unit at at [facility] [place]. ([phone]) Patient continues to have episodes of bradycardia with rate dropping as low as 22. He remains alert and oriented at this time. 0225- Pt. picked up by [facility] for transport to [facility] [place]. Patient agrees with transfer. Signature obtained for same. Original Note: Nursing Note:
[2023-02-21 16:32] LABS: PTH-Related Peptide 2.5 pmol/L (< or = 4.2)
== END 2023-02-16 02:25 | disposition short-term general hospital (02) | DRG 193 ==
LOC: ER 20:11 → MS 21:43 → ICU 02-15 23:30
PROVIDERS: Internal Medicine; Admitting Provider General Practice; Emergency Provider Student in an Organized Health Care Education/Training Program; PCP Family Medicine; Visit Provider General Practice
DX: J18.9 Pneumonia, unspecified organism (principal); I21.A1 Myocardial infarction type 2; J96.01 Acute respiratory failure with hypoxia; C34.90 Malignant neoplasm of unspecified part of unspecified bronchus or lung; C79.51 Secondary malignant neoplasm of bone; R78.81 Bacteremia; R04.2 Hemoptysis; R53.1 Weakness; E87.6 Hypokalemia; E83.42 Hypomagnesemia; E83.52 Hypercalcemia; I48.91 Unspecified atrial fibrillation; E86.0 Dehydration; M54.50 Low back pain, unspecified; R11.0 Nausea; R63.4 Abnormal weight loss; Z68.25 Body mass index [BMI] 25.0-25.9, adult; J84.10 Pulmonary fibrosis, unspecified; M47.816 Spondylosis without myelopathy or radiculopathy, lumbar region; Z96.651 Presence of right artificial knee joint; R73.01 Impaired fasting glucose; I10 Essential (primary) hypertension; E78.5 Hyperlipidemia, unspecified; E03.9 Hypothyroidism, unspecified; Z80.0 Family history of malignant neoplasm of digestive organs; G47.33 Obstructive sleep apnea (adult) (pediatric); Z87.891 Personal history of nicotine dependence; F32.A Depression, unspecified; G25.81 Restless legs syndrome; G89.3 Neoplasm related pain (acute) (chronic); Z95.828 Presence of other vascular implants and grafts; I49.5 Sick sinus syndrome
CPT/HCPCS: 36410; 36415; 70496; 70498; 80048; 80053; 82805; 83690; 85027; 87040; 87077; 87637; 93005; 71045; 74177; 82397; 83605; 83735; 84484; 85025; 85610; 85730; 87070; 87205; 93010; 93306; 94667; 99223; 99291; J1644; J2543; J3475; J3480; J3490; Q9967